=== PATIENT | female | born 1950 | race Caucasian/White ===

== ENCOUNTER → 2017-07-08 12:54 | Outpatient (CLI) | payer MEDICARE, OTHER, SELFPAY ==
[2017-07-08 13:40] LABS: Absolute Lymphocyte Count 1.15 X10^3/ul (0.83-4.51); Absolute Neutrophil Count 15.8 X10^3/uL (2.0-7.7); Basophil# 0.06 X10^3/uL; Basophil% 0.3 % (0-1); Eosinophil# 0.39 X10^3/uL; Eosinophils% 2.2 % (0-5); Hematocrit 42.8 % (37-47); Hemoglobin 12.6 g/dl (12.0-15.0); Lymphocyte # 1.15 X10^3/ul (4.0); Lymphocyte % 6.3 % (19-41); Mean Corp Hgb Conc 29.4 g/gl (32-36); Mean Corpuscular Hgb 22.5 pg (27.0-32.0); Mean Corpuscular Volume 76.6 fL (81-99); Mean Platelet Vol. 10.3 fl (6.2-12.0); Monocyte# 0.66 X10^3/uL; Monocyte% 3.6 % (0-10); Neutrophil % 87.3 % (47-70); Platelet Count 517 K/mm3 (150-450); RBC Distribution Width CV 17.2 % (11.6-14.6); RBC Distribution Width SD 46.7 fl (35.1-43.9); Red Blood Count 5.59 M/mm3 (4.2-5.4); White Blood Count 18.1 K/mm3 (4.4-11.0)
[2017-07-08 13:42] LABS: POSITIVE COUNT NO; POSITIVE DIFFERENTIAL NO; POSITIVE MORPHOLOGY NO
== END ==
PROVIDERS: Family Provider Family Medicine; PCP Family Medicine
DX: D47.1 Chronic myeloproliferative disease (principal); D75.1 Secondary polycythemia
CPT/HCPCS: 36415; 85025

== ENCOUNTER → 2017-07-22 12:51 | Outpatient (CLI) | payer MEDICARE, OTHER, SELFPAY ==
[2017-07-22 13:10] VITALS: BP 101/64; PULSE 72; RESP 16; TEMP 36.8; O2SAT 95; BMI 26.5
[2017-07-22 13:25] LABS: Absolute Lymphocyte Count 1.34 X10^3/ul (0.83-4.51); Absolute Neutrophil Count 16.4 X10^3/uL (2.0-7.7); Basophil# 0.05 X10^3/uL; Basophil% 0.3 % (0-1); Eosinophil# 0.39 X10^3/uL; Eosinophils% 2.1 % (0-5); Hematocrit 43.7 % (37-47); Hemoglobin 12.7 g/dl (12.0-15.0); Lymphocyte # 1.34 X10^3/ul (4.0); Lymphocyte % 7.1 % (19-41); Mean Corp Hgb Conc 29.1 g/gl (32-36); Mean Corpuscular Hgb 21.9 pg (27.0-32.0); Mean Corpuscular Volume 75.5 fL (81-99); Mean Platelet Vol. 10.1 fl (6.2-12.0); Monocyte% 3.2 % (0-10); Neutrophil # 16.38 X10^3/uL (2.7-7.7); Platelet Count 525 K/mm3 (150-450); RBC Distribution Width CV 16.8 % (11.6-14.6); RBC Distribution Width SD 45.7 fl (35.1-43.9); Red Blood Count 5.79 M/mm3 (4.2-5.4); White Blood Count 18.8 K/mm3 (4.4-11.0)
[2017-07-22 13:26] LABS: POSITIVE COUNT NO; POSITIVE DIFFERENTIAL NO
[2017-07-22 13:27] LABS: POSITIVE MORPHOLOGY NO
--- NOTE | 2017-07-22 13:30 | NURSING ---
DUE TO LABS PATIENT DID NOT NEED PHLEBOTOMY
[2017-07-22 13:40] LABS: ALB/GLOB Ratio 0.9 RATIO (0.9-2.4); AST(SGOT) 23 U/L (15-37); Alanine Aminotransfer ALT/SGPT 26 U/L (13-56); Albumin, Serum 3.5 g/dL (3.2-5.0); Alkaline Phosphatase 122 U/L (45-117); Anion Gap 7 (5-15); BUN 26 mg/dL (7-18); BUN/Creat Ratio 27.4 RATIO (10-20); Calcium,Total 8.5 mg/dL (8.5-10.1); Chloride 107 mmol/L (98-107); Creatinine, Serum 0.95 mg/dL (0.55-1.02); EST Glomerular Filtration Rate 63 mL/min (>60); Est Glom Filt Rate - Afr Amer 76 mL/min (>60); Estimated Creatinine Clearance 52.42 ml/min; Globulin 3.8 g/dL (2.2-4.2); Glucose 123 mg/dL (74-106); Potassium 3.8 mmol/L (3.5-5.1); Protein, Total 7.3 g/dL (6.4-8.2); Sodium Level 140 mmol/L (136-145)
== END ==
PROVIDERS: Family Provider Family Medicine; PCP Family Medicine; Visit Provider Internal Medicine Hematology & Oncology
DX: D47.1 Chronic myeloproliferative disease (principal); D75.1 Secondary polycythemia
CPT/HCPCS: 36415; 80053; 85025

== ENCOUNTER → 2017-08-21 11:37 | Outpatient (CLI) | payer MEDICARE, OTHER, SELFPAY ==
[2017-08-21 12:43] LABS: Absolute Lymphocyte Count 2.07 X10^3/ul (0.83-4.51); Absolute Neutrophil Count 13.1 X10^3/uL (2.0-7.7); Basophil# 0.07 X10^3/uL; Basophil% 0.4 % (0-1); Eosinophil# 0.45 X10^3/uL; Eosinophils% 2.7 % (0-5); Hematocrit 44.9 % (37-47); Hemoglobin 13.3 g/dl (12.0-15.0); Lymphocyte # 2.07 X10^3/ul (4.0); Lymphocyte % 12.6 % (19-41); Mean Corp Hgb Conc 29.6 g/gl (32-36); Mean Platelet Vol. 10.4 fl (6.2-12.0); Monocyte# 0.63 X10^3/uL; Monocyte% 3.8 % (0-10); Neutrophil # 13.11 X10^3/uL (2.7-7.7); Neutrophil % 80.2 % (47-70); Platelet Count 429 K/mm3 (150-450); RBC Distribution Width CV 19.6 % (11.6-14.6); RBC Distribution Width SD 48.3 fl (35.1-43.9); Red Blood Count 6.32 M/mm3 (4.2-5.4); White Blood Count 16.4 K/mm3 (4.4-11.0)
[2017-08-21 12:45] LABS: Differential Indicated SCAN CRITERIA MET; POSITIVE COUNT NO; POSITIVE DIFFERENTIAL NO; POSITIVE MORPHOLOGY YES
[2017-08-21 12:58] LABS: ALB/GLOB Ratio 0.9 RATIO (0.9-2.4); AST(SGOT) 20 U/L (15-37); Alanine Aminotransfer ALT/SGPT 19 U/L (13-56); Albumin, Serum 3.6 g/dL (3.2-5.0); Alkaline Phosphatase 113 U/L (45-117); Anion Gap 7 (5-15); BUN 20 mg/dL (7-18); BUN/Creat Ratio 23.8 RATIO (10-20); Chloride 105 mmol/L (98-107); Creatinine, Serum 0.84 mg/dL (0.55-1.02); EST Glomerular Filtration Rate 72 mL/min (>60); Est Glom Filt Rate - Afr Amer 87 mL/min (>60); Glucose 78 mg/dL (74-106); LDH 217 U/L (84-246); Potassium 4.4 mmol/L (3.5-5.1); Protein, Total 7.6 g/dL (6.4-8.2); Sodium Level 140 mmol/L (136-145)
== END ==
PROVIDERS: Family Provider Family Medicine; PCP Family Medicine; Visit Provider Internal Medicine Hematology & Oncology
DX: D47.1 Chronic myeloproliferative disease (principal)
CPT/HCPCS: 36415; 80053; 83615; 85025

== ENCOUNTER → 2017-11-28 09:43 | Outpatient (CLI) | payer MEDICARE, OTHER, SELFPAY ==
[2017-11-28 10:24] LABS: Absolute Lymphocyte Count 1.36 X10^3/ul (0.83-4.51); Basophil# 0.04 X10^3/uL; Basophil% 0.3 % (0-1); Eosinophil# 0.32 X10^3/uL; Eosinophils% 2.2 % (0-5); Hematocrit 46.4 % (37-47); Hemoglobin 13.5 g/dl (12.0-15.0); Lymphocyte # 1.36 X10^3/ul (4.0); Lymphocyte % 9.3 % (19-41); Mean Corp Hgb Conc 29.1 g/gl (32-36); Mean Corpuscular Hgb 22.4 pg (27.0-32.0); Mean Corpuscular Volume 76.8 fL (81-99); Mean Platelet Vol. 9.7 fl (6.2-12.0); Monocyte# 0.87 X10^3/uL; Monocyte% 5.9 % (0-10); Neutrophil # 12.02 X10^3/uL (2.7-7.7); Platelet Count 411 K/mm3 (150-450); RBC Distribution Width CV 20.1 % (11.6-14.6); Red Blood Count 6.04 M/mm3 (4.2-5.4); White Blood Count 14.7 K/mm3 (4.4-11.0)
[2017-11-28 10:25] LABS: Differential Indicated SCAN CRITERIA MET; POSITIVE COUNT YES; POSITIVE DIFFERENTIAL NO; POSITIVE MORPHOLOGY NO
[2017-11-28 11:00] LABS: Anisocytosis 1+; Differential Comment SCANNED
== END ==
PROVIDERS: Family Provider Family Medicine; PCP Family Medicine
DX: D45 Polycythemia vera (principal); D47.1 Chronic myeloproliferative disease
CPT/HCPCS: 36415; 85025

== ENCOUNTER 2017-12-31 14:22 | Outpatient (RCR) | payer MEDICARE, OTHER, SELFPAY ==
[2017-12-31 15:10] LABS: Absolute Lymphocyte Count 1.62 X10^3/ul (0.83-4.51); Absolute Neutrophil Count 13.2 X10^3/uL (2.0-7.7); Basophil# 0.04 X10^3/uL; Basophil% 0.3 % (0-1); Eosinophil# 0.27 X10^3/uL; Eosinophils% 1.7 % (0-5); Hematocrit 46.1 % (37-47); Hemoglobin 13.4 g/dl (12.0-15.0); Lymphocyte # 1.62 X10^3/ul (4.0); Lymphocyte % 10.3 % (19-41); Mean Corp Hgb Conc 29.1 g/gl (32-36); Mean Corpuscular Hgb 22.4 pg (27.0-32.0); Mean Corpuscular Volume 77.1 fL (81-99); Monocyte# 0.57 X10^3/uL; Monocyte% 3.6 % (0-10); Neutrophil # 13.22 X10^3/uL (2.7-7.7); Platelet Count 408 K/mm3 (150-450); RBC Distribution Width CV 18.3 % (11.6-14.6); RBC Distribution Width SD 50.8 fl (35.1-43.9); Red Blood Count 5.98 M/mm3 (4.2-5.4); White Blood Count 15.7 K/mm3 (4.4-11.0)
[2017-12-31 15:11] LABS: POSITIVE COUNT NO; POSITIVE DIFFERENTIAL NO; POSITIVE MORPHOLOGY NO
[2017-12-31 17:06] LABS: ALB/GLOB Ratio 0.9 RATIO (0.9-2.4); AST(SGOT) 24 U/L (15-37); Alanine Aminotransfer ALT/SGPT 22 U/L (13-56); Albumin, Serum 3.5 g/dL (3.2-5.0); Alkaline Phosphatase 114 U/L (45-117); Anion Gap 8 (5-15); BUN 23 mg/dL (7-18); BUN/Creat Ratio 24.8 RATIO (10-20); Calcium,Total 8.8 mg/dL (8.5-10.1); Chloride 108 mmol/L (98-107); Creatinine, Serum 0.93 mg/dL (0.55-1.02); EST Glomerular Filtration Rate 64 mL/min (>60); Est Glom Filt Rate - Afr Amer 78 mL/min (>60); Globulin 3.8 g/dL (2.2-4.2); Glucose 106 mg/dL (74-106); Potassium 3.6 mmol/L (3.5-5.1); Protein, Total 7.3 g/dL (6.4-8.2); Sodium Level 144 mmol/L (136-145)
== END 2017-12-31 15:00 | disposition home or self-care (01) ==
LOC: LAB 14:22
PROVIDERS: Family Provider Family Medicine; PCP Family Medicine; Visit Provider Internal Medicine Hematology & Oncology
DX: D47.1 Chronic myeloproliferative disease (principal); D45 Polycythemia vera
CPT/HCPCS: 36415; 80053; 85025

== ENCOUNTER 2018-01-29 14:51 | Outpatient (RCR) | payer MEDICARE, OTHER, SELFPAY ==
[2018-01-29 15:36] LABS: Absolute Lymphocyte Count 1.48 X10^3/ul (0.83-4.51); Absolute Neutrophil Count 12.4 X10^3/uL (2.0-7.7); Basophil# 0.04 X10^3/uL; Basophil% 0.3 % (0-1); Eosinophil# 0.25 X10^3/uL; Eosinophils% 1.7 % (0-5); Hematocrit 45.9 % (37-47); Hemoglobin 13.6 g/dl (12.0-15.0); Lymphocyte # 1.48 X10^3/ul (4.0); Mean Corp Hgb Conc 29.6 g/gl (32-36); Mean Corpuscular Hgb 22.5 pg (27.0-32.0); Mean Platelet Vol. 10.4 fl (6.2-12.0); Monocyte# 0.58 X10^3/uL; Monocyte% 3.9 % (0-10); Neutrophil # 12.41 X10^3/uL (2.7-7.7); Neutrophil % 83.8 % (47-70); Platelet Count 424 K/mm3 (150-450); RBC Distribution Width CV 18.9 % (11.6-14.6); RBC Distribution Width SD 50.2 fl (35.1-43.9); Red Blood Count 6.04 M/mm3 (4.2-5.4); White Blood Count 14.8 K/mm3 (4.4-11.0)
[2018-01-29 15:39] LABS: POSITIVE COUNT NO; POSITIVE DIFFERENTIAL NO; POSITIVE MORPHOLOGY NO
[2018-01-29 15:48] LABS: ALB/GLOB Ratio 0.9 RATIO (0.9-2.4); AST(SGOT) 19 U/L (15-37); Alanine Aminotransfer ALT/SGPT 20 U/L (13-56); Albumin, Serum 3.4 g/dL (3.2-5.0); Alkaline Phosphatase 109 U/L (45-117); Anion Gap 9 (5-15); BUN 22 mg/dL (7-18); BUN/Creat Ratio 16.9 RATIO (10-20); Calcium,Total 8.8 mg/dL (8.5-10.1); Chloride 106 mmol/L (98-107); EST Glomerular Filtration Rate 44 mL/min (>60); Est Glom Filt Rate - Afr Amer 53 mL/min (>60); Globulin 3.6 g/dL (2.2-4.2); Glucose 134 mg/dL (74-106); LDH 204 U/L (84-246); Potassium 3.6 mmol/L (3.5-5.1); Sodium Level 144 mmol/L (136-145)
== END 2018-01-29 16:00 | disposition home or self-care (01) ==
LOC: LAB 14:51
PROVIDERS: Family Provider Family Medicine; PCP Family Medicine; Visit Provider Internal Medicine Hematology & Oncology
DX: D47.1 Chronic myeloproliferative disease (principal); D45 Polycythemia vera
CPT/HCPCS: 36415; 80053; 83615; 85025

== ENCOUNTER 2018-02-27 14:51 | Outpatient (RCR) | payer MEDICARE, OTHER, SELFPAY ==
[2018-02-27 17:06] LABS: Absolute Lymphocyte Count 1.53 X10^3/ul (0.83-4.51); Absolute Neutrophil Count 13.3 X10^3/uL (2.0-7.7); Basophil# 0.06 X10^3/uL; Basophil% 0.4 % (0-1); Eosinophil# 0.34 X10^3/uL; Eosinophils% 2.1 % (0-5); Hematocrit 47.7 % (37-47); Hemoglobin 14.1 g/dl (12.0-15.0); Lymphocyte # 1.53 X10^3/ul (4.0); Lymphocyte % 9.6 % (19-41); Mean Corp Hgb Conc 29.6 g/gl (32-36); Mean Corpuscular Hgb 22.7 pg (27.0-32.0); Mean Corpuscular Volume 76.9 fL (81-99); Mean Platelet Vol. 10.5 fl (6.2-12.0); Monocyte# 0.74 X10^3/uL; Monocyte% 4.6 % (0-10); Neutrophil # 13.29 X10^3/uL (2.7-7.7); POSITIVE COUNT NO; POSITIVE DIFFERENTIAL NO; POSITIVE MORPHOLOGY NO; Platelet Count 442 K/mm3 (150-450); RBC Distribution Width CV 19.4 % (11.6-14.6); RBC Distribution Width SD 53.1 fl (35.1-43.9)
== END 2018-02-27 16:00 | disposition home or self-care (01) ==
LOC: LAB 14:51
PROVIDERS: Family Provider Family Medicine; PCP Family Medicine; Visit Provider Internal Medicine Hematology & Oncology
DX: D47.1 Chronic myeloproliferative disease (principal); D45 Polycythemia vera
CPT/HCPCS: 36415; 85025

== ENCOUNTER 2018-04-02 13:06 | Outpatient (RCR) | payer MEDICARE, OTHER, SELFPAY ==
[2018-04-02 13:40] LABS: Absolute Lymphocyte Count 1.78 X10^3/ul (0.83-4.51); Absolute Neutrophil Count 15.2 X10^3/uL (2.0-7.7); Basophil# 0.05 X10^3/uL; Basophil% 0.3 % (0-1); Eosinophil# 0.28 X10^3/uL; Eosinophils% 1.5 % (0-5); Hematocrit 50.4 % (37-47); Hemoglobin 14.4 g/dl (12.0-15.0); Lymphocyte # 1.78 X10^3/ul (4.0); Lymphocyte % 9.8 % (19-41); Mean Corp Hgb Conc 28.6 g/gl (32-36); Mean Corpuscular Hgb 22.5 pg (27.0-32.0); Mean Corpuscular Volume 78.6 fL (81-99); Mean Platelet Vol. 10.2 fl (6.2-12.0); Monocyte# 0.83 X10^3/uL; Monocyte% 4.6 % (0-10); Neutrophil # 15.22 X10^3/uL (2.7-7.7); Neutrophil % 83.6 % (47-70); POSITIVE COUNT NO; POSITIVE DIFFERENTIAL NO; POSITIVE MORPHOLOGY NO; Platelet Count 410 K/mm3 (150-450); RBC Distribution Width CV 19.1 % (11.6-14.6); RBC Distribution Width SD 54.3 fl (35.1-43.9); Red Blood Count 6.41 M/mm3 (4.2-5.4); White Blood Count 18.2 K/mm3 (4.4-11.0)
== END 2018-04-02 14:00 | disposition home or self-care (01) ==
LOC: LAB 13:06
PROVIDERS: Family Provider Family Medicine; PCP Family Medicine; Referring Provider Internal Medicine Hematology & Oncology; Visit Provider Internal Medicine Hematology & Oncology
DX: D47.1 Chronic myeloproliferative disease (principal); D45 Polycythemia vera
CPT/HCPCS: 36415; 85025

== ENCOUNTER 2018-05-01 13:36 | Outpatient (RCR) | payer MEDICARE, OTHER, SELFPAY ==
[2018-05-01 14:02] LABS: Absolute Lymphocyte Count 1.83 X10^3/ul (0.83-4.51); Absolute Neutrophil Count 14.4 X10^3/uL (2.0-7.7); Basophil# 0.06 X10^3/uL; Basophil% 0.3 % (0-1); Eosinophil# 0.36 X10^3/uL; Eosinophils% 2.1 % (0-5); Hematocrit 45.9 % (37-47); Hemoglobin 13.2 g/dl (12.0-15.0); Lymphocyte # 1.83 X10^3/ul (4.0); Lymphocyte % 10.4 % (19-41); Mean Corp Hgb Conc 28.8 g/gl (32-36); Mean Corpuscular Hgb 22.5 pg (27.0-32.0); Mean Corpuscular Volume 78.3 fL (81-99); Mean Platelet Vol. 10.4 fl (6.2-12.0); Monocyte# 0.83 X10^3/uL; Monocyte% 4.7 % (0-10); Neutrophil # 14.42 X10^3/uL (2.7-7.7); Neutrophil % 82.3 % (47-70); Platelet Count 449 K/mm3 (150-450); RBC Distribution Width CV 18.2 % (11.6-14.6); RBC Distribution Width SD 51.5 fl (35.1-43.9); Red Blood Count 5.86 M/mm3 (4.2-5.4); White Blood Count 17.5 K/mm3 (4.4-11.0)
[2018-05-01 14:03] LABS: Differential Indicated SCAN CRITERIA MET; POSITIVE COUNT YES; POSITIVE DIFFERENTIAL NO; POSITIVE MORPHOLOGY NO
[2018-05-01 14:19] LABS: Anisocytosis RARE; Microcytosis RARE; Platelet Estimate ADEQUATE (ADEQ); Platelet Morphology LARGE
== END 2018-05-11 10:45 | disposition home or self-care (01) ==
LOC: LAB 13:36
PROVIDERS: Family Provider Family Medicine; PCP Family Medicine; Referring Provider Internal Medicine Hematology & Oncology; Visit Provider Internal Medicine Hematology & Oncology
DX: D47.1 Chronic myeloproliferative disease (principal); D45 Polycythemia vera
CPT/HCPCS: 36415; 85025

== ENCOUNTER 2018-06-05 15:01 | Outpatient (RCR) | payer MEDICARE, OTHER, SELFPAY ==
[2018-06-05 16:49] LABS: Absolute Lymphocyte Count 1.48 X10^3/ul (0.83-4.51); Absolute Neutrophil Count 13.1 X10^3/uL (2.0-7.7); Basophil# 0.04 X10^3/uL; Basophil% 0.3 % (0-1); Eosinophil# 0.33 X10^3/uL; Eosinophils% 2.1 % (0-5); Hematocrit 47.7 % (37-47); Hemoglobin 13.9 g/dl (12.0-15.0); Lymphocyte # 1.48 X10^3/ul (4.0); Lymphocyte % 9.4 % (19-41); Mean Corp Hgb Conc 29.1 g/gl (32-36); Mean Corpuscular Hgb 22.2 pg (27.0-32.0); Mean Corpuscular Volume 76.2 fL (81-99); Mean Platelet Vol. 10.5 fl (6.2-12.0); Monocyte# 0.73 X10^3/uL; Monocyte% 4.7 % (0-10); Neutrophil # 13.06 X10^3/uL (2.7-7.7); Neutrophil % 83.2 % (47-70); Platelet Count 454 K/mm3 (150-450); RBC Distribution Width CV 18.1 % (11.6-14.6); RBC Distribution Width SD 49.7 fl (35.1-43.9); Red Blood Count 6.26 M/mm3 (4.2-5.4); White Blood Count 15.7 K/mm3 (4.4-11.0)
[2018-06-05 16:51] LABS: POSITIVE COUNT NO; POSITIVE DIFFERENTIAL NO; POSITIVE MORPHOLOGY NO
[2018-06-05 16:53] LABS: LDH 382 U/L (84-246)
== END 2018-06-05 16:00 | disposition home or self-care (01) ==
LOC: LAB 15:01
PROVIDERS: Family Provider Family Medicine; PCP Family Medicine; Referring Provider Internal Medicine Hematology & Oncology; Visit Provider Internal Medicine Hematology & Oncology
DX: D47.1 Chronic myeloproliferative disease (principal); D45 Polycythemia vera
CPT/HCPCS: 36415; 83615; 85025

== ENCOUNTER 2018-07-01 15:29 | Outpatient (RCR) | payer MEDICARE, OTHER, SELFPAY ==
[2018-07-01 16:40] LABS: Absolute Lymphocyte Count 1.49 X10^3/ul (0.83-4.51); Absolute Neutrophil Count 12.6 X10^3/uL (2.0-7.7); Basophil# 0.04 X10^3/uL; Basophil% 0.3 % (0-1); Eosinophil# 0.33 X10^3/uL; Eosinophils% 2.2 % (0-5); Hematocrit 46.8 % (37-47); Hemoglobin 13.3 g/dl (12.0-15.0); Lymphocyte # 1.49 X10^3/ul (4.0); Lymphocyte % 9.8 % (19-41); Mean Corp Hgb Conc 28.4 g/gl (32-36); Mean Corpuscular Hgb 21.9 pg (27.0-32.0); Mean Corpuscular Volume 77.1 fL (81-99); Mean Platelet Vol. 10.7 fl (6.2-12.0); Monocyte# 0.72 X10^3/uL; Monocyte% 4.7 % (0-10); Neutrophil # 12.63 X10^3/uL (2.7-7.7); Neutrophil % 82.7 % (47-70); Platelet Count 414 K/mm3 (150-450); RBC Distribution Width CV 18.8 % (11.6-14.6); RBC Distribution Width SD 52.4 fl (35.1-43.9); Red Blood Count 6.07 M/mm3 (4.2-5.4); White Blood Count 15.3 K/mm3 (4.4-11.0)
[2018-07-01 16:49] LABS: LDH 266 U/L (84-246)
[2018-07-01 16:58] LABS: POSITIVE COUNT NO; POSITIVE DIFFERENTIAL NO; POSITIVE MORPHOLOGY NO
--- OUTSIDE RECORDS SUMMARY | 2018-09-02 18:01 | XMS RPT_ITS ---
:1950 Author Organization [place] Support Name Relationship Address Phone CLOSE SANAZ INS Unavailable [address] + [place] [address] NARCISO JANG Unavailable [address] + [place] [address] CLOSE SANAZ INS Unavailable [address] + [place] [address] NARCISO JANG Unavailable [address] + [place] [address] LINWOOD JANG Unavailable [address] + [place], [place] [id number] NARCISO JANG Unavailable [address] [place] [address] NOT GIVEN Unavailable Unavailable Unavailable LINWOOD JANG Unavailable [address] + [place], [place] [id number] NARCISO JANG Unavailable [address] [place] [address] NOT GIVEN Unavailable Unavailable Unavailable CLOSE SANAZ INS Unavailable [address] + [place] [address] NARCISO JANG Unavailable [address] + [place] [address] CLOSE SANAZ INS Unavailable [address] + [place] [address] NARCISO JANG Unavailable [address] + [place] [address] CLOSE SANZA INS Unavailable [address] + [place] [address] NARCISO JANG Unavailable [address] + [place] [address] LINWOOD JANG Unavailable Unavailable + CLOSE SANAZ INS Unavailable [address] + [place] [address] NARCISO JANG Unavailable [address] + [place] [address] CLOSE SANAZ INS Unavailable [address] + [place] [address] NARCISO JANG Unavailable [address] + [place] [address] CLOSE SANAZ INS Unavailable [address] + [place] [address] NARCISO JANG Unavailable [address] + [place] [address] LAINELINWOOD Unavailable Unavailable + LINWOOD JANG Unavailable Unavailable + LINWOOD JANG Unavailable [address] + [place], [place] [id number] NARCISO JANG Unavailable [address] [place] [address] NOT GIVEN Unavailable Unavailable Unavailable LINWOOD JANG Unavailable [address] + [place], [place] [phone] NARCISO JANG Unavailable [address] [place] [address] NOT GIVEN Unavailable Unavailable Unavailable CLOSE SANAZ INS Unavailable [address] + [place] [address] NARCISO JANG Unavailable [address] + [place] [address] CLOSE SANAZ INS Unavailable [address] + [place] [address] NARCISO JANG Unavailable [address] + [place] [address] CLOSE-SANAZ INS Unavailable [address] + [place] [address] NARCISO JANG Unavailable [address] + [place] [address] Care Team Providers Name Role Phone HUNG CHRISTIANSON MD Primary Care Unavailable BHAVIN MENDIETA MD Admitting Unavailable BHAVIN MENDIETA MD Attending Unavailable BHAVIN MENDIETA MD Consulting Unavailable SANAM GROSS MD Attending Unavailable TREHAN MD, SANAM Attending Unavailable CHRISTIANSON, HUNG A Referring Unavailable JUANA, VICENTE DO Admitting Unavailable JUANA, VICENTE DO Attending Unavailable JUANA, VICENTE DO Primary Care Unavailable CHRISTIANSON, HUNG A Consulting Unavailable PROVIDER, UNKNOWN Consulting Unavailable PROVIDER, UNKNOWN Consulting Unavailable PROVIDER, UNKNOWN Consulting Unavailable TREHAN, SANAM Admitting Unavailable TREHAN, SANAM Attending Unavailable TREHAN, SANAM Primary Care Unavailable CHRISTIANSON, HUNG A Consulting Unavailable PROVIDER, UNKNOWN Consulting Unavailable PROVIDER, UNKNOWN Consulting Unavailable PROVIDER, UNKNOWN Consulting Unavailable BRAULIO, MAYO Admitting Unavailable BRAULIO, MAYO Attending Unavailable BRAULIO, MAYO Primary Care Unavailable CHRISTIANSON, HUNG A Consulting Unavailable CHRISTIANSON, HUNG A Referring Unavailable PROVIDER, UNKNOWN Consulting Unavailable PROVIDER, UNKNOWN Consulting Unavailable PROVIDER, UNKNOWN Consulting Unavailable BRAULIO, MAYO Admitting Unavailable BRAULIO, MAYO Attending Unavailable BRAULIO, MAYO Primary Care Unavailable CHRISTIANSON, HUNG A Consulting Unavailable PROVIDER, UNKNOWN Consulting Unavailable PROVIDER, UNKNOWN Consulting Unavailable PROVIDER, UNKNOWN Consulting Unavailable Trehan, Sanam Attending Unavailable Trehan, Sanam Referring Unavailable Christianson, Hung Primary Care Unavailable Christianson, Hung Primary Care Unavailable Trehan, Sanam Attending Unavailable Trehan, Sanam Referring Unavailable BRAYAN CASTELAN Attending Unavailable Christianson, Hung Primary Care Unavailable Christianson, Hung Primary Care Unavailable Trehan, Sanam Attending Unavailable Trehan, Sanam Referring Unavailable BRAYAN CASTELAN Attending Unavailable BRAYAN CASTELAN Referring Unavailable Christianson, Hung Primary Care Unavailable Trehan, Sanam Attending Unavailable Christianson, Hung Primary Care Unavailable Trehan, Sanam Attending Unavailable Christianson, Hung Primary Care Unavailable Trehan, Sanam Referring Unavailable Trehan, Sanam Attending Unavailable Trehan, Sanam Referring Unavailable Christianson, Hung Primary Care Unavailable Trehan, Sanam Attending Unavailable Trehan, Sanam Referring Unavailable Christianson, Hung Primary Care Unavailable Trehan, Sanam Attending Unavailable Trehan, Sanam Referring Unavailable Christianson, Hung Primary Care Unavailable Trehan, Sanam Attending Unavailable Trehan, Sanam Referring Unavailable Christianson, Hung Primary Care Unavailable PROBLEMS PROBLEMS DATE TYPE CONDITION / CODE ATTENDING STATUS SOURCE 06/08/2018 Unknown D47.1 - Chronic Gilberto Grossuti Active [facility] / D47.1(ICD-10) Hospital Repository 05/11/2018 Unknown D45 - Polycythemia vera Sanam Gross Active [facility] / D45(ICD-10) [facility] Repository PROCEDURES PROCEDURES No Procedure Records FoundRESULTS RESULTS LDH Collected: 07/01/2018 Status: F Source: SELLS 3:[address] [facility] REPOSITORY Order Comment: Serial Specimen #1, #2 or #3? 1 TYPE CODE TESTS RESULT OUT OF RANGE REFERENCE UNITS LAB L504.2610 84-246 U/L High LDH 266 Performed By: #### L504.2610 #### [facility] [address] [place], [address] CBC W/DIFF, AUTOMATED Collected: 07/01/2018 Status: F Source: SABINO 3:[address] [facility] REPOSITORY TYPE CODE TESTS RESULT OUT OF RANGE REFERENCE UNITS LAB L100.1000 4.4-11.0 K/mm3 High WBC 15.3 LAB L100.1200 4.2-5.4 M/mm3 High RBC 6.07 LAB L100.1300 12.0-15.0 g/dl Normal HGB 13.3 LAB L100.1400 37-47 % Normal HCT 46.8 LAB L100.1500 81-99 fL Low MCV 77.1 LAB L100.1600 27.0-32.0 pg Low MCH 21.9 LAB L100.1700 32-36 g/gl Low MCHC 28.4 LAB L100.1810 11.6-14.6 % High RDW CV 18.8 LAB L100.1820 35.1-43.9 fl High RDW SD 52.4 LAB L100.1900 150-450 K/mm3 Normal PLT 414 LAB L100.2000 6.2-12.0 fl Normal MPV 10.7 LAB L100.2100 47-70 % High NEUT% 82.7 LAB L100.2200 19-41 % Low LY% 9.8 LAB L100.2300 0-10 % Normal MONO% 4.7 LAB L100.2400 0-5 % Normal EO% 2.2 LAB L100.2500 0-1 % Normal BASO% 0.3 LAB L100.2550 0.0-0.9 % Normal IM GRAN % 0.300 Result Comment: IG% - Immature Granulocytes (promyelocytes, myelocytes and metamyelocytes) > 1% indicates that a LEFT SHIFT is Present. LAB L100.2620 2.0-7.7 X10 3/uL High Absolute Neut 12.6 LAB L100.2720 0.83-4.51 X10 3/ul Normal Absolute Lymph 1.49 Performed By: #### L100.0100 #### [facility] [address] [place], [address] CBC W/DIFF, AUTOMATED Collected: 06/05/2018 Status: F Source: SABINO 3:[address] [facility] REPOSITORY TYPE CODE TESTS RESULT OUT OF RANGE REFERENCE UNITS LAB L100.1000 4.4-11.0 K/mm3 High WBC 15.7 LAB L100.1200 4.2-5.4 M/mm3 High RBC 6.26 LAB L100.1300 12.0-15.0 g/dl Normal HGB 13.9 LAB L100.1400 37-47 % High HCT 47.7 LAB L100.1500 81-99 fL Low MCV 76.2 LAB L100.1600 27.0-32.0 pg Low MCH 22.2 LAB L100.1700 32-36 g/gl Low MCHC 29.1 LAB L100.1810 11.6-14.6 % High RDW CV 18.1 LAB L100.1820 35.1-43.9 fl High RDW SD 49.7 LAB L100.1900 150-450 K/mm3 High PLT 454 LAB L100.2000 6.2-12.0 fl Normal MPV 10.5 LAB L100.2100 47-70 % High NEUT% 83.2 LAB L100.2200 19-41 % Low LY% 9.4 LAB L100.2300 0-10 % Normal MONO% 4.7 LAB L100.2400 0-5 % Normal EO% 2.1 LAB L100.2500 0-1 % Normal BASO% 0.3 LAB L100.2550 0.0-0.9 % Normal IM GRAN % 0.300 Result Comment: IG% - Immature Granulocytes (promyelocytes, myelocytes and metamyelocytes) > 1% indicates that a LEFT SHIFT is Present. LAB L100.2620 2.0-7.7 X10 3/uL High Absolute Neut 13.1 LAB L100.2720 0.83-4.51 X10 3/ul Normal Absolute Lymph 1.48 Performed By: #### L100.0100 #### [facility] [address] [place], [address] LDH Collected: 06/05/2018 Status: F Source: SABINO 3:[address] [facility] REPOSITORY Order Comment: Serial Specimen #1, #2 or #3? 1 TYPE CODE TESTS RESULT OUT OF RANGE REFERENCE UNITS LAB L504.2610 84-246 U/L High LDH 382 Result Comment: Moderate Hemolysis, Result may be falsely increased. Performed By: #### L504.2610 #### [facility] [address] [place], [address] LIPID PROFILE Collected: 05/12/2018 Status: F Source: LAVON GRIFFIN 10:48 AM [facility] TYPE CODE TESTS RESULT OUT OF REFERENCE UNITS RANGE LAB LIPID PROFILE(LOIN C) LIPID PROFILE Result Comment: LIPID PROFILE LAB TRIGLYCERIDE(LOINC) 0 - 150 mg/dl TRIGLYCERIDE 107 LAB CHOLESTEROL(LOINC) 0 - 200 mg/dl CHOLESTEROL 133 LAB HDL(LOINC) 40 - 60 mg/dl HDL 52 LAB CHOL/HDL(LOINC) 0.0 - 5.0 CHOL/HDL 2.6 LAB LDL(LOINC) 0 - 129 mg/dl LDL 60 Performed By: #### [id number] #### [facility],[address] [place] [address] [place] CARDIAC STRESS Observed: 05/12/2018 Status: F Source: LAVON GRIFFIN (SPECT) W/TREADMILL 10:[address] [address] Patient: PHONG JANG I. Phone#: : 1950 Age: 68 Gender: F Pt. Type: Out Account: [id number] Location: [facility] Ordering: MAYO RAMSEY Exam Date: 05/12/2018/5:41 Family Phys: Charge Code: [id number] Physician: [place] Order #: [id number] DLP Dose#: PROCEDURE: CARDIAC STRESS SPECT WITH TREADMILL EXERCISE HISTORY: 68-year-old female with history of CAD S/P LAD PCI in 2017 INDICATIONS: Coronary artery disease TECHNIQUE: Resting and stress SPECT images acquired in the horizontal long, vertical long and short axis views. Protocol: Audie Duration: 10:00 minutes Peak Heart Rate: 166 bpm, which is 108% of maximum predicted heart rate. Workload: 11.70 METs REST DOSE: 10.4 mCi Sestamibi. STRESS DOSE: 34.2 mCi Sestamibi. INTERPRETATION: Resting Images: Homogenous radio tracer uptake throughout the myocardium. Stress Images: Homogenous radio tracer uptake throughout the myocardium Gated SPECT/wall motion: Normal wall motion and normal end- systolic brightening and thickening of all myocardial segments. Calculated LVEF 68% and left ventricle end diastolic volume 77 mL. TID ratio 0.92. CONCLUSION: 1. No evidence of inducible ischemia or prior myocardial infarction. 2. Normal wall motion and normal left ventricle systolic function, LVEF 68%. 3. No prior study available for comparison. Dictated by: MAYO RAMSEY on 05/12/2018 at 11:20 Approved by: MAYO RAMSEY on 05/12/2018 at 11:20 NM EXERCISE STRESS Observed: 05/12/2018 Status: F Source: [facility] (W/CARDIAC STUDY 9:31 AM [place] [address] Patient: PHONG JANG I. Phone#: : 1950 Age: 68 Gender: F Pt. Type: Out Account: [id number] Location: [facility] Ordering: MAYO RAMSEY Exam Date: 05/12/2018/6:31 Family Phys: HUNG CHRISTIANSON Charge Code: [id number] Physician: [place] Order #: [id number] DLP Dose#: PROCEDURE: ELECTROCARDIOGRAM STRESS TEST HISTORY: 68-year-old female with history of CAD S/P LAD PCI in 2017 INDICATIONS: CAD TECHNIQUE: Electrocardiogram stress test was performed using the protocol listed below. STRESS RESULTS: Protocol: Audie Duration: 10:00minutes Reason for termination: Dyspnea/Fatigue Resting Heart Rate: 59 bpm. Resting Blood Pressure: 132/81 mmHg Peak Heart Rate: 166 which is 108% of maximum predicted heart rate Peak Blood Pressure: 180/86 at 3:50 Recovery Workload: 11.7 METs. Symptoms with stress: Non-anginal chest pain at peak exercise which resolved quickly in recovery EKG Data EKG at Baseline: Normal sinus rhythm. Normal EKG. EKG with Stress: 1.[address] depression in leads II, III, V4 to V6 not meeting criteria for ischemia. Occasional PVCs including ventricular couplets were noted. CONCLUSION: 1. Negative exercise EKG stress test for ischemia he 2. Good functional capacity. 3. Nonanginal chest pain at peak exercise which resolved quickly in recovery. 4. Occasional PVCs including ventricular couplets noted. 5. Normal blood pressure and heart rate response to exercise. Continued Report - Page 2 of 2 Patient: PHONG JANG I. Phone#: : 1950 Age: 68 Gender: F Pt. Type: Out Account: [id number] Location: 2 Ordering: MAYO BRAULIO Exam Date: 05/12/2018/6:31 Family Phys: HUNG CHRISTIANSON Charge Code: [id number] Physician: [place] Order #: [id number] DLP Dose#: 6. Nuclear images will be reviewed and reported separately. Dictated by: MAYO RAMSEY on 05/12/2018 at 11:18 Approved by: MAYO RAMSEY on 05/12/2018 at 11:18 CV ECHO COMPLETE Observed: 05/12/2018 Status: F Source: LAV[place] GRIFFIN 8:44 AM [place] [address] Patient: PHONG JANG I. Phone#: : 1950 Age: 68 Gender: F Pt. Type: Out Account: [id number] Location: 052 Ordering: [id number] Exam Date: 05/12/2018/7:31 Family Phys: Charge Code: [id number] Physician: [place] Order #: [id number] DLP Dose#: PROCEDURE: ECHOCARDIOGRAM WITH DOPPLER AND COLOR FLOW HISTORY: 68-year-old female with history of CAD S/P PCI, hypertension and dyslipidemia INDICATIONS: CAD S/P PCI TECHNIQUE: A 2-D ultrasound, color spectral Doppler and M-mode evaluation of the heart and great vessels. PATIENT MEASUREMENTS: Height (in.): 65 BSA: 1.9 Weight (lbs.): 170 BP: 130/81 Crisis Counselor: DORY M MODE 2D MEASUREMENTS AND CALCULATIONS: LVIDd: 4.64 cm LVIDs: 3.21 cm IVSd: 1.29 cm LVPWd: 1.17 cm FS: 30.81 % Ao Root diam: 3.20 cm LA diam: 3.71 cm LA Volume Index: 23 ml/m2 LA A4 Area: 13.5 cm2 RA A4 Area: 12.5 cm2 RVDd: 2.15 cm TAPSE: 25 mm DOPPLER MEASUREMENTS AND CALCULATIONS MITRAL MV E MAX cornell: 101.48 cm/s MV A MAX cornell: 110.11 cm/s MV E-A ratio: 0.92 Lat Peak E' Cornell 10 cm/s Septal Peak E' CORNELL 9 cm/s Continued Report - Page 2 of 3 Patient: PHONG JANG I. Phone#: : 1950 Age: 68 Gender: F Pt. Type: Out Account: [id number] Location: [facility] Ordering: MAYO RAMSEY Exam Date: 05/12/2018/7:31 Family Phys: Charge Code: [id number] Physician: [place] Order #: [id number] DLP Dose#: Lateral E./E.' 10.6 Median E./E.' 11.4 AORTIC Ao V2 max: 151.01 cm/s Ao max P.12 mm[Hg] LV V1 Max 128.24 cm/s LV V1 Max PG 6.58 mm[Hg] PULMONIC PA V2 Max 81.68 cm/s PA Max PG 2.67 mm[Hg] TRICUSPID TR Max Cornell 253.58 cm/s TR max PG 25.82 mm[Hg] RVSP 29 mmHg 2D/M-MODE AND COLOR FLOW LEFT VENTRICLE: Normal left ventricle size. Mild concentric left ventricle hypertrophy. Normal wall motion and systolic function, ejection fraction 55-60%. Average global longitudinal strain -20.2% (normal). Normal diastolic function for age. WALL MOTION: 1 - Basal anterior: Normal. 7 - Mid anterior: Normal. 13 - Apical anterior: Normal. 2 - Basal anteroseptal: Normal. 8 - Mid anteroseptal: Normal. 14 - Apical septal: Normal. 3 - Basal inferoseptal: Normal. 9 - Mid inferoseptal: Normal. 15 - Apical inferior: Normal. 4 - Basal inferior: Normal. 10-Mid inferior: Normal. 16 - Apical lateral: Normal. 5 - Basal inferolateral: Normal. 11-Mid inferolateral: Normal. 6 - Basal anterolateral: Normal. 12-Mid anterolateral: Normal. RIGHT VENTRICLE: Normal size and systolic function. Prominent moderator band noted. LEFT ATRIUM: Normal RIGHT ATRIUM: Normal MITRAL VALVE: Mild mitral annular calcification. Normal leaflet structure and mobility. Mild mitral regurgitation. TRICUSPID VALVE: Normal leaflet structure and mobility. Mild tricuspid regurgitation. AORTIC VALVE: Trileaflet aortic valve with normal leaflet structure and mobility. No significant aortic stenosis or regurgitation. PULMONIC VALVE: Normal leaflet structure and mobility. Trace pulmonic insufficiency AORTIC ROOT: Normal size and mildly calcified IVC/SVC: Normal size and normal respirophasic response PULMONARY VEINS: Normal flow pattern PERICARDIUM: No significant pericardial effusion Continued Report - Page 3 of 3 Patient: PHONG JANG I. Phone#: : 1950 Age: 68 Gender: F Pt. Type: Out Account: [id number] Location: [facility] Ordering: MAYO RAMSEY Exam Date: 05/12/2018/7:31 Family Phys: Charge Code: [id number] Physician: [place] Order #: [id number] DLP Dose#: CONCLUSION: 1. Mild concentric left ventricle hypertrophy with normal wall motion and systolic function, ejection fraction 55- 60%. 2. Normal right ventricle size and systolic function. 3. Mild mitral annular calcification with mild mitral regurgitation. 4. Mild tricuspid regurgitation. 5. Mildly calcified aortic root. 6. Normal diastolic function for age. 7. RVSP estimated to be 29 mmHg. 8. No prior study available for comparison. Dictated by: MAYO RAMSEY on 05/12/2018 at 10:36 Approved by: MAYO RAMSEY on 05/12/2018 at 10:36 CBC W/DIFF, AUTOMATED Collected: 05/01/2018 Status: F Source: SELLS 1:[address] [facility] REPOSITORY TYPE CODE TESTS RESULT OUT OF RANGE REFERENCE UNITS LAB L100.1000 4.4-11.0 K/mm3 High WBC 17.5 LAB L100.1200 4.2-5.4 M/mm3 High RBC 5.86 LAB L100.1300 12.0-15.0 g/dl Normal HGB 13.2 LAB L100.1400 37-47 % Normal HCT 45.9 LAB L100.1500 81-99 fL Low MCV 78.3 LAB L100.1600 27.0-32.0 pg Low MCH 22.5 LAB L100.1700 32-36 g/gl Low MCHC 28.8 LAB L100.1810 11.6-14.6 % High RDW CV 18.2 LAB L100.1820 35.1-43.9 fl High RDW SD 51.5 LAB L100.1900 150-450 K/mm3 Normal PLT 449 LAB L100.2000 6.2-12.0 fl Normal MPV 10.4 LAB L100.2100 47-70 % High NEUT% 82.3 LAB L100.2200 19-41 % Low LY% 10.4 LAB L100.2300 0-10 % Normal MONO% 4.7 LAB L100.2400 0-5 % Normal EO% 2.1 LAB L100.2500 0-1 % Normal BASO% 0.3 LAB L100.2550 0.0-0.9 % Normal IM GRAN % 0.200 Result Comment: IG% - Immature Granulocytes (promyelocytes, myelocytes and metamyelocytes) > 1% indicates that a LEFT SHIFT is Present. LAB L100.2620 2.0-7.7 X10 3/uL Absolute High Neut 14.4 LAB L100.2720 0.83-4.51 X10 3/ul Absolute Normal Lymph 1.83 LAB L100.5500 ADEQ PLT EST Normal ADEQUATE LAB L100.5650 PLT Normal MORPH LARGE LAB L100.7300 ANISO Normal RARE LAB L100.7700 Normal MICROCYTES RARE Performed By: #### L100.0100 #### [facility] [address] [place], [address] CBC W/DIFF, AUTOMATED Collected: 04/02/2018 Status: F Source: SABINO 1:[address] [facility] REPOSITORY TYPE CODE TESTS RESULT OUT OF RANGE REFERENCE UNITS LAB L100.1000 4.4-11.0 K/mm3 High WBC 18.2 LAB L100.1200 4.2-5.4 M/mm3 High RBC 6.41 LAB L100.1300 12.0-15.0 g/dl Normal HGB 14.4 LAB L100.1400 37-47 % High HCT 50.4 LAB L100.1500 81-99 fL Low MCV 78.6 LAB L100.1600 27.0-32.0 pg Low MCH 22.5 LAB L100.1700 32-36 g/gl Low MCHC 28.6 LAB L100.1810 11.6-14.6 % High RDW CV 19.1 LAB L100.1820 35.1-43.9 fl High RDW SD 54.3 LAB L100.1900 150-450 K/mm3 Normal PLT 410 LAB L100.2000 6.2-12.0 fl Normal MPV 10.2 LAB L100.2100 47-70 % High NEUT% 83.6 LAB L100.2200 19-41 % Low LY% 9.8 LAB L100.2300 0-10 % Normal MONO% 4.6 LAB L100.2400 0-5 % Normal EO% 1.5 LAB L100.2500 0-1 % Normal BASO% 0.3 LAB L100.2550 0.0-0.9 % Normal IM GRAN % 0.200 Result Comment: IG% - Immature Granulocytes (promyelocytes, myelocytes and metamyelocytes) > 1% indicates that a LEFT SHIFT is Present. LAB L100.2620 2.0-7.7 X10 3/uL High Absolute Neut 15.2 LAB L100.2720 0.83-4.51 X10 3/ul Normal Absolute Lymph 1.78 Performed By: #### L100.0100 #### [facility] [place], [address] CBC W/DIFF, AUTOMATED Collected: 02/27/2018 Status: F Source: SABINO 2:[address] [facility] REPOSITORY TYPE CODE TESTS RESULT OUT OF RANGE REFERENCE UNITS LAB L100.1000 4.4-11.0 K/mm3 High WBC 16.0 LAB L100.1200 4.2-5.4 M/mm3 High RBC 6.20 LAB L100.1300 12.0-15.0 g/dl Normal HGB 14.1 LAB L100.1400 37-47 % High HCT 47.7 LAB L100.1500 81-99 fL Low MCV 76.9 LAB L100.1600 27.0-32.0 pg Low MCH 22.7 LAB L100.1700 32-36 g/gl Low MCHC 29.6 LAB L100.1810 11.6-14.6 % High RDW CV 19.4 LAB L100.1820 35.1-43.9 fl High RDW SD 53.1 LAB L100.1900 150-450 K/mm3 Normal PLT 442 LAB L100.2000 6.2-12.0 fl Normal MPV 10.5 LAB L100.2100 47-70 % High NEUT% 83.0 LAB L100.2200 19-41 % Low LY% 9.6 LAB L100.2300 0-10 % Normal MONO% 4.6 LAB L100.2400 0-5 % Normal EO% 2.1 LAB L100.2500 0-1 % Normal BASO% 0.4 LAB L100.2550 0.0-0.9 % Normal IM GRAN % 0.300 Result Comment: IG% - Immature Granulocytes (promyelocytes, myelocytes and metamyelocytes) > 1% indicates that a LEFT SHIFT is Present. LAB L100.2620 2.0-7.7 X10 3/uL High Absolute Neut 13.3 LAB L100.2720 0.83-4.51 X10 3/ul Normal Absolute Lymph 1.53 Performed By: #### L100.0100 #### [facility] [address] [place], [address] VIDH Collected: 02/23/2018 Status: F Source: [facility] 3:59 PM [facility] REPOSITORY TYPE CODE TESTS RESULT OUT OF RANGE REFERENCE UNITS LAB VIDH(LOINC) ng/mL Vit. D 30 25-Hydroxy Result Comment: Interpretive Values Based on Total 25(OH)D: Severe Deficiency <20 ng/mL Mild to Moderate Deficiency 20-30 ng/mL Optimum Levels 30-100 ng/mL Toxicity Possible >100 ng/mL Performed By: #### VIDH, TSH #### [facility] [address] [place] [address] TSH Collected: 02/23/2018 Status: F Source: [facility] 3:59 PM [facility] REPOSITORY TYPE CODE TESTS RESULT OUT OF RANGE REFERENCE UNITS LAB TSH(LOINC) 0.360-3.740 mcIU/mL TSH 1.570 Result Comment: Please note as of 12/21/16 new pediatric reference intervals were added for this test. Performed By: #### VIDH, TSH #### [facility] [address] [place] [address] CBC W/DIFF, AUTOMATED Collected: 01/29/2018 Status: F Source: SELLS 2:[address] [facility] REPOSITORY TYPE CODE TESTS RESULT OUT OF RANGE REFERENCE UNITS LAB L100.1000 4.4-11.0 K/mm3 High WBC 14.8 LAB L100.1200 4.2-5.4 M/mm3 High RBC 6.04 LAB L100.1300 12.0-15.0 g/dl Normal HGB 13.6 LAB L100.1400 37-47 % Normal HCT 45.9 LAB L100.1500 81-99 fL Low MCV 76.0 LAB L100.1600 27.0-32.0 pg Low MCH 22.5 LAB L100.1700 32-36 g/gl Low MCHC 29.6 LAB L100.1810 11.6-14.6 % High RDW CV 18.9 LAB L100.1820 35.1-43.9 fl High RDW SD 50.2 LAB L100.1900 150-450 K/mm3 Normal PLT 424 LAB L100.2000 6.2-12.0 fl Normal MPV 10.4 LAB L100.2100 47-70 % High NEUT% 83.8 LAB L100.2200 19-41 % Low LY% 10.0 LAB L100.2300 0-10 % Normal MONO% 3.9 LAB L100.2400 0-5 % Normal EO% 1.7 LAB L100.2500 0-1 % Normal BASO% 0.3 LAB L100.2550 0.0-0.9 % Normal IM GRAN % 0.300 Result Comment: IG% - Immature Granulocytes (promyelocytes, myelocytes and metamyelocytes) > 1% indicates that a LEFT SHIFT is Present. LAB L100.2620 2.0-7.7 X10 3/uL High Absolute Neut 12.4 LAB L100.2720 0.83-4.51 X10 3/ul Normal Absolute Lymph 1.48 Performed By: #### L100.0100 #### [facility] [place], [address] COMPREHENSIVE METABOLIC Collected: 01/29/2018 Status: F Source: SABINO RODRIGUEZ 2:[address] [facility] REPOSITORY Order Comment: Serial Specimen #1, #2 or #3? 1 TYPE CODE TESTS RESULT OUT OF RANGE REFERENCE UNITS LAB L501.0100 74-106 mg/dL High GLU 134 Result Comment: Fasting Glucose result greater than or equal to 126 mg/dL suggests DIABETES MELLITUS per A.D.A. criteria. Please note revised GLUCOSE reference range effective 2017. LAB L501.1000 7-18 mg/dL High BUN 22 LAB L501.1100 0.55-1.02 mg/dL High CREAT,SERUM 1.30 Result Comment: The validity of the calculated GFR AND GFRAA in patients over 70 years has not been determined. Clinical correlation is essential. LAB L501.1110 >60 mL/min Low EST GFR 44 Result Comment: Non- GFR Calc LAB L501.1115 >60 mL/min Low EST GFR - AA 53 Result Comment: GFR Calc LAB L501.1300 10-20 RATIO Normal BUN/CRE 16.9 LAB L501.1500 6.4-8.2 g/dL T Normal PROT 7.0 LAB L501.1800 3.2-5.0 g/dL Normal ALB 3.4 LAB L501.1950 2.2-4.2 g/dL Normal GLOB 3.6 LAB L501.2000 0.9-2.4 RATIO Normal A/G 0.9 LAB L501.2200 8.5-10.1 mg/dL CA Normal 8.8 LAB L501.4100 15-37 U/L Normal AST 19 LAB L501.4305 45-117 U/L Normal ALK P 109 LAB L501.4405 13-56 U/L Normal ALT 20 LAB L501.4600 0.20-1.00 mg/dL T Normal BILI 0.60 LAB L501.5300 136-145 mmol/L NA Normal 144 LAB L501.5600 3.5-5.1 mmol/L K Normal 3.6 LAB L501.5900 98-107 mmol/L CL Normal 106 LAB L501.6100 21.0-32.0 mmol/L Normal CO2 29.0 LAB L501.6200 5-15 Normal GAP 9 Performed By: #### L500.4050, L504.2610 #### [facility] [address] [place], [address] LDH Collected: 01/29/2018 Status: F Source: [place] 2:[address] [facility] REPOSITORY Order Comment: Serial Specimen #1, #2 or #3? 1 TYPE CODE TESTS RESULT OUT OF RANGE REFERENCE UNITS LAB L504.2610 84-246 U/L Normal LDH 204 Performed By: #### L500.4050, L504.2610 #### [facility] [address] [place], [address] CBC W/DIFF, AUTOMATED Collected: 12/31/2017 Status: F Source: [place] 2:[address] [facility] REPOSITORY TYPE CODE TESTS RESULT OUT OF RANGE REFERENCE UNITS LAB L100.1000 4.4-11.0 K/mm3 High WBC 15.7 LAB L100.1200 4.2-5.4 M/mm3 High RBC 5.98 LAB L100.1300 12.0-15.0 g/dl Normal HGB 13.4 LAB L100.1400 37-47 % Normal HCT 46.1 LAB L100.1500 81-99 fL Low MCV 77.1 LAB L100.1600 27.0-32.0 pg Low MCH 22.4 LAB L100.1700 32-36 g/gl Low MCHC 29.1 LAB L100.1810 11.6-14.6 % High RDW CV 18.3 LAB L100.1820 35.1-43.9 fl High RDW SD 50.8 LAB L100.1900 150-450 K/mm3 Normal PLT 408 LAB L100.2000 6.2-12.0 fl Normal MPV 10.0 LAB L100.2100 47-70 % High NEUT% 84.0 LAB L100.2200 19-41 % Low LY% 10.3 LAB L100.2300 0-10 % Normal MONO% 3.6 LAB L100.2400 0-5 % Normal EO% 1.7 LAB L100.2500 0-1 % Normal BASO% 0.3 LAB L100.2550 0.0-0.9 % Normal IM GRAN % 0.100 Result Comment: IG% - Immature Granulocytes (promyelocytes, myelocytes and metamyelocytes) > 1% indicates that a LEFT SHIFT is Present. LAB L100.2620 2.0-7.7 X10 3/uL High Absolute Neut 13.2 LAB L100.2720 0.83-4.51 X10 3/ul Normal Absolute Lymph 1.62 Performed By: #### L100.0100 #### [facility] [address] [place], [address] COMPREHENSIVE METABOLIC Collected: 12/31/2017 Status: F Source: [facility] 2:[address] [facility] REPOSITORY TYPE CODE TESTS RESULT OUT OF RANGE REFERENCE UNITS LAB L501.0100 74-106 mg/dL Normal GLU 106 Result Comment: Fasting Glucose result from 100 to 125 mg/dL suggests IMPAIRED HOMEOSTASIS per A.D.A. criteria. Please note revised GLUCOSE reference range effective 2017. LAB L501.1000 7-18 mg/dL High BUN 23 LAB L501.1100 0.55-1.02 mg/dL Normal CREAT,SERUM 0.93 Result Comment: The validity of the calculated GFR AND GFRAA in patients over 70 years has not been determined. Clinical correlation is essential. LAB L501.1110 >60 mL/min Normal EST GFR 64 Result Comment: Non- GFR Calc LAB L501.1115 >60 mL/min Normal EST GFR - AA 78 Result Comment: GFR Calc LAB L501.1300 10-20 RATIO High BUN/CRE 24.8 LAB L501.1500 6.4-8.2 g/dL T Normal PROT 7.3 LAB L501.1800 3.2-5.0 g/dL Normal ALB 3.5 LAB L501.1950 2.2-4.2 g/dL Normal GLOB 3.8 LAB L501.2000 0.9-2.4 RATIO Normal A/G 0.9 LAB L501.2200 8.5-10.1 mg/dL CA Normal 8.8 LAB L501.4100 15-37 U/L Normal AST 24 LAB L501.4305 45-117 U/L Normal ALK P 114 LAB L501.4405 13-56 U/L Normal ALT 22 LAB L501.4600 0.20-1.00 mg/dL T Normal BILI 0.60 LAB L501.5300 136-145 mmol/L NA Normal 144 LAB L501.5600 3.5-5.1 mmol/L K Normal 3.6 LAB L501.5900 98-107 mmol/L High CL 108 LAB L501.6100 21.0-32.0 mmol/L Normal CO2 28.0 LAB L501.6200 5-15 Normal GAP 8 Performed By: #### L500.4050 #### [facility] [address] [place], [address] EMERGENCY REPORT Observed: 11/29/2017 Status: F Source: [facility] 4:39 AM [facility] EMERGENCY ROOM REPORT NAME ACCOUNT SEX AGE ADMIT DISCHARGE PT MED. RECORD# NUMBER DATE DATE TYPE PHONG JANG I [id number] F 67 10/06/17 10/07/17 [id number] ROOM: ER DATE OF : 1950 DICTATING PHYSICIAN: Vicente Arias CHIEF COMPLAINT: Abdominal pain. HISTORY OF PRESENT ILLNESS: This is a 67-year-old female who presents complaining of back pain and left-sided abdominal pain after being kicked by her mule 3 days ago. Patient reports that she believes she was kicked twice. She was having the mule shoed and during the time of having the shoes placed, the mule became agitated and kicked her and she flew. Patient reports that initially her pain was bad but it did improve some. However, her pain has today, become exceedingly worse and sharp in nature and she has noticed that her bruising is definitely worse as well. She denies any associated shortness of breath, hematuria or dysuria or blood in her stool. PAST MEDICAL HISTORY: Remarkable for polycythemia vera and she has had an IL in the past. PAST SURGICAL HISTORY: Patient has a history of cardiac catheterization with stent placement. ALLERGIES: The patient has no known drug allergies. SOCIAL HISTORY: She lives at home with her family. She does not smoke, drink alcohol or use illicit drugs. She is up-to-date on immunizations. REVIEW OF SYSTEMS: A 10-point review of systems was obtained and is positive for abdominal pain, back pain, and ecchymosis. It is otherwise, negative. PHYSICAL EXAMINATION: In general the patient is alert, awake and in no acute distress although, she does appear uncomfortable. Her head is normocephalic, atraumatic. Pupils are equal, round and reactive to light and accommodation. Extraocular muscles are intact. Mucous membranes are moist. Patient's neck is supple. Trachea is midline. She has no C-spine tenderness. Her cardiac exam is regular rate and rhythm. No murmurs appreciated. Lungs are clear to auscultation bilaterally. Her abdomen is soft, but there are some areas of distention. It is very tender to palpation, particularly over the left flank. She has a very large ecchymosis over the left flank. She has involuntary guarding and some rebound, but there is no rigidity. Her extremities demonstrate no edema or gross deformity. Peripheral pulses are intact. She does have a fairly large ecchymosis on the posterior aspect of her right upper arm with no bony tenderness. She also has ecchymosis on her back. There is no palpable deformity. She Page 1 of 2 [facility] Emergency Room Report has otherwise, normal muscle strength and range of motion. Her motor and sensory are grossly intact. She has appropriate mood and behavior. DIAGNOSTIC DATA: CT of the abdomen and pelvis was obtained and lab work was ordered. The patient's lab work is unremarkable. Chest x- ray was also ordered and it shows no acute pathology. Her CT scan, however, does show large subcutaneous swelling and edema on the left flank that is associated with a retroperitoneal hematoma near the iliopsoas muscle on the left. She also has a splenic bruise or contusion. There is no other obvious intraabdominal or pelvic pathology at this time. MEDICAL DECISION MAKING/EMERGENCY DEPARTMENT COURSE AND TREATMENT: The patient is afebrile, nontoxic, and in no acute distress upon arrival to the ED. However, the patient's mechanism of injury is very concerning and I am concerned about an intraabdominal, intrathoracic injury, although I suspect that it is intraabdominal given the bruising. It is also especially concerning given the patient is on dual antiplatelet therapy, that her pain has worsened, I am concerned that there is some extravasation or bleeding today. DIAGNOSES: 1. Blunt abdominal trauma. 2. Retroperitoneal hematoma. 3. Splenic contusion. PLAN/DISPOSITION: Diagnostic results were discussed with the patient, as was the importance of getting her definitive care or evaluation by a trauma surgeon. The patient expressed understanding and is agreeable with the plan of being transferred. She was given pain medicine, which did help considerably. She was also started on IV fluids. I did speak with the accepting physician at [facility] who agreed to evaluate the patient after transport. The patient remained stable in the emergency department prior to transport via EMS to [facility]. Dictated By: Vicente Arias DO 10/07/17 12:33 JOB #: [id number] Transcribed By: jett 10/08/17 09:21 Electronically signed by: DR. VICENTE ARIAS D.O. 11/29/17 04:39 Page 2 of 2 [facility] Emergency Room Report CBC W/DIFF, AUTOMATED Collected: 11/28/2017 Status: F Source: [place] 10:[address] [facility] REPOSITORY TYPE CODE TESTS RESULT OUT OF RANGE REFERENCE UNITS LAB L100.1000 4.4-11.0 K/mm3 High WBC 14.7 LAB L100.1200 4.2-5.4 M/mm3 High RBC 6.04 LAB L100.1300 12.0-15.0 g/dl Normal HGB 13.5 LAB L100.1400 37-47 % Normal HCT 46.4 LAB L100.1500 81-99 fL Low MCV 76.8 LAB L100.1600 27.0-32.0 pg Low MCH 22.4 LAB L100.1700 32-36 g/gl Low MCHC 29.1 LAB L100.1810 11.6-14.6 % High RDW CV 20.1 LAB L100.1820 35.1-43.9 fl High RDW SD 56.0 LAB L100.1900 150-450 K/mm3 Normal PLT 411 LAB L100.2000 6.2-12.0 fl Normal MPV 9.7 LAB L100.2100 47-70 % High NEUT% 82.0 LAB L100.2200 19-41 % Low LY% 9.3 LAB L100.2300 0-10 % Normal MONO% 5.9 LAB L100.2400 0-5 % Normal EO% 2.2 LAB L100.2500 0-1 % Normal BASO% 0.3 LAB L100.2550 0.0-0.9 % Normal IM GRAN % 0.300 Result Comment: IG% - Immature Granulocytes (promyelocytes, myelocytes and metamyelocytes) > 1% indicates that a LEFT SHIFT is Present. LAB L100.2620 2.0-7.7 X10 3/uL High Absolute Neut 12.0 LAB L100.2720 0.83-4.51 X10 3/ul Normal Absolute Lymph 1.36 LAB L100.4500 Normal SMEAR COMMENT SCANNED LAB L100.7300 Normal ANISO 1+ Performed By: #### L100.0100 #### [facility] [address] [place] [address]. [place], [place], [id number] LDH Collected: 10/31/2017 Status: F Source: [facility] 1:32 PM [facility] REPOSITORY TYPE CODE TESTS RESULT OUT OF RANGE REFERENCE UNITS LAB LD(LOINC) 120-246 U/L LDH 243 Performed By: #### LD, CMP, GFR, CBC, MORPH, ADIFF, ANEU #### [address] [address] CMP Collected: 10/31/2017 Status: F Source: [facility] 1:32 PM [facility] REPOSITORY TYPE CODE TESTS RESULT OUT OF REFERENCE UNITS RANGE LAB GLU(LOINC) 82-115 mg/dL Low Glucose Level 71 LAB NA(LOINC) 136-145 mEq/L Sodium Level 145 LAB K(LOINC) 3.5-5.0 mEq/L Potassium Level 4.5 LAB CL(LOINC) 98-110 mEq/L Chloride 108 LAB CO2(LOINC) 22-32 mEq/L CO2 28 LAB EBAL(LOINC 4.0-15.0 mEq/L ) Electrolyte Balance 9.0 LAB BUN(LOINC) 8.0-22.0 mg/dL BUN 20.0 LAB CRE(LOINC) 0.50-1.20 mg/dL Creatinine Lvl (s) 0.79 LAB BC(LOINC) 10.0-22.0 ratio High BUN/Creatinine 25.3 Ratio LAB CA(LOINC) 8.4-10.1 mg/dL Calcium Lvl 8.7 LAB PROT(LOINC 6.0-8.5 G/dL ) Total Protein 6.9 LAB ALB(LOINC) 3.2-4.8 G/dL Albumin Level 3.7 LAB GLB(LOINC) 1.5-3.8 G/dL Globulin 3.2 LAB AG(LOINC) 0.9-1.6 ratio A/G Ratio 1.2 LAB BILT(LOINC 0.2-1.2 mg/dL ) Bili Total 0.7 LAB AP(LOINC) 38-126 U/L Alk Phos 118 LAB AST(LOINC) 8-34 U/L AST/SGOT 19 LAB ALT(LOINC) 10-49 U/L ALT/SGPT 17 Performed By: #### LD, CMP, GFR, CBC, MORPH, ADIFF, ANEU #### [place] [address] .GFR Collected: 10/31/2017 Status: F Source: [facility] 1:32 PM [facility] REPOSITORY TYPE CODE TESTS RESULT OUT OF REFERENCE UNITS RANGE LAB GFRAA(LOINC ml/min/1.73 ) sqm GFR >60 [place] Result Comment: GFR Population mean for , Non- Americans Ages 20-29 = 116 mL/min/1.73 sq.m. Ages 30-39 = 107 mL/min/1.73 sq.m. Ages 40-49 = 99 mL/min/1.73 sq.m. Ages 50-59 = 93 mL/min/1.73 sq.m. Ages 60-69 = 85 mL/min/1.73 sq.m. Ages 70+ = 75 mL/min/1.73 sq.m. Chronic Kidney Disease: Less than 60 mL/min/1.73 square meters End Stage Renal Disease: Less than 15 mL/min/1.73 square meters LAB GFRNO(LOINC) ml/min/1.73sqm GFR Non- >60 Result Comment: GFR Population mean for , Non- Americans Ages 20-29 = 116 mL/min/1.73 sq.m. Ages 30-39 = 107 mL/min/1.73 sq.m. Ages 40-49 = 99 mL/min/1.73 sq.m. Ages 50-59 = 93 mL/min/1.73 sq.m. Ages 60-69 = 85 mL/min/1.73 sq.m. Ages 70+ = 75 mL/min/1.73 sq.m. Chronic Kidney Disease: Less than 60 mL/min/1.73 square meters End Stage Renal Disease: Less than 15 mL/min/1.73 square meters Performed By: #### LD, CMP, GFR, CBC, MORPH, ADIFF, ANEU #### [address] [address] CBC Collected: 10/31/2017 Status: F Source: [facility] 1:32 PM [facility] REPOSITORY TYPE CODE TESTS RESULT OUT OF REFERENCE UNITS RANGE LAB WBC(LOINC) 4.50-10.80 10 3/mcL High WBC 14.90 LAB RBCCT(LOINC 4.10-5.30 10 6/mcL ) High RBC 5.82 LAB HGB(LOINC) 12.0-16.0 G/dL Hgb 13.0 LAB HCT(LOINC) 34.0-46.0 % Hct 42.1 LAB MCV(LOINC) 80.0-99.0 fL Low MCV 72.3 LAB MCH(LOINC) 27.0-33.0 pg Low MCH 22.3 LAB MCHC(LOINC) 32.0-36.0 G/dL Low MCHC 30.9 LAB RDW(LOINC) 11.5-15.5 % High RDW 24.8 LAB PLT(LOINC) 150-450 10 3/mcL High Platelet 451 LAB MPV(LOINC) 6.6-10.5 fL MPV 8.9 Performed By: #### LD, CMP, GFR, CBC, MORPH, ADIFF, ANEU #### [address] [address] .MORPH Collected: 10/31/2017 Status: F Source: [facility] 1:32 PM [facility] REPOSITORY TYPE CODE TESTS RESULT OUT OF REFERENCE UNITS RANGE LAB PLTE(LOINC ) Platelet Estimate Normal LAB ANIS(LOINC ) Anisocytosis Moderate LAB POIK(LOINC ) Poik Slight LAB HYPC(LOINC ) Hypochrom Slight LAB POLC(LOINC ) Polychrom Slight LAB MICYT(LOIN C) Microcytosis Moderate LAB OVAL(LOINC ) Ovalocytes Few LAB ACAN(LOINC ) Acanthocytes Few Performed By: #### LD, CMP, GFR, CBC, MORPH, ADIFF, ANEU #### [place] [address] .AUTO DIFF Collected: 10/31/2017 Status: F [facility] REPOSITORY TYPE CODE TESTS RESULT OUT OF REFERENCE UNITS RANGE LAB ROSALIA(LOINC) 50.0-75.0 % High Neutrophil % 82.6 LAB LYM(LOINC) 20.0-40.0 % Low Lymphocyte % 9.9 LAB MON(LOINC) 2.0-13.0 % Monocyte % 4.6 LAB EO(LOINC) 0.0-6.0 % Eosinophil % 2.2 LAB BAS(LOINC) 0.0-2.5 % Basophil % 0.7 LAB ABLYM(LOIN 0.90-4.32 10 3/mcL C) Lymphocyte, 1.50 Absolute LAB DEEP(LOINC 0.09-1.40 10 3/mcL ) Monocyte, 0.70 Absolute LAB AEOS(LOINC 0.00-0.65 10 3/mcL ) Eosinophil, 0.30 Absolute LAB ABAS(LOINC 0.00-0.27 10 3/mcL ) Basophil, 0.10 Absolute Performed By: #### LD, CMP, GFR, CBC, MORPH, ADIFF, ANEU #### [place] [address] .NEUABS Collected: 10/31/2017 Status: F Source: [place] [facility] 1:32 PM [facility] REPOSITORY TYPE CODE TESTS RESULT OUT OF REFERENCE UNITS RANGE LAB ANEU(LOINC) 2.25-8.10 10 3/mcL High Neutrophil, 12.30 Absolute Performed By: #### LD, CMP, GFR, CBC, MORPH, ADIFF, ANEU #### [place] [address] US ABDOMEN COMPLETE Observed: 10/31/2017 Status: F Source: [facility] 1:00 PM [facility] REPOSITORY ORIGINAL Complete ultrasound of the abdomen HISTORY: Myeloproliferative disorder. Retroperitoneal hematoma. COMPARISON: CT scan 10/07/2017 The abdominal aorta and the IVC are unremarkable. The aortic bifurcation is normal. Visible portions of the pancreas are normal. No focal liver lesion is evident and there is no biliary dilatation. The common duct is normal, 4 mm in diameter. The gallbladder is less than optimally distended. I suspect some sludge within the gallb ladder. No stones, wall thickening or adjacent fluid are evident. Negative sonographic Harrell's sign. Right kidney 10.3 cm length and left kidney 10.2 cm length. No stone, mass or collecting system dilatation is identified. There is no perinephric fluid present. The spleen is mildly prominent. It measures 13.4 cm in length, however not significantly different than on the previous CT scan. No focal spleen lesion is evident. There is no free fluid identified. The left-sided inferior retroperitoneal hemorrhage seen on the prior CT scan is not evident on this exam. IMPRESSION: 1. Minimal gallbladder sludge. 2. Mild splenomegaly without focal lesion, nonspecific. 3. No acute finding. Previously seen left-sided retroperitoneal hemorrhage cannot be identified on this exam probably due to overlying bowel gas. Interpreted By: Roger Bear MD Preliminary Report By: Roger Bear MD Electronically Signed By: Roger Bear MD Dictated Date: 10/31/2017 1:32:46 PM Prelim Date: 10/31/2017 1:32:46 PM Sign Date: 10/31/2017 1:36:34 PM CBC Collected: 10/08/2017 Status: F Source: [facility] 6:03 AM [facility] REPOSITORY TYPE CODE TESTS RESULT OUT OF REFERENCE UNITS RANGE LAB WBC(LOINC) 4.50-10.80 10 3/mcL High WBC 12.50 LAB RBCCT(LOINC 4.10-5.30 10 6/mcL ) RBC 5.01 LAB HGB(LOINC) 12.0-16.0 G/dL Low Hgb 10.6 LAB HCT(LOINC) 34.0-46.0 % Hct 34.8 LAB MCV(LOINC) 80.0-99.0 fL Low MCV 69.5 LAB MCH(LOINC) 27.0-33.0 pg Low MCH 21.2 LAB MCHC(LOINC) 32.0-36.0 G/dL Low MCHC 30.6 LAB RDW(LOINC) 11.5-15.5 % High RDW 22.3 LAB PLT(LOINC) 150-450 10 3/mcL Platelet 390 LAB MPV(LOINC) 6.6-10.5 fL MPV 8.8 Performed By: #### CBC, ADIFF, ANEU, BMP, GFR #### [place] [address] .AUTO DIFF Collected: 10/08/2017 Status: F Source: [facility] 6:03 AM [facility] REPOSITORY TYPE CODE TESTS RESULT OUT OF REFERENCE UNITS RANGE LAB ROSALIA(LOINC) 50.0-75.0 % Neutrophil % 74.3 LAB LYM(LOINC) 20.0-40.0 % Low Lymphocyte % 16.2 LAB MON(LOINC) 2.0-13.0 % Monocyte % 5.7 LAB EO(LOINC) 0.0-6.0 % Eosinophil % 3.1 LAB BAS(LOINC) 0.0-2.5 % Basophil % 0.7 LAB ABLYM(LOIN 0.90-4.32 10 3/mcL C) Lymphocyte, 2.00 Absolute LAB DEEP(LOINC 0.09-1.40 10 3/mcL ) Monocyte, 0.70 Absolute LAB AEOS(LOINC 0.00-0.65 10 3/mcL ) Eosinophil, 0.40 Absolute LAB ABAS(LOINC 0.00-0.27 10 3/mcL ) Basophil, 0.10 Absolute Performed By: #### CBC, ADIFF, ANEU, BMP, GFR #### [place] [address] .NEUABS Collected: 10/08/2017 Status: F Source: [facility] 6:03 AM [facility] REPOSITORY TYPE CODE TESTS RESULT OUT OF REFERENCE UNITS RANGE LAB ANEU(LOINC) 2.25-8.10 10 3/mcL High Neutrophil, 9.30 Absolute Performed By: #### CBC, ADIFF, ANEU, BMP, GFR #### [place] [address] BMP Collected: 10/08/2017 Status: F Source: [facility] 6:03 AM [facility] REPOSITORY TYPE CODE TESTS RESULT OUT OF REFERENCE UNITS RANGE LAB GLU(LOINC) 82-115 mg/dL Low Glucose Level 74 LAB NA(LOINC) 136-145 mEq/L Sodium Level 144 LAB K(LOINC) 3.5-5.0 mEq/L Potassium Level 4.6 LAB CL(LOINC) 98-110 mEq/L Chloride 108 LAB CO2(LOINC) 22-32 mEq/L CO2 28 LAB EBAL(LOINC 4.0-15.0 mEq/L ) Electrolyte Balance 8.0 LAB BUN(LOINC) 8.0-22.0 mg/dL BUN 18.0 LAB CRE(LOINC) 0.50-1.20 mg/dL Creatinine Lvl (s) 0.78 LAB BC(LOINC) 10.0-22.0 ratio High BUN/Creatinine 23.1 Ratio LAB CA(LOINC) 8.4-10.1 mg/dL Calcium Lvl 8.5 Performed By: #### CBC, ADIFF, ANEU, BMP, GFR #### [place] [address] .GFR Collected: 10/08/2017 Status: F Source: [facility] 6:03 AM [facility] REPOSITORY TYPE CODE TESTS RESULT OUT OF REFERENCE UNITS RANGE LAB GFRAA(LOINC ml/min/1.73 ) sqm GFR >60 [place] Result Comment: GFR Population mean for , Non- Americans Ages 20-29 = 116 mL/min/1.73 sq.m. Ages 30-39 = 107 mL/min/1.73 sq.m. Ages 40-49 = 99 mL/min/1.73 sq.m. Ages 50-59 = 93 mL/min/1.73 sq.m. Ages 60-69 = 85 mL/min/1.73 sq.m. Ages 70+ = 75 mL/min/1.73 sq.m. Chronic Kidney Disease: Less than 60 mL/min/1.73 square meters End Stage Renal Disease: Less than 15 mL/min/1.73 square meters LAB GFRNO(LOINC) ml/min/1.73sqm GFR Non- >60 Result Comment: GFR Population mean for , Non- Americans Ages 20-29 = 116 mL/min/1.73 sq.m. Ages 30-39 = 107 mL/min/1.73 sq.m. Ages 40-49 = 99 mL/min/1.73 sq.m. Ages 50-59 = 93 mL/min/1.73 sq.m. Ages 60-69 = 85 mL/min/1.73 sq.m. Ages 70+ = 75 mL/min/1.73 sq.m. Chronic Kidney Disease: Less than 60 mL/min/1.73 square meters End Stage Renal Disease: Less than 15 mL/min/1.73 square meters Performed By: #### CBC, ADIFF, ANEU, BMP, GFR #### [address] [address] HH Collected: 10/07/2017 Status: F Source: [facility] 12:00 PM [facility] REPOSITORY TYPE CODE TESTS RESULT OUT OF RANGE REFERENCE UNITS LAB HGB(LOINC) 12.0-16.0 G/dL Low Hgb 10.6 LAB HCT(LOINC) 34.0-46.0 % Low Hct 33.9 Performed By: #### HH #### [place] [address] CBC Collected: 10/07/2017 Status: F Source: [facility] 6:49 AM [facility] REPOSITORY TYPE CODE TESTS RESULT OUT OF REFERENCE UNITS RANGE LAB WBC(LOINC) 4.50-10.80 10 3/mcL High WBC 15.70 LAB RBCCT(LOINC 4.10-5.30 10 6/mcL ) RBC 5.04 LAB HGB(LOINC) 12.0-16.0 G/dL Low Hgb 10.8 LAB HCT(LOINC) 34.0-46.0 % Hct 35.0 LAB MCV(LOINC) 80.0-99.0 fL Low MCV 69.4 LAB MCH(LOINC) 27.0-33.0 pg Low MCH 21.5 LAB MCHC(LOINC) 32.0-36.0 G/dL Low MCHC 30.9 LAB RDW(LOINC) 11.5-15.5 % High RDW 21.5 LAB PLT(LOINC) 150-450 10 3/mcL Platelet 401 LAB MPV(LOINC) 6.6-10.5 fL MPV 9.0 Performed By: #### CBC, DIFF, MORPH #### [address] [address] .MANUAL DIFF Collected: 10/07/2017 Status: F Source: [facility] 6:49 AM [facility] REPOSITORY TYPE CODE TESTS RESULT OUT OF REFERENCE UNITS RANGE LAB LIMIT(LOIN C) Cells Counted 100 LAB NEUM(LOINC 50.0-75.0 % ) High Neutrophil %, 85.0 Manual LAB LYMM(LOINC 20.0-40.0 % ) Low Lymphocyte %, 11.0 Manual LAB EOM(LOINC) 2.0-13.0 % Monocyte %, Manual 3.0 Result Comment: 1.0 LAB BASM(LOINC) 0.0-2.5 % Basophil %, Manual 0.0 LAB ANEUM(LOINC) 2.25-8.10 10 3/mcL High Neutrophil, Abs Manual 13.35 LAB ABLYMM(LOINC) 0.90-4.32 10 3/mcL Lymphocyte, Abs Manual 1.73 LAB AMONM(LOINC) 0.09-1.40 10 3/mcL Monocyte, Abs Manual 0.47 LAB AEOSM(LOINC) 0.00-0.65 10 3/mcL Eosinophil, Abs Manual 0.16 LAB ABASM(LOINC) 0.00-0.27 10 3/mcL Basophil, Abs Manual 0.00 Performed By: #### CBC, DIFF, MORPH #### [address] [address] .MORPH Collected: 10/07/2017 Status: F Source: [facility] 6:49 AM [facility] REPOSITORY TYPE CODE TESTS RESULT OUT OF REFERENCE UNITS RANGE LAB PLTE(LOINC ) Platelet Estimate Normal LAB ANIS(LOINC ) Anisocytosis Slight LAB POIK(LOINC ) Poik Slight LAB HYPC(LOINC ) Hypochrom Slight LAB POLC(LOINC ) Polychrom Slight LAB MICYT(LOIN C) Microcytosis Moderate LAB TEAR(LOINC ) Tear Cell Rare LAB OVAL(LOINC ) Ovalocytes Few Performed By: #### CBC, DIFF, MORPH #### [address] [address] CMP Collected: 10/07/2017 Status: F Source: [facility] 6:49 AM [facility] REPOSITORY TYPE CODE TESTS RESULT OUT OF REFERENCE UNITS RANGE LAB GLU(LOINC) 82-115 mg/dL Glucose Level 86 LAB NA(LOINC) 136-145 mEq/L Sodium Level 145 LAB K(LOINC) 3.5-5.0 mEq/L Potassium Level 4.0 LAB CL(LOINC) 98-110 mEq/L Chloride 110 LAB CO2(LOINC) 22-32 mEq/L CO2 26 LAB EBAL(LOINC 4.0-15.0 mEq/L ) Electrolyte Balance 9.0 LAB BUN(LOINC) 8.0-22.0 mg/dL BUN 21.0 LAB CRE(LOINC) 0.50-1.20 mg/dL Creatinine Lvl (s) 0.72 LAB BC(LOINC) 10.0-22.0 ratio High BUN/Creatinine 29.2 Ratio LAB CA(LOINC) 8.4-10.1 mg/dL Calcium Lvl 8.6 LAB PROT(LOINC 6.0-8.5 G/dL ) Total Protein 6.2 LAB ALB(LOINC) 3.2-4.8 G/dL Low Albumin Level 3.0 LAB GLB(LOINC) 1.5-3.8 G/dL Globulin 3.2 LAB AG(LOINC) 0.9-1.6 ratio A/G Ratio 0.9 LAB BILT(LOINC 0.2-1.2 mg/dL ) Bili Total 0.9 LAB AP(LOINC) 38-126 U/L Alk Phos 96 LAB AST(LOINC) 8-34 U/L AST/SGOT 22 LAB ALT(LOINC) 10-49 U/L ALT/SGPT 20 Performed By: #### CMP, GFR #### [place] [id number] .GFR Collected: 10/07/2017 Status: F Source: [facility] 6:49 AM [facility] REPOSITORY TYPE CODE TESTS RESULT OUT OF REFERENCE UNITS RANGE LAB GFRAA(LOINC ml/min/1.73 ) sqm GFR >60 [place] Result Comment: GFR Population mean for , Non- Americans Ages 20-29 = 116 mL/min/1.73 sq.m. Ages 30-39 = 107 mL/min/1.73 sq.m. Ages 40-49 = 99 mL/min/1.73 sq.m. Ages 50-59 = 93 mL/min/1.73 sq.m. Ages 60-69 = 85 mL/min/1.73 sq.m. Ages 70+ = 75 mL/min/1.73 sq.m. Chronic Kidney Disease: Less than 60 mL/min/1.73 square meters End Stage Renal Disease: Less than 15 mL/min/1.73 square meters LAB GFRNO(LOINC) ml/min/1.73sqm GFR Non- >60 Result Comment: GFR Population mean for , Non- Americans Ages 20-29 = 116 mL/min/1.73 sq.m. Ages 30-39 = 107 mL/min/1.73 sq.m. Ages 40-49 = 99 mL/min/1.73 sq.m. Ages 50-59 = 93 mL/min/1.73 sq.m. Ages 60-69 = 85 mL/min/1.73 sq.m. Ages 70+ = 75 mL/min/1.73 sq.m. Chronic Kidney Disease: Less than 60 mL/min/1.73 square meters End Stage Renal Disease: Less than 15 mL/min/1.73 square meters Performed By: #### CMP, GFR #### [place] [id number] HH Collected: 10/07/2017 Status: F Source: [facility] 3:54 AM [facility] REPOSITORY TYPE CODE TESTS RESULT OUT OF RANGE REFERENCE UNITS LAB HGB(LOINC) 12.0-16.0 G/dL Low Hgb 11.5 LAB HCT(LOINC) 34.0-46.0 % Hct 37.1 Performed By: #### BRENTON, ABORH, ANTIS #### [place] [address] TABO Collected: 10/07/2017 Status: F Source: [facility] 3:54 AM [facility] REPOSITORY TYPE CODE TESTS RESULT OUT OF RANGE REFERENCE UNITS LAB ABORH(LOINC ) Unknown ABO/Rh A POS Interp Performed By: #### BRENTON, ABORH, ANTIS #### [place] [address] TABS Collected: 10/07/2017 Status: F Source: [facility] 3:54 AM [facility] REPOSITORY TYPE CODE TESTS RESULT OUT OF REFERENCE UNITS RANGE LAB ANST(LOINC ) Antibody Negative ABSC Screen Tango Performed By: #### BRENTON, ABORH, ANTIS #### [address] [address] CHEST 2 VIEWS Observed: 10/07/2017 Status: F Source: [facility] 1:18 AM [place] [address] Patient: PHONG JANG I. Phone#: : [phone] Age: 67 Gender: F Pt. Type: ER Account: [id number] Location: 052 Ordering: VICENTE LINJUANA Exam Date: 10/07/2017/0:53 Family Phys: HUNG CHRISTIANSON Charge Code: [id number] Physician: [place] Order #: [id number] DLP Dose#: PROCEDURE: X-RAY CHEST 2 VIEWS COMPARISON: [facility], XR, CHEST AP, 03/05/2017, 12:22. INDICATIONS: Trauma FINDINGS: LUNGS: Chronic interstitial changes. No focal pulmonary parenchymal abnormality. VASCULATURE: Normal. Unremarkable pulmonary vasculature. CARDIAC: Normal. No cardiac silhouette abnormality or cardiomegaly. MEDIASTINUM: There are aortic arch calcifications. PLEURA: Normal. No effusion or pleural thickening. BONES: There are degenerative changes of the spine. OTHER: Negative. CONCLUSION: No acute disease. Dictated by: Debora Campos MD on 10/07/2017 at 8:27 Approved by: Debora Campos MD on 10/07/2017 at 8:27 CT ABDOMEN/PELVIS W Observed: 10/07/2017 Status: F Source: [facility] 1:18 AM [place] [address] Patient: PHONG JANG I. Phone#: : [phone] Age: 67 Gender: F Pt. Type: ER Account: [id number] Location: 052 Ordering: VICENTE JUANA Exam Date: 10/07/2017/0:44 Family Phys: HUNG CHRISTIANSON Charge Code: [id number] Physician: [place] Order #: [id number] DLP Dose#: 16.00 PROCEDURE: CT ABDOMEN/PELVIS WITH CONTRAST COMPARISON: None. INDICATIONS: Trauma TECHNIQUE: After obtaining the patient's consent, CT images were created with non-ionic intravenous contrast material. All CT scans at this facility use dose modulation, iterative reconstruction, and/or weight based dosing when appropriate to reduce radiation dose to as low as reasonably achievable. IV CONTRAST: Omnipaque 350,80ml TOTAL DOSE: 16.00 CTDIvol(mGy) FINDINGS: LIVER: Normal. No enlargement, atrophy, abnormal density, or significant focal lesion. BILIARY: The gallbladder is present and decompressed. PANCREAS: Mildly atrophic. SPLEEN: Small hypoechoic lesion in the lower pole measuring 0.97 cm, may represent a splenic contusion. KIDNEYS: The kidneys enhance and excrete contrast symmetrically. No hydronephrosis. Low attenuation lesion in the left lower pole, too small to characterize. The ureters are intact. ADRENALS: Normal. No mass or enlargement. AORTA/VASCULAR: No aortic aneurysm. There are atherosclerotic calcifications of the aorta and branch vessels. RETROPERITONEUM: There is a left retroperitoneal hemorrhage layering adjacent and lateral to the left iliopsoas. The hematoma measures 9.3 x 2.7 x 5.7 cm. Continued Report - Page 2 of 2 Patient: PHONG JANG I. Phone#: : 1950 Age: 67 Gender: F Pt. Type: ER Account: [id number] Location: [facility] Ordering: VICENTE ARIAS Exam Date: 10/07/2017/0:44 Family Phys: HUNG CHRISTIANSON Charge Code: 630939 Physician: [place] Order #: [id number] DLP Dose#: 16.00 BOWEL/MESENTERY: There is a small hiatal hernia. There are fluid-filled loops of small bowel a few of which demonstrate mild dilatation measuring 3.3 cm. There is a moderate to large degree of stool in the colon, consistent with constipation. There is diverticulosis of the descending and sigmoid colon. ABDOMINAL WALL: Left flank subcutaneous stranding, consistent bruising. Small fat containing umbilical hernia. URINARY BLADDER: Urinary bladder is distended. PELVIC NODES: Normal. No adenopathy. PELVIC ORGANS: The uterus is present. No adnexal masses. BONES: There are small subchondral cysts formation in the right acetabulum. LUNG BASES: There are dependent changes. OTHER: Negative. CONCLUSION: 1. Left retroperitoneal hemorrhage along the left iliopsoas 2. Possible splenic contusion in the lower pole. 3. Fluid-filled mildly dilated loops of small bowel. This may represent ileus versus enteritis. 4. 5. Diverticulosis. Dictated by: Debora Campos MD on 10/07/2017 at 11:08 Approved by: Debora Campos MD on 10/07/2017 at 11:08 URINALYSIS Collected: 10/07/2017 Status: F [facility] REPOSITORY TYPE CODE TESTS RESULT OUT OF REFERENCE UNITS RANGE LAB URINALYSIS (LOINC) URINALYSIS Result Comment: URINALYSIS LAB Specimen Type(LOINC) Specimen Type Void LAB Color(LOINC) NORMAL: YELLOW Color YELLOW LAB Clarity(LOINC) NORMAL: CLEAR Clarity clear LAB ph(LOINC) NORMAL: 5.0-8.0 ph 8 LAB Protein(LOINC) NORMAL: NEGATIVE Protein NEG LAB Glucose(LOINC) NORMAL: NORMAL Glucose NORM LAB Ketone(LOINC) NORMAL: NEGATIVE Ketone NEG LAB Bilirubin(LOINC) NORMAL: NEGATIVE Bilirubin NEG LAB Blood(LOINC) NORMAL: NEGATIVE Blood Abnormal 25 LAB Urobilinog(LOINC) NORMAL: NORMAL Urobilinog NORM LAB Sp Riva(LOINC) NORMAL: 1.010-1.030 Sp Riva 1.010 LAB Nitrite(LOINC) NORMAL: NEGATIVE Nitrite NEG LAB Leukocytes(LOINC) NORMAL: NEGATIVE Leukocytes Abnormal 500 LAB Microscopic(LOINC ) Microscopic SEE BELOW Result Comment: MICROSCOPIC LAB Wbc(LOINC) 0-5/hpf Wbc 6-10 LAB Rbc(LOINC) 0-3/hpf Rbc 0-5 LAB Casts(LOINC) Casts NONE LAB Crystals(LOINC) Crystals NONE LAB Amorphous(LOINC) Amorphous NONE LAB Bacteria(LOINC) Bacteria TRACE LAB Epi Cells(LOINC) Epi Cells FEW LAB Mucous(LOINC) Mucous TRACE LAB Yeast(LOINC) Yeast NONE Performed By: #### [id number] #### [facility],[address] [place] [address] BB TYPE & SCREEN Collected: 10/07/2017 Status: F Source: [facility] 12:30 AM [facility] REPOSITORY TYPE CODE TESTS RESULT OUT OF REFERENCE UNITS RANGE LAB BB TYPE & SCREEN(LOIN C) BB TYPE & SCREEN Result Comment: TYPE, Rh, AND SCREEN LAB ABO(LOINC) ABO A LAB Rh(LOINC) Rh POS LAB ANTIBODY SCR(LOINC) ANTIBODY negative SCR Performed By: #### [id number] #### [facility],[address] [facility] [address] CBC Collected: 10/07/2017 Status: F Source: [facility] 12:01 AM [facility] REPOSITORY TYPE CODE TESTS RESULT OUT OF RANGE REFERENCE UNITS LAB CBC(LOINC) CBC Result Comment: CBC-COMPLETE BLOOD COUNT LAB WBC(LOINC) 4.5 - 10.8 x 10EE3/UL WBC High 18.3 LAB RBC(LOINC) 4.10 - x 10EE6/UL 5.30 RBC High 5.56 LAB HEMOGLOBIN(LOINC 12.0 - g/dl ) 16.0 Low HEMOGLOBIN 11.7 LAB HEMATOCRIT(LOINC 34.0 - % ) 46.0 HEMATOCRIT 38.0 LAB MCV(LOINC) 80 - 99 fl MCV Low 68 LAB MCH(LOINC) 27 - 33 pg MCH Low 21 LAB MCHC(LOINC) 32 - 36 X10 3 MCHC Low 31 LAB RDW/CV(LOINC) 12.0 - % 15.6 RDW/CV High 22.6 LAB PLATELET(LOINC) 150 - 450 x10EE3/UL PLATELET High 478 LAB MPV(LOINC) 6.6 - 10.5 fl MPV 8.7 Result Comment: AUTOMATED DIFFERENTIAL LAB NEUT %(LOINC) 46.0 - 76.0 % NEUT % High 83.1 LAB LYMPH %(LOINC) 20.0 - 45.0 % Low LYMPH % 9.2 LAB MONOS %(LOINC) 0.0 - 10.0 % MONOS % 5.6 LAB EO %(LOINC) 0.0 - 7.0 % EO % 1.8 LAB BASO %(LOINC) 0.0 - 2.0 % BASO % 0.3 LAB Lymph #(LOINC) 0.80 - 2.80 x10EE3/U L Lymph # 1.70 LAB Neut #(LOINC) 1.50 - 7.10 x10EE3/U L Neut # High 15.20 LAB Jasper #(LOINC) 0.20 - 1.00 x10EE3/U L Jasper # 1.00 LAB EO #(LOINC) 0.00 - 0.50 x10EE3/U L EO # 0.30 LAB Baso #(LOINC) 0.00 - 0.10 x10EE3/U L Baso # 0.10 LAB MANUAL DIFF(LOINC) MANUAL DIFF SEE BELOW LAB SEGS(LOINC) 50 - 70 % SEGS High 83 LAB LYMPH(LOINC) 20 - 40 % Low LYMPH 9 LAB MONOS(LOINC) 0 - 8 % MONOS 4 LAB EO(LOINC) 0.0 - 4.0 % EO 2.0 LAB BASO(LOINC) 0.0 - 2.0 % BASO 2.0 LAB CELL COUNT(LOINC) CELL COUNT 100 LAB MORPHOLOGY(LOIN C) MORPHOLOGY SEE BELOW LAB ANISO(LOINC) ANISO 2+ LAB MICROCYTES(ALAN NC) MICROCYTES 2+ LAB POLYCHROM(LOIN C) POLYCHROM 1+ Result Comment: {CD] Performed By: #### [id number] #### [facility],[address] [place] [address] CMP WITH EGFR Collected: 10/07/2017 Status: F Source: [facility] 12:01 AM [facility] REPOSITORY TYPE CODE TESTS RESULT OUT OF RANGE REFERENCE UNITS LAB CMP with eGFR(LOINC) CMP with eGFR Result Comment: COMPREHENSIVE METABOLIC PANEL LAB SODIUM(LOINC) 136 - 145 mmol/l SODIUM 140 LAB POTASSIUM(LOINC) 3.5 - 5.1 mmol/L POTASSIUM 3.6 LAB CHLORIDE(LOINC) 98 - 107 mmol/L CHLORIDE 104 LAB CO2(LOINC) 21.0 - mmol/L 31.0 CO2 28.8 LAB GLUCOSE(LOINC) 74 - 106 mg/dl GLUCOSE High 127 LAB BUN(LOINC) 6 - 20 mg/dl BUN High 25 LAB CREATININE(LOINC) 0.6 - 1.2 mg/dl CREATININE 0.8 LAB AST/SGOT(LOINC) 13 - 39 U/L AST/SGOT 18 LAB ALK PHOS(LOINC) 38 - 126 U/L ALK PHOS 76 LAB CALCIUM(LOINC) 8.6 - mg/dl 10.2 CALCIUM 8.9 LAB TOTAL 6.4 - 8.3 g/dl PROTEIN(LOINC) TOTAL PROTEIN 7.1 LAB ALBUMIN(LOINC) 3.4 - 4.8 g/dL ALBUMIN 4.0 LAB GLOBULIN(LOINC) 1.5 - 3.8 G/DL GLOBULIN 3.1 LAB A/G RATIO(LOINC) 0.9 - 1.6 A/G RATIO 1.3 LAB TOTAL BILI(LOINC) 0.0 - 1.5 mg/dl TOTAL BILI 1.0 LAB B/C RATIO(LOINC) 0 - 30 ratio B/C High RATIO 31 LAB ALT/SGPT(LOINC) 8 - 35 U/L ALT/SGPT 13 LAB ANION GAP(LOINC) 10 - 20 mmol/L ANION GAP 11 LAB AGE(LOINC) years AGE 67 LAB eGFR(LOINC) 60 - 999 ML/MINUTE eGFR 72 LAB eGFR(AA)(LOINC) 60 - 999 ML/MINUTE eGFR(AA) 87 Result Comment: ACCORDING TO THE NATIONAL KIDNEY DISEASE EDUCATION PROGRAM(NKDE), A NORMAL eGFR IS A VALUE GREATER THAN OR EQUAL TO 60 ML/MIN/1.73 SQ METERS. CHRONIC KIDNEY DISEASE: <60mL/MIN/1.73 SQ METERS KIDNEY FAILURE: <15mL/MIN/1.73 SQ METERS THIS TEST SHOULD ONLY BE USED FOR PATIENTS 18 YEARS OF AGE AND OLDER. Performed By: #### [id number] #### [place] [address] LDH Collected: 10/07/2017 Status: F [facility]: [facility] 12:01 AM [facility] REPOSITORY TYPE CODE TESTS RESULT OUT OF RANGE REFERENCE UNITS LAB LDH(LOINC) 100 - 190 U/L High LDH 218 Performed By: #### [id number] #### [place] [address] PROTHROMBIN TIME AND Collected: 10/06/2017 Status: F [facility] PM [facility] REPOSITORY TYPE CODE TESTS RESULT OUT OF REFERENCE UNITS RANGE LAB PROTHROMBIN TIME AND INR(LOINC) PROTHROMBIN TIME AND INR Result Comment: PROTHROMBIN TIME AND INR LAB PT-COUMADIN(LOINC) sec PT-COUMADIN 13.3 LAB INR(LOINC) 0.8 - 1.2 INR 1.2 Result Comment: THE HEMOSIL THROMBOPLASTIN REAGENT USED IN THE PROTHROMBIN TIME TEST INTERACTS WITH THE DRUG CUBICIN (DAPTOMYCIN) AND WILL RESULT IN FALSELY ELEVATED PT / INR RESULTS INR INTERPRETATION INR INDICATION PREVENTION AND TREATMENT OF THROMBOEMBOLISM ASSOCIATED WITH: 2.0 - 3.0 ATRIAL FIBRILLATION, BIOPROSTHETIC HEART VALVES, PULMONARY EMBOLISM, VENOUS THROMBOSIS, SYSTEMIC EMBOLISM POST MYOCARDIAL INFARCTION 2.5 - 3.5 MECHANICAL HEART VALVES Performed By: #### [id number] #### [facility],[address] [place], [place] [address] APTT Collected: 10/06/2017 Status: F Source: [facility] 11:29 PM [facility] REPOSITORY TYPE CODE TESTS RESULT OUT OF RANGE REFERENCE UNITS LAB PTT(INC) 21.6 - 35.4 sec PTT 26.7 Performed By: #### [id number] #### [facility],[address] [place], [place] [id number] CMP WITH EGFR Collected: 10/06/2017 Status: F Source: [facility] 11:29 PM [facility] REPOSITORY TYPE CODE TESTS RESULT OUT OF RANGE REFERENCE UNITS LAB CMP with eGFR([facility]) CMP with eGFR Result Comment: COMPREHENSIVE METABOLIC PANEL LAB SODIUM(LOINC) 136 - 145 mmol/l SODIUM 140 LAB POTASSIUM(LOINC) 3.5 - 5.1 mmol/L POTASSIUM 3.6 LAB CHLORIDE(LOINC) 98 - 107 mmol/L CHLORIDE 104 LAB CO2(LOINC) 21.0 - mmol/L 31.0 CO2 28.8 LAB GLUCOSE(LOINC) 74 - 106 mg/dl GLUCOSE High 127 LAB BUN(LOINC) 6 - 20 mg/dl BUN High 25 LAB CREATININE(LOINC) 0.6 - 1.2 mg/dl CREATININE 0.8 LAB AST/SGOT(LOINC) 13 - 39 U/L AST/SGOT 18 LAB ALK PHOS(LOINC) 38 - 126 U/L ALK PHOS 76 LAB CALCIUM(LOINC) 8.6 - mg/dl 10.2 CALCIUM 8.9 LAB TOTAL 6.4 - 8.3 g/dl PROTEIN(LOINC) TOTAL PROTEIN 7.1 LAB ALBUMIN(LOINC) 3.4 - 4.8 g/dL ALBUMIN 4.0 LAB GLOBULIN(LOINC) 1.5 - 3.8 G/DL GLOBULIN 3.1 LAB A/G RATIO(LOINC) 0.9 - 1.6 A/G RATIO 1.3 LAB TOTAL BILI(LOINC) 0.0 - 1.5 mg/dl TOTAL BILI 1.0 LAB B/C RATIO(LOINC) 0 - 30 ratio B/C High RATIO 31 LAB ALT/SGPT(LOINC) 8 - 35 U/L ALT/SGPT 13 LAB ANION GAP(LOINC) 10 - 20 mmol/L ANION GAP 11 LAB AGE(LOINC) years AGE 67 LAB eGFR(LOINC) 60 - 999 ML/MINUTE eGFR >60 LAB eGFR(AA)(LOINC) 60 - 999 ML/MINUTE eGFR(AA) >60 Result Comment: ACCORDING TO THE NATIONAL KIDNEY DISEASE EDUCATION PROGRAM(NKDE), A NORMAL eGFR IS A VALUE GREATER THAN OR EQUAL TO 60 ML/MIN/1.73 SQ METERS. CHRONIC KIDNEY DISEASE: <60mL/MIN/1.73 SQ METERS KIDNEY FAILURE: <15mL/MIN/1.73 SQ METERS THIS TEST SHOULD ONLY BE USED FOR PATIENTS 18 YEARS OF AGE AND OLDER. Performed By: #### [id number] #### [facility],[address] [place] [address] CBC Collected: 10/06/2017 Status: F Source: [facility] 11:29 PM [facility] REPOSITORY TYPE CODE TESTS RESULT OUT OF RANGE REFERENCE UNITS LAB CBC(LOINC) CBC Result Comment: CBC-COMPLETE BLOOD COUNT LAB WBC(LOINC) 4.5 - 10.8 x 10EE3/UL WBC High 18.3 LAB RBC(LOINC) 4.10 - x 10EE6/UL 5.30 RBC High 5.56 LAB HEMOGLOBIN(LOINC 12.0 - g/dl ) 16.0 Low HEMOGLOBIN 11.7 LAB HEMATOCRIT(LOINC 34.0 - % ) 46.0 HEMATOCRIT 38.0 LAB MCV(LOINC) 80 - 99 fl MCV Low 68 LAB MCH(LOINC) 27 - 33 pg MCH Low 21 LAB MCHC(LOINC) 32 - 36 X10 3 MCHC Low 31 LAB RDW/CV(LOINC) 12.0 - % 15.6 RDW/CV High 22.6 LAB PLATELET(LOINC) 150 - 450 x10EE3/UL PLATELET High 478 LAB MPV(LOINC) 6.6 - 10.5 fl MPV 8.7 Result Comment: AUTOMATED DIFFERENTIAL LAB NEUT %(LOINC) 46.0 - 76.0 % NEUT % High 83.1 LAB LYMPH %(LOINC) 20.0 - 45.0 % Low LYMPH % 9.2 LAB MONOS %(LOINC) 0.0 - 10.0 % MONOS % 5.6 LAB EO %(LOINC) 0.0 - 7.0 % EO % 1.8 LAB BASO %(LOINC) 0.0 - 2.0 % BASO % 0.3 LAB Lymph #(LOINC) 0.80 - 2.80 x10EE3/U L Lymph # 1.70 LAB Neut #(LOINC) 1.50 - 7.10 x10EE3/U L Neut # High 15.20 LAB Jasper #(LOINC) 0.20 - 1.00 x10EE3/U L Jasper # 1.00 LAB EO #(LOINC) 0.00 - 0.50 x10EE3/U L EO # 0.30 LAB Baso #(LOINC) 0.00 - 0.10 x10EE3/U L Baso # 0.10 LAB MANUAL DIFF(LOINC) MANUAL DIFF SEE BELOW LAB SEGS(LOINC) 50 - 70 % SEGS High 83 LAB LYMPH(LOINC) 20 - 40 % Low LYMPH 9 LAB MONOS(LOINC) 0 - 8 % MONOS 4 LAB EO(LOINC) 0.0 - 4.0 % EO 2.0 LAB BASO(LOINC) 0.0 - 2.0 % BASO 2.0 LAB CELL COUNT(LOINC) CELL COUNT 100 LAB MORPHOLOGY(LOIN C) MORPHOLOGY SEE BELOW LAB ANISO(LOINC) ANISO 2+ LAB MICROCYTES(ALAN NC) MICROCYTES 2+ LAB POLYCHROM(LOIN C) POLYCHROM 1+ Result Comment: {CD] Performed By: #### [id number] #### [facility],[address] [place] [address] CBC W/DIFF, AUTOMATED Collected: 08/21/2017 Status: F Source: [facility] 11:[address] [facility] REPOSITORY TYPE CODE TESTS RESULT OUT OF RANGE REFERENCE UNITS LAB L100.1000 4.4-11.0 K/mm3 High WBC 16.4 LAB L100.1200 4.2-5.4 M/mm3 High RBC 6.32 LAB L100.1300 12.0-15.0 g/dl Normal HGB 13.3 LAB L100.1400 37-47 % Normal HCT 44.9 LAB L100.1500 81-99 fL Low MCV 71.0 LAB L100.1600 27.0-32.0 pg Low MCH 21.0 LAB L100.1700 32-36 g/gl Low MCHC 29.6 LAB L100.1810 11.6-14.6 % High RDW CV 19.6 LAB L100.1820 35.1-43.9 fl High RDW SD 48.3 LAB L100.1900 150-450 K/mm3 Normal PLT 429 LAB L100.2000 6.2-12.0 fl Normal MPV 10.4 LAB L100.2100 47-70 % High NEUT% 80.2 LAB L100.2200 19-41 % Low LY% 12.6 LAB L100.2300 0-10 % Normal MONO% 3.8 LAB L100.2400 0-5 % Normal EO% 2.7 LAB L100.2500 0-1 % Normal BASO% 0.4 LAB L100.2550 0.0-0.9 % Normal IM GRAN % 0.300 Result Comment: IG% - Immature Granulocytes (promyelocytes, myelocytes and metamyelocytes) > 1% indicates that a LEFT SHIFT is Present. LAB L100.2620 2.0-7.7 X10 3/uL High Absolute Neut 13.1 LAB L100.2720 0.83-4.51 X10 3/ul Normal Absolute Lymph 2.07 LAB L100.4500 Normal SMEAR COMMENT COMMENT Result Comment: SLIDE SCANNED - LYMPHOPENIA NOTED. Performed By: #### L100.0100 #### [facility] [address] [place], [place], [address] COMPREHENSIVE METABOLIC Collected: 08/21/2017 Status: F Source: [facility] 11:[address] [facility] REPOSITORY Order Comment: Serial Specimen #1, #2 or #3? 1 TYPE CODE TESTS RESULT OUT OF RANGE REFERENCE UNITS LAB L501.0100 74-106 mg/dL Normal GLU 78 Result Comment: Please note revised GLUCOSE reference range effective 2017. LAB L501.1000 7-18 mg/dL High BUN 20 LAB L501.1100 0.55-1.02 mg/dL Normal CREAT,SERUM 0.84 Result Comment: The validity of the calculated GFR AND GFRAA in patients over 70 years has not been determined. Clinical correlation is essential. LAB L501.1110 >60 mL/min Normal EST GFR 72 Result Comment: Non- GFR Calc LAB L501.1115 >60 mL/min Normal EST GFR - AA 87 Result Comment: GFR Calc LAB L501.1300 10-20 RATIO High BUN/CRE 23.8 LAB L501.1500 6.4-8.2 g/dL T Normal PROT 7.6 LAB L501.1800 3.2-5.0 g/dL Normal ALB 3.6 LAB L501.1950 2.2-4.2 g/dL Normal GLOB 4.0 LAB L501.2000 0.9-2.4 RATIO Normal A/G 0.9 LAB L501.2200 8.5-10.1 mg/dL CA Normal 9.0 LAB L501.4100 15-37 U/L Normal AST 20 LAB L501.4305 45-117 U/L Normal ALK P 113 LAB L501.4405 13-56 U/L Normal ALT 19 Result Comment: Please note revised ALT reference range effective 2017. LAB L501.4600 0.20-1.00 mg/dL Normal T BILI 0.80 LAB L501.5300 136-145 mmol/L Normal NA 140 LAB L501.5600 3.5-5.1 mmol/L Normal K 4.4 LAB L501.5900 98-107 mmol/L Normal CL 105 LAB L501.6100 21.0-32.0 mmol/L Normal CO2 28.0 LAB L501.6200 5-15 Normal GAP 7 Performed By: #### L500.4050, L504.2610 #### [facility] [address] [facility] [place], [place], [address] LDH Collected: 08/21/2017 Status: F Source: [facility] 11:[address] [facility] REPOSITORY Order Comment: Serial Specimen #1, #2 or #3? 1 TYPE CODE TESTS RESULT OUT OF RANGE REFERENCE UNITS LAB L504.2610 84-246 U/L Normal LDH 217 Performed By: #### L500.4050, L504.2610 #### [facility] [address] [place], [address] CBC W/DIFF, AUTOMATED Collected: 07/22/2017 Status: F Source: [facility] 1:[address] [facility] REPOSITORY Order Comment: Comments: fax results to Dr. Sanam Gross [phone] TYPE CODE TESTS RESULT OUT OF RANGE REFERENCE UNITS LAB L100.1000 4.4-11.0 K/mm3 High WBC 18.8 LAB L100.1200 4.2-5.4 M/mm3 High RBC 5.79 LAB L100.1300 12.0-15.0 g/dl Normal HGB 12.7 LAB L100.1400 37-47 % Normal HCT 43.7 LAB L100.1500 81-99 fL Low MCV 75.5 LAB L100.1600 27.0-32.0 pg Low MCH 21.9 LAB L100.1700 32-36 g/gl Low MCHC 29.1 LAB L100.1810 11.6-14.6 % High RDW CV 16.8 LAB L100.1820 35.1-43.9 fl High RDW SD 45.7 LAB L100.1900 150-450 K/mm3 High PLT 525 LAB L100.2000 6.2-12.0 fl Normal MPV 10.1 LAB L100.2100 47-70 % High NEUT% 87.0 LAB L100.2200 19-41 % Low LY% 7.1 LAB L100.2300 0-10 % Normal MONO% 3.2 LAB L100.2400 0-5 % Normal EO% 2.1 LAB L100.2500 0-1 % Normal BASO% 0.3 LAB L100.2550 0.0-0.9 % Normal IM GRAN % 0.300 Result Comment: IG% - Immature Granulocytes (promyelocytes, myelocytes and metamyelocytes) > 1% indicates that a LEFT SHIFT is Present. LAB L100.2620 2.0-7.7 X10 3/uL High Absolute Neut 16.4 LAB L100.2720 0.83-4.51 X10 3/ul Normal Absolute Lymph 1.34 Performed By: #### L100.0100 #### [facility] [address] [place], [address] COMPREHENSIVE METABOLIC Collected: 07/22/2017 Status: F [facility] [facility] REPOSITORY Order Comment: Comments: fax results to Dr. Sanam Gross [phone] TYPE CODE TESTS RESULT OUT OF RANGE REFERENCE UNITS LAB L501.0100 74-106 mg/dL High GLU 123 Result Comment: Fasting Glucose result from 100 to 125 mg/dL suggests IMPAIRED HOMEOSTASIS per A.D.A. criteria. Please note revised GLUCOSE reference range effective 2017. LAB L501.1000 7-18 mg/dL High BUN 26 LAB L501.1100 0.55-1.02 mg/dL Normal CREAT,SERUM 0.95 Result Comment: The validity of the calculated GFR AND GFRAA in patients over 70 years has not been determined. Clinical correlation is essential. LAB L501.1110 >60 mL/min Normal EST GFR 63 Result Comment: Non- GFR Calc LAB L501.1115 >60 mL/min Normal EST GFR - AA 76 Result Comment: GFR Calc LAB L501.1255 ml/min Normal Estimated CRCL 52.42 LAB L501.1300 10-20 RATIO High BUN/CRE 27.4 LAB L501.1500 6.4-8. g/dL Normal 2 T PROT 7.3 LAB L501.1800 3.2-5. g/dL Normal 0 ALB 3.5 LAB L501.1950 2.2-4. g/dL Normal 2 GLOB 3.8 LAB L501.2000 0.9-2. RATIO Normal 4 A/G 0.9 LAB L501.2200 8.5-10 mg/dL Normal .1 CA 8.5 LAB L501.4100 15-37 U/L Normal AST 23 LAB L501.4305 45-117 U/L High ALK P 122 LAB L501.4405 13-56 U/L Normal ALT 26 Result Comment: Please note revised ALT reference range effective 2017. LAB L501.4600 0.20-1.00 mg/dL Normal T BILI 0.40 LAB L501.5300 136-145 mmol/L Normal NA 140 LAB L501.5600 3.5-5.1 mmol/L Normal K 3.8 LAB L501.5900 98-107 mmol/L Normal CL 107 LAB L501.6100 21.0-32.0 mmol/L Normal CO2 26.0 LAB L501.6200 5-15 Normal GAP 7 Performed By: #### L500.4050 #### [facility] [address] [place], [place], [address] CBC W/DIFF, AUTOMATED Collected: 07/08/2017 Status: F Source: [facility] 1:[address] [facility] REPOSITORY Order Comment: Has pt arrived? Y TYPE CODE TESTS RESULT OUT OF RANGE REFERENCE UNITS LAB L100.1000 4.4-11.0 K/mm3 High WBC 18.1 LAB L100.1200 4.2-5.4 M/mm3 High RBC 5.59 LAB L100.1300 12.0-15.0 g/dl Normal HGB 12.6 LAB L100.1400 37-47 % Normal HCT 42.8 LAB L100.1500 81-99 fL Low MCV 76.6 LAB L100.1600 27.0-32.0 pg Low MCH 22.5 LAB L100.1700 32-36 g/gl Low MCHC 29.4 LAB L100.1810 11.6-14.6 % High RDW CV 17.2 LAB L100.1820 35.1-43.9 fl High RDW SD 46.7 LAB L100.1900 150-450 K/mm3 High PLT 517 LAB L100.2000 6.2-12.0 fl Normal MPV 10.3 LAB L100.2100 47-70 % High NEUT% 87.3 LAB L100.2200 19-41 % Low LY% 6.3 LAB L100.2300 0-10 % Normal MONO% 3.6 LAB L100.2400 0-5 % Normal EO% 2.2 LAB L100.2500 0-1 % Normal BASO% 0.3 LAB L100.2550 0.0-0.9 % Normal IM GRAN % 0.300 Result Comment: IG% - Immature Granulocytes (promyelocytes, myelocytes and metamyelocytes) > 1% indicates that a LEFT SHIFT is Present. LAB L100.2620 2.0-7.7 X10 3/uL High Absolute Neut 15.8 LAB L100.2720 0.83-4.51 X10 3/ul Normal Absolute Lymph 1.15 Performed By: #### L100.0100 #### [facility] [address], [address] ALLERGIES ALLERGIES DATE TYPE / CODE NAME / CODE REACTION SEVERITY SOURCE 07/22/2017 Drug No Known Unknown [place] All[facility]/[id number](S Allergies/F[facility] [place]) [address](RXNORM) Hospital Repository Miscellaneous No Known Drug Moderate [facility] Allergy/817091136(S Allergies ([facility]) Modifier) Hospital (Qualifier Repository Value) ENCOUNTERS ENCOUNTERS ADMIT/DISCHARGE ACCOUNT NUMBER ADMITTING ENCOUNTER LOCATION SOURCE CLASS 07/01/2018 [id number] [facility] ding:LAB Repository 06/05/2018/06/05/20 [id number] Ambulatory [address] ding:LAB Repository 05/12/2018/05/12/20 [id number] [facility], Ambulatory [address] Repository 05/12/2018/05/12/20 [id number] [facility], [address] Repository 05/01/2018/05/11/20 [id number] Ambulatory [address] ding:LAB Repository 04/02/2018/04/02/20 [id number] Ambulatory [place] ding:LAB Repository 02/27/2018/02/28/[id number] ding:LAB Repository 02/23/2018/02/24/20 [id number] Ambulatory [facility] 18 ing:LAB [facility] Repository 01/29/2018/01/30/20 [id number] Ambulatory [place] [address] ding:LAB Repository 12/31/2017/01/01/20 [id number] Ambulatory [place] [address] ding:LAB Repository 11/28/2017 [id number] [facility] ding:LAB Repository 10/31/2017/11/01/19 [id number] Ambulatory [facility] 18 ing:[facility] Health [facility] [place] Repository 10/07/2017/10/09/19 [id number] GAYATRI KAM, Ambulatory ABuilding:ME Makayla KaminskiRoom: Health 6716Bed: [facility] Repository 10/07/2017/10/08/19 [id number] KETTY, Ambulatory [address] Repository 10/06/2017/10/08/19 [id number] JUANA, Emergency [address] [place] [address] Room: ERBed: [facility] Repository 08/21/2017 [id number] [facility]ulatory [facility] ding:LAB Repository 07/22/2017 [id number] [facility] ding:MEDOUTP Repository 07/08/2017 [id number] [facility] ding:MEDOUTP Repository PAYERS PAYERS ENCOUNTER GUARANTOR PAYER SUBSCRIBER SOURCE 07/01/2018 NARCISO King Primary PHONG I [place]ino [id number] TR Insurance:MEDICARE DURSTDOB: [address], PART A BPolicy Number: [id number] [facility] [address]Zyp: [id number] Repository Date:2017-12-31 (HP) 07/01/2018 Secondary PHONG I Sab[place] Insurance:MEDICAL DURSTDOB: [facility] [id number] [facility] Number: Repository [id number] Date:7265-64-74HC[address] [address]LD: 07/01/2018 Tertiary NOT GIVENUNK [place] Insurance:SELF PAY [facility] Number: Effective Repository Date:2018-06-08 06/05/2018 NARCISO Fernando Primary PHONG I [place] [id number] TR Insurance:MEDICARE DURSTDOB: [address], PART A BPolicy Number: [id number] Medical Center [address]Gom: [id number] Repository Date:2017-12-31 (HP) 06/05/2018 Secondary PHONG I [place] Insurance:MEDICAL DURSTDOB: [facility] [id number] Hospital Number: Repository [id number] Date:9726-54-27II [address] [place] [address]UC: 06/05/2018 Tertiary NOT GIVENUNK [place] Insurance:SELF PAY [facility] Number: Effective Repository Date:2018-05-11 05/12/2018 PHONG I Primary PHONG I Lavon Meenuerene DURSTDOB: Insurance:MEDICARE DURSTDOB: [facility] [id number] [place] [address] [id number] [address] Number: 8 [facility] Repository [address] [place] [address], [id number] [address] [place] [address] Oh Date:Plan Name: [id number]: () 05/12/2018 Secondary PHONG A Lavon Pomerene Insurance:MEDICAL DURSTDOB: [facility] [id number] [place] [address] 8 TR Repository Number: 301[facility] [id number] [place] [id number] Date:Plan Name: 05/12/2018 PHONG I Primary PHONG I Lavon Pomerene DURSTDOB: Insurance:MEDICARE DURSTDOB: [facility] [id number] [place] [address] [id number] [address] Number: 8 [facility] Repository [address] [place] [address], [id number] [address] [place] [address] Oh Date:Plan Name: [id number]: () 05/12/2018 Secondary PHNOG A Lavon Pomerene Insurance:MEDICAL DURSTDOB: [facility] [id number] Hospital OUTPATIENTPolva [facility] 8 TR [facility] Number[facility] [id number] [id number] Date:Plan Name: 05/01/2018 NARCISO King Primary PHONG Martinezoster [id number] TR Insurance:MEDICARE DURSTDOB: [address], PART A BPolicy Number: [id number] [facility] [address]Jvu: [id number] Repository Date:2017-12-31 (HP) 05/01/2018 Secondary PHONG I [place] Insurance:MEDICAL DURSTDOB: [facility] [id number] Hospital Number: Repository [id number] Date:9442-84-23MH [address] [place] [address]KO: 05/01/2018 Tertiary NOT GIVENUNK [place] Insurance:SELF PAY [facility] Number: Effective Repository Date:2018-04-09 04/02/2018 NARCISO D Primary PHONG I [place] [id number] TR Insurance:MEDICARE DURSTDOB: [address], PART A olicy Number: [id number] Medical Center [address]Rtm: [id number] Repository Date:2017-12-31 (HP) 04/02/2018 Secondary PHONG I [place] Insurance:MEDICAL DURSTDOB: [facility] [id number] Hospital Number: Repository [id number] Date:5297-70-58EI [address] [place] [address]CA: 04/02/2018 Tertiary NOT GIVENUNK [place] Insurance:SELF PAY [facility] Number: Effective Repository Date:2018-03-11 02/27/2018 Narciso King Primary PHONG I [place] [id number] TR Insurance:MEDICARE DURSTDOB: [address], PART A olicy Number: [id number] Medical Center [address]Yrl: [id number] Repository Date:2017-12-31 (HP) 02/27/2018 Secondary PHONG I [place] Insurance:MEDICAL DURSTDOB: [facility] [id number] Hospital Number: Repository [id number] Date:1589-28-78NU [address] [place] [address]XR: 02/27/2018 Tertiary NOT GIVENUNK [place] Insurance:SELF PAY [facility] Number: Effective Repository Date:2018-02-10 02/23/[address] [facility] DURSTDOB: Insurance:MEDICARE DURSTDOB: [facility] [id number] PART BPolicy Number: [id number] Repository [facility] [id number] [address], Date:2018-02-23 - [address] [place] [address] [id number] [address]Kmo: [address]~mike Name:[facility] [email or web address] LL[facility] ()Tel: (000 el: 330) [address] [address]Eekoyjrev, [place] [address] () [phone] () [id number]: 02/23/[address] [facility] Insurance:MEDICAL DURSTDOB: [address] [id number] Repository Number: [address] [place] [address] [id number] [address] [place] [address], Date:2018-02-23 - [place] [address]Neh: 9612-05-57Mwor Name:B[address] BOX ()Tel: (000) [address], [place] 000[address] () [address]JM: 01/29/2018 Narciso King Primary PHONG I [place] [id number] TR Insurance:MEDICARE DURSTDOB: [address], [facility] A BPolicy Number: [id number] [facility] [address]Gfz: [id number] Repository Date:2017-12-31 () 01/29/2018 Secondary PHONG I [place] Insurance:MEDICAL DURSTDOB: [facility] [id number] Hospital Number: Repository [id number] Date:3065-79-27VX [address] [place] [address]KD: 01/29/2018 Tertiary NOT GIVENUNK [place] Insurance:SELF PAY [facility] Number: Effective Repository Date:2018-01-08 12/31/2017 Narciso King Primary PHONG I [place] [id number] TR Insurance:MEDICARE DURSTDOB: [address], PART A BPolicy Number: [id number] Medical Center [address]Hwl: [id number] Repository Date:2017-12-31 (HP) 12/31/2017 Secondary PHONG I [place] Insurance:MEDICAL DURSTDOB: [facility] [id number] Hospital Number: Repository [id number] Date:5661-22-17TU [address] [place] [address]BM: 12/31/2017 Tertiary NOT GIVENUNK [place] Insurance:SELF PAY [facility] Number: Effective Repository Date:2017-12-31 11/28/2017 Narciso King Primary PHONG I [place] [id number] TR Insurance:MEDICARE DURSTDOB: [address], PART A BPolicy Number: [id number] Medical Center [address]Kxl: [id number] Repository Date:2017-11-28 (HP) 11/28/2017 Secondary PHONG I [place] Insurance:MEDICAL DURSTDOB: [facility] [id number] Hospital Number: Repository [id number] Date:7156-39-94VK [address] [address]HO: 11/28/2017 Tertiary NOT GIVENUNK [place] Insurance:SELF PAY [facility] Number: Effective Repository Date:2017-11-28 10/31/2017 PHONG I Primary PHONG [facility] DURSTDOB: Insurance:MEDICARE DURSTDOB: [facility] [id number] PART BPolicy Number: [id number] Repository [facility] [id number] [address], Date:2017-10-10 - [address] [place] [address] 8765-48-71[place] [address]Orv: [address]~mike Name:ARABELLA [email or web address] LLCPO (HP)Tel: (000) el: (330) [address] [address]Epudcbrph, [place] 000[address] (WP) (HP) [address]IH: 10/31/2017 [facility] Insurance:MEDICAL DURSTDOB: [facility] 6018Pol[facility] [id number] Repository Number: 8 [facility] [id number] [address], Date:2017-10-10 [place] [address]Nrf: [id number] Name:BPO BOX (HP)Tel: (000) [place], [place] 000[address] (WP) [address]MX: 10/07/2017 [facility] DURSTDOB: Insurance:MEDICARE DURSTDOB: [facility] PART BPolicy Number: [id number] Repository [facility] [address] [id number] [address], Date:2017-10-[address] [place] [address] 2074-40-95[place] [address]Hjk: [address]~mike Name:[facility] [email or web address] LLCPO (HP)Tel: (000) el: (330) [address] [address]Yhfxdhcmx, [place] 000[address] (WP) (HP) [address]ZS: 10/07/2017 [facility] Insurance:MEDICAL DURSTDOB: [facility] 6018[facility] [id number] Repository Number: 8 [facility] [id number] [place], Date:2017-10-07 [place] [address]Dts: 0089-93-45Narh Name:BPO BOX (HP)Tel: (000) [facility] [place] 000-[address] (WP) [address]FD: 10/07/2017 [facility] Lavon Griffin DURSTDOB: Insurance:MEDICARE DURSTDOB: [facility] [id number] [facility] [address] Number: [address] Repository [address] [place] [address], [id number] [address] [place] [address] Date:Plan Name:[facility] [id number]: () 10/07/2017 Secondary PHONG I Lavon Pomerene Insurance:MEDICAL DURSTDOB: [facility] [id number] [place], [place] [address] 8 TR Repository Number: [facility], [id number] [id number] Date:Plan Name: 10/06/2017 PHONG I Primary PHONG I Lavon Pomerene DURSTDOB: Insurance:MEDICARE DURSTDOB: [facility] [id number] [address] Number: [address] Repository [address] [place] [address] [id number] [place] [address] Date:Plan Name:[facility] [id number]: () 10/06/2017 Secondary PHONG I Lavon Pomerene Insurance:MEDICAL DURSTDOB: [facility] [id number] [place] [address] 8 TR Repository Number: 301[facility], [id number] [id number] Date:Plan Name: 08/21/2017 Narciso King Primary PHONG I [place] [id number] TR Insurance:MEDICARE DURSTDOB: [address], PART A BPolicy Number: [id number] [facility] [address]Tdu: [id number] Repository Date:2017-08-21 (HP) 08/21/2017 Secondary PHONG I [place] Insurance:MEDICAL DURSTDOB: [facility] [id number] [facility] Number: Repository [id number] Date:3939-92-27FN [address] [place] [address]IN: 08/21/2017 Tertiary NOT GIVENUNK [place] Insurance:SELF PAY [facility] Number: Effective Repository Date:2017-08-21 07/22/2017 Narciso King Primary PHONG I [place] [id number] TR Insurance:MEDICARE DURSTDOB: [address], PART A BPolicy Number: [id number] Medical Center [address]Bve: [id number] Repository Date:2017-06-10 () 07/22/2017 Secondary PHONG I [place] Insurance:MEDICAL DURSTDOB: [facility] [id number] Hospital Number: Repository [id number] Date:7514-52-54ZA [address] [place] [address]PA: 07/22/2017 Tertiary NOT GIVENUNK [place] Insurance:SELF PAY [facility] Number: Effective Repository Date:2017-06-10 07/08/2017 Narciso D Primary PHONG A [place] [id number] TR Insurance:MEDICARE DURSTDOB: [address], PART A BPolicy Number: [id number] Medical Center [address]Bce: [id number] Repository Date:2017-06-10 () 07/08/2017 Secondary PHONG A [place] Insurance:MEDICAL DURSTDOB: [facility] [id number] Hospital Number: Repository [id number] Date:6883-95-83DT [address] [place] [address]UE: 07/08/2017 Tertiary NOT GIVENUNK [place] Insurance:SELF PAY [facility] Number: Effective Repository Date:2017-06-10
== END 2018-07-01 16:00 | disposition home or self-care (01) ==
LOC: LAB 15:29
PROVIDERS: Family Provider Family Medicine; PCP Family Medicine; Referring Provider Internal Medicine Hematology & Oncology; Visit Provider Internal Medicine Hematology & Oncology
DX: D47.1 Chronic myeloproliferative disease (principal); D45 Polycythemia vera
CPT/HCPCS: 36415; 83615; 85025

== ENCOUNTER 2018-07-29 15:13 | Outpatient (RCR) | payer MEDICARE, OTHER, SELFPAY ==
[2018-07-29 16:14] LABS: Absolute Lymphocyte Count 1.71 X10^3/ul (0.83-4.51); Basophil# 0.04 X10^3/uL; Basophil% 0.2 % (0-1); Eosinophils% 2.3 % (0-5); Hematocrit 44.7 % (37-47); Hemoglobin 13.1 g/dl (12.0-15.0); Lymphocyte # 1.71 X10^3/ul (4.0); Mean Corp Hgb Conc 29.3 g/gl (32-36); Mean Corpuscular Hgb 22.4 pg (27.0-32.0); Mean Corpuscular Volume 76.5 fL (81-99); Mean Platelet Vol. 11.2 fl (6.2-12.0); Monocyte# 0.88 X10^3/uL; Monocyte% 5.1 % (0-10); Neutrophil # 14.02 X10^3/uL (2.7-7.7); Neutrophil % 82.2 % (47-70); Platelet Count 493 K/mm3 (150-450); RBC Distribution Width CV 19.8 % (11.6-14.6); RBC Distribution Width SD 53.5 fl (35.1-43.9); Red Blood Count 5.84 M/mm3 (4.2-5.4); White Blood Count 17.1 K/mm3 (4.4-11.0)
[2018-07-29 16:21] LABS: POSITIVE COUNT NO; POSITIVE DIFFERENTIAL NO; POSITIVE MORPHOLOGY NO
[2018-07-29 16:31] LABS: LDH 234 U/L (84-246)
== END 2018-08-06 14:27 | disposition home or self-care (01) ==
LOC: LAB 15:13
PROVIDERS: Family Provider Family Medicine; PCP Family Medicine; Referring Provider Internal Medicine Hematology & Oncology; Visit Provider Internal Medicine Hematology & Oncology
DX: D47.1 Chronic myeloproliferative disease (principal); D45 Polycythemia vera
CPT/HCPCS: 36415; 83615; 85025

== ENCOUNTER 2018-08-19 13:25 | Outpatient (RCR) | payer MEDICARE, OTHER, SELFPAY ==
[2018-08-19 14:27] LABS: Absolute Lymphocyte Count 1.05 X10^3/ul (0.83-4.51); Absolute Neutrophil Count 15.9 X10^3/uL (2.0-7.7); Basophil# 0.02 X10^3/uL; Basophil% 0.1 % (0-1); Eosinophil# 0.39 X10^3/uL; Eosinophils% 2.1 % (0-5); Hematocrit 47.4 % (37-47); Hemoglobin 13.4 g/dl (12.0-15.0); Lymphocyte # 1.05 X10^3/ul (4.0); Lymphocyte % 5.8 % (19-41); Mean Corp Hgb Conc 28.3 g/gl (32-36); Mean Corpuscular Hgb 21.6 pg (27.0-32.0); Mean Corpuscular Volume 76.5 fL (81-99); Mean Platelet Vol. 10.2 fl (6.2-12.0); Monocyte# 0.75 X10^3/uL; Monocyte% 4.1 % (0-10); Neutrophil # 15.91 X10^3/uL (2.7-7.7); Neutrophil % 87.7 % (47-70); Platelet Count 430 K/mm3 (150-450); RBC Distribution Width CV 18.8 % (11.6-14.6); RBC Distribution Width SD 51.8 fl (35.1-43.9); White Blood Count 18.2 K/mm3 (4.4-11.0)
[2018-08-19 14:36] LABS: POSITIVE COUNT NO; POSITIVE DIFFERENTIAL NO; POSITIVE MORPHOLOGY NO
[2018-08-19 14:58] LABS: ALB/GLOB Ratio 1.1 RATIO (0.9-2.4); AST(SGOT) 21 U/L (15-37); Alanine Aminotransfer ALT/SGPT 22 U/L (13-56); Albumin, Serum 3.8 g/dL (3.2-5.0); Alkaline Phosphatase 122 U/L (45-117); Anion Gap 7 (5-15); BUN 27 mg/dL (7-18); BUN/Creat Ratio 33.6 RATIO (10-20); Calcium,Total 8.1 mg/dL (8.5-10.1); Chloride 107 mmol/L (98-107); EST Glomerular Filtration Rate 76 mL/min (>60); Est Glom Filt Rate - Afr Amer 92 mL/min (>60); Globulin 3.5 g/dL (2.2-4.2); Glucose 79 mg/dL (74-106); LDH 222 U/L (84-246); Potassium 3.9 mmol/L (3.5-5.1); Protein, Total 7.3 g/dL (6.4-8.2); Sodium Level 140 mmol/L (136-145)
== END 2018-08-19 14:25 | disposition home or self-care (01) ==
LOC: LAB 13:25
PROVIDERS: Family Provider Family Medicine; PCP Family Medicine; Referring Provider Internal Medicine Hematology & Oncology; Visit Provider Internal Medicine Hematology & Oncology
DX: D47.1 Chronic myeloproliferative disease (principal); D45 Polycythemia vera
CPT/HCPCS: 36415; 80053; 83615; 85025

== ENCOUNTER 2018-09-28 14:39 | Outpatient (RCR) | payer MEDICARE, OTHER, SELFPAY ==
[2018-09-28 15:50] LABS: Absolute Lymphocyte Count 1.65 X10^3/ul (0.83-4.51); Absolute Neutrophil Count 13.6 X10^3/uL (2.0-7.7); Basophil# 0.05 X10^3/uL; Basophil% 0.3 % (0-1); Hematocrit 41.4 % (37-47); Hemoglobin 11.9 g/dl (12.0-15.0); Lymphocyte # 1.65 X10^3/ul (4.0); Mean Corp Hgb Conc 28.7 g/gl (32-36); Mean Corpuscular Hgb 21.5 pg (27.0-32.0); Mean Corpuscular Volume 74.7 fL (81-99); Mean Platelet Vol. 10.3 fl (6.2-12.0); Monocyte# 0.65 X10^3/uL; Monocyte% 3.9 % (0-10); Neutrophil # 13.63 X10^3/uL (2.7-7.7); Neutrophil % 82.5 % (47-70); Platelet Count 469 K/mm3 (150-450); RBC Distribution Width CV 18.3 % (11.6-14.6); RBC Distribution Width SD 49.4 fl (35.1-43.9); Red Blood Count 5.54 M/mm3 (4.2-5.4); White Blood Count 16.5 K/mm3 (4.4-11.0)
[2018-09-28 15:51] LABS: Differential Indicated SCAN CRITERIA MET; POSITIVE COUNT NO; POSITIVE DIFFERENTIAL NO; POSITIVE MORPHOLOGY YES
[2018-09-28 16:07] LABS: AST(SGOT) 23 U/L (15-37); Alanine Aminotransfer ALT/SGPT 21 U/L (13-56); Albumin, Serum 3.5 g/dL (3.2-5.0); Alkaline Phosphatase 121 U/L (45-117); Anion Gap 6 (5-15); BUN 23 mg/dL (7-18); BUN/Creat Ratio 29.2 RATIO (10-20); Calcium,Total 8.4 mg/dL (8.5-10.1); Chloride 108 mmol/L (98-107); Creatinine, Serum 0.79 mg/dL (0.55-1.02); EST Glomerular Filtration Rate 77 mL/min (>60); Est Glom Filt Rate - Afr Amer 94 mL/min (>60); Globulin 3.6 g/dL (2.2-4.2); Glucose 103 mg/dL (74-106); LDH 209 U/L (84-246); Potassium 3.7 mmol/L (3.5-5.1); Protein, Total 7.1 g/dL (6.4-8.2); Sodium Level 142 mmol/L (136-145)
[2018-09-28 16:12] LABS: Differential Comment SCANNED
== END 2018-10-06 16:00 | disposition home or self-care (01) ==
LOC: LAB 14:39
PROVIDERS: Family Provider Family Medicine; PCP Family Medicine; Referring Provider Internal Medicine Hematology & Oncology; Visit Provider Internal Medicine Hematology & Oncology
DX: D47.1 Chronic myeloproliferative disease (principal); D45 Polycythemia vera
CPT/HCPCS: 36415; 80053; 83615; 85025

== ENCOUNTER 2018-10-23 15:06 | Outpatient (RCR) | payer MEDICARE, OTHER, SELFPAY ==
[2018-10-23 15:32] LABS: Absolute Lymphocyte Count 1.41 X10^3/ul (0.83-4.51); Absolute Neutrophil Count 14.8 X10^3/uL (2.0-7.7); Basophil# 0.04 X10^3/uL; Basophil% 0.2 % (0-1); Eosinophil# 0.36 X10^3/uL; Hematocrit 41.2 % (37-47); Lymphocyte # 1.41 X10^3/ul (4.0); Mean Corp Hgb Conc 29.1 g/gl (32-36); Mean Corpuscular Hgb 21.2 pg (27.0-32.0); Mean Corpuscular Volume 72.8 fL (81-99); Mean Platelet Vol. 10.3 fl (6.2-12.0); Monocyte# 0.91 X10^3/uL; Monocyte% 5.2 % (0-10); Neutrophil # 14.83 X10^3/uL (2.7-7.7); Neutrophil % 84.3 % (47-70); Platelet Count 463 K/mm3 (150-450); RBC Distribution Width CV 18.4 % (11.6-14.6); RBC Distribution Width SD 48.1 fl (35.1-43.9); Red Blood Count 5.66 M/mm3 (4.2-5.4); White Blood Count 17.6 K/mm3 (4.4-11.0)
[2018-10-23 16:17] LABS: ALB/GLOB Ratio 0.9 RATIO (0.9-2.4); AST(SGOT) 21 U/L (15-37); Alanine Aminotransfer ALT/SGPT 21 U/L (13-56); Albumin, Serum 3.3 g/dL (3.2-5.0); Alkaline Phosphatase 114 U/L (45-117); Anion Gap 4 (5-15); BUN 29 mg/dL (7-18); BUN/Creat Ratio 30.9 RATIO (10-20); Calcium,Total 8.3 mg/dL (8.5-10.1); Chloride 109 mmol/L (98-107); Creatinine, Serum 0.94 mg/dL (0.55-1.02); EST Glomerular Filtration Rate 63 mL/min (>60); Est Glom Filt Rate - Afr Amer 76 mL/min (>60); Globulin 3.6 g/dL (2.2-4.2); Glucose 113 mg/dL (74-106); LDH 256 U/L (84-246); Potassium 3.9 mmol/L (3.5-5.1); Protein, Total 6.9 g/dL (6.4-8.2); Sodium Level 141 mmol/L (136-145)
[2018-10-23 16:59] LABS: Differential Indicated SCAN CRITERIA MET; POSITIVE COUNT NO; POSITIVE DIFFERENTIAL NO; POSITIVE MORPHOLOGY YES
[2018-10-23 17:00] LABS: Anisocytosis 2+; Ovalocyte 1+; Platelet Estimate ADEQUATE (ADEQ); Red Cell Morphology N CHROM NORMAL (NORM C&C); Schistocytes RARE
== END 2018-10-23 16:06 | disposition home or self-care (01) ==
LOC: LAB 15:06
PROVIDERS: Family Provider Family Medicine; PCP Family Medicine; Referring Provider Internal Medicine Hematology & Oncology; Visit Provider Internal Medicine Hematology & Oncology
DX: D47.1 Chronic myeloproliferative disease (principal); D45 Polycythemia vera
CPT/HCPCS: 36415; 80053; 83615; 85025

== ENCOUNTER 2018-11-17 14:52 | Outpatient (RCR) | payer MEDICARE, OTHER, SELFPAY ==
[2018-11-17 16:05] LABS: Absolute Lymphocyte Count 1.72 X10^3/ul (0.83-4.51); Absolute Neutrophil Count 14.5 X10^3/uL (2.0-7.7); Basophil# 0.04 X10^3/uL; Basophil% 0.2 % (0-1); Eosinophil# 0.29 X10^3/uL; Eosinophils% 1.7 % (0-5); Hematocrit 43.3 % (37-47); Hemoglobin 12.6 g/dl (12.0-15.0); Lymphocyte # 1.72 X10^3/ul (4.0); Lymphocyte % 9.9 % (19-41); Mean Corp Hgb Conc 29.1 g/gl (32-36); Mean Corpuscular Hgb 20.9 pg (27.0-32.0); Mean Corpuscular Volume 71.8 fL (81-99); Mean Platelet Vol. 10.8 fl (6.2-12.0); Monocyte# 0.76 X10^3/uL; Monocyte% 4.4 % (0-10); Neutrophil # 14.47 X10^3/uL (2.7-7.7); Neutrophil % 83.5 % (47-70); Platelet Count 518 K/mm3 (150-450); RBC Distribution Width CV 20.9 % (11.6-14.6); Red Blood Count 6.03 M/mm3 (4.2-5.4); White Blood Count 17.3 K/mm3 (4.4-11.0)
[2018-11-17 16:06] LABS: Differential Indicated SCAN CRITERIA MET; POSITIVE COUNT NO; POSITIVE DIFFERENTIAL NO; POSITIVE MORPHOLOGY YES
[2018-11-17 16:13] LABS: ALB/GLOB Ratio 0.8 RATIO (0.9-2.4); AST(SGOT) 22 U/L (15-37); Alanine Aminotransfer ALT/SGPT 24 U/L (13-56); Albumin, Serum 3.3 g/dL (3.2-5.0); Alkaline Phosphatase 119 U/L (45-117); Anion Gap 7 (5-15); BUN 25 mg/dL (7-18); BUN/Creat Ratio 30.4 RATIO (10-20); Calcium,Total 8.5 mg/dL (8.5-10.1); Chloride 108 mmol/L (98-107); Creatinine, Serum 0.82 mg/dL (0.55-1.02); EST Glomerular Filtration Rate 74 mL/min (>60); Est Glom Filt Rate - Afr Amer 89 mL/min (>60); Glucose 90 mg/dL (74-106); LDH 208 U/L (84-246); Potassium 3.9 mmol/L (3.5-5.1); Protein, Total 7.3 g/dL (6.4-8.2); Sodium Level 144 mmol/L (136-145)
[2018-11-17 16:29] LABS: Platelet Estimate MOD INC (ADEQ)
[2018-11-17 16:30] LABS: Anisocytosis 1+; Microcytosis 1+
== END 2018-11-17 15:00 | disposition home or self-care (01) ==
LOC: LAB 14:52
PROVIDERS: Family Provider Family Medicine; PCP Family Medicine; Referring Provider Internal Medicine Hematology & Oncology; Visit Provider Internal Medicine Hematology & Oncology
DX: D47.1 Chronic myeloproliferative disease (principal); D45 Polycythemia vera
CPT/HCPCS: 36415; 80053; 83615; 85025

== ENCOUNTER 2018-12-17 15:23 | Outpatient (RCR) | payer MEDICARE, OTHER, SELFPAY ==
[2018-12-17 16:41] LABS: Absolute Lymphocyte Count 1.69 X10^3/ul (0.83-4.51); Absolute Neutrophil Count 16.4 X10^3/uL (2.0-7.7); Basophil# 0.04 X10^3/uL; Basophil% 0.2 % (0-1); Eosinophil# 0.34 X10^3/uL; Eosinophils% 1.8 % (0-5); Hemoglobin 12.8 g/dl (12.0-15.0); Lymphocyte # 1.69 X10^3/ul (4.0); Lymphocyte % 8.8 % (19-41); Mean Corp Hgb Conc 29.1 g/gl (32-36); Mean Corpuscular Hgb 21.5 pg (27.0-32.0); Mean Corpuscular Volume 73.8 fL (81-99); Mean Platelet Vol. 10.3 fl (6.2-12.0); Monocyte% 3.6 % (0-10); Neutrophil # 16.36 X10^3/uL (2.7-7.7); Neutrophil % 85.2 % (47-70); Platelet Count 516 K/mm3 (150-450); RBC Distribution Width CV 19.6 % (11.6-14.6); RBC Distribution Width SD 52.5 fl (35.1-43.9); Red Blood Count 5.96 M/mm3 (4.2-5.4); White Blood Count 19.2 K/mm3 (4.4-11.0)
[2018-12-17 16:47] LABS: Differential Indicated SCAN CRITERIA MET; POSITIVE COUNT NO; POSITIVE DIFFERENTIAL NO; POSITIVE MORPHOLOGY YES
[2018-12-17 17:00] LABS: ALB/GLOB Ratio 0.9 RATIO (0.9-2.4); AST(SGOT) 19 U/L (15-37); Alanine Aminotransfer ALT/SGPT 20 U/L (13-56); Albumin, Serum 3.4 g/dL (3.2-5.0); Alkaline Phosphatase 116 U/L (45-117); Anion Gap 7 (5-15); BUN 27 mg/dL (7-18); BUN/Creat Ratio 31.1 RATIO (10-20); Calcium,Total 8.7 mg/dL (8.5-10.1); Chloride 109 mmol/L (98-107); Creatinine, Serum 0.87 mg/dL (0.55-1.02); EST Glomerular Filtration Rate 69 mL/min (>60); Est Glom Filt Rate - Afr Amer 84 mL/min (>60); Globulin 3.8 g/dL (2.2-4.2); Glucose 85 mg/dL (74-106); LDH 242 U/L (84-246); Potassium 3.8 mmol/L (3.5-5.1); Protein, Total 7.2 g/dL (6.4-8.2); Sodium Level 142 mmol/L (136-145)
[2018-12-17 19:11] LABS: Anisocytosis 2+; Differential Comment SCANNED; Microcytosis 1+; Ovalocyte RARE; Platelet Estimate SLT INC (ADEQ); Poikilocytosis RARE
== END 2019-01-06 06:26 | disposition home or self-care (01) ==
LOC: LAB 15:23
PROVIDERS: Family Provider Family Medicine; PCP Family Medicine; Referring Provider Internal Medicine Hematology & Oncology; Visit Provider Internal Medicine Hematology & Oncology
DX: D47.1 Chronic myeloproliferative disease (principal); D45 Polycythemia vera
CPT/HCPCS: 36415; 80053; 83615; 85025

== ENCOUNTER 2019-01-19 15:20 | Outpatient (RCR) | payer MEDICARE, OTHER, SELFPAY ==
[2019-01-19 17:19] LABS: Absolute Lymphocyte Count 1.68 X10^3/uL (0.83-4.51); Absolute Neutrophil Count 14.9 X10^3/uL (2.0-7.7); Basophil# 0.09 X10^3/uL; Basophil% 0.5 % (0-1); Eosinophil# 0.36 X10^3/uL; Hematocrit 47.8 % (37-47); Hemoglobin 13.5 g/dL (12.0-15.0); Lymphocyte # 1.68 X10^3/ul (4.0); Lymphocyte % 9.5 % (19-41); Mean Corp Hgb Conc 28.2 g/dL (32-36); Mean Corpuscular Hgb 21.4 pg (27.0-32.0); Mean Corpuscular Volume 75.9 fL (81-99); Mean Platelet Vol. 10.5 fl (6.2-12.0); Monocyte# 0.67 X10^3/uL; Monocyte% 3.8 % (0-10); NRBC Flagged by Analyzer 0 % (0-5); Neutrophil # 14.85 X10^3/uL (2.7-7.7); Neutrophil % 83.5 % (47-70); Platelet Count 522 K/mm3 (150-450); RBC Distribution Width SD 51.4 fl (35.1-43.9); White Blood Count 17.8 K/mm3 (4.4-11.0)
[2019-01-19 18:06] LABS: ALB/GLOB Ratio 0.9 RATIO (0.9-2.4); AST(SGOT) 22 U/L (15-37); Alanine Aminotransfer ALT/SGPT 21 U/L (13-56); Albumin, Serum 3.4 g/dL (3.2-5.0); Alkaline Phosphatase 124 U/L (45-117); Anion Gap 9 (5-15); BUN 19 mg/dL (7-18); BUN/Creat Ratio 20.3 RATIO (10-20); Calcium,Total 8.8 mg/dL (8.5-10.1); Chloride 106 mmol/L (98-107); Creatinine, Serum 0.94 mg/dL (0.55-1.02); EST Glomerular Filtration Rate 63 mL/min (>60); Est Glom Filt Rate - Afr Amer 77 mL/min (>60); Globulin 3.8 g/dL (2.2-4.2); Glucose 71 mg/dL (74-106); LDH 282 U/L (84-246); Potassium 3.6 mmol/L (3.5-5.1); Protein, Total 7.2 g/dL (6.4-8.2); Sodium Level 142 mmol/L (136-145)
== END 2019-01-19 16:00 | disposition home or self-care (01) ==
LOC: LAB 15:20
PROVIDERS: Family Provider Family Medicine; PCP Family Medicine; Referring Provider Internal Medicine Hematology & Oncology; Visit Provider Internal Medicine Hematology & Oncology
DX: D47.1 Chronic myeloproliferative disease (principal); D45 Polycythemia vera
CPT/HCPCS: 36415; 80053; 83615; 85025

== ENCOUNTER 2019-02-15 15:20 | Outpatient (RCR) | payer MEDICARE, OTHER, SELFPAY ==
[2019-02-15 16:38] LABS: Absolute Lymphocyte Count 1.54 X10^3/uL (0.83-4.51); Absolute Neutrophil Count 16.1 X10^3/uL (2.0-7.7); Basophil# 0.11 X10^3/uL; Basophil% 0.6 % (0-1); Eosinophil# 0.44 X10^3/uL; Eosinophils% 2.3 % (0-5); Hematocrit 42.2 % (37-47); Hemoglobin 11.8 g/dL (12.0-15.0); Lymphocyte # 1.54 X10^3/ul (4.0); Lymphocyte % 8.1 % (19-41); Mean Corpuscular Hgb 20.8 pg (27.0-32.0); Mean Corpuscular Volume 74.6 fL (81-99); Mean Platelet Vol. 10.5 fl (6.2-12.0); Monocyte# 0.79 X10^3/uL; Monocyte% 4.1 % (0-10); NRBC Flagged by Analyzer 0 % (0-5); Neutrophil # 16.07 X10^3/uL (2.7-7.7); Neutrophil % 84.3 % (47-70); Platelet Count 499 K/mm3 (150-450); RBC Distribution Width CV 19.4 % (11.6-14.6); Red Blood Count 5.66 M/mm3 (4.2-5.4); White Blood Count 19.1 K/mm3 (4.4-11.0)
[2019-02-15 17:12] LABS: ALB/GLOB Ratio 0.9 RATIO (0.9-2.4); AST(SGOT) 27 U/L (15-37); Alanine Aminotransfer ALT/SGPT 24 U/L (13-56); Albumin, Serum 3.4 g/dL (3.2-5.0); Alkaline Phosphatase 113 U/L (45-117); Anion Gap 7 (5-15); BUN 30 mg/dL (7-18); BUN/Creat Ratio 31.1 RATIO (10-20); Calcium,Total 8.4 mg/dL (8.5-10.1); Chloride 109 mmol/L (98-107); Creatinine, Serum 0.96 mg/dL (0.55-1.02); EST Glomerular Filtration Rate 61 mL/min (>60); Est Glom Filt Rate - Afr Amer 74 mL/min (>60); Globulin 3.6 g/dL (2.2-4.2); Glucose 81 mg/dL (74-106); LDH 238 U/L (84-246); Potassium 3.8 mmol/L (3.5-5.1); Sodium Level 144 mmol/L (136-145)
== END 2019-02-15 17:00 | disposition home or self-care (01) ==
LOC: LAB 15:20
PROVIDERS: Family Provider Family Medicine; PCP Family Medicine; Referring Provider Internal Medicine Hematology & Oncology; Visit Provider Internal Medicine Hematology & Oncology
DX: D47.1 Chronic myeloproliferative disease (principal); D45 Polycythemia vera
CPT/HCPCS: 36415; 80053; 83615; 85025

== ENCOUNTER 2019-03-15 13:45 | Outpatient (RCR) | payer MEDICARE, OTHER, SELFPAY ==
[2019-03-15 14:07] LABS: Absolute Lymphocyte Count 1.63 X10^3/uL (0.83-4.51); Absolute Neutrophil Count 17.9 X10^3/uL (2.0-7.7); Basophil# 0.12 X10^3/uL; Basophil% 0.6 % (0-1); Eosinophil# 0.39 X10^3/uL; Eosinophils% 1.9 % (0-5); Hematocrit 44.3 % (37-47); Hemoglobin 12.6 g/dL (12.0-15.0); Lymphocyte # 1.63 X10^3/ul (4.0); Lymphocyte % 7.7 % (19-41); Mean Corp Hgb Conc 28.4 g/dL (32-36); Mean Corpuscular Volume 73.8 fL (81-99); Mean Platelet Vol. 10.2 fl (6.2-12.0); Monocyte# 0.82 X10^3/uL; Monocyte% 3.9 % (0-10); NRBC Flagged by Analyzer 0 % (0-5); Neutrophil # 17.94 X10^3/uL (2.7-7.7); Neutrophil % 85.1 % (47-70); Platelet Count 499 K/mm3 (150-450); RBC Distribution Width CV 19.2 % (11.6-14.6); RBC Distribution Width SD 47.8 fl (35.1-43.9); White Blood Count 21.1 K/mm3 (4.4-11.0)
== END 2019-03-15 18:00 | disposition home or self-care (01) ==
LOC: LAB 13:45
PROVIDERS: Family Provider Family Medicine; PCP Family Medicine; Referring Provider Internal Medicine Hematology & Oncology; Visit Provider Internal Medicine Hematology & Oncology
DX: D47.1 Chronic myeloproliferative disease (principal); D45 Polycythemia vera
CPT/HCPCS: 36415; 85025

== ENCOUNTER 2019-04-19 09:56 | Outpatient (RCR) | payer MEDICARE, OTHER, SELFPAY ==
[2019-04-19 11:41] LABS: Absolute Lymphocyte Count 1.27 X10^3/uL (0.83-4.51); Absolute Neutrophil Count 20.6 X10^3/uL (2.0-7.7); Basophil% 0.4 % (0-1); Eosinophil# 0.38 X10^3/uL; Eosinophils% 1.6 % (0-5); Hematocrit 44.3 % (37-47); Hemoglobin 12.4 g/dL (12.0-15.0); Lymphocyte # 1.27 X10^3/ul (4.0); Lymphocyte % 5.4 % (19-41); Mean Corpuscular Hgb 20.5 pg (27.0-32.0); Mean Corpuscular Volume 73.2 fL (81-99); Mean Platelet Vol. 10.7 fl (6.2-12.0); Monocyte# 0.94 X10^3/uL; NRBC Flagged by Analyzer 0 % (0-5); Neutrophil % 87.7 % (47-70); POSITIVE DIFFERENTIAL YES; POSITIVE MORPHOLOGY YES; Platelet Count 536 K/mm3 (150-450); RBC Distribution Width CV 20.1 % (11.6-14.6); RBC Distribution Width SD 49.1 fl (35.1-43.9); Red Blood Count 6.05 M/mm3 (4.2-5.4); White Blood Count 23.5 K/mm3 (4.4-11.0)
[2019-04-19 11:49] LABS: Differential Indicated SCAN CRITERIA MET
[2019-04-19 12:26] LABS: Crenated RBC 1+; Ovalocyte 1+; Platelet Estimate ADEQUATE (ADEQ); Polychromasia RARE
[2019-04-19 12:27] LABS: Platelet Morphology LARGE
[2019-04-19 12:28] LABS: Red Cell Morphology N CHROM NORMAL (NORM C&C)
== END 2019-04-19 18:00 | disposition home or self-care (01) ==
LOC: LAB 09:56
PROVIDERS: Family Provider Family Medicine; PCP Family Medicine; Referring Provider Internal Medicine Hematology & Oncology; Visit Provider Internal Medicine Hematology & Oncology
DX: D47.1 Chronic myeloproliferative disease (principal)
CPT/HCPCS: 36415; 85025

== ENCOUNTER 2019-05-17 13:48 | Outpatient (RCR) | payer MEDICARE, OTHER, SELFPAY ==
[2019-05-17 15:45] LABS: Absolute Lymphocyte Count 1.38 X10^3/uL (0.83-4.51); Absolute Neutrophil Count 16.3 X10^3/uL (2.0-7.7); Basophil# 0.09 X10^3/uL; Basophil% 0.5 % (0-1); Eosinophil# 0.37 X10^3/uL; Eosinophils% 1.9 % (0-5); Hematocrit 46.1 % (37-47); Hemoglobin 12.6 g/dL (12.0-15.0); Lymphocyte # 1.38 X10^3/ul (4.0); Lymphocyte % 7.3 % (19-41); Mean Corp Hgb Conc 27.3 g/dL (32-36); Mean Corpuscular Hgb 20.4 pg (27.0-32.0); Mean Corpuscular Volume 74.7 fL (81-99); Mean Platelet Vol. 10.5 fl (6.2-12.0); Monocyte# 0.74 X10^3/uL; Monocyte% 3.9 % (0-10); NRBC Flagged by Analyzer 0 % (0-5); Neutrophil # 16.28 X10^3/uL (2.7-7.7); Neutrophil % 85.7 % (47-70); POSITIVE MORPHOLOGY YES; Platelet Count 469 K/mm3 (150-450); RBC Distribution Width SD 52.5 fl (35.1-43.9); Red Blood Count 6.17 M/mm3 (4.2-5.4)
[2019-05-17 16:05] LABS: Differential Indicated SCAN CRITERIA MET
[2019-05-17 16:34] LABS: Anisocytosis 1+; Hypochromasia RARE; Microcytosis 1+; Ovalocyte 1+; Platelet Estimate SLT INC (ADEQ); Polychromasia RARE; Red Cell Morphology N CHROM NORMAL (NORM C&C)
== END 2019-05-17 18:00 | disposition home or self-care (01) ==
LOC: LAB 13:48
PROVIDERS: Family Provider Family Medicine; PCP Family Medicine; Referring Provider Internal Medicine Hematology & Oncology; Visit Provider Internal Medicine Hematology & Oncology
DX: D47.1 Chronic myeloproliferative disease (principal)
CPT/HCPCS: 36415; 85025

== ENCOUNTER 2019-06-14 12:31 | Outpatient (RCR) | payer MEDICARE, OTHER, SELFPAY ==
[2019-06-14 13:38] LABS: Absolute Lymphocyte Count 1.39 X10^3/uL (0.83-4.51); Absolute Neutrophil Count 17.4 X10^3/uL (2.0-7.7); Basophil# 0.12 X10^3/uL; Basophil% 0.6 % (0-1); Eosinophils% 1.5 % (0-5); Hematocrit 48.5 % (37-47); Hemoglobin 13.5 g/dL (12.0-15.0); Lymphocyte # 1.39 X10^3/ul (4.0); Lymphocyte % 6.9 % (19-41); Mean Corp Hgb Conc 27.8 g/dL (32-36); Mean Corpuscular Hgb 20.7 pg (27.0-32.0); Mean Corpuscular Volume 74.3 fL (81-99); Mean Platelet Vol. 10.4 fl (6.2-12.0); Monocyte# 0.72 X10^3/uL; Monocyte% 3.6 % (0-10); NRBC Flagged by Analyzer 0 % (0-5); Neutrophil # 17.43 X10^3/uL (2.7-7.7); Neutrophil % 86.6 % (47-70); POSITIVE MORPHOLOGY YES; Platelet Count 500 K/mm3 (150-450); RBC Distribution Width CV 21.5 % (11.6-14.6); RBC Distribution Width SD 53.1 fl (35.1-43.9); Red Blood Count 6.53 M/mm3 (4.2-5.4); White Blood Count 20.1 K/mm3 (4.4-11.0)
[2019-06-14 13:42] LABS: Differential Indicated SCAN CRITERIA MET
[2019-06-14 13:59] LABS: Anisocytosis 1+
[2019-06-14 14:28] LABS: ALB/GLOB Ratio 0.9 RATIO (0.9-2.4); AST(SGOT) 21 U/L (15-37); Alanine Aminotransfer ALT/SGPT 24 U/L (13-56); Albumin, Serum 3.5 g/dL (3.2-5.0); Alkaline Phosphatase 127 U/L (45-117); Anion Gap 4 (5-15); BUN 21 mg/dL (7-18); BUN/Creat Ratio 22.2 RATIO (10-20); Calcium,Total 8.6 mg/dL (8.5-10.1); Chloride 105 mmol/L (98-107); Creatinine, Serum 0.95 mg/dL (0.55-1.02); EST Glomerular Filtration Rate 63 mL/min (>60); Est Glom Filt Rate - Afr Amer 76 mL/min (>60); Globulin 3.8 g/dL (2.2-4.2); Glucose 104 mg/dL (74-106); LDH 225 U/L (84-246); Protein, Total 7.3 g/dL (6.4-8.2); Sodium Level 139 mmol/L (136-145)
== END 2019-06-14 18:00 | disposition home or self-care (01) ==
LOC: LAB 12:31
PROVIDERS: Family Provider Family Medicine; PCP Family Medicine; Referring Provider Internal Medicine Hematology & Oncology; Visit Provider Internal Medicine Hematology & Oncology
DX: D47.1 Chronic myeloproliferative disease (principal)
CPT/HCPCS: 36415; 80053; 83615; 85025

== ENCOUNTER 2019-07-21 16:29 | Outpatient (RCR) | payer MEDICARE, OTHER, SELFPAY ==
[2019-07-21 17:10] LABS: Absolute Lymphocyte Count 1.31 X10^3/uL (0.83-4.51); Basophil# 0.09 X10^3/uL; Basophil% 0.5 % (0-1); Eosinophil# 0.36 X10^3/uL; Lymphocyte # 1.31 X10^3/ul (4.0); Lymphocyte % 7.4 % (19-41); Mean Corp Hgb Conc 27.9 g/dL (32-36); Mean Corpuscular Hgb 21.1 pg (27.0-32.0); Mean Corpuscular Volume 75.6 fL (81-99); Monocyte# 0.84 X10^3/uL; Monocyte% 4.7 % (0-10); NRBC Flagged by Analyzer 0 % (0-5); Neutrophil # 15.01 X10^3/uL (2.7-7.7); Neutrophil % 84.5 % (47-70); POSITIVE MORPHOLOGY YES; Platelet Count 474 K/mm3 (150-450); RBC Distribution Width CV 20.8 % (11.6-14.6); RBC Distribution Width SD 54.4 fl (35.1-43.9); Red Blood Count 5.69 M/mm3 (4.2-5.4); White Blood Count 17.8 K/mm3 (4.4-11.0)
[2019-07-21 17:16] LABS: Differential Indicated SCAN CRITERIA MET
[2019-07-21 17:40] LABS: Anisocytosis 1+; Differential Comment SCANNED; Hypochromasia 1+; Ovalocyte RARE
[2019-07-21 17:41] LABS: Crenated RBC RARE
== END 2019-07-21 18:00 | disposition home or self-care (01) ==
LOC: LAB 16:29
PROVIDERS: Family Provider Family Medicine; PCP Family Medicine; Referring Provider Internal Medicine Hematology & Oncology; Visit Provider Internal Medicine Hematology & Oncology
DX: D47.1 Chronic myeloproliferative disease (principal)
CPT/HCPCS: 36415; 85025

== ENCOUNTER 2019-09-02 15:00 | Outpatient (RCR) | payer MEDICARE, OTHER, SELFPAY ==
[2019-09-02 15:39] LABS: Absolute Lymphocyte Count 1.55 X10^3/uL (0.83-4.51); Absolute Neutrophil Count 16.8 X10^3/uL (2.0-7.7); Basophil# 0.09 X10^3/uL; Basophil% 0.5 % (0-1); Hematocrit 43.6 % (37-47); Hemoglobin 12.1 g/dL (12.0-15.0); Lymphocyte # 1.55 X10^3/ul (4.0); Lymphocyte % 7.8 % (19-41); Mean Corp Hgb Conc 27.8 g/dL (32-36); Mean Corpuscular Hgb 20.8 pg (27.0-32.0); Mean Corpuscular Volume 74.8 fL (81-99); Monocyte# 0.77 X10^3/uL; Monocyte% 3.9 % (0-10); NRBC Flagged by Analyzer 0 % (0-5); Neutrophil # 16.83 X10^3/uL (2.7-7.7); Neutrophil % 85.1 % (47-70); Platelet Count 527 K/mm3 (150-450); RBC Distribution Width CV 19.6 % (11.6-14.6); RBC Distribution Width SD 50.4 fl (35.1-43.9); Red Blood Count 5.83 M/mm3 (4.2-5.4); White Blood Count 19.8 K/mm3 (4.4-11.0)
== END 2019-09-02 18:00 | disposition home or self-care (01) ==
LOC: LAB 15:00
PROVIDERS: Family Provider Family Medicine; PCP Family Medicine; Referring Provider Internal Medicine Hematology & Oncology; Visit Provider Internal Medicine Hematology & Oncology
DX: D47.1 Chronic myeloproliferative disease (principal)
CPT/HCPCS: 36415; 85025

== ENCOUNTER → 2019-09-15 | Outpatient (CLI) | payer OTHER, MEDICARE, SELFPAY ==
[2019-09-15 13:59] LABS: Absolute Lymphocyte Count 1.66 X10^3/uL (0.83-4.51); Absolute Neutrophil Count 14.1 X10^3/uL (2.0-7.7); Basophil# 0.09 X10^3/uL; Basophil% 0.5 % (0-1); Eosinophil# 0.44 X10^3/uL; Eosinophils% 2.6 % (0-5); Hematocrit 44.8 % (37-47); Hemoglobin 12.7 g/dL (12.0-15.0); Lymphocyte # 1.66 X10^3/ul (4.0); Lymphocyte % 9.8 % (19-41); Mean Corp Hgb Conc 28.3 g/dL (32-36); Mean Corpuscular Hgb 21.1 pg (27.0-32.0); Mean Corpuscular Volume 74.4 fL (81-99); Mean Platelet Vol. 10.1 fl (6.2-12.0); Monocyte# 0.65 X10^3/uL; Monocyte% 3.8 % (0-10); NRBC Flagged by Analyzer 0 % (0-5); Neutrophil # 14.06 X10^3/uL (2.7-7.7); Neutrophil % 82.6 % (47-70); Platelet Count 404 K/mm3 (150-450); RBC Distribution Width CV 19.8 % (11.6-14.6); RBC Distribution Width SD 50.1 fl (35.1-43.9); Red Blood Count 6.02 M/mm3 (4.2-5.4)
[2019-09-15 15:05] LABS: ALB/GLOB Ratio 1.1 RATIO (0.9-2.4); AST(SGOT) 26 U/L (15-37); Alanine Aminotransfer ALT/SGPT 22 U/L (13-56); Albumin, Serum 3.7 g/dL (3.2-5.0); Alkaline Phosphatase 110 U/L (45-117); Anion Gap 5 (5-15); BUN 20 mg/dL (7-18); Calcium,Total 9.2 mg/dL (8.5-10.1); Chloride 107 mmol/L (98-107); Creatinine, Serum 0.83 mg/dL (0.55-1.02); EST Glomerular Filtration Rate 72 mL/min (>60); Est Glom Filt Rate - Afr Amer 87 mL/min (>60); Globulin 3.5 g/dL (2.2-4.2); Glucose 78 mg/dL (74-106); Potassium 3.8 mmol/L (3.5-5.1); Protein, Total 7.2 g/dL (6.4-8.2); Sodium Level 139 mmol/L (136-145)
== END | disposition home or self-care (01) ==
LOC: LAB 13:22
PROVIDERS: PCP Family Medicine; Referring Provider Internal Medicine Hematology & Oncology; Visit Provider Internal Medicine Hematology & Oncology
DX: D47.1 Chronic myeloproliferative disease (principal)
CPT/HCPCS: 36415; 80053; 85025

== ENCOUNTER → 2019-10-21 | Outpatient (CLI) | payer MEDICARE, OTHER, SELFPAY ==
[2019-10-21 17:41] LABS: Absolute Lymphocyte Count 1.48 X10^3/uL (0.83-4.51); Absolute Neutrophil Count 14.3 X10^3/uL (2.0-7.7); Basophil# 0.08 X10^3/uL; Basophil% 0.5 % (0-1); Eosinophils% 1.8 % (0-5); Hemoglobin 11.9 g/dL (12.0-15.0); Lymphocyte # 1.48 X10^3/ul (4.0); Lymphocyte % 8.7 % (19-41); Mean Corp Hgb Conc 27.7 g/dL (32-36); Mean Corpuscular Hgb 21.5 pg (27.0-32.0); Mean Corpuscular Volume 77.8 fL (81-99); Mean Platelet Vol. 10.4 fl (6.2-12.0); Monocyte# 0.65 X10^3/uL; Monocyte% 3.8 % (0-10); NRBC Flagged by Analyzer 0 % (0-5); Neutrophil # 14.33 X10^3/uL (2.7-7.7); Neutrophil % 84.6 % (47-70); POSITIVE MORPHOLOGY YES; Platelet Count 455 K/mm3 (150-450); RBC Distribution Width CV 20.2 % (11.6-14.6); RBC Distribution Width SD 54.8 fl (35.1-43.9); Red Blood Count 5.53 M/mm3 (4.2-5.4); White Blood Count 16.9 K/mm3 (4.4-11.0)
[2019-10-21 18:01] LABS: AST(SGOT) 24 U/L (15-37); Alanine Aminotransfer ALT/SGPT 24 U/L (13-56); Albumin, Serum 3.5 g/dL (3.2-5.0); Alkaline Phosphatase 103 U/L (45-117); Anion Gap 7 (5-15); BUN 22 mg/dL (7-18); BUN/Creat Ratio 24.7 RATIO (10-20); Calcium,Total 8.7 mg/dL (8.5-10.1); Chloride 104 mmol/L (98-107); Creatinine, Serum 0.89 mg/dL (0.55-1.02); EST Glomerular Filtration Rate 67 mL/min (>60); Est Glom Filt Rate - Afr Amer 81 mL/min (>60); Globulin 3.6 g/dL (2.2-4.2); Glucose 177 mg/dL (74-106); Potassium 3.8 mmol/L (3.5-5.1); Protein, Total 7.1 g/dL (6.4-8.2); Sodium Level 141 mmol/L (136-145)
[2019-10-21 18:28] LABS: Differential Indicated SCAN CRITERIA MET
[2019-10-21 18:37] LABS: Differential Comment SCANNED
[2019-10-21 18:38] LABS: Anisocytosis 1+
== END | disposition home or self-care (01) ==
LOC: LAB 16:21
PROVIDERS: PCP Family Medicine; Visit Provider Internal Medicine Hematology & Oncology
DX: D47.1 Chronic myeloproliferative disease (principal)
CPT/HCPCS: 36415; 80053; 85025

== ENCOUNTER 2019-11-22 15:20 | Outpatient (RCR) | payer MEDICARE, OTHER, SELFPAY ==
[2019-11-22 15:49] LABS: Absolute Lymphocyte Count 1.54 X10^3/uL (0.83-4.51); Absolute Neutrophil Count 12.9 X10^3/uL (2.0-7.7); Basophil# 0.08 X10^3/uL; Basophil% 0.5 % (0-1); Eosinophil# 0.31 X10^3/uL; Hematocrit 43.7 % (37-47); Hemoglobin 12.1 g/dL (12.0-15.0); Lymphocyte # 1.54 X10^3/ul (4.0); Lymphocyte % 9.9 % (19-41); Mean Corp Hgb Conc 27.7 g/dL (32-36); Mean Corpuscular Hgb 22.5 pg (27.0-32.0); Mean Corpuscular Volume 81.2 fL (81-99); Mean Platelet Vol. 10.2 fl (6.2-12.0); Monocyte# 0.69 X10^3/uL; Monocyte% 4.4 % (0-10); NRBC Flagged by Analyzer 0 % (0-5); Neutrophil # 12.86 X10^3/uL (2.7-7.7); Neutrophil % 82.6 % (47-70); POSITIVE MORPHOLOGY YES; Platelet Count 526 K/mm3 (150-450); RBC Distribution Width CV 20.8 % (11.6-14.6); RBC Distribution Width SD 58.5 fl (35.1-43.9); Red Blood Count 5.38 M/mm3 (4.2-5.4); White Blood Count 15.6 K/mm3 (4.4-11.0)
[2019-11-22 16:07] LABS: Differential Indicated SCAN CRITERIA MET
[2019-11-22 16:28] LABS: ALB/GLOB Ratio 0.9 RATIO (0.9-2.4); AST(SGOT) 16 U/L (15-37); Alanine Aminotransfer ALT/SGPT 17 U/L (13-56); Albumin, Serum 3.5 g/dL (3.2-5.0); Alkaline Phosphatase 113 U/L (45-117); Anion Gap 5 (5-15); BUN 27 mg/dL (7-18); BUN/Creat Ratio 31.3 RATIO (10-20); Calcium,Total 8.7 mg/dL (8.5-10.1); Chloride 107 mmol/L (98-107); Creatinine, Serum 0.86 mg/dL (0.55-1.02); EST Glomerular Filtration Rate 69 mL/min (>60); Est Glom Filt Rate - Afr Amer 84 mL/min (>60); Globulin 3.8 g/dL (2.2-4.2); Glucose 94 mg/dL (74-106); Potassium 4.1 mmol/L (3.5-5.1); Protein, Total 7.3 g/dL (6.4-8.2); Sodium Level 141 mmol/L (136-145)
[2019-11-22 19:41] LABS: Anisocytosis RARE; Platelet Estimate SLT INC (ADEQ); Red Cell Morphology N CHROM NORMAL (NORM C&C)
== END 2019-11-22 18:00 | disposition home or self-care (01) ==
LOC: LAB 15:20
PROVIDERS: Family Provider Family Medicine; PCP Family Medicine; Referring Provider Internal Medicine Hematology & Oncology; Visit Provider Internal Medicine Hematology & Oncology
DX: D47.1 Chronic myeloproliferative disease (principal)
CPT/HCPCS: 36415; 80053; 85025

== ENCOUNTER → 2019-12-09 | Outpatient (CLI) | payer MEDICARE, OTHER, SELFPAY ==
[2019-12-09 16:05] LABS: Absolute Neutrophil Count 12.9 X10^3/uL (2.0-7.7); Basophil# 0.08 X10^3/uL; Basophil% 0.5 % (0-1); Eosinophils% 1.9 % (0-5); Hematocrit 42.7 % (37-47); Hemoglobin 11.8 g/dL (12.0-15.0); Lymphocyte % 8.4 % (19-41); Mean Corp Hgb Conc 27.6 g/dL (32-36); Mean Corpuscular Hgb 22.7 pg (27.0-32.0); Mean Corpuscular Volume 82.1 fL (81-99); Mean Platelet Vol. 10.6 fl (6.2-12.0); Monocyte# 0.73 X10^3/uL; Monocyte% 4.7 % (0-10); NRBC Flagged by Analyzer 0 % (0-5); Neutrophil # 12.92 X10^3/uL (2.7-7.7); Neutrophil % 83.9 % (47-70); Platelet Count 416 K/mm3 (150-450); RBC Distribution Width CV 19.9 % (11.6-14.6); White Blood Count 15.4 K/mm3 (4.4-11.0)
[2019-12-09 16:54] LABS: ALB/GLOB Ratio 0.9 RATIO (0.9-2.4); AST(SGOT) 29 U/L (15-37); Alanine Aminotransfer ALT/SGPT 21 U/L (13-56); Albumin, Serum 3.4 g/dL (3.2-5.0); Alkaline Phosphatase 107 U/L (45-117); Anion Gap 7 (5-15); BUN 30 mg/dL (7-18); Calcium,Total 8.3 mg/dL (8.5-10.1); Chloride 106 mmol/L (98-107); Creatinine, Serum 0.97 mg/dL (0.55-1.02); EST Glomerular Filtration Rate 61 mL/min (>60); Est Glom Filt Rate - Afr Amer 74 mL/min (>60); Globulin 3.7 g/dL (2.2-4.2); Glucose 73 mg/dL (74-106); Potassium 4.2 mmol/L (3.5-5.1); Protein, Total 7.1 g/dL (6.4-8.2); Sodium Level 139 mmol/L (136-145)
== END | disposition home or self-care (01) ==
LOC: LAB 14:52
PROVIDERS: PCP Family Medicine; Visit Provider Internal Medicine Hematology & Oncology
DX: D47.1 Chronic myeloproliferative disease (principal)
CPT/HCPCS: 36415; 80053; 85025

== ENCOUNTER 2020-01-13 14:57 | Outpatient (RCR) | payer MEDICARE, OTHER, SELFPAY ==
[2020-01-13 15:34] LABS: Absolute Lymphocyte Count 1.37 X10^3/uL (0.83-4.51); Absolute Neutrophil Count 13.1 X10^3/uL (2.0-7.7); Basophil# 0.08 X10^3/uL; Basophil% 0.5 % (0-1); Eosinophil# 0.29 X10^3/uL; Eosinophils% 1.9 % (0-5); Hematocrit 42.8 % (37-47); Hemoglobin 11.8 g/dL (12.0-15.0); Lymphocyte # 1.37 X10^3/ul (4.0); Lymphocyte % 8.9 % (19-41); Mean Corp Hgb Conc 27.6 g/dL (32-36); Mean Corpuscular Hgb 22.3 pg (27.0-32.0); Mean Corpuscular Volume 80.9 fL (81-99); Mean Platelet Vol. 10.5 fl (6.2-12.0); Monocyte# 0.53 X10^3/uL; Monocyte% 3.4 % (0-10); NRBC Flagged by Analyzer 0 % (0-5); Neutrophil # 13.12 X10^3/uL (2.7-7.7); Neutrophil % 84.8 % (47-70); Platelet Count 425 K/mm3 (150-450); RBC Distribution Width CV 18.2 % (11.6-14.6); RBC Distribution Width SD 51.4 fl (35.1-43.9); Red Blood Count 5.29 M/mm3 (4.2-5.4); White Blood Count 15.5 K/mm3 (4.4-11.0)
== END 2020-02-07 18:00 | disposition home or self-care (01) ==
LOC: LAB 14:57
PROVIDERS: Family Provider Family Medicine; PCP Family Medicine; Referring Provider Internal Medicine Hematology & Oncology; Visit Provider Internal Medicine Hematology & Oncology
DX: D47.1 Chronic myeloproliferative disease (principal)
CPT/HCPCS: 36415; 85025

== ENCOUNTER 2020-02-11 15:44 | Outpatient (RCR) | payer MEDICARE, OTHER, SELFPAY ==
[2020-02-11 17:02] LABS: Absolute Lymphocyte Count 1.53 X10^3/uL (0.83-4.51); Absolute Neutrophil Count 13.1 X10^3/uL (2.0-7.7); Basophil# 0.08 X10^3/uL; Basophil% 0.5 % (0-1); Eosinophils% 1.9 % (0-5); Hematocrit 43.5 % (37-47); Hemoglobin 12.2 g/dL (12.0-15.0); Lymphocyte # 1.53 X10^3/ul (4.0); Lymphocyte % 9.7 % (19-41); Mean Corpuscular Hgb 22.8 pg (27.0-32.0); Mean Corpuscular Volume 81.2 fL (81-99); Mean Platelet Vol. 10.8 fl (6.2-12.0); Monocyte# 0.61 X10^3/uL; Monocyte% 3.9 % (0-10); NRBC Flagged by Analyzer 0 % (0-5); Neutrophil # 13.12 X10^3/uL (2.7-7.7); Neutrophil % 83.6 % (47-70); Platelet Count 471 K/mm3 (150-450); RBC Distribution Width CV 18.1 % (11.6-14.6); RBC Distribution Width SD 51.9 fl (35.1-43.9); Red Blood Count 5.36 M/mm3 (4.2-5.4); White Blood Count 15.7 K/mm3 (4.4-11.0)
== END 2020-02-11 18:00 | disposition home or self-care (01) ==
LOC: LAB 15:44
PROVIDERS: Family Provider Family Medicine; PCP Family Medicine; Referring Provider Internal Medicine Hematology & Oncology; Visit Provider Internal Medicine Hematology & Oncology
DX: D47.1 Chronic myeloproliferative disease (principal)
CPT/HCPCS: 36415; 85025

== ENCOUNTER 2020-03-13 15:15 | Outpatient (RCR) | payer MEDICARE, OTHER, SELFPAY ==
[2020-03-13 16:14] LABS: Absolute Lymphocyte Count 1.48 X10^3/uL (0.83-4.51); Absolute Neutrophil Count 13.4 X10^3/uL (2.0-7.7); Basophil# 0.08 X10^3/uL; Basophil% 0.5 % (0-1); Eosinophil# 0.25 X10^3/uL; Eosinophils% 1.6 % (0-5); Hematocrit 45.2 % (37-47); Hemoglobin 12.9 g/dL (12.0-15.0); Lymphocyte # 1.48 X10^3/ul (4.0); Lymphocyte % 9.3 % (19-41); Mean Corp Hgb Conc 28.5 g/dL (32-36); Mean Corpuscular Volume 80.4 fL (81-99); Mean Platelet Vol. 10.4 fl (6.2-12.0); Monocyte# 0.68 X10^3/uL; Monocyte% 4.3 % (0-10); NRBC Flagged by Analyzer 0 % (0-5); Neutrophil # 13.36 X10^3/uL (2.7-7.7); Neutrophil % 83.6 % (47-70); Platelet Count 500 K/mm3 (150-450); RBC Distribution Width SD 53.9 fl (35.1-43.9); Red Blood Count 5.62 M/mm3 (4.2-5.4)
[2020-03-13 16:32] LABS: ALB/GLOB Ratio 0.9 RATIO (0.9-2.4); AST(SGOT) 25 U/L (15-37); Alanine Aminotransfer ALT/SGPT 22 U/L (13-56); Albumin, Serum 3.4 g/dL (3.2-5.0); Alkaline Phosphatase 113 U/L (45-117); Anion Gap 6 (5-15); BUN 31 mg/dL (7-18); BUN/Creat Ratio 28.7 RATIO (10-20); Calcium,Total 8.8 mg/dL (8.5-10.1); Chloride 108 mmol/L (98-107); Creatinine, Serum 1.08 mg/dL (0.55-1.02); EST Glomerular Filtration Rate 54 mL/min (>60); Est Glom Filt Rate - Afr Amer 65 mL/min (>60); Globulin 3.8 g/dL (2.2-4.2); Glucose 123 mg/dL (74-106); Potassium 3.8 mmol/L (3.5-5.1); Protein, Total 7.2 g/dL (6.4-8.2); Sodium Level 142 mmol/L (136-145)
== END 2020-03-13 18:00 | disposition home or self-care (01) ==
LOC: LAB 15:15
PROVIDERS: Family Provider Family Medicine; PCP Family Medicine; Referring Provider Internal Medicine Hematology & Oncology; Visit Provider Internal Medicine Hematology & Oncology
DX: D47.1 Chronic myeloproliferative disease (principal)
CPT/HCPCS: 36415; 80053; 85025

== ENCOUNTER → 2020-05-16 15:05 | Outpatient (CLI) | payer MEDICARE, OTHER, SELFPAY ==
[2020-05-16 16:29] LABS: Absolute Lymphocyte Count 1.51 X10^3/uL (0.83-4.51); Absolute Neutrophil Count 18.2 X10^3/uL (2.0-7.7); Basophil# 0.07 X10^3/uL; Basophil% 0.3 % (0-1); Eosinophil# 0.13 X10^3/uL; Eosinophils% 0.6 % (0-5); Hematocrit 45.6 % (37-47); Hemoglobin 12.6 g/dL (12.0-15.0); Lymphocyte # 1.51 X10^3/ul (4.0); Lymphocyte % 7.2 % (19-41); Mean Corp Hgb Conc 27.6 g/dL (32-36); Mean Corpuscular Hgb 22.5 pg (27.0-32.0); Mean Corpuscular Volume 81.3 fL (81-99); Mean Platelet Vol. 10.5 fl (6.2-12.0); Monocyte# 0.96 X10^3/uL; Monocyte% 4.6 % (0-10); NRBC Flagged by Analyzer 0 % (0-5); Neutrophil # 18.23 X10^3/uL (2.7-7.7); Neutrophil % 86.7 % (47-70); Platelet Count 445 K/mm3 (150-450); RBC Distribution Width CV 17.7 % (11.6-14.6); RBC Distribution Width SD 50.8 fl (35.1-43.9); Red Blood Count 5.61 M/mm3 (4.2-5.4)
== END ==
PROVIDERS: PCP Family Medicine; Referring Provider Internal Medicine Hematology & Oncology; Visit Provider Internal Medicine Hematology & Oncology
DX: D47.1 Chronic myeloproliferative disease (principal)
CPT/HCPCS: 36415; 85025

== ENCOUNTER → 2020-06-12 13:57 | Outpatient (CLI) | payer MEDICARE, OTHER, SELFPAY ==
[2020-06-12 15:04] LABS: Absolute Lymphocyte Count 1.53 X10^3/uL (0.83-4.51); Absolute Neutrophil Count 14.2 X10^3/uL (2.0-7.7); Basophil# 0.07 X10^3/uL; Basophil% 0.4 % (0-1); Eosinophil# 0.25 X10^3/uL; Eosinophils% 1.5 % (0-5); Hematocrit 45.2 % (37-47); Hemoglobin 12.8 g/dL (12.0-15.0); Lymphocyte # 1.53 X10^3/ul (4.0); Lymphocyte % 9.1 % (19-41); Mean Corp Hgb Conc 28.3 g/dL (32-36); Mean Corpuscular Hgb 23.2 pg (27.0-32.0); Mean Platelet Vol. 10.1 fl (6.2-12.0); Monocyte# 0.64 X10^3/uL; Monocyte% 3.8 % (0-10); NRBC Flagged by Analyzer 0 % (0-5); Neutrophil # 14.15 X10^3/uL (2.7-7.7); Neutrophil % 84.4 % (47-70); Platelet Count 385 K/mm3 (150-450); RBC Distribution Width CV 18.8 % (11.6-14.6); RBC Distribution Width SD 51.4 fl (35.1-43.9); Red Blood Count 5.51 M/mm3 (4.2-5.4); White Blood Count 16.8 K/mm3 (4.4-11.0)
[2020-06-12 15:27] LABS: ALB/GLOB Ratio 0.9 RATIO (0.9-2.4); AST(SGOT) 17 U/L (15-37); Alanine Aminotransfer ALT/SGPT 20 U/L (13-56); Albumin, Serum 3.6 g/dL (3.2-5.0); Alkaline Phosphatase 127 U/L (45-117); Anion Gap 5 (5-15); BUN 21 mg/dL (7-18); BUN/Creat Ratio 26.4 RATIO (10-20); Calcium,Total 9.2 mg/dL (8.5-10.1); Chloride 105 mmol/L (98-107); Creatinine, Serum 0.79 mg/dL (0.55-1.02); EST Glomerular Filtration Rate 76 mL/min (>60); Est Glom Filt Rate - Afr Amer 92 mL/min (>60); Globulin 3.9 g/dL (2.2-4.2); Glucose 90 mg/dL (74-106); Potassium 3.8 mmol/L (3.5-5.1); Protein, Total 7.5 g/dL (6.4-8.2); Sodium Level 139 mmol/L (136-145)
== END ==
PROVIDERS: Visit Provider Internal Medicine Hematology & Oncology
DX: D47.1 Chronic myeloproliferative disease (principal)
CPT/HCPCS: 36415; 80053; 85025

== ENCOUNTER → 2020-07-17 14:08 | Outpatient (CLI) | payer MEDICARE, OTHER, SELFPAY ==
[2020-07-17 15:39] LABS: Absolute Lymphocyte Count 1.35 X10^3/uL (0.83-4.51); Absolute Neutrophil Count 14.3 X10^3/uL (2.0-7.7); Basophil# 0.08 X10^3/uL; Basophil% 0.5 % (0-1); Eosinophil# 0.28 X10^3/uL; Eosinophils% 1.7 % (0-5); Hematocrit 43.9 % (37-47); Hemoglobin 12.3 g/dL (12.0-15.0); Lymphocyte # 1.35 X10^3/ul (4.0); Lymphocyte % 8.1 % (19-41); Mean Corpuscular Volume 82.1 fL (81-99); Mean Platelet Vol. 10.6 fl (6.2-12.0); Monocyte# 0.65 X10^3/uL; Monocyte% 3.9 % (0-10); NRBC Flagged by Analyzer 0 % (0-5); Neutrophil # 14.31 X10^3/uL (2.7-7.7); Neutrophil % 85.2 % (47-70); Platelet Count 386 K/mm3 (150-450); RBC Distribution Width CV 18.3 % (11.6-14.6); RBC Distribution Width SD 51.9 fl (35.1-43.9); Red Blood Count 5.35 M/mm3 (4.2-5.4); White Blood Count 16.8 K/mm3 (4.4-11.0)
[2020-07-17 16:13] LABS: AST(SGOT) 26 U/L (15-37); Alanine Aminotransfer ALT/SGPT 20 U/L (13-56); Albumin, Serum 3.7 g/dL (3.2-5.0); Alkaline Phosphatase 133 U/L (45-117); Anion Gap 6 (5-15); BUN 25 mg/dL (7-18); BUN/Creat Ratio 31.2 RATIO (10-20); Calcium,Total 9.1 mg/dL (8.5-10.1); Chloride 105 mmol/L (98-107); EST Glomerular Filtration Rate 75 mL/min (>60); Est Glom Filt Rate - Afr Amer 91 mL/min (>60); Globulin 3.8 g/dL (2.2-4.2); Glucose 77 mg/dL (74-106); Potassium 3.9 mmol/L (3.5-5.1); Protein, Total 7.5 g/dL (6.4-8.2); Sodium Level 140 mmol/L (136-145)
== END ==
PROVIDERS: Referring Provider Internal Medicine Hematology & Oncology; Visit Provider Internal Medicine Hematology & Oncology
DX: D47.1 Chronic myeloproliferative disease (principal)
CPT/HCPCS: 36415; 80053; 85025

== ENCOUNTER 2020-08-24 11:12 | Outpatient (RCR) | payer MEDICARE, OTHER, SELFPAY ==
[2020-08-24 11:40] LABS: Absolute Lymphocyte Count 1.01 X10^3/uL (0.83-4.51); Absolute Neutrophil Count 16.3 X10^3/uL (2.0-7.7); Basophil# 0.07 X10^3/uL; Basophil% 0.4 % (0-1); Eosinophil# 0.27 X10^3/uL; Eosinophils% 1.5 % (0-5); Hematocrit 45.9 % (37-47); Hemoglobin 12.9 g/dL (12.0-15.0); Lymphocyte # 1.01 X10^3/ul (4.0); Lymphocyte % 5.5 % (19-41); Mean Corp Hgb Conc 28.1 g/dL (32-36); Mean Corpuscular Volume 81.8 fL (81-99); Mean Platelet Vol. 10.3 fl (6.2-12.0); Monocyte% 3.3 % (0-10); NRBC Flagged by Analyzer 0 % (0-5); Neutrophil # 16.29 X10^3/uL (2.7-7.7); Neutrophil % 88.4 % (47-70); Platelet Count 397 K/mm3 (150-450); RBC Distribution Width CV 17.1 % (11.6-14.6); RBC Distribution Width SD 49.7 fl (35.1-43.9); Red Blood Count 5.61 M/mm3 (4.2-5.4); White Blood Count 18.4 K/mm3 (4.4-11.0)
[2020-08-24 12:05] LABS: ALB/GLOB Ratio 0.9 RATIO (0.9-2.4); AST(SGOT) 21 U/L (15-37); Alanine Aminotransfer ALT/SGPT 25 U/L (13-56); Albumin, Serum 3.6 g/dL (3.2-5.0); Alkaline Phosphatase 141 U/L (45-117); Anion Gap 5 (5-15); BUN 25 mg/dL (7-18); BUN/Creat Ratio 32.3 RATIO (10-20); Calcium,Total 8.7 mg/dL (8.5-10.1); Chloride 105 mmol/L (98-107); Creatinine, Serum 0.77 mg/dL (0.55-1.02); EST Glomerular Filtration Rate 79 mL/min (>60); Est Glom Filt Rate - Afr Amer 95 mL/min (>60); Globulin 3.9 g/dL (2.2-4.2); Glucose 133 mg/dL (74-106); Potassium 3.5 mmol/L (3.5-5.1); Protein, Total 7.5 g/dL (6.4-8.2); Sodium Level 141 mmol/L (136-145)
== END 2020-08-24 18:00 | disposition home or self-care (01) ==
LOC: LAB 11:12
PROVIDERS: Family Provider Family Medicine; Referring Provider Internal Medicine Hematology & Oncology; Visit Provider Internal Medicine Hematology & Oncology
DX: D47.1 Chronic myeloproliferative disease (principal)
CPT/HCPCS: 36415; 80053; 85025

== ENCOUNTER 2020-09-13 15:55 | Outpatient (RCR) | payer MEDICARE, OTHER, SELFPAY ==
[2020-09-13 16:21] LABS: Absolute Lymphocyte Count 1.31 X10^3/uL (0.83-4.51); Absolute Neutrophil Count 15.7 X10^3/uL (2.0-7.7); Basophil# 0.07 X10^3/uL; Basophil% 0.4 % (0-1); Eosinophils% 1.7 % (0-5); Hematocrit 45.7 % (37-47); Hemoglobin 13.3 g/dL (12.0-15.0); Lymphocyte # 1.31 X10^3/ul (4.0); Lymphocyte % 7.3 % (19-41); Mean Corp Hgb Conc 29.1 g/dL (32-36); Mean Corpuscular Hgb 23.8 pg (27.0-32.0); Mean Corpuscular Volume 81.8 fL (81-99); Mean Platelet Vol. 10.5 fl (6.2-12.0); Monocyte# 0.61 X10^3/uL; Monocyte% 3.4 % (0-10); NRBC Flagged by Analyzer 0 % (0-5); Neutrophil # 15.65 X10^3/uL (2.7-7.7); Neutrophil % 86.5 % (47-70); Platelet Count 381 K/mm3 (150-450); RBC Distribution Width CV 18.6 % (11.6-14.6); RBC Distribution Width SD 50.6 fl (35.1-43.9); Red Blood Count 5.59 M/mm3 (4.2-5.4); White Blood Count 18.1 K/mm3 (4.4-11.0)
[2020-09-13 16:56] LABS: ALB/GLOB Ratio 0.9 RATIO (0.9-2.4); AST(SGOT) 25 U/L (15-37); Alanine Aminotransfer ALT/SGPT 23 U/L (13-56); Albumin, Serum 3.5 g/dL (3.2-5.0); Alkaline Phosphatase 128 U/L (45-117); Anion Gap 6 (5-15); BUN 27 mg/dL (7-18); BUN/Creat Ratio 26.2 RATIO (10-20); Calcium,Total 8.9 mg/dL (8.5-10.1); Chloride 107 mmol/L (98-107); Creatinine, Serum 1.03 mg/dL (0.55-1.02); EST Glomerular Filtration Rate 56 mL/min (>60); Est Glom Filt Rate - Afr Amer 68 mL/min (>60); Globulin 3.9 g/dL (2.2-4.2); Glucose 113 mg/dL (74-106); Potassium 3.8 mmol/L (3.5-5.1); Protein, Total 7.4 g/dL (6.4-8.2); Sodium Level 139 mmol/L (136-145)
== END 2020-09-13 18:00 | disposition home or self-care (01) ==
LOC: LAB 15:55
PROVIDERS: Family Provider Family Medicine; Referring Provider Internal Medicine Hematology & Oncology; Visit Provider Internal Medicine Hematology & Oncology
DX: D47.1 Chronic myeloproliferative disease (principal)
CPT/HCPCS: 36415; 80053; 85025

== ENCOUNTER 2020-10-19 13:31 | Outpatient (RCR) | payer MEDICARE, OTHER, SELFPAY ==
[2020-10-19 15:05] LABS: Absolute Lymphocyte Count 2.06 X10^3/uL (0.83-4.51); Absolute Neutrophil Count 16.1 X10^3/uL (2.0-7.7); Basophil# 0.08 X10^3/uL; Basophil% 0.4 % (0-1); Eosinophil# 0.31 X10^3/uL; Eosinophils% 1.6 % (0-5); Hematocrit 43.4 % (37-47); Hemoglobin 11.9 g/dL (12.0-15.0); Lymphocyte # 2.06 X10^3/ul (0.83-4.51); Lymphocyte % 10.6 % (19-41); Mean Corp Hgb Conc 27.4 g/dL (32-36); Mean Corpuscular Hgb 21.9 pg (27.0-32.0); Mean Corpuscular Volume 79.8 fL (81-99); Mean Platelet Vol. 10.4 fl (6.2-12.0); Monocyte# 0.83 X10^3/uL; Monocyte% 4.3 % (0-10); NRBC Flagged by Analyzer 0 % (0-5); Neutrophil # 16.06 X10^3/uL (2.7-7.7); Neutrophil % 82.5 % (47-70); Platelet Count 393 K/mm3 (150-450); RBC Distribution Width SD 48.5 fl (35.1-43.9); Red Blood Count 5.44 M/mm3 (4.2-5.4); White Blood Count 19.5 K/mm3 (4.4-11.0)
== END 2020-10-19 18:00 | disposition home or self-care (01) ==
LOC: LAB 13:31
PROVIDERS: Family Provider Family Medicine; Referring Provider Internal Medicine Hematology & Oncology; Visit Provider Internal Medicine Hematology & Oncology
DX: D47.1 Chronic myeloproliferative disease (principal)
CPT/HCPCS: 36415; 85025

== ENCOUNTER 2020-12-05 15:05 | Outpatient (RCR) | payer MEDICARE, OTHER, SELFPAY ==
[2020-12-05 16:26] LABS: Absolute Lymphocyte Count 1.46 X10^3/uL (0.83-4.51); Absolute Neutrophil Count 13.9 X10^3/uL (2.0-7.7); Basophil# 0.09 X10^3/uL; Basophil% 0.5 % (0-1); Eosinophil# 0.33 X10^3/uL; Hemoglobin 12.2 g/dL (12.0-15.0); Lymphocyte # 1.46 X10^3/ul (0.83-4.51); Lymphocyte % 8.9 % (19-41); Mean Corp Hgb Conc 28.4 g/dL (32-36); Mean Corpuscular Hgb 22.4 pg (27.0-32.0); Mean Platelet Vol. 10.9 fl (6.2-12.0); Monocyte# 0.59 X10^3/uL; Monocyte% 3.6 % (0-10); NRBC Flagged by Analyzer 0 % (0-5); Neutrophil % 84.5 % (47-70); Platelet Count 410 K/mm3 (150-450); RBC Distribution Width CV 18.1 % (11.6-14.6); RBC Distribution Width SD 49.7 fl (35.1-43.9); Red Blood Count 5.44 M/mm3 (4.2-5.4); White Blood Count 16.5 K/mm3 (4.4-11.0)
[2020-12-05 17:25] LABS: ALB/GLOB Ratio 1.1 RATIO (0.9-2.4); AST(SGOT) 25 U/L (15-37); Alanine Aminotransfer ALT/SGPT 22 U/L (13-56); Albumin, Serum 3.6 g/dL (3.2-5.0); Alkaline Phosphatase 117 U/L (45-117); Anion Gap 8 (5-15); BUN 28 mg/dL (7-18); BUN/Creat Ratio 24.6 RATIO (10-20); Calcium,Total 8.4 mg/dL (8.5-10.1); Chloride 108 mmol/L (98-107); Creatinine, Serum 1.14 mg/dL (0.55-1.02); EST Glomerular Filtration Rate 50 mL/min (>60); Est Glom Filt Rate - Afr Amer 61 mL/min (>60); Globulin 3.4 g/dL (2.2-4.2); Glucose 112 mg/dL (74-106); LDH 225 U/L (84-246); Sodium Level 141 mmol/L (136-145); Uric Acid 5.4 mg/dL (2.6-6.0)
== END 2020-12-05 18:00 | disposition home or self-care (01) ==
LOC: LAB 15:05
PROVIDERS: Family Provider Family Medicine; Referring Provider Internal Medicine Hematology & Oncology; Visit Provider Internal Medicine Hematology & Oncology
DX: D47.1 Chronic myeloproliferative disease (principal)
CPT/HCPCS: 36415; 80053; 83615; 84550; 85025

== ENCOUNTER 2021-01-01 14:32 | Outpatient (RCR) | payer MEDICARE, OTHER, SELFPAY ==
[2021-01-01 15:08] LABS: Absolute Lymphocyte Count 1.46 X10^3/uL (0.83-4.51); Absolute Neutrophil Count 16.6 X10^3/uL (2.0-7.7); Basophil# 0.09 X10^3/uL; Basophil% 0.5 % (0-1); Eosinophil# 0.38 X10^3/uL; Hemoglobin 12.2 g/dL (12.0-15.0); Lymphocyte # 1.46 X10^3/ul (0.83-4.51); Lymphocyte % 7.5 % (19-41); Mean Corp Hgb Conc 28.4 g/dL (32-36); Mean Corpuscular Hgb 22.2 pg (27.0-32.0); Mean Corpuscular Volume 78.3 fL (81-99); Mean Platelet Vol. 10.3 fl (6.2-12.0); Monocyte# 0.77 X10^3/uL; NRBC Flagged by Analyzer 0 % (0-5); Neutrophil # 16.57 X10^3/uL (2.7-7.7); Neutrophil % 85.3 % (47-70); Platelet Count 399 K/mm3 (150-450); RBC Distribution Width CV 18.6 % (11.6-14.6); Red Blood Count 5.49 M/mm3 (4.2-5.4); White Blood Count 19.4 K/mm3 (4.4-11.0)
[2021-01-01 15:43] LABS: AST(SGOT) 22 U/L (15-37); Alanine Aminotransfer ALT/SGPT 21 U/L (13-56); Albumin, Serum 3.4 g/dL (3.2-5.0); Alkaline Phosphatase 116 U/L (45-117); Anion Gap 4 (5-15); BUN 25 mg/dL (7-18); BUN/Creat Ratio 32.4 RATIO (10-20); Calcium,Total 8.6 mg/dL (8.5-10.1); Chloride 107 mmol/L (98-107); Creatinine, Serum 0.77 mg/dL (0.55-1.02); EST Glomerular Filtration Rate 79 mL/min (>60); Est Glom Filt Rate - Afr Amer 95 mL/min (>60); Globulin 3.4 g/dL (2.2-4.2); Glucose 113 mg/dL (74-106); LDH 225 U/L (84-246); Potassium 3.8 mmol/L (3.5-5.1); Protein, Total 6.8 g/dL (6.4-8.2); Sodium Level 139 mmol/L (136-145)
== END 2021-01-01 18:00 | disposition home or self-care (01) ==
LOC: LAB 14:32
PROVIDERS: Family Provider Family Medicine; Referring Provider Internal Medicine Hematology & Oncology; Visit Provider Internal Medicine Hematology & Oncology
DX: D47.1 Chronic myeloproliferative disease (principal)
CPT/HCPCS: 36415; 80053; 83615; 85025

== ENCOUNTER 2021-01-23 16:29 | Outpatient (RCR) | payer MEDICARE, OTHER, SELFPAY ==
[2021-01-23 17:23] LABS: Absolute Lymphocyte Count 1.18 X10^3/uL (0.83-4.51); Absolute Neutrophil Count 15.1 X10^3/uL (2.0-7.7); Basophil# 0.08 X10^3/uL; Basophil% 0.5 % (0-1); Eosinophil# 0.33 X10^3/uL; Eosinophils% 1.9 % (0-5); Hematocrit 44.7 % (37-47); Hemoglobin 13.3 g/dL (12.0-15.0); Lymphocyte # 1.18 X10^3/ul (0.83-4.51); Lymphocyte % 6.8 % (19-41); Mean Corp Hgb Conc 29.8 g/dL (32-36); Mean Corpuscular Hgb 23.5 pg (27.0-32.0); Mean Corpuscular Volume 78.8 fL (81-99); Mean Platelet Vol. 10.5 fl (6.2-12.0); Monocyte# 0.67 X10^3/uL; Monocyte% 3.8 % (0-10); NRBC Flagged by Analyzer 0 % (0-5); Neutrophil # 15.05 X10^3/uL (2.7-7.7); Neutrophil % 86.1 % (47-70); Platelet Count 556 K/mm3 (150-450); RBC Distribution Width CV 18.6 % (11.6-14.6); RBC Distribution Width SD 51.1 fl (35.1-43.9); Red Blood Count 5.67 M/mm3 (4.2-5.4); White Blood Count 17.5 K/mm3 (4.4-11.0)
[2021-01-23 18:00] LABS: ALB/GLOB Ratio 0.9 RATIO (0.9-2.4); AST(SGOT) 20 U/L (15-37); Alanine Aminotransfer ALT/SGPT 20 U/L (13-56); Albumin, Serum 3.4 g/dL (3.2-5.0); Alkaline Phosphatase 132 U/L (45-117); Anion Gap 4 (5-15); BUN 20 mg/dL (7-18); BUN/Creat Ratio 27.7 RATIO (10-20); Calcium,Total 8.6 mg/dL (8.5-10.1); Chloride 109 mmol/L (98-107); Creatinine, Serum 0.72 mg/dL (0.55-1.02); EST Glomerular Filtration Rate 85 mL/min (>60); Est Glom Filt Rate - Afr Amer 103 mL/min (>60); Globulin 3.8 g/dL (2.2-4.2); Glucose 85 mg/dL (74-106); LDH 233 U/L (84-246); Potassium 3.7 mmol/L (3.5-5.1); Protein, Total 7.2 g/dL (6.4-8.2); Sodium Level 141 mmol/L (136-145)
== END 2021-01-23 18:00 | disposition home or self-care (01) ==
LOC: LAB 16:29
PROVIDERS: Family Provider Family Medicine; Referring Provider Internal Medicine Hematology & Oncology; Visit Provider Internal Medicine Hematology & Oncology
DX: D47.1 Chronic myeloproliferative disease (principal)
CPT/HCPCS: 36415; 80053; 83615; 85025

== ENCOUNTER 2021-02-13 15:47 | Outpatient (RCR) | payer MEDICARE, OTHER, SELFPAY ==
[2021-02-13 17:47] LABS: Absolute Neutrophil Count 16.4 X10^3/uL (2.0-7.7); Basophil# 0.08 X10^3/uL; Basophil% 0.4 % (0-1); Eosinophil# 0.37 X10^3/uL; Eosinophils% 1.9 % (0-5); Hematocrit 45.7 % (37-47); Hemoglobin 12.8 g/dL (12.0-15.0); Lymphocyte % 7.3 % (19-41); Mean Corpuscular Hgb 22.1 pg (27.0-32.0); Mean Corpuscular Volume 78.8 fL (81-99); Mean Platelet Vol. 10.9 fl (6.2-12.0); Monocyte# 0.78 X10^3/uL; Monocyte% 4.1 % (0-10); NRBC Flagged by Analyzer 0 % (0-5); Neutrophil # 16.39 X10^3/uL (2.7-7.7); Neutrophil % 85.4 % (47-70); Platelet Count 499 K/mm3 (150-450); RBC Distribution Width CV 18.9 % (11.6-14.6); RBC Distribution Width SD 51.4 fl (35.1-43.9); White Blood Count 19.2 K/mm3 (4.4-11.0)
[2021-02-13 18:11] LABS: ALB/GLOB Ratio 0.8 RATIO (0.9-2.4); AST(SGOT) 23 U/L (15-37); Alanine Aminotransfer ALT/SGPT 23 U/L (13-56); Albumin, Serum 3.4 g/dL (3.2-5.0); Alkaline Phosphatase 125 U/L (45-117); Anion Gap 4 (5-15); BUN 25 mg/dL (7-18); BUN/Creat Ratio 26.2 RATIO (10-20); Calcium,Total 8.7 mg/dL (8.5-10.1); Chloride 108 mmol/L (98-107); Creatinine, Serum 0.96 mg/dL (0.55-1.02); EST Glomerular Filtration Rate 61 mL/min (>60); Est Glom Filt Rate - Afr Amer 74 mL/min (>60); Glucose 112 mg/dL (74-106); LDH 250 U/L (84-246); Potassium 3.9 mmol/L (3.5-5.1); Protein, Total 7.4 g/dL (6.4-8.2); Sodium Level 140 mmol/L (136-145); Thyroid Stim Hormone (TSH) 1.93 uIU/mL (0.358-3.74)
== END 2021-02-13 18:00 | disposition home or self-care (01) ==
LOC: LAB 15:47
PROVIDERS: Family Provider Family Medicine; Referring Provider Internal Medicine Hematology & Oncology; Visit Provider Internal Medicine Hematology & Oncology
DX: D47.1 Chronic myeloproliferative disease (principal)
CPT/HCPCS: 36415; 80053; 83615; 84443; 85025

== ENCOUNTER 2021-03-19 13:45 | Outpatient (RCR) | payer MEDICARE, OTHER, SELFPAY ==
[2021-03-19 14:46] LABS: Absolute Lymphocyte Count 1.57 X10^3/uL (0.83-4.51); Absolute Neutrophil Count 17.3 X10^3/uL (2.0-7.7); Basophil# 0.09 X10^3/uL; Basophil% 0.4 % (0-1); Eosinophil# 0.38 X10^3/uL; Eosinophils% 1.9 % (0-5); Hemoglobin 11.8 g/dL (12.0-15.0); Lymphocyte # 1.57 X10^3/ul (0.83-4.51); Lymphocyte % 7.8 % (19-41); Mean Corp Hgb Conc 28.8 g/dL (32-36); Mean Corpuscular Hgb 21.8 pg (27.0-32.0); Mean Corpuscular Volume 75.6 fL (81-99); Mean Platelet Vol. 10.6 fl (6.2-12.0); Monocyte# 0.62 X10^3/uL; Monocyte% 3.1 % (0-10); NRBC Flagged by Analyzer 0 % (0-5); Neutrophil # 17.32 X10^3/uL (2.7-7.7); Neutrophil % 86.2 % (47-70); Platelet Count 472 K/mm3 (150-450); RBC Distribution Width CV 18.1 % (11.6-14.6); Red Blood Count 5.42 M/mm3 (4.2-5.4); White Blood Count 20.1 K/mm3 (4.4-11.0)
[2021-03-19 15:12] LABS: ALB/GLOB Ratio 0.9 RATIO (0.9-2.4); AST(SGOT) 19 U/L (15-37); Alanine Aminotransfer ALT/SGPT 20 U/L (13-56); Albumin, Serum 3.2 g/dL (3.2-5.0); Alkaline Phosphatase 125 U/L (45-117); Anion Gap 6 (5-15); BUN 21 mg/dL (7-18); BUN/Creat Ratio 24.7 RATIO (10-20); Calcium,Total 8.6 mg/dL (8.5-10.1); Chloride 106 mmol/L (98-107); Creatinine, Serum 0.85 mg/dL (0.55-1.02); EST Glomerular Filtration Rate 70 mL/min (>60); Est Glom Filt Rate - Afr Amer 85 mL/min (>60); Globulin 3.7 g/dL (2.2-4.2); Glucose 131 mg/dL (74-106); LDH 233 U/L (84-246); Potassium 3.7 mmol/L (3.5-5.1); Protein, Total 6.9 g/dL (6.4-8.2); Sodium Level 141 mmol/L (136-145)
== END 2021-04-08 03:27 | disposition home or self-care (01) ==
LOC: LAB 13:45
PROVIDERS: Family Provider Family Medicine; Referring Provider Internal Medicine Hematology & Oncology; Visit Provider Internal Medicine Hematology & Oncology
DX: D47.1 Chronic myeloproliferative disease (principal)
CPT/HCPCS: 36415; 80053; 83615; 85025

== ENCOUNTER 2021-04-17 13:42 | Outpatient (RCR) | payer MEDICARE, OTHER, SELFPAY ==
[2021-04-17 16:43] LABS: Absolute Lymphocyte Count 1.53 X10^3/uL (0.83-4.51); Absolute Neutrophil Count 17.5 X10^3/uL (2.0-7.7); Basophil% 0.5 % (0-1); Eosinophil# 0.34 X10^3/uL; Eosinophils% 1.7 % (0-5); Hematocrit 44.2 % (37-47); Hemoglobin 12.2 g/dL (12.0-15.0); Lymphocyte # 1.53 X10^3/ul (0.83-4.51); Lymphocyte % 7.5 % (19-41); Mean Corp Hgb Conc 27.6 g/dL (32-36); Mean Corpuscular Hgb 20.8 pg (27.0-32.0); Mean Corpuscular Volume 75.4 fL (81-99); Mean Platelet Vol. 10.8 fl (6.2-12.0); Monocyte# 0.77 X10^3/uL; Monocyte% 3.8 % (0-10); NRBC Flagged by Analyzer 0 % (0-5); Neutrophil # 17.53 X10^3/uL (2.7-7.7); Neutrophil % 85.8 % (47-70); Platelet Count 518 K/mm3 (150-450); RBC Distribution Width CV 19.2 % (11.6-14.6); RBC Distribution Width SD 49.3 fl (35.1-43.9); Red Blood Count 5.86 M/mm3 (4.2-5.4); White Blood Count 20.4 K/mm3 (4.4-11.0)
[2021-04-17 17:45] LABS: ALB/GLOB Ratio 0.8 RATIO (0.9-2.4); AST(SGOT) 22 U/L (15-37); Alanine Aminotransfer ALT/SGPT 21 U/L (13-56); Albumin, Serum 3.4 g/dL (3.2-5.0); Alkaline Phosphatase 138 U/L (45-117); Anion Gap 6 (5-15); BUN 22 mg/dL (7-18); BUN/Creat Ratio 26.3 RATIO (10-20); Calcium,Total 8.8 mg/dL (8.5-10.1); Chloride 105 mmol/L (98-107); Creatinine, Serum 0.84 mg/dL (0.55-1.02); EST Glomerular Filtration Rate 72 mL/min (>60); Est Glom Filt Rate - Afr Amer 87 mL/min (>60); Glucose 67 mg/dL (74-106); LDH 329 U/L (84-246); Potassium 4.1 mmol/L (3.5-5.1); Protein, Total 7.4 g/dL (6.4-8.2); Sodium Level 139 mmol/L (136-145)
== END 2021-05-08 18:00 | disposition home or self-care (01) ==
LOC: LAB 13:42
PROVIDERS: Family Provider Family Medicine; PCP Student in an Organized Health Care Education/Training Program; Referring Provider Internal Medicine Hematology & Oncology; Visit Provider Internal Medicine Hematology & Oncology
DX: D47.1 Chronic myeloproliferative disease (principal)
CPT/HCPCS: 36415; 80053; 83615; 85025

== ENCOUNTER 2021-05-14 14:04 | Outpatient (RCR) | payer MEDICARE, OTHER, SELFPAY ==
[2021-05-14 15:09] LABS: Absolute Lymphocyte Count 1.95 X10^3/uL (0.83-4.51); Absolute Neutrophil Count 19.3 X10^3/uL (2.0-7.7); Basophil# 0.12 X10^3/uL; Basophil% 0.5 % (0-1); Eosinophil# 0.41 X10^3/uL; Eosinophils% 1.8 % (0-5); Hematocrit 43.8 % (37-47); Hemoglobin 12.4 g/dL (12.0-15.0); Lymphocyte # 1.95 X10^3/ul (0.83-4.51); Lymphocyte % 8.5 % (19-41); Mean Corp Hgb Conc 28.3 g/dL (32-36); Mean Corpuscular Hgb 21.2 pg (27.0-32.0); Mean Corpuscular Volume 74.9 fL (81-99); Mean Platelet Vol. 10.5 fl (6.2-12.0); Monocyte# 0.87 X10^3/uL; Monocyte% 3.8 % (0-10); NRBC Flagged by Analyzer 0 % (0-5); Neutrophil # 19.27 X10^3/uL (2.7-7.7); Neutrophil % 84.4 % (47-70); Platelet Count 526 K/mm3 (150-450); RBC Distribution Width CV 19.6 % (11.6-14.6); RBC Distribution Width SD 50.1 fl (35.1-43.9); Red Blood Count 5.85 M/mm3 (4.2-5.4); White Blood Count 22.8 K/mm3 (4.4-11.0)
[2021-05-14 15:41] LABS: ALB/GLOB Ratio 0.9 RATIO (0.9-2.4); AST(SGOT) 20 U/L (15-37); Alanine Aminotransfer ALT/SGPT 20 U/L (13-56); Albumin, Serum 3.6 g/dL (3.2-5.0); Alkaline Phosphatase 131 U/L (45-117); Anion Gap 7 (5-15); BUN 23 mg/dL (7-18); Calcium,Total 8.8 mg/dL (8.5-10.1); Chloride 105 mmol/L (98-107); Creatinine, Serum 0.82 mg/dL (0.55-1.02); EST Glomerular Filtration Rate 73 mL/min (>60); Est Glom Filt Rate - Afr Amer 89 mL/min (>60); Globulin 3.8 g/dL (2.2-4.2); Glucose 118 mg/dL (74-106); LDH 247 U/L (84-246); Potassium 3.7 mmol/L (3.5-5.1); Protein, Total 7.4 g/dL (6.4-8.2); Sodium Level 140 mmol/L (136-145)
== END 2021-06-09 18:00 | disposition home or self-care (01) ==
LOC: LAB 14:04
PROVIDERS: Family Provider Family Medicine; PCP Student in an Organized Health Care Education/Training Program; Referring Provider Internal Medicine Hematology & Oncology; Visit Provider Internal Medicine Hematology & Oncology
DX: D47.1 Chronic myeloproliferative disease (principal)
CPT/HCPCS: 36415; 80053; 83615; 85025

== ENCOUNTER 2021-06-11 11:25 | Outpatient (RCR) | payer MEDICARE, OTHER, SELFPAY ==
[2021-06-11 12:37] LABS: Absolute Lymphocyte Count 1.14 X10^3/uL (0.83-4.51); Absolute Neutrophil Count 18.3 X10^3/uL (2.0-7.7); Basophil# 0.12 X10^3/uL; Basophil% 0.6 % (0-1); Eosinophils% 1.4 % (0-5); Hematocrit 46.2 % (37-47); Hemoglobin 12.8 g/dL (12.0-15.0); Lymphocyte # 1.14 X10^3/ul (0.83-4.51); Lymphocyte % 5.5 % (19-41); Mean Corp Hgb Conc 27.7 g/dL (32-36); Mean Corpuscular Hgb 20.6 pg (27.0-32.0); Mean Corpuscular Volume 74.4 fL (81-99); Mean Platelet Vol. 10.1 fl (6.2-12.0); Monocyte% 3.9 % (0-10); NRBC Flagged by Analyzer 0 % (0-5); Neutrophil # 18.25 X10^3/uL (2.7-7.7); Neutrophil % 87.9 % (47-70); POSITIVE MORPHOLOGY YES; Platelet Count 413 K/mm3 (150-450); RBC Distribution Width CV 20.7 % (11.6-14.6); RBC Distribution Width SD 51.4 fl (35.1-43.9); Red Blood Count 6.21 M/mm3 (4.2-5.4); White Blood Count 20.8 K/mm3 (4.4-11.0)
[2021-06-11 12:40] LABS: Differential Indicated SCAN CRITERIA MET
[2021-06-11 13:09] LABS: Anisocytosis 1+
[2021-06-11 13:28] LABS: ALB/GLOB Ratio 0.9 RATIO (0.9-2.4); AST(SGOT) 24 U/L (15-37); Alanine Aminotransfer ALT/SGPT 25 U/L (13-56); Albumin, Serum 3.6 g/dL (3.2-5.0); Alkaline Phosphatase 140 U/L (45-117); Anion Gap 9 (5-15); BUN 22 mg/dL (7-18); BUN/Creat Ratio 28.8 RATIO (10-20); Calcium,Total 9.3 mg/dL (8.5-10.1); Chloride 103 mmol/L (98-107); Creatinine, Serum 0.76 mg/dL (0.55-1.02); EST Glomerular Filtration Rate 80 mL/min (>60); Est Glom Filt Rate - Afr Amer 96 mL/min (>60); Glucose 89 mg/dL (74-106); LDH 265 U/L (84-246); Potassium 3.7 mmol/L (3.5-5.1); Protein, Total 7.6 g/dL (6.4-8.2); Sodium Level 138 mmol/L (136-145)
== END 2021-07-09 18:00 | disposition home or self-care (01) ==
LOC: LAB 11:25
PROVIDERS: Family Provider Family Medicine; PCP Student in an Organized Health Care Education/Training Program; Referring Provider Internal Medicine Hematology & Oncology; Visit Provider Internal Medicine Hematology & Oncology
DX: D47.1 Chronic myeloproliferative disease (principal)
CPT/HCPCS: 36415; 80053; 83615; 85025

== ENCOUNTER 2021-07-16 13:53 | Outpatient (RCR) | payer MEDICARE, OTHER, SELFPAY ==
[2021-07-16 14:42] LABS: Absolute Lymphocyte Count 1.38 X10^3/uL (0.83-4.51); Basophil# 0.09 X10^3/uL; Basophil% 0.5 % (0-1); Eosinophil# 0.27 X10^3/uL; Eosinophils% 1.6 % (0-5); Hematocrit 44.9 % (37-47); Hemoglobin 12.5 g/dL (12.0-15.0); Lymphocyte # 1.38 X10^3/ul (0.83-4.51); Lymphocyte % 8.4 % (19-41); Mean Corp Hgb Conc 27.8 g/dL (32-36); Mean Corpuscular Hgb 21.3 pg (27.0-32.0); Mean Corpuscular Volume 76.4 fL (81-99); Mean Platelet Vol. 10.1 fl (6.2-12.0); Monocyte# 0.69 X10^3/uL; Monocyte% 4.2 % (0-10); NRBC Flagged by Analyzer 0 % (0-5); Neutrophil # 13.96 X10^3/uL (2.7-7.7); Neutrophil % 84.7 % (47-70); POSITIVE MORPHOLOGY YES; Platelet Count 451 K/mm3 (150-450); RBC Distribution Width SD 55.6 fl (35.1-43.9); Red Blood Count 5.88 M/mm3 (4.2-5.4); White Blood Count 16.5 K/mm3 (4.4-11.0)
[2021-07-16 14:44] LABS: Differential Indicated SCAN CRITERIA MET
[2021-07-16 15:12] LABS: Anisocytosis 1+; Microcytosis 2+; Platelet Estimate SLT INC (ADEQ)
[2021-07-16 15:13] LABS: Polychromasia RARE
[2021-07-16 15:17] LABS: AST(SGOT) 21 U/L (15-37); Alanine Aminotransfer ALT/SGPT 21 U/L (13-56); Albumin, Serum 3.4 g/dL (3.2-5.0); Alkaline Phosphatase 109 U/L (45-117); Anion Gap 4 (5-15); BUN 21 mg/dL (7-18); BUN/Creat Ratio 24.6 RATIO (10-20); Calcium,Total 8.6 mg/dL (8.5-10.1); Chloride 107 mmol/L (98-107); Creatinine, Serum 0.86 mg/dL (0.55-1.02); EST Glomerular Filtration Rate 70 mL/min (>60); Est Glom Filt Rate - Afr Amer 84 mL/min (>60); Globulin 3.5 g/dL (2.2-4.2); Glucose 105 mg/dL (74-106); LDH 242 U/L (84-246); Protein, Total 6.9 g/dL (6.4-8.2); Sodium Level 140 mmol/L (136-145)
== END 2021-07-16 18:00 | disposition home or self-care (01) ==
LOC: LAB 13:53
PROVIDERS: Family Provider Family Medicine; PCP Student in an Organized Health Care Education/Training Program; Referring Provider Internal Medicine Hematology & Oncology; Visit Provider Internal Medicine Hematology & Oncology
DX: D47.1 Chronic myeloproliferative disease (principal)
CPT/HCPCS: 36415; 80053; 83615; 85025

== ENCOUNTER 2021-09-12 13:39 | Outpatient (CLI) | payer MEDICARE, OTHER, SELFPAY ==
--- NOTE | 2021-09-12 13:42 | BI_ITS ---
MAMMOGRAPHY - BILATERAL SCREENING REASON FOR EXAM: Female, 71 years old. Routine annual screening examination. PERTINENT HISTORY: Sister with breast cancer. Mother with breast cancer. History of prior right ultrasound breast biopsy. TECHNIQUE: Digital bilateral breast alan (3D mammographic acquisition) in the CC and MLO projections. 2-D mediolateral oblique (MLO) and craniocaudad (CC) views of both breasts were obtained. CAD: Full Field Digital Mammography with Computer Added Detection was performed. COMPARISON: None. FINDINGS: Breast Composition: The breasts are extremely dense, which lowers the sensitivity of mammography. There are no dominant masses or suspicious calcifications. A tissue clip marker is seen in the deep upper lateral aspect of the right breast. Bilateral axillary lymph nodes. No other significant abnormalities are identified. BI/SCRN MAMM (CAD)W/ALAN BILAT IMPRESSION: Negative screening mammogram. Yearly followup mammogram recommended. (A) ASSESSMENT CATEGORY: BIRADS Category 2: Benign. A letter regarding these results will be sent to the patient by the facility within 30 days. Approximately 10% of breast cancers are not detected by mammography. A normal mammogram should not delay biopsy of a clinically suspicious abnormality. [id number] Electronically Signed: Efra Blas MD at 14:48 EDT ,
== END 2021-09-12 23:59 | disposition home or self-care (01) ==
LOC: OPBI 13:42
PROVIDERS: PCP Student in an Organized Health Care Education/Training Program; Visit Provider Internal Medicine Hematology & Oncology
DX: Z12.31 Encounter for screening mammogram for malignant neoplasm of breast (principal); Z80.3 Family history of malignant neoplasm of breast
CPT/HCPCS: 77063; 77067

== ENCOUNTER → 2022-11-13 | Outpatient (CLI) | payer MEDICARE, OTHER, SELFPAY ==
--- NOTE | 2022-11-13 14:16 | BI_ITS ---
MAMMOGRAPHY - BILATERAL SCREENING REASON FOR EXAM: Female, 72 years old. Routine annual screening examination. PERTINENT HISTORY: Sister with breast cancer. Mother with breast cancer. TECHNIQUE: Digital bilateral breast alan (3D mammographic acquisition) in the CC and MLO projections. 2-D mediolateral oblique (MLO) and craniocaudad (CC) views of both breasts were obtained. CAD: Full Field Digital Mammography with Computer Added Detection was performed. COMPARISON: Comparison is made with prior study September 12, 2021 and October 09, 2010. FINDINGS: Breast Composition: The breasts are extremely dense, which lowers the sensitivity of mammography. There are no dominant masses or suspicious calcifications. A tissue clip marker is seen in the deep upper lateral aspect of the right breast. No other significant abnormalities are identified. There has been no significant change since the prior study. BI/SCRN MAMM (CAD)W/ALAN BILAT IMPRESSION: Stable bilateral screening mammogram. Yearly follow-up mammogram recommended. (A) ASSESSMENT CATEGORY: BIRADS Category 2: Benign. A letter regarding these results will be sent to the patient by the facility within 30 days. Approximately 10% of breast cancers are not detected by mammography. A normal mammogram should not delay biopsy of a clinically suspicious abnormality. [id number] Electronically Signed: Efra Blas MD at 14:57 EDT ,
== END | disposition home or self-care (01) ==
LOC: OPBI 14:15
PROVIDERS: PCP Student in an Organized Health Care Education/Training Program; Referring Provider Internal Medicine Hematology & Oncology; Visit Provider Internal Medicine Hematology & Oncology
DX: Z12.31 Encounter for screening mammogram for malignant neoplasm of breast (principal); Z80.3 Family history of malignant neoplasm of breast
CPT/HCPCS: 77063; 77067

== ENCOUNTER → 2024-01-30 | Outpatient (CLI) | payer MEDICARE, OTHER, SELFPAY ==
--- NOTE | 2024-01-30 13:36 | BI_ITS ---
MAMMOGRAPHY - BILATERAL SCREENING REASON FOR EXAM: Female, 73 years old. Routine annual screening examination. PERTINENT HISTORY: Sister with breast cancer. Mother with breast cancer. TECHNIQUE: Digital bilateral breast alan (3D mammographic acquisition) in the CC and MLO projections. 2-D mediolateral oblique (MLO) and craniocaudad (CC) views of both breasts were obtained. CAD: Full Field Digital Mammography with Computer Added Detection was performed. COMPARISON: Comparison is made with prior study dated November 13, 2022 and September 12, 2021. FINDINGS: Breast Composition: The breasts are extremely dense, which lowers the sensitivity of mammography. There are no dominant masses or suspicious calcifications. A tissue clip marker is seen in the deep upper lateral aspect of the right breast. No other significant abnormalities are identified. There has been no significant change since the prior study. BI/SCRN MAMM (CAD)W/ALAN BILAT IMPRESSION: Stable bilateral screening mammogram. Yearly follow-up mammogram recommended. (A) ASSESSMENT CATEGORY: BIRADS Category 2: Benign. A letter regarding these results will be sent to the patient by the facility within 30 days. Approximately 10% of breast cancers are not detected by mammography. A normal mammogram should not delay biopsy of a clinically suspicious abnormality. [id number] Electronically Signed: Efra Blas MD at 14:08 EDT ,
== END | disposition home or self-care (01) ==
PROVIDERS: PCP Student in an Organized Health Care Education/Training Program; Referring Provider Student in an Organized Health Care Education/Training Program; Visit Provider Student in an Organized Health Care Education/Training Program
DX: Z12.31 Encounter for screening mammogram for malignant neoplasm of breast (principal); Z80.3 Family history of malignant neoplasm of breast
CPT/HCPCS: 77063; 77067

== ENCOUNTER → 2024-08-11 | Outpatient (CLI) | payer MEDICARE, OTHER, SELFPAY ==
--- NOTE | 2024-08-11 14:29 | US_ITS ---
PROCEDURE: Transvaginal pelvic ultrasound REASON FOR EXAM: PMB TECHNIQUE: Grayscale and color Doppler pelvic ultrasound. COMPARISON: None. FINDINGS: Uterus: 4.7 x 3.5 x 2.3 cm, anteverted. Heterogeneous myometrium. Hypoechoic fibroids measure 4 x 4 x 2 mm and 3 x 4 x 3 mm and appear intramural. Endometrium: 1 mm in thickness, exclusive of trace endocavitary fluid. Nonspecific echogenic shadowing central endometrial calcification measures 2 x 3 x 1 mm. Cervix: Grossly unremarkable. Right ovary: Not visualized. Left ovary: Nonvisualized. Free fluid: None visualized. US/Transvaginal Non- IMPRESSION: 1. Very thin endometrium ~1 mm is within normal limits for a postmenopausal fem sarita; note however that endometrial atrophy can be a source of abnormal bleeding. Trace nonspecific endometrial fluid, compati ble with provided history. 2. Heterogeneous myometrium may be related to previous adenomyosis. Tiny presu med fibroids up to 4 mm. 3. Nonspecific endometrial calcification. Correlate for possible history of pr evious instrumentation. 4. Nonvisualized bilateral ovaries. 5. Additional description as above. Reading Location: [facility]
== END | disposition home or self-care (01) ==
LOC: US 14:25
PROVIDERS: PCP Student in an Organized Health Care Education/Training Program; Referring Provider Nurse Practitioner Women's Health; Visit Provider Nurse Practitioner Women's Health
DX: N95.0 Postmenopausal bleeding (principal)
CPT/HCPCS: 76830

== ENCOUNTER → 2024-09-13 | Outpatient (CLI) | payer MEDICARE, OTHER, SELFPAY ==
--- NOTE | 2024-09-13 11:25 | EMB_PTH ---
PATIENT: PHONG JANG LOC: [facility] U#:[id number] AGE/SX: 74/F ROOM: RE09/13/[address]: JAIME Schmitt : 1950 BED: DIS: 09/13/2024 SPEC #: [id number] RECD: 09/14/24 10:31 STATUS: DOROTHEA CHLOÉ #: [id number] ALVAREZ: 09/13/24 11:[address]: Francheska Powell NP DEPT: SURGICAL PATHOLOGY RECD BY: Bhanu Valiente ENTERED: 09/14/24 10:31 SP TYPE: ENDOM BX/C OMA DR: Dr. Dennise Sahni MD Tissues: A - Endometrium, NOS Procedures: Surgery Specimen Level IV HEADER OPERATION: Endoemtrial biopsy PRE-OP DIAGNOSIS: Post menopausal bleeding TISSUE SUBMITTED: A- Endometrial lining MICROSCOPIC DIAGNOSIS A. Uterus, endometrial lining, biopsy: * Inactive endometrium/lower uterine segment and endocervical mucosa, with active chronic inflammation. MICROSCOPIC DESCRIPTION Slides are reviewed. GROSS DESCRIPTION A. Received in formalin in a container labeled with the patient's name, date of , and with the accompanying paperwork indicating, endometrial lining are multiple wispy red-hinds fragments of soft tissue admixed with blood and mucus measuring 1.3 x 1.3 x 0.2 cm in aggregate. Submitted in toto in A1. [facility] 09-14-2024 CPT:[id number]
== END | disposition home or self-care (01) ==
PROVIDERS: PCP Student in an Organized Health Care Education/Training Program; Visit Provider Nurse Practitioner Women's Health
DX: N71.1 Chronic inflammatory disease of uterus (principal); N95.0 Postmenopausal bleeding
CPT/HCPCS: 88305

== ENCOUNTER → 2025-02-01 | Outpatient (CLI) | payer MEDICARE, OTHER, SELFPAY ==
--- NOTE | 2025-02-01 13:30 | BI_ITS ---
EXAM: SCRN MAMM (CAD)W/ALAN BILAT DATE: 02/01/2025 CLINICAL HISTORY: F, Age 74 y/o , SCREENING Sister with breast cancer. Mother with breast cancer. Remote right stereotactic breast biopsy. TECHNIQUE: SCRN MAMM (CAD)W/ALAN BILAT COMPARISON: Prior exam(s) dated January 30, 2024.. FINDINGS: TISSUE DENSITY: The breasts are extremely dense, which lowers the sensitivity of mammography. Bilateral Breast Mammographic Findings: No significant masses, calcifications or other abnormalities are identified. A tissue clip marker is once again seen in the deep upper lateral aspect of the right breast. Stable small bilateral fat containing axillary lymph nodes. No suspicious masses, areas of developing architectural distortion, or suspicious calcifications. There has been no significant interval change. BI/SCRN MAMM (CAD)W/ALAN BILAT IMPRESSION: Stable examination. OVERALL FINAL ASSESSMENT BI-RADS 2: BENIGN RECOMMENDATION: Routine annual follow-up in 1 Year A letter with findings and recommendations will be mailed to the patient. Reading Location: [facility]
--- OUTSIDE RECORDS SUMMARY | 2025-02-01 21:17 | XMS RPT_ITS | CCD ---
Author Organization [facility] Care Team Providers Care Blast Furnace Helper Name Role Phone DENNISE SAHNI MD Primary Care Physician [facility] Turnstile Collector, Augustin Unavailable Unavailable Dr. Dennise Sahni Primary Care Provider Dr. Dennise Sahni Referring Provider Taisha ANGULAR DEVELOPER, ANGULAR DEVELOPER-C Wiht Attending Provider Dr. Tristen Guevara Attending Provider Dr. Dennise Sahni MD Primary Care Provider Dr. Dennise Sahni MD Referring Provider Dr. Tristen Guevara MD Attending Provider Damián ANGULAR DEVELOPER-C, Krystina Attending Provider Dr. Dennise Sahni MD Other Provider Dr. Tristen Guevara MD Referring Provider MICHELLE MAYA Other Provider Unavailable [place] ANGULAR DEVELOPER-C, Francheska Attending Provider Andre ANGULAR DEVELOPER-C, Francheska Referring Provider Danyelle Rivera Attending Provider Desire KAM, Dr. Springer Attending Provider Dr. Dennise Sahni MD Primary Care Provider Dr. Dennise Sahni MD Referring Provider Dr. Tristen Guevara MD Attending Provider Dr. Dennise Sahni MD Primary Care Provider Kaitlyn KAM, Dr. Bowden Referring Provider Andre ANGULAR DEVELOPER-C, Francheska Attending Provider Damián ANGULAR DEVELOPER-C, Krystina Attending Provider Kaitlyn KAM, Dr. Bowden Other Provider Dr. Tristen Guevara MD Attending Provider Dr. Tristen Guevara MD Referring Provider MICHELLE MAYA Other Provider Unavailable ANJELICA ANTON Rory Primary Care Unavailable ANTON DEJESUS Attending Unavailable ANTON DEJESUS Admitting Unavailable DENNISE SAHNI MD Consulting Unavailable PROVIDER, UNKNOWN Consulting Unavailable PROVIDER, UNKNOWN Consulting Unavailable DENNISE SAHNI MD Primary Care Unavailable DENNISE SAHNI MD Consulting Unavailable DENNISE SAHNI MD Attending Unavailable DENNISE SAHNI MD Admitting Unavailable PROVIDER, UNKNOWN Consulting Unavailable PROVIDER, UNKNOWN Consulting Unavailable DENNISE SAHNI MD Admitting Unavailable DENNISE SAHNI MD Consulting Unavailable DENNISE SAHNI MD Primary Care Unavailable DENNISE SAHNI MD Attending Unavailable PROVIDER, UNKNOWN Consulting Unavailable PROVIDER, UNKNOWN Consulting Unavailable ANTON DEJESUS Primary Care Unavailable ANTON DEJESUS Attending Unavailable DENNISE SAHNI MD Consulting Unavailable ANTON DEJESUS Admitting Unavailable PROVIDER, UNKNOWN Consulting Unavailable PROVIDER, UNKNOWN Consulting Unavailable DENNISE SAHNI MD Admitting Unavailable DENNISE SAHNI MD Primary Care Unavailable DENNISE SAHNI MD Consulting Unavailable DENNISE SAHNI MD Attending Unavailable PROVIDER, UNKNOWN Consulting Unavailable PROVIDER, UNKNOWN Consulting Unavailable DENNISE SAHNI MD Admitting Unavailable DENNISE SAHNI MD Primary Care Unavailable DENNISE SAHNI MD Consulting Unavailable DENNISE SAHNI MD Attending Unavailable PROVIDER, UNKNOWN Consulting Unavailable PROVIDER, UNKNOWN Consulting Unavailable MICHELLE MAYA MD Primary Care Unavailjanay e MICHELLE MAYA MD Attending Unavailabl e DENNISE SAHNI MD Consulting Unavailable DUMANDAN, MICHELLE MD Admitting Unavailabl e PROVIDER, UNKNOWN Consulting Unavailable PROVIDER, UNKNOWN Consulting Unavailable Kalisetti, Dennise Referring Unavailable Kalisetti, Dennise Primary Care Unavailable Damián ANGULAR DEVELOPER, Krystina Attending Unavailable Kalisetti, Dennise Primary Care Unavailable Damián ANGULAR DEVELOPER, Krystina Attending Unavailable Damián ANGULAR DEVELOPER, Krystina Referring Unavailable Kalisetti, Dennise Referring Unavailable Isckarus, Mansour Attending Unavailable Kalisetti, Dennise Primary Care Unavailable Kalisetti, Dennise Referring Unavailable Isckarus, Mansour Attending Unavailable Kalisetti, Dennise Primary Care Unavailable Kalisetti, Dennise Primary Care Unavailable Damián ANGULAR DEVELOPER, Krystina Attending Unavailable Kalisetti, Dennise Referring Unavailable Isckarus, Mansour Attending Unavailable Isckarus, Mansour Referring Unavailable Kalisetti, Dennise Primary Care Unavailable Kalisetti, Dennise Consulting Unavailable XOCHILT LAY Consulting Unavailable Kalisetti, Dennise Primary Care Unavailable Andre ANGULAR DEVELOPER, Francheska Attending Unavailable Andre ANGULAR DEVELOPER, Francheska Referring Unavailable Kalisetti, Dennise Primary Care Unavailable [place]in[place] ANGULAR DEVELOPER, Francheska Attending Unavailable Kalisetti, Dennise Primary Care Unavailable Danyelle Manzano Attending Unavailable Kalisetti, Dennise Referring Unavailable Kalisetti, Dennise Primary Care Unavailable Gian Phipps Attending Unavailable Kalisetti, Dennise Primary Care Unavailable [place] ANGULAR DEVELOPER, Francehska Attending Unavailable Kalisetti, Dennise Referring Unavailable Kalisetti, Dennise Primary Care Unavailable Andre ANGULAR DEVELOPER, Francheska Attending Unavailable Kalisetti, Dennise Referring Unavailable Kalisetti, Dennise Primary Care Unavailable Damián ANGULAR DEVELOPER, Krystina Attending Unavailable Kalisetti, Dennise Referring Unavailable Medications Current Medications Medication Drug Class(es) Dates Sig (Normalized) Sig (Original) Aspirin (5 sources) Platelet Aggregation Inhibitor, Nonsteroidal Anti-inflammatory Drug Start: 10-07-2017 aspirin 81 mg oral delayed release tablet Dose : 81 mg = 1 tab(s), Oral, qAM Start Date: 10/07/17 Status: Ordered Start: 07-22-2017 take 1 tablet by gunjan th once daily Aspirin 81 MG tablet,chewable Active 81 mg PO DAILY@0800 July 22, 2017 1:00am atorvastatin 40 mg oral tablet (5 sources) HMG-CoA Reductase Inhibitor Start: 07-22-2017 take 1 tablet by mouth at bedtime Atorvastatin 40 MG tablet Active 40 mg PO AT BEDTIME July 22, 2017 1:00am cyclobenzaprine hydrochloride 5 mg oral tablet (3 sources) Muscle Relaxant Start: 08-23-2024 take 1 tablet by mouth three times daily as needed for muscle spasms Cyclobenzaprine 5 mg tablet Active 5 mg PO THREE TIMES A DAY as needed for muscle spasm 60 0 August 23, 2024 12:00am estradiol 0.1 mg/ml vaginal cream (2 sources) Estrogen Start: 09-13-2024 Estradiol 0.01 % (0.1 mg/gram) cream Active 0 VAGINAL .COMPLEX 42.5 2 September 13, 2024 12:00am small amount(.25mg) as directed vaginal every other day X 4 weeks then twice a week; famotidine 20 mg oral tablet (3 sources) Histamine-2 Receptor Antagonist Start: 12-11-2022 take 1 tablet by mouth at bedtime Famotidine 20 mg tablet Active 20 mg PO AT BEDTIME December 11, 2022 12:00am hydroxyurea 500 mg oral capsule (20 sources) Antimetabolite Start: 05-05-2024 End: 05-05-2024 take 1 capsule by mouth once daily Hydroxyurea 500 mg capsule Active 2500 mg PO daily 450 90 4 May 05, 2024 4:14pm Polycythemia vera Polycythemia vera Start: 08-01-2022 End: 05-05-2024 Hydroxyurea 500 mg capsule Discontinued 1500 mg PO .COMPLEX 216 1 March 23, 2024 5:47pm May 05, 2024 3:31pm Polycythemia vera Polycythemia vera 1,500 mg orally Friday through Friday; Start: 02-06-2022 End: 08-01-2022 take 2 capsules by mouth once daily Hydroxyurea 500 mg capsule Discontinued 0 .ROUTE .COMPLEX 180 0 April 22, 2022 10:17am August 01, 2022 9:26am Polycythemia vera Polycythemia vera TAKE 2 CAPSULES BY MOUTH (1,000MG) DAILY ON MONDAYS-SATURDAYS ONLY Start: 06-11-2021 End: 02-06-2022 take 1 capsule by mouth once daily Hydroxyurea 500 mg capsule Discontinued 500 mg PO DAILY June 11, 2021 1:00am February 06, 2022 2:12pm metoprolol tartrate 25 mg oral tablet (8 sources) beta-Adrenergic Ludy Start: 09-18-2022 take 1 tablet by mouth once daily Metoprolol Tartrate 25 mg tablet Active 25 mg PO DAILY September 18, 2022 2:04pm Start: 07-22-2017 End: 09-18-2022 take 1 tablet by mouth twice daily Metoprolol Tartrate 25 MG tablet Discontinued 25 mg PO TWICE A DAY July 22, 2017 1:00am September 18, 2022 2:04pm Completed/Discontinued Medications Medication Drug Class(es) Dates Sig (Normalized) Sig (Original) acetaminophen 325 mg oral tablet (3 sources) Start: 08-04-2024 End: 09-21-2024 take 1 tablet by mouth once as needed Acetaminophen (Tylenol) 325 mg tablet Discontinued 325 mg PO ONCE as needed August 04, 2024 1:00am September 21, 2024 2:26pm ibuprofen 200 mg oral tablet (3 sources) Nonsteroidal Anti-inflammatory Drug Start: 08-04-2024 End: 09-21-2024 take 1 tablet by mouth every six hours as needed Ibuprofen (Advil) 200 mg tablet Discontinued 200 mg PO EVERY 6 HOURS as needed August 04, 2024 1:00am September 21, 2024 2:26pm omeprazole 20 mg delayed release oral capsule (5 sources) Proton Pump Inhibitor Start: 09-27-2020 End: 03-17-2023 take 1 capsule by mouth once daily Omeprazole 20 mg capsule,delayed release(DR/EC) Discontinued 20 mg PO DAILY June 11, 2021 1:00am March 17, 2023 2:03pm ticagrelor 90 mg oral tablet (4 sources) Start: 07-22-2017 End: 06-11-2021 take 1 tablet by mouth twice daily Ticagrelor (Brilinta) 90 MG tablet Discontinued 90 mg PO TWICE A DAY July 22, 2017 1:00am June 11, 2021 11:34am Problems Active Problems Problem Classification Problem Date Documented Date Episodic/Chronic Acute myocardial infarction (5 sources) Acute non-ST segment elevation myocardial infarction; Translations: [Myocardial infarction] Onset: 7 03-06-2017 Chronic Coronary atherosclerosis and other heart disease (7 sources) Coronary arteriosclerosis in lime artery; Translations: [Coronary atherosclerosis] Onset: 7 07-19-2019 Chronic Comment on above: NSTEMI s/p prox LAD Reolute integrity SUNITHA (RS) 05/12/2018: SPECT MPI negative for inducible ischemia. Gated SPECT LVEF 68% Disorders of lipid metabolism (5 sources) Dyslipidemia; Translations: [Hyperlipidemia, unspecified] 07-19-2019 Chronic Comment on above: 05/12/2018: Total cho lesterol 133, triglycerides 107, HDL 52 and LDL 60 03/06/2017: Total cholesterol 184, triglycerides 130, HDL 51 and LDL 107 E Codes: Natural/environment (1 source) Bitten or stung by nonvenomous insect and other nonvenomous arthropods, initial encounter; Translations: [Bitten or stung by nonvenomous insect and other nonvenomous arthropods, initial encounter] Onset: 5 Episodic Esophageal disorders (8 sources) Gastro-esophageal reflux disease with esophagitis; Translations: [Gastroesophageal reflux disease with esophagitis] 10-07-2017 Chronic Essential hypertension (6 sources) Benign hypertension; Translations: [Hypertensive disorder] 07-19-2019 Chronic Genitourinary symptoms and ill-defined conditions (5 sources) Genuine stress incontinence; Translations: [Stress incontinence (female) (male)] 11-13-2022 Chronic Comment on above: #5 ring pessary with support. #3 ring pessary with support. Immunizations and screening for infectious disease (2 sources) Has influenza vaccination at hospital; Translations: [Pneumococcal vaccination given] 07-19-2019 Episodic Comment on above: 2019 Leukemias (1 source) Chronic lymphocytic leukemia of B-cell type in relapse; Translations: [Chronic lymphocytic leukemia of B-cell type in relapse] Onset: 5 Chronic Menopausal disorders (8 sources) Postmenopausal bleeding; Translations: [Postmenopausal bleeding] Onset: 5 08-11-2024 Chronic Comment on above: TVUS TVUS:uterus ,5cm and lining 1mm TVUS:uterus ,5cm and lining 1mm. Normal EMB Neoplasms of unspecified nature or uncertain behavior (14 sources) Polycythemia vera (clinical); Translations: [Polycythemia vera] Onset: 5 Chronic Neoplasms of unspecified nature or uncertain behavior (1 source) Myeloproliferative disorder 07-19-2019 Episodic Comment on above: being followed by Dr Luh Gross in [place]. Nonspecific chest pain (1 source) Acute chest pain 03-05-2017 Episodic Other fractures (3 sources) Fracture of sacrum; Translations: [Unspecified fracture of sacrum, initial encounter for closed fracture] 08-23-2024 Episodic Other hematologic conditions (1 source) Erythrocytosis 07-19-2019 Episodic Other injuries and conditions due to external causes (2 sources) H/O: fracture; Translations: [Personal history of (healed) traumatic fracture] 09-13-2024 Episodic Comment on above: 06/2024 Other lower respiratory disease (5 sources) Dyspnea; Translations: [Shortness of breath] 07-19-2019 Episodic Comment on above: 05/12/2018: Mild LVH, EF 55 to 60%. Mild MR, TR. RVSP 29 mmHg. Other nutritional; endocrine; and metabolic disorders (4 sources) Body mass index 30+ - obesity; Translations: [Body mass index (BMI) 31.0-31.9, adult] 06-11-2021 Chronic Other nutritional; endocrine; and metabolic disorders (1 source) Body mass index (BMI) 31.0-31.9, adult; Translations: [Body Mass Index 31.0-31.9, adult] Chronic Other screening for suspected conditions (not mental disorders or infectious disease) (4 sources) Patient encounter status; Translations: [Encounter for other screening for malignant neoplasm of breast] Onset: 5 01-10-2025 Episodic Prolapse of female genital organs (5 sources) Cystocele co-occurrent with incomplete uterovaginal prolapse; Translations: [Incomplete uterovaginal prolapse] 09-13-2024 Chronic Residual codes; unclassified (4 sources) Sleep apnea; Translations: [Sleep apnea, unspecified] 06-11-2021 Chronic Residual codes; unclassified (1 source) Sleep apnea, unspecified; Translations: [Unspecified sleep apnea] Chronic Residual codes; unclassified (3 sources) Obstructive sleep apnea (adult) (pediatric); Translations: [Obstructive sleep apnea (adult) (pediatric)] Onset: 4 Chronic Superficial injury; contusion (5 sources) Abrasion of vagina; Translations: [Abrasion of vagina and vulva, initial encounter] 09-13-2024 Episodic Comment on above: posteriorly from pes dorothea; friable. estradiol cream started posteriorly from pes dorothea; friable. estradiol cream started/resolved Syncope (1 source) Vasovagal symptom 07-19-2019 Episodic Past or Other Problems Problem Classification Problem Date Documented Da te Episodic/Chronic Fluid and electrolyte disorders (1 source) Hypokalemia; Translations: [Hypokalemia] Onset: 07-21-2024 Episodic Other fractures (1 source) Unspecified fracture of sacrum, initial encounter for closed fracture; Translations: [Unspecified fracture of sacrum, initial encounter for closed fracture] Onset: 08-23-2024 Episodic Results Test Name Value Interpretation Reference Range Facility Absolute lymphocyte countOrd ered By: Tristen Guevara on 01-10-2025 Lymphocytes Auto (Unsp spec) [#/Vol] 0.88 10*3/uL 0.83-4.51 [facility] Absolute neutrophil countOrd ered By: [facility] on 01-10-2025 Neutrophils (Bld) [#/Vol] 7.0 10*3/uL 2.0-7.7 [facility] Anion gap in Serum or Plasma Ordered By: Tristen Guevara on 01-10-2025 Anion gap [Moles/Vol] 12 mmol/L 5-15 [facility] Automated lymphocyte count a s percentage of total leukocytesOrdered By: Tristen Guevara on 01-10-2025 Lymphocytes/100 WBC Auto (Unsp spec) 10.4 % Low 19-41 [facility] BUN/creatinine ratioOrdered By: [facility] on 01-10-2025 Urea nitrogen/Creatinine [Mass ratio] 27.8 mg/mg High 10-20 [facility] Basophil percentageOrdered B y: Tristen Guevara on 01-10-2025 Basophils/100 WBC (Bld) 0.7 % 0-1 [facility] Bilirubin, totalOrdered By: Tristen Guevara on 01-10-2025 Bilirubin [Mass/Vol] 0.91 mg/dL 0.00-1.30 [facility] CBC W/Diff, Automatedon 08-0 Absolute Neut Normal 2.0-7.7 [facility] Comment on above: Result Comment: DUPL ICATE ORDER Performed By: #### L 100.0100, L500.4050 #### [facility] [address] [place], [address] HCT Normal 37-47 [facility] Comment on above: Result Comment: DUPL ICATE ORDER Performed By: #### L 100.0100, [id number] #### [facility] [address] [place], [address] HGB Normal 12.0-15.0 [facility] Comment on above: Result Comment: DUPL ICATE ORDER Performed By: #### L 100.0100, [id number] #### [facility] [address] [place], [address] MCH Normal 27.0-32.0 [facility] Comment on above: Result Comment: DUPL ICATE ORDER Performed By: #### L 100.0100, [id number] #### [facility] [address] [place], [address] MCHC Normal 32-36 [facility] Comment on above: Result Comment: DUPL ICATE ORDER Performed By: #### L 100.0100, [id number] #### [facility] [address] [place], [address] MCV Normal 81-99 [facility] Comment on above: Result Comment: DUPL ICATE ORDER Performed By: #### L 100.0100, [id number] #### [facility] [address] [place], [address] NEUT% Normal 47-70 [facility] Comment on above: Result Comment: DUPL ICATE ORDER Performed By: #### L 100.0100, [id number] #### [facility] [address] [place], [address] PLT Normal 150-450 [facility] Comment on above: Result Comment: DUPL ICATE ORDER Performed By: #### L 100.0100, [id number] #### [facility] [address] [place], [address] RBC Normal 4.2-5.4 [facility] Comment on above: Result Comment: DUPL ICATE ORDER Performed By: #### L 100.0100, [id number] #### [facility] [address] [place], [address] RDW CV Normal 11.6-14.6 [facility] Comment on above: Result Comment: DUPL ICATE ORDER Performed By: #### L 100.0100, [id number] #### [facility] [address] [place], [address] RDW SD Normal 35.1-43.9 [facility] Comment on above: Result Comment: DUPL ICATE ORDER Performed By: #### L 100.0100, [id number] #### [facility] [address] [place], [address] WBC Normal 4.4-11.0 [facility] Comment on above: Result Comment: DUPL ICATE ORDER Performed By: #### L 100.0100, [id number] #### [facility] [address] [place], [address] Absolute Lymph 0.88 X10 3/uL Normal 0.83-4.51 [facility] Comment on above: Performed By: #### L 503.6550, L100.0100 #### [facility] [address] [place], [address] Absolute Neut 7.0 X10 3/uL Normal 2.0-7.7 [facility] Comment on above: Performed By: #### L 503.6550, L100.0100 #### [facility] [address] [place], [address] Basophils/100 WBC (Bld) 0.7 % Normal 0-1 [facility] Comment on above: Performed By: #### L 503.6550, L100.0100 #### [facility] [address] [place], [address] Eosinophils/100 WBC (Bld) 1.4 % Normal 0-5 [facility] Comment on above: Performed By: #### L 503.6550, L100.0100 #### [facility] [address] [place], [address] Erythrocyte distribution width (RBC) [Ratio] 16.1 % High 11.6-14.6 [facility] Comment on above: Performed By: #### L 503.6550, L100.0100 #### [facility] [address] [place], [address] Hematocrit (Bld) [Volume fraction] 46.9 % Normal 37-47 [facility] Comment on above: Performed By: #### L 503.6550, L100.0100 #### [facility] [address] [place], [address] Hemoglobin (Bld) [Mass/Vol] 14.3 g/dL Normal 12.0-15.0 [facility] Comment on above: Performed By: #### L 503.6550, L100.0100 #### [facility] [address] [place], [address] IG% 1.300 High 0.0-0.9 [facility] Comment on above: Result Comment: IG% - Immature Granulocytes (promyelocytes, myelocytes and metamyelocytes) > 1% indicates that a LEFT SHIFT is Present. Performed By: #### L 503.6550, L100.0100 #### [facility] [address] [place], [address] Lymphocytes/100 WBC (Bld) 10.4 % Low 19-41 [facility] Comment on above: Performed By: #### L 503.6550, L100.0100 #### [facility] [address] [place], [address] MCH (RBC) [Entitic mass] 28.7 pg Normal 27.0-32.0 [facility] Comment on above: Performed By: #### L 503.6550, L100.0100 #### [facility] [address] [place], [address] MCHC (RBC) [Mass/Vol] 30.5 g/dL Low 32-36 [facility] Comment on above: Performed By: #### L 503.6550, L100.0100 #### [facility] [address] [place], [address] MCV (RBC) [Entitic vol] 94.0 fL Normal 81-99 [facility] Comment on above: Performed By: #### L 503.6550, L100.0100 #### [facility] [address] [place], [address] Monocytes/100 WBC (Bld) 3.7 % Normal 0-10 [facility] Comment on above: Performed By: #### L 503.6550, L100.0100 #### [facility] [address] [place], [address] Neutrophils/100 WBC (Bld) 82.5 % High 47-70 [facility] Comment on above: Performed By: #### L 503.6550, L100.0100 #### [facility] [address] [place], [address] Nucleated RBC (Bld) [#/Vol] 0 10*3/uL Normal 0-5 [facility] Comment on above: Performed By: #### L 503.6550, L100.0100 #### [facility] [address] [place], [address] Platelet mean volume (Bld) [Entitic vol] 10.2 fL Normal 6.2-12.0 [facility] Comment on above: Performed By: #### L 503.6550, L100.0100 #### [facility] [address] [place], [address] Platelets (Bld) [#/Vol] 336 10*3/uL Normal 150-450 [facility] Comment on above: Performed By: #### L 503.6550, L100.0100 #### [facility] [address] [place], [address] RBC (Bld) [#/Vol] 4.99 10*6/uL Normal 4.2-5.4 [facility] Comment on above: Performed By: #### L 503.6550, L100.0100 #### [facility] [address] [place], [address] RDW SD 54.4 fl High 35.1-43.9 [facility] Comment on above: Performed By: #### L 503.6550, L100.0100 #### [facility] [address] [place], [address] WBC (Bld) [#/Vol] 8.5 10*3/uL Normal 4.4-11.0 [facility] Comment on above: Performed By: #### L 503.6550, L100.0100 #### [facility] [address] [place], [address] Carbon dioxide, total [Moles /volume] in Central venous bloodOrdered By: Tristen Guevara on 01-10-2025 CO2 [Moles/Vol] 23.5 mmol/L 21.0-32.0 [facility] Chloride assayOrdered By: Amara Guevara on 01-10-2025 Chloride [Moles/Vol] 105 mmol/L 98-108 [facility] Comprehensive Metabolic Prof ilon 01-10-2025 ALB Normal 3.4-4.8 [facility] Comment on above: Result Comment: DUPL ICATE ORDER Performed By: #### L 100.0100, [id number] #### [facility] [address] [place], [address] ALK PHOS Normal 35-104 [facility] Comment on above: Result Comment: DUPL ICATE ORDER Performed By: #### L 100.0100, [id number] #### [facility] [address] [place], [address] ALT Normal <=34 [facility] Comment on above: Result Comment: DUPL ICATE ORDER Performed By: #### L 100.0100, [id number] #### [facility] [address] [place], [address] AST Normal <=31 [facility] Comment on above: Result Comment: DUPL ICATE ORDER Performed By: #### L 100.0100, [id number] #### [facility] [address] [place], [address] BUN Normal 4-19 [facility] Comment on above: Result Comment: DUPL ICATE ORDER Performed By: #### L 100.0100, [id number] #### [facility] [address] [place], [address] BUN/CRE Normal 10-20 [facility] Comment on above: Result Comment: DUPL ICATE ORDER Performed By: #### L 100.0100, L500.4050 #### [facility] [address] [place], [address] Calcium Normal 7.6-11.0 [facility] Comment on above: Result Comment: DUPL ICATE ORDER Performed By: #### L 100.0100, L500.4050 #### [facility] [address] [place], [address] CL Normal 98-108 [facility] Comment on above: Result Comment: DUPL ICATE ORDER Performed By: #### L 100.0100, L500.4050 #### [facility] [address] [place], [address] CO2 Normal 21.0-32.0 [facility] Comment on above: Result Comment: DUPL ICATE ORDER Performed By: #### L 100.0100, L500.4050 #### [facility] [address] [place], [address] CREAT,SERUM Normal 0.70-1.20 [facility] Comment on above: Result Comment: DUPL ICATE ORDER Performed By: #### L 100.0100, L500.4050 #### [facility] [address] [place], [address] eGFR Normal >60 [facility] Comment on above: Result Comment: DUPL ICATE ORDER Performed By: #### L 100.0100, L500.4050 #### [facility] [address] [place], [address] GAP Normal 5-15 [facility] Comment on above: Result Comment: DUPL ICATE ORDER Performed By: #### L 100.0100, L500.4050 #### [facility] [address] [place], [address] GLU Normal 70-99 [facility] Comment on above: Result Comment: DUPL ICATE ORDER Performed By: #### L 100.0100, L500.4050 #### [facility] [address] [place], [address] Potassium Normal 3.3-5.1 [facility] Comment on above: Result Comment: DUPL ICATE ORDER Performed By: #### L 100.0100, L500.4050 #### [facility] [address] [place], [address] T BILI Normal 0.00-1.30 [facility] Comment on above: Result Comment: DUPL ICATE ORDER Performed By: #### L 100.0100, L500.4050 #### [facility] [address] [place], [address] T PROT Normal 5.9-8.4 [facility] Comment on above: Result Comment: DUPL ICATE ORDER Performed By: #### L 100.0100, L500.4050 #### [facility] [address] [place], [address] Comprehensive Metabolic Profil Normal 133-145 [facility] Comment on above: Result Comment: DUPL ICATE ORDER Performed By: #### L 100.0100, L500.4050 #### [facility] [address] [place], [address] Albumin [Mass/Vol] 4.0 g/dL Normal 3.4-4.8 [facility] Comment on above: Performed By: #### L 503.6550, L100.0100 #### [facility] [address] [place], [address] Albumin/Globulin [Mass ratio] 1.4 {ratio} Normal 0.9-2.4 [facility] Comment on above: Performed By: #### L 503.6550, L100.0100 #### [facility] [address] [place], [address] ALK PHOS 94 U/L Normal 35-104 [facility] Comment on above: Performed By: #### L 503.6550, L100.0100 #### [facility] [address] [place], [address] ALT [Catalytic activity/Vol] 11 U/L Normal <=34 [facility] Comment on above: Performed By: #### L 503.6550, L100.0100 #### [facility] [address] [place], [address] AST [Catalytic activity/Vol] 26 U/L Normal <=31 [facility] Comment on above: Performed By: #### L 503.6550, L100.0100 #### [facility] [address] [place], [address] Bilirubin [Mass/Vol] 0.91 mg/dL Normal 0.00-1.30 [facility] Comment on above: Performed By: #### L 503.6550, L100.0100 #### [facility] [address] [place], [address] BUN/CRE 27.8 RATIO High 10-20 [facility] Comment on above: Performed By: #### L 503.6550, L100.0100 #### [facility] [address] [place], [address] Calcium [Mass/Vol] 9.3 mg/dL Normal 7.6-11.0 [facility] Comment on above: Performed By: #### L 503.6550, L100.0100 #### [facility] [address] [place], [address] Chloride [Moles/Vol] 105 mmol/L Normal 98-108 [facility] Comment on above: Performed By: #### L 503.6550, L100.0100 #### [facility] [address] [place], [address] CO2 [Moles/Vol] 23.5 mmol/L Normal 21.0-32.0 [facility] Comment on above: Performed By: #### L 503.6550, L100.0100 #### [facility] [address] [place], [address] Creatinine [Mass/Vol] 0.76 mg/dL Normal 0.70-1.20 [facility] Comment on above: Performed By: #### L 503.6550, L100.0100 #### [facility] [address] [place], [address] ECRCL 64.23 ml/min Normal 50-250 [facility] Comment on above: Performed By: #### L 503.6550, L100.0100 #### [facility] [address] [place], [address] GAP 12 Normal 5-15 [facility] Comment on above: Performed By: #### L 503.6550, L100.0100 #### [facility] [address] [place], [address] GFR/1.73 sq M.predicted among non-blacks MDRD (S/P/Bld) [Vol rate/Area] 82 mL/min/{1.73_m2} Normal >60 [facility] Comment on above: Result Comment: mL/m in/1.73m2 CKD-EPI Creatinine Equation (2020) Performed By: #### L 503.6550, L100.0100 #### [facility] [address] [place], [address] Globulin (S) [Mass/Vol] 3.0 g/dL Normal 2.2-4.2 [facility] Comment on above: Performed By: #### L 503.6550, L100.0100 #### [facility] [address] [place], [address] Glucose [Mass/Vol] 87 mg/dL Normal 70-99 [facility] Comment on above: Performed By: #### L 503.6550, L100.0100 #### [facility] [address] [place], [address] Potassium [Moles/Vol] 4.0 mmol/L Normal 3.3-5.1 [facility] Comment on above: Performed By: #### L 503.6550, L100.0100 #### [facility] [address] [place], [address] Sodium [Moles/Vol] 140 mmol/L Normal 133-145 [facility] Comment on above: Performed By: #### L 503.6550, L100.0100 #### [facility] [address] [place], [address] T PROT 7.0 g/dL Normal 5.9-8.4 [facility] Comment on above: Performed By: #### L 503.6550, L100.0100 #### [facility] [address] [place], [address] Urea nitrogen [Mass/Vol] 21 mg/dL High 4-19 [facility] Comment on above: Performed By: #### L 503.6550, L100.0100 #### [facility] [address] [place], [address] Eosinophil percentageOrdered By: Tristen Guevara on 01-10-2025 Eosinophils/100 WBC (Bld) 1.4 % 0-5 [facility] Erythrocyte distribution wid th ratioOrdered By: Tristen Guevara on 01-10-2025 Erythrocyte distribution width (RBC) [Ratio] 16.1 % High 11.6-14.6 [facility] Erythrocyte distribution wid th standard deviationOrdered By: Tristen Guevara on 01-10-2025 Erythrocyte distribution width (RBC) [Ratio] 54.4 fl High 35.1-43.9 [facility] Glomerular filtration rate ( GFR) estimation/1.73 sq m using serum, plasma, or whole bOrdered By: Tristen Guevara on 01-10-2025 GFR/1.73 sq M.predicted among non-blacks MDRD (S/P/Bld) [Vol rate/Area] 82 mL/min/{1.73_m2} >60 [facility] Comment on above: mL/min/1.73m2 CKD-EP I Creatinine Equation (2020) Hematocrit Auto (Bld) [Volum e fraction]Ordered By: Tristen Guevara on 01-10-2025 Hematocrit (Bld) [Volume fraction] 46.9 % 37-47 [facility] Hemoglobin measurementOrdere d By: Tristen Guevara on 01-10-2025 Hemoglobin (Bld) [Mass/Vol] 14.3 g/dL 12.0-15.0 [facility] Immature granulocytes/100 WB C Auto (Bld)Ordered By: Tristen Guevara on 01-10-2025 Immature granulocytes/100 WBC (Bld) 1.300 % High 0.0-0.9 [facility] Comment on above: IG% - Immature Granu locytes (promyelocytes, myelocytes and metamyelocytes) > 1% indicates that a LEFT SHIFT is Present. Laboratory - Chemistry and C hemistry - challengeOrdered By: Tristen Guevara on 01-10-2025 AST [Catalytic activity/Vol] 26 U/L <32 [facility] MCV (mean corpuscular volume ) determinationOrdered By: Tristen Guevara on 01-10-2025 MCV (RBC) [Entitic vol] 94.0 fL 81-99 [facility] Mean corpuscular hemoglobin (MCH) determinationOrdered By: [facility] G[facility] on 01-10-2025 MCH (RBC) [Entitic mass] 28.7 pg 27.0-32.0 [facility] Mean corpuscular hemoglobin concentration (MCHC) determinationOrdered By: Tristen Guevara on 01-10-2025 MCHC (RBC) [Mass/Vol] 30.5 g/dL Low 32-36 [facility] Mean platelet volume determi nationOrdered By: Tristen Guevara on 01-10-2025 Platelet mean volume (Bld) [Entitic vol] 10.2 fL 6.2-12.0 [facility] Monocyte percentageOrdered B y: Tristen Guevara on 01-10-2025 Monocytes/100 WBC (Bld) 3.7 % 0-10 [facility] Neutrophil percentageOrdered By: Tristen Guevara on 01-10-2025 Neutrophils/100 WBC (Bld) 82.5 % High 47-70 [facility] Nucleated red blood cell per centageOrdered By: Tristen Guevara on 01-10-2025 Nucleated RBC/100 WBC (Bld) [Ratio] 0 % 0-5 [facility] Oncology Visit Reporton 08 Oncology Visit Report [facility] [place] [facility] [address] [place] [address] OFFICE VISIT Date of Service: 01/10/25 1318 MR#: [id number] Acct: [id number] Name: PHONG JANG Rep #: [id number] : 1950 From: Krystina Steel NP ANGULAR DEVELOPER -C Age/Sex: 74/F [place] [facility] [place]: Signed HPI Subjective Date of Service 01/10/25 Chief Complaint Polycythemia vera on treatment History of Present Illness 74-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 She presented in 2016 with vague nonspecific symptoms including fatigue, unexplained fevers, tinnitus, visual symptoms and had a heart attack in late 2016 when her hematocrit was noted to be elevated to 69%. She underwent hematology evaluation by Dr. Gross, and peripheral blood flow cytometry showed positive JAK2 V617F mutation. An ultrasound at that time apparently showed splenomegaly (this record is not available, however an ultrasound of March 2022 at [facility] shows stable mild splenomegaly of 13.7 cm. She was treated with phlebotomies and hydroxyurea since 2016. Initially the phlebotomies were done on a weekly basis, less often thereafter and by 2021 she is on phlebotomy every 2 months or so. Most of her symptoms improved although she continues to report some fatigue yet not as bad as when she was first diagnosed. She has not developed any infectious or bleeding complications during the course of her illness. Treatment summary : Phlebotomies 2017-ongoing Hydroxyurea 2017-ongoing Interval History Patient is presenting to clinic today for routine 3-month follow-up. Confirms adherence and tolerance to hydroxyurea 2500 mg daily omitting Sundays. Also confirms good adherence to ASA 81 mg daily. Concerns today include post prandial vomiting, describes as chronic, intermittent. Historically was exacerbated by greasy foods, etc. Now occurring in the absence of what she would consider offensive foods. Has appt with her pcp later this week to discuss. [facility] Medical History GERD (gastroesophageal reflux disease) Cellulitis of left lower leg Polycythemia vera Animal-rider injured by fall from or being thrown from horse in noncollision accident, initial encounter History of fractured kneecap Thyroid disorder Heart attack Sleep apnea Pneumonia Acquired polycythemia vera Bronchitis Surgical History History of repair of ACL H/O heart artery stent History of knee replacement Family History Father Myocardial infarction CVA (cerebral vascular accident) Mother Cancer Sister Breast cancer Social History Smoking Status: Never smoker alcohol intake: never ROS ROS Narrative Negative except as documented in the interval HPI Intake Vital Signs 10/13/24 14:53 01/10/25 13:18 Height 5 ft 5 in 5 ft 5 in Weight: 169 lb 9 oz BMI 28.2 BP 154/87 H Blood Pressure Location Lt brachial Position Sitting Respiration 18 Pulse 74 Pulse Source Monitor Temp 98.2 F Temperature Source Temporal Artery Pulse Oximetry (%) 94 Oxygen Delivery Method room air Intake Accompanied by: Self Is patient in pain?: No Allergies No Known Allergies Allergy (Verified 01/10/25 13:23) Medications ???Medication ???Instructions ???Recorded ???Confirmed ???Type aspirin 81 mg chewable tablet 81 mg PO DAILY@0800 07/22/1701/10 History atorvastatin 40 mg tablet 40 mg PO QHS 07/22/17 01/10/25 His tory metoprolol tartrate 25 mg tablet 25 mg PO DAILY 09/18/22 01/10/25 H istory famotidine 20 mg tablet 20 mg PO QHS 12/11/22 01/10/25 His tory hydroxyurea 500 mg capsule 2,500 mg (5 x 500 mg) PO QDAY 90 1 07/05/23 01/10/25 Rx days #450 caps cyclobenzaprine 5 mg tablet 5 mg PO TID PRN muscle spasm #60 0 08/23/24 01/10/25 Rx tabs estradiol 0.01% (0.1 mg/gram) See Rx Instructions vaginal 01/10/25 Rx vaginal cream .COMPLEX #42.5 grams Have you fallen in the past year?: Yes (fell in june and slipped on ice) Central Venous Access Central Venous Access: No Laboratory Tests 01/10/25 12:56 WBC 8.5 Hgb 14.3 Hct 46.9 MCV 94.0 Plt Count 336 Exam Physical Exam Narrative ECOG 0-1 Const alert, oriented x3 and no apparent distress HEENT normocephalic Mouth: oral and palatal mucosa normal Eyes General Eye: normal appearance of both eyes Neck no lymphadenopathy Resp clear to auscultation bilaterally Cardio regular rate and regular rhy (more content not included)... Normal [facility] Platelet countOrdered By: Amara Guevara on 01-10-2025 Platelets (Bld) [#/Vol] 336 10*3/uL 150-450 [facility] Potassium measurement (mass/ volume)Ordered By: Tristen Guevara on 01-10-2025 Potassium (Unsp spec) [Mass/Vol] 4.0 mmol/L 3.3-5.1 [facility] RBC Auto (Bld) [#/Vol]Ordere d By: Tristen Guevara on 01-10-2025 RBC (Bld) [#/Vol] 4.99 10*6/uL 4.2-5.4 [facility] Serum creatinine measurement (mass/volume)Ordered By: Tristen Guevara on 01-10-2025 Creatinine [Mass/Vol] 0.76 mg/dL 0.70-1.20 [facility] Serum globulin measurementOr dered By: Tristen Guevara on 01-10-2025 Globulin (S) [Mass/Vol] 3.0 g/dL 2.2-4.2 [facility] Serum glucose measurement (m ass/volume)Ordered By: Tristen Guevara on 01-10-2025 Glucose [Mass/Vol] 87 mg/dL 70-99 [facility] Serum or plasma alanine rivera otransferase (ALT) measurementOrdered By: Tristen Guevara on 01-10-2025 ALT [Catalytic activity/Vol] 11 U/L <35 [facility] Serum or plasma albumin bry urement (mass/volume)Ordered By: Emilyclive Guevara on 01-10-2025 Albumin [Mass/Vol] 4.0 g/dL 3.4-4.8 [facility] Serum or plasma albumin/glob ulin mass ratioOrdered By: Emilyclive Guevara on 01-10-2025 Albumin/Globulin [Mass ratio] 1.4 {ratio} 0.9-2.4 [facility] Serum or plasma alkaline tre sphatase measurementOrdered By: Emilyclive Guevara on 01-10-2025 ALP [Catalytic activity/Vol] 94 U/L 35-104 [facility] Serum or plasma calcium bry urement (mass/volume)Ordered By: Tristen Guevara on 01-10-2025 Calcium [Mass/Vol] 9.3 mg/dL 7.6-11.0 [facility] Serum or plasma urea nitroge n measurement (mass/volume)Ordered By: Tristen Guevara on 01-10-2025 Urea nitrogen [Mass/Vol] 21 mg/dL High 4-19 [facility] Sodium levelOrdered By: Emily clive Paola on 01-10-2025 Sodium [Moles/Vol] 140 mmol/L 133-145 [facility] Total proteinOrdered By: Alin Guevara on 01-10-2025 Protein [Mass/Vol] 7.0 g/dL 5.9-8.4 [facility] White blood cell (WBC) count Ordered By: Tristen Guevara on 01-10-2025 WBC (Bld) [#/Vol] 8.5 10*3/uL 4.4-11.0 [facility] CBC W/Diff, Automatedon 05-0 Absolute Lymph 0.89 X10 3/uL Normal 0.83-4.51 [facility] Comment on above: Performed By: #### L 503.7875, L503.6027, L100.0100, L500.4050 #### [facility] [address] [place], [place], [id number] Absolute Neut 9.1 X10 3/uL High 2.0-7.7 [facility] Comment on above: Performed By: #### L 503.6550, L503.6030, L100.0100, L500.4050 #### [facility] [address] [place], [address] Basophils/100 WBC (Bld) 0.5 % Normal 0-1 [facility] Comment on above: Performed By: #### L 503.6550, L503.6030, L100.0100, L500.4050 #### [facility] [address] [place], [address] Eosinophils/100 WBC (Bld) 1.2 % Normal 0-5 [facility] Comment on above: Performed By: #### L 503.6550, L503.6030, L100.0100, L500.4050 #### [facility] [address] [place], [address] Erythrocyte distribution width (RBC) [Ratio] 16.0 % High 11.6-14.6 [facility] Comment on above: Performed By: #### L 503.6550, L503.6030, L100.0100, L500.4050 #### [facility] [address] [place], [address] Hematocrit (Bld) [Volume fraction] 45.2 % Normal 37-47 [facility] Comment on above: Performed By: #### L 503.6550, L503.6030, L100.0100, L500.4050 #### [facility] [address] [place], [address] Hemoglobin (Bld) [Mass/Vol] 14.2 g/dL Normal 12.0-15.0 [facility] Comment on above: Performed By: #### L 503.6550, L503.6030, L100.0100, L500.4050 #### [facility] [address] [place], [address] IG% 0.600 Normal 0.0-0.9 [facility] Comment on above: Result Comment: IG% - Immature Granulocytes (promyelocytes, myelocytes and metamyelocytes) > 1% indicates that a LEFT SHIFT is Present. Performed By: #### L 503.6550, L503.6030, L100.0100, L500.4050 #### [facility] [address] [place], [address] Lymphocytes/100 WBC (Bld) 8.4 % Low 19-41 [facility] Comment on above: Performed By: #### L 503.6550, L503.6030, L100.0100, L500.4050 #### [facility] [address], [address] MCH (RBC) [Entitic mass] 30.2 pg Normal 27.0-32.0 [facility] Comment on above: Performed By: #### L 503.6550, L503.6030, L100.0100, L500.4050 #### [facility] [address] [place], [address] MCHC (RBC) [Mass/Vol] 31.4 g/dL Low 32-36 [facility] Comment on above: Performed By: #### L 503.6550, L503.6030, L100.0100, L500.4050 #### [facility] [address] [place], [address] MCV (RBC) [Entitic vol] 96.2 fL Normal 81-99 [facility] Comment on above: Performed By: #### L 503.6550, L503.6030, L100.0100, L500.4050 #### [facility] [address] [place], [address] Monocytes/100 WBC (Bld) 3.6 % Normal 0-10 [facility] Comment on above: Performed By: #### L 503.6550, L503.6030, L100.0100, L500.4050 #### [facility] [address] [place], [address] Neutrophils/100 WBC (Bld) 85.7 % High 47-70 [facility] Comment on above: Performed By: #### L 503.6550, L503.6030, L100.0100, L500.4050 #### [facility] [address] [place], [address] Nucleated RBC (Bld) [#/Vol] 0 10*3/uL Normal 0-5 [facility] Comment on above: Performed By: #### L 503.6550, L503.6030, L100.0100, L500.4050 #### [facility] [address] [place], [address] Platelet mean volume (Bld) [Entitic vol] 10.2 fL Normal 6.2-12.0 [facility] Comment on above: Performed By: #### L 503.6550, L503.6030, L100.0100, L500.4050 #### [facility] [address] [place], [address] Platelets (Bld) [#/Vol] 395 10*3/uL Normal 150-450 [facility] Comment on above: Performed By: #### L 503.6550, L503.6030, L100.0100, L500.4050 #### [facility] [address] [place], [address] RBC (Bld) [#/Vol] 4.70 10*6/uL Normal 4.2-5.4 [facility] Comment on above: Performed By: #### L 503.6550, L503.6030, L100.0100, L500.4050 #### [facility] [address] [place], [address] RDW SD 55.6 fl High 35.1-43.9 [facility] Comment on above: Performed By: #### L 503.6550, L503.6030, L100.0100, L500.4050 #### [facility] [address] [place], [address] WBC (Bld) [#/Vol] 10.6 10*3/uL Normal 4.4-11.0 [facility] Comment on above: Performed By: #### L 503.6550, L503.6030, L100.0100, L500.4050 #### [facility] [address] [place], [address] [facility] 10-13-2024 Albumin [Mass/Vol] 4.0 g/dL Normal 3.4-4.8 [facility] Comment on above: Performed By: #### L 503.6550, L503.6030, L100.0100, L500.4050 #### [facility] [address] [place], [address] Albumin/Globulin [Mass ratio] 1.4 {ratio} Normal 0.9-2.4 [facility] Comment on above: Performed By: #### L 503.6550, L503.6030, L100.0100, L500.4050 #### [facility] [address] [place], [address] ALK PHOS 109 U/L High 35-104 [facility] Comment on above: Performed By: #### L 503.6550, L503.6030, L100.0100, L500.4050 #### [facility] [address] [place], [address] ALT [Catalytic activity/Vol] 12 U/L Normal <=34 [facility] Comment on above: Performed By: #### L 503.6550, L503.6030, L100.0100, L500.4050 #### [facility] [address] [place], [address] AST [Catalytic activity/Vol] 23 U/L Normal <=31 [facility] Comment on above: Performed By: #### L 503.6550, L503.6030, L100.0100, L500.4050 #### [facility] [address] [place], [address] Bilirubin [Mass/Vol] 0.68 mg/dL Normal 0.00-1.30 [facility] Comment on above: Performed By: #### L 503.6550, L503.6030, L100.0100, L500.4050 #### [facility] [address] [place], [address] BUN/CRE 25.5 RATIO High 10-20 [facility] Comment on above: Performed By: #### L 503.6550, L503.6030, L100.0100, L500.4050 #### [facility] [address] [place], [address] Calcium [Mass/Vol] 9.2 mg/dL Normal 7.6-11.0 [facility] Comment on above: Performed By: #### L 503.6550, L503.6030, L100.0100, L500.4050 #### [facility] [address] [place], [address] Chloride [Moles/Vol] 104 mmol/L Normal 98-108 [facility] Comment on above: Performed By: #### L 503.6550, L503.6030, L100.0100, L500.4050 #### [facility] [address] [place], [address] CO2 [Moles/Vol] 25.9 mmol/L Normal 21.0-32.0 [facility] Comment on above: Performed By: #### L 503.6550, L503.6030, L100.0100, L500.4050 #### [facility] [address] [place], [address] Creatinine [Mass/Vol] 0.96 mg/dL Normal 0.70-1.20 [facility] Comment on above: Performed By: #### L 503.6550, L503.6030, L100.0100, L500.4050 #### [facility] [address] [place], [address] ECRCL 54.79 ml/min Normal 50-250 [facility] Comment on above: Performed By: #### L 503.6550, L503.6030, L100.0100, L500.4050 #### [facility] [address] [place], [address] GAP 10 Normal 5-15 [facility] Comment on above: Performed By: #### L 503.6550, L503.6030, L100.0100, L500.4050 #### [facility] [address] [place], [address] GFR/1.73 sq M.predicted among non-blacks MDRD (S/P/Bld) [Vol rate/Area] 62 mL/min/{1.73_m2} Normal >60 [facility] Comment on above: Result Comment: mL/m in/1.73m2 CKD-EPI Creatinine Equation (2020) Performed By: #### L 503.6550, L503.6030, L100.0100, L500.4050 #### [facility] [address] [place], [address] Globulin (S) [Mass/Vol] 2.9 g/dL Normal 2.2-4.2 [facility] Comment on above: Performed By: #### L 503.6550, L503.6030, L100.0100, L500.4050 #### [facility] [address] [place], [address] Glucose [Mass/Vol] 112 mg/dL High 70-99 [facility] Comment on above: Performed By: #### L 503.6550, L503.6030, L100.0100, L500.4050 #### [facility] [address] [place], [address] Potassium [Moles/Vol] 4.3 mmol/L Normal 3.3-5.1 [facility] Comment on above: Performed By: #### L 503.6550, L503.6030, L100.0100, L500.4050 #### [facility] [address] [place], [address] Sodium [Moles/Vol] 140 mmol/L Normal 133-145 [facility] Comment on above: Performed By: #### L 503.6550, L503.6030, L100.0100, L500.4050 #### [facility] [address] [place], [address] T PROT 6.9 g/dL Normal 5.9-8.4 [facility] Comment on above: Performed By: #### L 503.6550, L503.6030, L100.0100, L500.4050 #### [facility] [address] [place], [address] Urea nitrogen [Mass/Vol] 25 mg/dL High 4-19 [facility] Comment on above: Performed By: #### L 503.6550, L503.6030, L100.0100, L500.4050 #### [facility] [address] [place], [address] Ferritinon 10-13-2024 Ferritin [Mass/Vol] 23 ng/mL Normal 22-378 [facility] Comment on above: Performed By: #### L 503.6550, L503.6030, L100.0100, L500.4050 #### [facility] [address] [place], [address] Iron measurement (mass/mass) Ordered By: Krystina Steel on 10-13-2024 Iron (Unsp spec) [Mass/Mass] 29 ug/dL Low 50-170 [facility] Iron+Iron Binding Capacityon 10-13-2024 Iron [Mass/Vol] 29 ug/dL Low 50-170 [facility] Comment on above: Performed By: #### L 503.6550, L503.6030, L100.0100, L500.4050 #### [facility] [address] [place], [address] IRON SATURATION 9.0 Low 13-59 [facility] Comment on above: Performed By: #### L 503.6550, L503.6030, L100.0100, L500.4050 #### [facility] [address] [place], [address] TIBC 311 ug/dL Normal 250-450 [facility] Comment on above: Performed By: #### L 503.6550, L503.6030, L100.0100, L500.4050 #### [facility] [address] [place], [address] UIBC 282 ug/dL Normal 228-428 [facility] Comment on above: Performed By: #### L 503.6550, L503.6030, L100.0100, L500.4050 #### [facility] [address] [place], [address] No Panel InformationOrdered By: Krystina Steel on 10-13-2024 Unsaturated Iron Binding Capacity 282 ug/dL 228-428 [facility] Oncology Visit Reporton 050 Oncology Visit Report [facility] [address] [place] [address] OFFICE VISIT Date of Service: 10/13/24 1451 MR#: [id number] Acct: [id number] Name: PHONG JANG Rep #: [id number] : 1950 From: Krystina Steel NP ANGULAR DEVELOPER -C Age/Sex: 74/F Location: [facility] [place] Status: Signed HPI Subjective Date of Service 10/13/24 Chief Complaint Polycythemia vera on treatment History of Present Illness 74-year-old female with polycythemia vera transferring her care from [facility] to [place] [facility] in July 2021 closer to home and 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 She presented in 2016 with vague nonspecific symptoms including fatigue, unexplained fevers, tinnitus, visual symptoms and had a heart attack in late 2016 when her hematocrit was noted to be elevated to 69%. She underwent hematology evaluation by Dr. Gross, and peripheral blood flow cytometry showed positive JAK2 V617F mutation. An ultrasound at that time apparently showed splenomegaly (this record is not available, however an ultrasound of March 2022 at [facility] shows stable mild splenomegaly of 13.7 cm. She was treated with phlebotomies and hydroxyurea since 2016. Initially the phlebotomies were done on a weekly basis, less often thereafter and by 2021 she is on phlebotomy every 2 months or so. Most of her symptoms improved although she continues to report some fatigue yet not as bad as when she was first diagnosed. She has not developed any infectious or bleeding complications during the course of her illness. Treatment summary : Phlebotomies 2017-ongoing Hydroxyurea 2017-ongoing Interval History Patient is presenting to clinic today for routine 3-month follow-up. Confirms adherence and tolerance to hydroxyurea 2500 mg daily omitting Sundays. Also confirms good adherence to ASA 81 mg daily. [facility] Medical History GERD (gastroesophageal reflux disease) Cellulitis of left lower leg Polycythemia vera Animal-rider injured by fall from or being thrown from horse in noncollision accident, initial encounter History of fractured kneecap Thyroid disorder Heart attack Sleep apnea Pneumonia Acquired polycythemia vera Bronchitis Surgical History History of repair of ACL H/O heart artery stent History of knee replacement Family History Father Myocardial infarction CVA (cerebral vascular accident) Mother Cancer Sister Breast cancer Social History Smoking Status: Never smoker alcohol intake: never ROS ROS Narrative Negative except as documented in the interval HPI Intake Vital Signs 08/04/24 14:54 10/13/24 14:53 10/13/24 15:00 Height 5 ft 5 in 5 ft 5 in BP 124/77 H Blood Pressure Location Lt brachial Position Sitting Respiration 16 Pulse 70 Pulse Oximetry (%) 97 Intake Allergies No Known Allergies Allergy (Verified 10/13/24 15:00) Medications ???Medication ???Instructions ???Recorded ???Confirmed ???Type aspirin 81 mg chewable tablet 81 mg PO DAILY@0800 07/22/1710/13 History atorvastatin 40 mg tablet 40 mg PO QHS 07/22/17 10/13/24 His tory metoprolol tartrate 25 mg tablet 25 mg PO DAILY 09/18/22 10/13/24 H istory famotidine 20 mg tablet 20 mg PO QHS 12/11/22 10/13/24 His tory hydroxyurea 500 mg capsule 2,500 mg (5 x 500 mg) PO QDAY 90 1 07/05/23 10/13/24 Rx days #450 caps cyclobenzaprine 5 mg tablet 5 mg PO TID PRN muscle spasm #60 0 08/23/24 10/13/24 Rx tabs estradiol 0.01% (0.1 mg/gram) See Rx Instructions vaginal 10/13/24 Rx vaginal cream .COMPLEX #42.5 grams Have you fallen in the past year?: Yes Central Venous Access Central Venous Access: No Laboratory Tests 10/13/24 13:46 WBC 10.6 Hgb 14.2 Hct 45.2 Plt Count 395 Absolute Neuts (auto) 9.1 H Sodium 140 Potassium 4.3 Chloride 104 BUN 25 H Creatinine 0.96 Glucose 112 H Calcium 9.2 Exam Physical Exam Narrative ECOG 0-1 Const alert, oriented x3 and no apparent distress HEENT normocephalic Mouth: oral and palatal mucosa normal Eyes General Eye: normal appearance of both eyes Neck no lymphadenopathy Resp clear to auscultation bilaterally Cardio regular rate and regular rhythm Jugular Venous Distention: Negative for JVD GI soft to palpation, non-tender and non-distended; Negative for hepatosplenomegaly Extremity General Extremity: edema bilateral lower extremity Details: trace Psych mental status grossly normal Coding Level of Care Code Off vis,est,level 4 Exam Problem Focuse (more content not included)... Normal [facility] Serum or plasma ferritin sharon surement (mass/volume)Ordered By: Krystina Steel on 10-13-2024 Ferritin [Mass/Vol] 23 ng/mL 22-378 [facility] Serum or plasma iron saturat ion measurement (mass fraction)Ordered By: Krystina Steel on 10-13-2024 Iron saturation [Mass fraction] 9.0 % Low 13-59 [facility] Office Visit Reporton 09-21-2024 [facility] Office Visit Report [facility] [address], [address] [place] [address] OFFICE VISIT Date of Service: 09/21/24 MR#: [id number] Acct: [id number] Name: PHONG JANG Rep #: [id number] : 1950 Provider: JAIME ladd Age/Sex: 74/F [place] [facility] [place]: Signed Intake Vital Signs 09/13/24 11:16 09/21/24 14:21 09/21/24 14:26 Height 5 ft 5 in 5 ft 5 in 5 ft 5 in Weight: 173 lb 6 oz BMI 28.8 BP 126/68 H Intake Visit Reasons: Pessary Check Chief Complaint: Pessary check Law Professor Required: No Is patient in pain?: No Allergies No Known Allergies Allergy (Verified 09/21/24 14:21) Medications ???Medication ???Instructions ???Recorded ???Confirmed ???Type aspirin 81 mg chewable tablet 81 mg PO DAILY@0800 07/22/1709/21 History atorvastatin 40 mg tablet 40 mg PO QHS 07/22/17 09/21/24 His tory metoprolol tartrate 25 mg tablet 25 mg PO DAILY 09/18/22 09/21/24 H istory famotidine 20 mg tablet 20 mg PO QHS 12/11/22 09/21/24 His tory hydroxyurea 500 mg capsule 2,500 mg (5 x 500 mg) PO QDAY 90 1 07/05/23 09/21/24 Rx days #450 caps cyclobenzaprine 5 mg tablet 5 mg PO TID PRN muscle spasm #60 0 08/23/24 09/21/24 Rx tabs estradiol 0.01% (0.1 mg/gram) See Rx Instructions vaginal 09/21/24 Rx vaginal cream .COMPLEX #42.5 grams Is last menstrual period known: No Post menopausal: Yes Patient : No : No [facility] Medical History GERD (gastroesophageal reflux disease) Cellulitis of left lower leg Polycythemia vera Animal-rider injured by fall from or being thrown from horse in noncollision accident, initial encounter History of fractured kneecap Thyroid disorder Heart attack Sleep apnea Pneumonia Acquired polycythemia vera Bronchitis Surgical History History of repair of ACL H/O heart artery stent History of knee replacement Family History Father Myocardial infarction CVA (cerebral vascular accident) Mother Cancer Sister Breast cancer Social History Smoking Status: Never smoker alcohol intake: never HPI Pessary Check Details: PHONG JANG is a 74 year old who presents for pessary replacement. See last week and had excoriation. EMB done/negative. Feel bleeding was due to excoriation. She did start estradiol cream ROS Const Constitutional: Reports system reviewed and no additional complaints, except as documented Eyes Eyes: Reports system reviewed and no additional complaints, except as documented GI GI: Denies abdominal pain or change in bowel habits : Reports as per HPI Exam Const General: cooperative and no acute distress Nutritional Appearance: well nourished Orientation: oriented x3 External Female Exam: normal external appearance Speculum Exam - Vagina: vagina atrophic (excoriation now healed) Speculum Exam - Cervix: normal appearance of the cervix Bimanual Exam- Vagina Uterus: uterine size normal and non-tender Bimanual Exam- Adnexa, other: normal adnexae, no masses, non-tender, rectocele and cystocele Pelvic Support: cystocele and rectocele Other: Stable prolapse. #3 ring with support pessary placed without difficulty. Patient tolerated well Coding Level of Care Code Off vis,est,level 3 Diagnoses Atrophic vaginitis N95.2 Cystocele with incomplete uterovaginal prolapse N81.2 Abrasion of vagina, initial encounter S30.814A Encounter type: initial encounter Assessment and Plan Assessment and Plan (1) Atrophic vaginitis: Status: Acute (2) Cystocele with incomplete uterovaginal prolapse: Status: Acute (3) Vaginal abrasion: Status: Acute Qualifiers: Encounter type: initial encounter Qualified Code(s): S30.814A - Abrasion of vagina and vulva, initial encounter Comment: posteriorly from pessary; friable. estradiol cream started/resolved Plan continue vaginal estrogen cream Does self care of pessary. RTO annual exam, prn 09/21/24 1553 Date Francheska Guerrero Signature: Date (if applicable) CC: Normal [facility] Surgical pathology reportOrd ered By: Hailey Padilla on 09-21-2024 Surgical pathology study [facility] Office Visit Reporton 09-13-2024 [facility] Office Visit Report [facility] [address], [address] [place] [address] OFFICE VISIT Date of Service: 09/13/24 MR#: [id number] Acct: [id number] Name: PHONG JANG Jaspal Rep #: [id number] : 1950 Provider: JAIME ladd Age/Sex: 74/F [place] [facility] [place]: Signed Intake Vital Signs 08/04/24 14:54 08/23/24 14:34 09/13/24 11:10 09/13/24 11:16 Height 5 ft 5 in 5 ft 5 in 5 ft 5 in 5 ft 5 in Weight: 174 lb 6 oz BMI 29.0 BP 136/80 H Intake Visit Reasons: EMB/PMB Chief Complaint: EMB Law Professor Required: No Is patient in pain?: No Allergies No Known Allergies Allergy (Verified 09/13/24 11:24) Medications ???Medication ???Instructions ???Recorded ???Confirmed ???Type aspirin 81 mg chewable tablet 81 mg PO DAILY@0800 07/22/1709/13 History atorvastatin 40 mg tablet 40 mg PO QHS 07/22/17 09/13/24 His tory metoprolol tartrate 25 mg tablet 25 mg PO DAILY 09/18/22 09/13/24 H istory famotidine 20 mg tablet 20 mg PO QHS 12/11/22 09/13/24 His tory hydroxyurea 500 mg capsule 2,500 mg (5 x 500 mg) PO QDAY 90 1 07/05/23 09/13/24 Rx days #450 caps acetaminophen 325 mg tablet 325 mg PO ONCE PRN 08/04/24 History (Tylenol) ibuprofen 200 mg tablet (Advil) 200 mg PO Q6H PRN 08/04/24 5 History cyclobenzaprine 5 mg tablet 5 mg PO TID PRN muscle spasm #60 0 08/23/24 09/13/24 Rx tabs estradiol 0.01% (0.1 mg/gram) See Rx Instructions vaginal 09/13/24 Rx vaginal cream .COMPLEX #42.5 grams Is last menstrual period known: No Post menopausal: Yes Patient : No : No PFSH PFSH Medical History GERD (gastroesophageal reflux disease) Cellulitis of left lower leg Polycythemia vera Animal-rider injured by fall from or being thrown from horse in noncollision accident, initial encounter History of fractured kneecap Thyroid disorder Heart attack Sleep apnea Pneumonia Acquired polycythemia vera Bronchitis Surgical History History of repair of ACL H/O heart artery stent History of knee replacement Family History Father Myocardial infarction CVA (cerebral vascular accident) Mother Cancer Sister Breast cancer Social History Smoking Status: Never smoker alcohol intake: never HPI EMB/PMB Details: PHONG JANG is a 74 year old who presents for postmenopausal bleeding. had a fall in June and had pelvic fracture. Since then has had episodes of vaginal bleeding. Light amount but bright red in color. She has a pessary in place that she cares for herself. [facility] life for her has been very difficult as her passed suddenly in May. 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 Her son has been helping her but feeling overwhelmed and missing her . Pelvic US was recent with <5cm uterus and lining 1mm. ROS Const Constitutional: Reports system reviewed and no additional complaints, except as documented Eyes Eyes: Reports system reviewed and no additional complaints, except as documented GI GI: Denies abdominal pain or change in bowel habits : Reports as per HPI Exam Const General: cooperative and no acute distress Nutritional Appearance: well nourished Orientation: oriented x3 External Female Exam: normal external appearance and normal appearance of the urethra Urethra: normal appearance of the urethra Speculum Exam - Vagina: vagina atrophic (excoriation, friable posterior wall about 3 cm up) Speculum Exam - Cervix: closed (pale) Bimanual Exam- Vagina Uterus: normal bimanual exam, uterine size normal and uterine mobility normal Bimanual Exam- Adnexa, other: normal adnexae, no masses and non-tender Office Procedures Endometrial Biopsy Endometrial Biopsy Test: Yes Not Applicable Consent Signed: Yes Time out checklist: patient, procedure, site marked/identified, positioning of patient, supplies available, allergies confirmed and team agrees on procedure Time out time: 11:25 tenaculum used: Yes dilator used: No Details: Cervix prepped with betadine and pipelle inserted into uterus without complication. Minimal specimen obtained and sent to lab for analysis. All instruments removed from vagina without complications. Excellent hemostasis noted. Coding Level of Care Code Attention Carburetor Specialist Diagnoses PMB (postmenopausal bleeding) N95.0 Stress incontinence N39.3 Abrasion of vagina, initial encounter S30.814A Encounter type: initial encounter Cystocele with incomplete uterovaginal prolapse N81.2 CPT Codes Endometrial Biopsy (90388) Assessment and Plan (more content not included)... Normal [facility] Surgery Specimen Level Gilles 09-13-2024 Surgery Specimen Level IV -------- Patient Age/Sex Location Account Attending Physician -------- PHOGN JANG 74/F LABSPEC [id number] JAIME Schmitt -------- Specimen: [id number] Received: 09/14/24 Status: DOROTHEA Natarajan Num: [id number] Spec Type: ENDOM BX/C Subm Dr: JAIME Schmitt HEADER OPERATION: Endoemtrial biopsy PRE-OP DIAGNOSIS: Post menopausal bleeding TISSUE SUBMITTED: A- Endometrial lining -------- MICROSCOPIC DIAGNOSIS A. Uterus, endometrial lining, biopsy: * Inactive endometrium/lower uterine segment and endocervical mucosa, with active chronic inflammation. MICROSCOPIC DESCRIPTION Slides are reviewed. GROSS DESCRIPTION A. Received in formalin in a container labeled with the patient's name, date of , and with the accompanying paperwork indicating, endometrial lining are multiple wispy red-hinds fragments of soft tissue admixed with blood and mucus measuring 1.3 x 1.3 x 0.2 cm in aggregate. Submitted in toto in A1. [facility] 09-14-2024 CPT:40090 -------- Patient Age/Sex Location Account Attending Physician -------- [facility] 74[id number] JAIME Schmitt -------- Signed (signature on file) Dr. Hailey Padilla MD 09/21/24 0843 -------- Normal [facility] Comment on above: Performed By: #### L 503.6550, L100.0100 #### [facility] [place], [address] Orthopedic Visit Reporton Orthopedic Visit Report [facility] [address] [place] [address] [address] [place] [address] OFFICE VISIT Date of Service: 08/23/24 MR#: [id number] Acct: [id number] Name: PHONG JANG Rep #: [id number] : 1950 Provider: BRANDON Peres Age/Sex: 74/F Location[place] [facility] [place] Status: Signed Intake Vital Signs 08/04/24 14:54 08/20/24 15:26 08/23/24 14:34 Height 5 ft 5 in 5 ft 5 in 5 ft 5 in Weight: 176 lb 8 oz BMI 29.3 Intake Visit Reasons: LUMBAR SPINE Chief Complaint: Lumbar spine pain Accompanied by: Self Is patient in pain?: Yes Pain scale (1-10): 7 Allergies No Known Allergies Allergy (Verified 08/23/24 14:35) Medications ???Medication ???Instructions ???Recorded ???Confirmed ???Type aspirin 81 mg chewable tablet 81 mg PO DAILY@0800 07/22/1708/23 History atorvastatin 40 mg tablet 40 mg PO QHS 07/22/17 08/23/24 His tory metoprolol tartrate 25 mg tablet 25 mg PO DAILY 09/18/22 08/23/24 H istory famotidine 20 mg tablet 20 mg PO QHS 12/11/22 08/23/24 His tory hydroxyurea 500 mg capsule 2,500 mg (5 x 500 mg) PO QDAY 90 1 07/05/23 08/23/24 Rx days #450 caps acetaminophen 325 mg tablet 325 mg PO ONCE PRN 08/04/24 History (Tylenol) ibuprofen 200 mg tablet (Advil) 200 mg PO Q6H PRN 08/04/24 5 History cyclobenzaprine 5 mg tablet 5 mg PO TID PRN muscle spasm #60 0 08/23/24 08/23/24 Rx tabs Have you fallen in the past year?: Yes PFSH Medical History GERD (gastroesophageal reflux disease) Cellulitis of left lower leg Polycythemia vera Animal-rider injured by fall from or being thrown from horse in noncollision accident, initial encounter History of fractured kneecap Thyroid disorder Heart attack Sleep apnea Pneumonia Acquired polycythemia vera Bronchitis Surgical History History of repair of ACL H/O heart artery stent History of knee replacement Family History Father Myocardial infarction CVA (cerebral vascular accident) Mother Cancer Sister Breast cancer Social History Smoking Status: Never smoker alcohol intake: never HPI LUMBAR SPINE Details: This documentation accurately reflects the service provided and the decisions made by , BRANDON Peres 08/23/24 7277. Part of today???s visit was documented by Agatha Bowman MA, acting as scribe. PHONG JANG is a 74 year old F here today for lumbar spine pain. Patient is here for pain right under neath the lower back. This has been going on since 07/09/2024. She fell on the ice and landed right on her lower back. Patient was sore after. The pain was gradually getting worse. The pain is a sharp burning pain. Denies any physical therapy. Patient got an xray at [place] 07/2024. She got an MRI 08/16/2024. The MRI showed 3 fractures. Patient has been having trouble with balancing, she has been walking with a cane due to the pain. Says that her pain worsens when walking, sitting, or standing still for a prolonged period. Denies pain that extends down her legs. Patient has been putting a hot rice bag on her back, and it has helped a lot. Standing and walking makes the pain worse. Says that she did take a Flexeril tablet from a friend which gave her a lot of relief. Says that her pain peaked 2 weeks ago but over the last 2 weeks has gotten more bearable. Denies a history of osteoporosis or osteopenia. She has not done physical therapy due to her pain. Denies pain down the legs. She is going on cruise and is leaving Friday. Ortho Exam General General: Yes no acute distress Neurologic: Yes alert and Yes oriented x3 Spine SPINE TESTING CERVICAL THORACIC LUMBAR Musculoskeletal Strength 0=absent - 5=normal Details: Neurological exam of the lower extremities shows 5x5 power. Normal sensations across all dermatomes. No hyperreflexia. Mild midline tenderness, no paraspinal tenderness. Coding Level of Care Code Off vis,new,level 4 Diagnoses Closed fracture of sacrum, unspecified portion of sacrum, initial encounter S32.10XA Encounter type: initial encounter Zone of sacrum fracture: unspecified portion of sacrum Fracture type: closed Assessment and Plan Assessment and Plan (1) Fracture of sacrum: Status: Acute Qualifiers: Encounter type: initial encounter Zone of sacrum fracture: unspecified portion of sacrum Fracture type: closed Qualified Code(s): S32.10XA - Unspecified fracture of sacrum, initial encounter for closed fracture Orders: Orders Sacrum-Coccyx min 2 Views Today S32.10XA - Unspecified fracture of sacrum, initial encounter fo (more content not included)... Normal [facility] Sacrum-Coccyx min 2 Viewson 08-23-2024 Sacrum-Coccyx min 2 Views [facility] Imaging Services [address] [place] [address] Sacrum-Coccyx min 2 Views MR#: [id number] Acct: [id number] Name: PHONG JANG Rep #: [id number] : 1950 F 74 From: Chas Jackson i DO PCP: Dr. Dennise Sahni MD Status: DEP AMB Study: Sacrum-Coccyx min 2 Views Date of Exam: Exam# [id number] Ordering Dr: Danyelle Manzano PROCEDURE: Sacrum/coccyx radiographs, three views 08/23/2024 REASON FOR EXAM: PAIN TECHNIQUE: Three views of the sacrum/coccyx were obtained. COMPARISON: None. FINDINGS: Three views of the sacrum/coccyx were obtained. The bones are osteopenic. Mild degenerative changes lower lumbar spine. SI joints are intact. The included portions of the pelvis and proximal femurs are intact. No displaced fracture of the sacrum/coccyx is demonstrated. RAD/Sacrum-Coccyx min 2 Views IMPRESSION: Osteopenia. No acute bony abnormality of the sacrum/coccyx. If there is persistent pain or clinical concern, short-term follow-up MRI evaluation may be considered. Reading Location: [facility] CC: BRANDON Peres; Dr. Dennise Sahni MD Forging Press Setter Up: Signed Normal [facility] MR PELVIS W/O CONTRASTon MR PELVIS W/O CONTRAST [place] [address] Patient: PHONG JANG Phone#: : 1950 Age: 74 Gender: F Pt. Type: Out Account: [id number] Location: [facility] Ordering: DENNISE SAHNI Exam Date: 08/16/2024/14:03 Family Phys: Charge Code: 365160 Physician: [place] Order #: [id number] Dose#: PROCEDURE: MRI PELVIS WITHOUT CONTRAST COMPARISON: None. INDICATIONS: Jarad pelvic pain TECHNIQUE: A comprehensive examination was performed utilizing a variety of imaging planes and imaging parameters to optimize visualization of suspected pathology. Images were obtained without contrast. FINDINGS: UTERUS: The uterus is present. Uterus measures 4.0 x 2.2 x 4.6 cm. Evaluation is otherwise limited. OVARIES: No adnexal mass CUL-DE-SAC: Normal. No fluid or mass. LYMPH NODES: Normal. No adenopathy. BLADDER: Partially filled BONES: There is diffuse loss of normal marrow signal on T1. There is corresponding T2 signal hyperintensity throughout the superior and mid sacrum. On axial and coronal images there are mildly serpiginous vertically oriented bilateral hypointense lines series 4, image 12 and 14 and series 6, image 13 and 16. These are consistent with insufficiency sacral fractures. There is edema in the adjacent soft tissues. At the level of S2 there is edema in the posterior elements, series 8 image 19. OTHER: There is heavy diverticulosis of the sigmoid colon. CONCLUSION: 1. Bilateral sacral insufficiency fractures 2. Fracture involving the posterior element of S2 Dictated by: Debora Ku MD on 08/18/2024 at 19:46 Approved by: Debora Ku MD on 08/18/2024 at 20:26 Normal [facility] Transvaginal Non-on 08-11-2024 Transvaginal Non- [facility] Imaging Services [address] [place] [id number] Transvaginal Non- MR#: [id number] Acct: [id number] Name: PHONG JANG Rep #: [id number] : 1950 F 74 From: Keaton Mathias MD PCP: Dr. Dennise Sahni MD Status: REG CLI Study: Transvaginal Non- Date of Exam: Exam# [id number] Ordering Dr: Francheska Powell ANGULAR DEVELOPER ANGULAR DEVELOPER -C PROCEDURE: Transvaginal pelvic ultrasound REASON FOR EXAM: PMB TECHNIQUE: Grayscale and color Doppler pelvic ultrasound. COMPARISON: None. FINDINGS: Uterus: 4.7 x 3.5 x 2.3 cm, anteverted. Heterogeneous myometrium. Hypoechoic fibroids measure 4 x 4 x 2 mm and 3 x 4 x 3 mm and appear intramural. Endometrium: 1 mm in thickness, exclusive of trace endocavitary fluid. Nonspecific echogenic shadowing central endometrial calcification measures 2 x 3 x 1 mm. Cervix: Grossly unremarkable. Right ovary: Not visualized. Left ovary: Nonvisualized. Free fluid: None visualized. US/Transvaginal Non- IMPRESSION: 1. Very thin endometrium 1 mm is within normal limits for a postmenopausal female; note however that endometrial atrophy can be a source of abnormal bleeding. Trace nonspecific endometrial fluid, compatible with provided history. 2. Heterogeneous myometrium may be related to previous adenomyosis. Tiny presumed fibroids up to 4 mm. 3. Nonspecific endometrial calcification. Correlate for possible history of previous instrumentation. 4. Nonvisualized bilateral ovaries. 5. Additional description as above. Reading Location: [id number] CC: JAIME Powell; Dr. Dennise Sahni MD Forging Press Setter Up: Signed Normal [facility] Absolute neutrophil countOrd ered By: [facility] on 08-04-2024 Neutrophils (Bld) [#/Vol] 7.2 10*3/uL 2.0-7.7 [facility] BUN/creatinine ratioOrdered By: [facility] on 08-04-2024 Urea nitrogen/Creatinine [Mass ratio] 35.9 mg/mg High 10-20 [facility] Basophil percentageOrdered B y: Tristen Guevara on 08-04-2024 Basophils/100 WBC (Bld) 0.6 % 0-1 [facility] Bilirubin, totalOrdered By: [facility] on 08-04-2024 Bilirubin [Mass/Vol] 0.55 mg/dL 0.00-1.30 [facility] CBC W/Diff, Automatedon 07-11 Absolute Lymph 0.87 X10 3/uL Normal 0.83-4.51 [facility] Comment on above: Performed By: #### L 100.0100, L500.4050 #### [facility] [address] [place], [address] Absolute Neut 7.2 X10 3/uL Normal 2.0-7.7 [facility] Comment on above: Performed By: #### L 100.0100, L500.4050 #### [facility] [address] [place], [address] Basophils/100 WBC (Bld) 0.6 % Normal 0-1 [facility] Comment on above: Performed By: #### L 100.0100, L500.4050 #### [facility] [address] [place], [address] Eosinophils/100 WBC (Bld) 4.3 % Normal 0-5 [facility] Comment on above: Performed By: #### L 100.0100, L500.4050 #### [facility] [address] [place], [address] Erythrocyte distribution width (RBC) [Ratio] 17.9 % High 11.6-14.6 [facility] Comment on above: Performed By: #### L 100.0100, L500.4050 #### [facility] [address] [place], [address] Hematocrit (Bld) [Volume fraction] 44.0 % Normal 37-47 [facility] Comment on above: Performed By: #### L 100.0100, L500.4050 #### [facility] [address] [place], [address] Hemoglobin (Bld) [Mass/Vol] 13.7 g/dL Normal 12.0-15.0 [facility] Comment on above: Performed By: #### L 100.0100, L500.4050 #### [facility] [address] [place], [address] IG% 0.400 Normal 0.0-0.9 [facility] Comment on above: Result Comment: IG% - Immature Granulocytes (promyelocytes, myelocytes and metamyelocytes) > 1% indicates that a LEFT SHIFT is Present. Performed By: #### L 100.0100, L500.4050 #### [facility] [address] [place], [address] Lymphocytes/100 WBC (Bld) 9.8 % Low 19-41 [facility] Comment on above: Performed By: #### L 100.0100, L500.4050 #### [facility] [address] [place], [address] MCH (RBC) [Entitic mass] 30.8 pg Normal 27.0-32.0 [facility] Comment on above: Performed By: #### L 100.0100, L500.4050 #### [facility] [address] [place], [address] MCHC (RBC) [Mass/Vol] 31.1 g/dL Low 32-36 [facility] Comment on above: Performed By: #### L 100.0100, L500.4050 #### [facility] [address] [place], [address] MCV (RBC) [Entitic vol] 98.9 fL Normal 81-99 [facility] Comment on above: Performed By: #### L 100.0100, L500.4050 #### [facility] [address] [place], [address] Monocytes/100 WBC (Bld) 4.4 % Normal 0-10 [facility] Comment on above: Performed By: #### L 100.0100, L500.4050 #### [facility] [address] [place], [address] Neutrophils/100 WBC (Bld) 80.5 % High 47-70 [facility] Comment on above: Performed By: #### L 100.0100, L500.4050 #### [facility] [address] [place], [address] Nucleated RBC (Bld) [#/Vol] 0 10*3/uL Normal 0-5 [facility] Comment on above: Performed By: #### L 100.0100, L500.4050 #### [facility] [address] [place], [address] Platelet mean volume (Bld) [Entitic vol] 10.0 fL Normal 6.2-12.0 [facility] Comment on above: Performed By: #### L 100.0100, L500.4050 #### [facility] [address] [place], [address] Platelets (Bld) [#/Vol] 310 10*3/uL Normal 150-450 [facility] Comment on above: Performed By: #### L 100.0100, L500.4050 #### [facility] [address] [place], [address] RBC (Bld) [#/Vol] 4.45 10*6/uL Normal 4.2-5.4 [facility] Comment on above: Performed By: #### L 100.0100, L500.4050 #### [facility] [address] [place], [address] RDW SD 63.6 fl High 35.1-43.9 [facility] Comment on above: Performed By: #### L 100.0100, L500.4050 #### [facility] [address] [place], [address] WBC (Bld) [#/Vol] 8.9 10*3/uL Normal 4.4-11.0 [facility] Comment on above: Performed By: #### L 100.0100, L500.4050 #### [facility] [address] [place], [address] Carbon dioxide measurementOr dered By: Tristen Guevara on 08-04-2024 CO2 [Moles/Vol] 22.4 mmol/L 22.0-29.0 [facility] Chloride measurementOrdered By: Tristen Guevara on 08-04-2024 Chloride [Moles/Vol] 105 mmol/L 96-108 [facility] Comprehensive Metabolic Prof ilon 08-04-2024 Albumin [Mass/Vol] 3.9 g/dL Normal 3.4-4.8 [facility] Comment on above: Performed By: #### L 100.0100, L500.4050 #### [facility] [address] [place], [address] Albumin/Globulin [Mass ratio] 1.3 {ratio} Normal 0.9-2.4 [facility] Comment on above: Performed By: #### L 100.0100, L500.4050 #### [facility] [address] [place], [address] ALK PHOS 156 U/L High 35-104 [facility] Comment on above: Performed By: #### L 100.0100, L500.4050 #### [facility] [address] [place], [address] ALT [Catalytic activity/Vol] 11 U/L Normal <=34 [facility] Comment on above: Performed By: #### L 100.0100, L500.4050 #### [facility] [address] [place], [address] Anion gap [Moles/Vol] 11 mmol/L Normal 5-15 [facility] Comment on above: Performed By: #### L 100.0100, L500.4050 #### [facility] [address] [place], [address] AST [Catalytic activity/Vol] 31 U/L Normal <=31 [facility] Comment on above: Result Comment: Hemo lysis present, Results??could be affected. ?? Performed By: #### L 100.0100, L500.4050 #### [facility] [address] [place], [address] Bilirubin [Mass/Vol] 0.55 mg/dL Normal 0.00-1.30 [facility] Comment on above: Performed By: #### L 100.0100, L500.4050 #### [facility] [address] [place], [address] BUN/CRE 35.9 RATIO High 10-20 [facility] Comment on above: Performed By: #### L 100.0100, L500.4050 #### [facility] [address] [place], [address] Calcium [Mass/Vol] 8.8 mg/dL Normal 7.6-11.0 [facility] Comment on above: Performed By: #### L 100.0100, L500.4050 #### [facility] [address] [place], [address] Chloride [Moles/Vol] 105 mmol/L Normal 96-108 [facility] Comment on above: Performed By: #### L 100.0100, L500.4050 #### [facility] [address] [place], [address] CO2 [Moles/Vol] 22.4 mmol/L Normal 22.0-29.0 [facility] Comment on above: Performed By: #### L 100.0100, L500.4050 #### [facility] [address] [place], [address] Creatinine [Mass/Vol] 0.8 mg/dL Normal 0.6-1.0 [facility] Comment on above: Performed By: #### L 100.0100, L500.4050 #### [facility] [address] [place], [address] ECRCL 65.75 ml/min Normal [facility] Comment on above: Performed By: #### L 100.0100, L500.4050 #### [facility] [address] [place], [address] GFR/1.73 sq M.predicted among non-blacks MDRD (S/P/Bld) [Vol rate/Area] 83 mL/min/{1.73_m2} Normal >60 [facility] Comment on above: Result Comment: mL/m in/1.73m2 CKD-EPI Creatinine Equation (2020) Performed By: #### L 100.0100, L500.4050 #### [facility] [address] [place], [address] Globulin (S) [Mass/Vol] 3.0 g/dL Normal 2.2-4.2 [facility] Comment on above: Performed By: #### L 100.0100, L500.4050 #### [facility] [address] [place], [address] Glucose [Mass/Vol] 109 mg/dL High 70-99 [facility] Comment on above: Performed By: #### L 100.0100, L500.4050 #### [facility] [address] [place], [address] Potassium [Moles/Vol] 4.3 mmol/L Normal 3.3-5.1 [facility] Comment on above: Result Comment: Hemo lysis present, Results??could be affected. ?? Performed By: #### L 100.0100, L500.4050 #### [facility] [address] [place], [address] Sodium [Moles/Vol] 139 mmol/L Normal 133-145 [facility] Comment on above: Performed By: #### L 100.0100, L500.4050 #### [facility] [address] [place], [address] T PROT 6.9 g/dL Normal 5.9-8.4 [facility] Comment on above: Performed By: #### L 100.0100, L500.4050 #### [facility] [address] [place], [address] Urea nitrogen [Mass/Vol] 27 mg/dL High 4-19 [facility] Comment on above: Performed By: #### L 100.0100, L500.4050 #### [facility] [place], [address] Creatinine [Moles/Vol]Ordere d By: Tristen Guevara on 08-04-2024 Creatinine [Mass/Vol] 0.8 mg/dL 0.6-1.0 [facility] Eosinophil percentageOrdered By: Tristen Guevara on 08-04-2024 Eosinophils/100 WBC (Bld) 4.3 % 0-5 [facility] Erythrocyte distribution wid th ratioOrdered By: [facility] on 08-04-2024 Erythrocyte distribution width (RBC) [Ratio] 17.9 % High 11.6-14.6 [facility] Erythrocyte distribution wid th standard deviationOrdered By: [facility] on 08-04-2024 Erythrocyte distribution width (RBC) [Entitic vol] 63.6 fL High 35.1-43.9 [facility] Estimation of creatinine tian aranceOrdered By: Tristen Guevara on 08-04-2024 Estimated Creatinine Clearance Calc 65.75 ml/min [facility] GFR/1.73 sq M.predicted inna g non-blacks MDRD (S/P/Bld) [Vol rate/Area]Ordered By: Tristen Guevara on 08-04-2024 Estimated GFR (MDRD) Non-Af Amer 83 >60 [facility] Comment on above: mL/min/1.73m2 CKD-EP I Creatinine Equation (2020) Hematocrit Auto (Bld) [Volum e fraction]Ordered By: Tristen Guevara on 08-04-2024 Hematocrit (Bld) [Volume fraction] 44.0 % 37-47 [facility] Hemoglobin measurementOrdere d By: Tristen Guevara on 08-04-2024 Hemoglobin (Bld) [Mass/Vol] 13.7 g/dL 12.0-15.0 [facility] Immature granulocytes/100 WB C Auto (Bld)Ordered By: Tristen Guevara on 08-04-2024 Immature granulocytes/100 WBC (Bld) 0.400 % 0.0-0.9 [facility] Comment on above: IG% - Immature Granu locytes (promyelocytes, myelocytes and metamyelocytes) > 1% indicates that a LEFT SHIFT is Present. Laboratory - Chemistry and C hemistry - challengeOrdered By: Tristen Guevara on 08-04-2024 AST [Catalytic activity/Vol] 31 U/L <32 [facility] Comment on above: Hemolysis present, R esults could be affected. Lymphocytes Auto (Unsp spec) [#/Vol]Ordered By: Tristen Guevara on 08-04-2024 Lymphocytes (Bld) [#/Vol] 0.87 10*3/uL 0.83-4.51 [facility] Lymphocytes/100 WBC Auto (Un sp spec)Ordered By: Tristen Guevara on 08-04-2024 Lymphocytes/100 WBC (Bld) 9.8 % Low 19-41 [facility] MCV (mean corpuscular volume ) determinationOrdered By: Tristen Guevara on 08-04-2024 MCV (RBC) [Entitic vol] 98.9 fL 81-99 [facility] Mean corpuscular hemoglobin (MCH) determinationOrdered By: [facility] on 08-04-2024 MCH (RBC) [Entitic mass] 30.8 pg 27.0-32.0 [facility] Mean corpuscular hemoglobin concentration (MCHC) determinationOrdered By: Tristen Guevara on 08-04-2024 MCHC (RBC) [Mass/Vol] 31.1 g/dL Low 32-36 [facility] Mean platelet volume determi nationOrdered By: Tristen Guevara on 08-04-2024 Platelet mean volume (Bld) [Entitic vol] 10.0 fL 6.2-12.0 [facility] Monocyte percentageOrdered B y: Tristen Guevara on 08-04-2024 Monocytes/100 WBC (Bld) 4.4 % 0-10 [facility] Neutrophil percentageOrdered By: [facility] on 08-04-2024 Neutrophils/100 WBC (Bld) 80.5 % High 47-70 [facility] Nucleated red blood cell per centageOrdered By: [facility] on 08-04-2024 Nucleated RBC/100 WBC (Bld) [Ratio] 0 % 0-5 [facility] Oncology Visit Reporton 07-11 Oncology Visit Report [facility] [place] [facility] [address] [place] [address] OFFICE VISIT Date of Service: 08/04/24 1439 MR#: [id number] Acct: [id number] Name: PHONG JANG Rep #: [id number] : 1950 From: Krystina Steel NP ANGULAR DEVELOPER -C Age/Sex: 74/F [place] [facility] [place] Status: Signed HPI Subjective Date of Service 08/04/24 Chief Complaint Polycythemia vera on treatment History of Present Illness 74-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 She presented in 2016 with vague nonspecific symptoms including fatigue, unexplained fevers, tinnitus, visual symptoms and had a heart attack in late 2016 when her hematocrit was noted to be elevated to 69%. She underwent hematology evaluation by Dr. Gross, and peripheral blood flow cytometry showed positive JAK2 V617F mutation. An ultrasound at that time apparently showed splenomegaly (this record is not available, however an ultrasound of March 2022 at [facility] shows stable mild splenomegaly of 13.7 cm. She was treated with phlebotomies and hydroxyurea since 2016. Initially the phlebotomies were done on a weekly basis, less often thereafter and by 2021 she is on phlebotomy every 2 months or so. Most of her symptoms improved although she continues to report some fatigue yet not as bad as when she was first diagnosed. She has not developed any infectious or bleeding complications during the course of her illness. Treatment summary : Phlebotomies 2017-ongoing Hydroxyurea 2017-ongoing Interval History Patient is presenting to clinic today for routine 3-month follow-up. She voices concern today about low back pain after a mechanical fall last month. Reports plain films were obtained by her PCP and she was told there is no fracture. Confirms adherence and tolerance to hydroxyurea 2500 mg daily omitting Sundays. Also confirms good adherence to ASA 81 mg daily. She denies any episodes of overt bleeding or abnormal bruising with the exception of vaginal bleeding last week that lasted 2 days. She describes as just like a period. [facility] Medical History GERD (gastroesophageal reflux disease) Cellulitis of left lower leg Polycythemia vera Animal-rider injured by fall from or being thrown from horse in noncollision accident, initial encounter History of fractured kneecap Thyroid disorder Heart attack Sleep apnea Pneumonia Acquired polycythemia vera Bronchitis Surgical History History of repair of ACL H/O heart artery stent History of knee replacement Family History Father Myocardial infarction CVA (cerebral vascular accident) Mother Cancer Sister Breast cancer Social History Smoking Status: Never smoker alcohol intake: never ROS ROS Narrative Negative except as documented in the interval HPI Intake Vital Signs 05/05/24 14:32 08/04/24 14:40 08/04/24 14:54 Height 5 ft 5 in 5 ft 5 in 5 ft 5 in Weight: 178 lb BMI 29.6 BP 125/81 H Blood Pressure Location Lt brachial Position Sitting Respiration 18 Pulse 65 Pulse Source Monitor Temp 97.3 F L Temperature Source Temporal Artery Pulse Oximetry (%) 96 Oxygen Delivery Method room air Intake Is patient in pain?: Yes (buttock from falling ) Pain scale (1-10): 8 Allergies No Known Allergies Allergy (Verified 08/04/24 14:52) Medications ???Medication ???Instructions ???Recorded ???Confirmed ???Type aspirin 81 mg chewable tablet 81 mg PO DAILY@0800 07/22/1708/04 History atorvastatin 40 mg tablet 40 mg PO QHS 07/22/17 08/04/24 His tory metoprolol tartrate 25 mg tablet 25 mg PO DAILY 09/18/22 08/04/24 H istory famotidine 20 mg tablet 20 mg PO QHS 12/11/22 08/04/24 His tory hydroxyurea 500 mg capsule 2,500 mg (5 x 500 mg) PO QDAY 90 1 07/05/23 08/04/24 Rx days #450 caps acetaminophen 325 mg tablet 325 mg PO ONCE PRN 08/04/24 History (Tylenol) ibuprofen 200 mg tablet (Advil) 200 mg PO Q6H PRN 08/04/24 5 History Have you fallen in the past year?: Yes Central Venous Access Central Venous Access: No Laboratory Tests 03/17/23 08/04/24 13:24 14:15 WBC 14.6 H 8.9 Hgb 14.0 13.7 Hct 48.6 H 44.0 MCV 98.9 Plt Count 403 310 Absolute Neuts (auto) 12.7 H 7.2 Sodium 139 Potassium 4.3 Chloride Direct 105 BUN 27 H Creatinine 0.8 Glucose 109 H Calcium 8.8 Ferritin 5 L Total Bilirubin 0.55 AST 31 ALT 11 Alkaline Phosphatase 156 H Albumin 3.9 (more content not included)... Normal [facility] Platelet countOrdered By: Amara Guevara on 08-04-2024 Platelets (Bld) [#/Vol] 310 10*3/uL 150-450 [facility] RBC Auto (Bld) [#/Vol]Ordere d By: Tristen Guevara on 08-04-2024 RBC (Bld) [#/Vol] 4.45 10*6/uL 4.2-5.4 [facility] Serum globulin measurementOr dered By: Tristen Guevara on 08-04-2024 Globulin (S) [Mass/Vol] 3.0 g/dL 2.2-4.2 [facility] Serum glucose measurement (m ass/volume)Ordered By: Tristen Guevara on 08-04-2024 Glucose [Mass/Vol] 109 mg/dL High 70-99 [facility] Serum or plasma alanine rivera otransferase (ALT) measurementOrdered By: Tristen Guevara on 08-04-2024 ALT [Catalytic activity/Vol] 11 U/L <35 [facility] Serum or plasma albumin bry urement (mass/volume)Ordered By: Tristen Guevara on 08-04-2024 Albumin [Mass/Vol] 3.9 g/dL 3.4-4.8 [facility] Serum or plasma albumin/glob ulin mass ratioOrdered By: Tristen Guevara on 08-04-2024 Albumin/Globulin [Mass ratio] 1.3 {ratio} 0.9-2.4 [facility] Serum or plasma alkaline tre sphatase measurementOrdered By: Tristen Guevara on 08-04-2024 ALP [Catalytic activity/Vol] 156 U/L High 35-104 [facility] Serum or plasma anion gap de termination (moles/volume)Ordered By: Tristen Guevara on 08-04-2024 Anion gap [Moles/Vol] 11 mmol/L 5-15 [facility] Serum or plasma calcium bry urement (mass/volume)Ordered By: Tristen Guevara on 08-04-2024 Calcium [Mass/Vol] 8.8 mg/dL 7.6-11.0 [facility] Serum or plasma potassium me asurementOrdered By: Tristen Guevara on 08-04-2024 Potassium [Moles/Vol] 4.3 mmol/L 3.3-5.1 [facility] Comment on above: Hemolysis present, R esults could be affected. Serum or plasma sodium measu rement (moles/volume)Ordered By: Tristen Guevara on 08-04-2024 Sodium [Moles/Vol] 139 mmol/L 133-145 [facility] Serum or plasma urea nitroge n measurement (mass/volume)Ordered By: Tristen Guevara on 08-04-2024 Urea nitrogen [Mass/Vol] 27 mg/dL High 4-19 [facility] Total proteinOrdered By: Alin Guevara on 08-04-2024 Protein [Mass/Vol] 6.9 g/dL 5.9-8.4 [facility] White blood cell (WBC) count Ordered By: Tristen Guevara on 08-04-2024 WBC (Bld) [#/Vol] 8.9 10*3/uL 4.4-11.0 [facility] BMP with eGFRon 07-21-2024 AGE 74 years Normal [facility] Comment on above: Performed By: #### 2 91406 #### [facility],[address] [place] [address] 57684 Anion gap [Moles/Vol] 14 mmol/L Normal 10 - 20 [facility] Comment on above: Performed By: #### 2 34345 #### [facility],[address] [place] [address] 93289 BMP with eGFR Normal [facility] Comment on above: Result Comment: BASI C METABOLIC PANEL Performed By: #### 2 78437 #### [facility],[address] [place] [address] 76833 Calcium [Mass/Vol] 8.5 mg/dL Normal 8.5 - 10.1 [facility] Comment on above: Performed By: #### 2 67706 #### [facility],[address] [place] [address] 72527 Chloride [Moles/Vol] 104 mmol/L Normal 98 - 107 [facility] Comment on above: Performed By: #### 2 70076 #### [facility],[address] [place] [address] 14959 CO2 [Moles/Vol] 26.9 mmol/L Normal 21.0 - 32.0 [facility] Comment on above: Performed By: #### 2 32989 #### [facility],[address] [place], [place] [id number] Creatinine [Mass/Vol] 0.74 mg/dL Normal 0.55 - 1.02 [facility] Comment on above: Performed By: #### 2 35352 #### [facility],[address] [place] [address] 17393 GFR/1.73 sq M.predicted among non-blacks MDRD (S/P/Bld) [Vol rate/Area] mL/min/{1.73_m2} Normal 60 - 999 [facility] Comment on above: Performed By: #### 2 58717 #### [facility],[address] [place] [address] Result Comment: ACCO RDING TO THE NATIONAL KIDNEY DISEASE EDUCATION PROGRAM(NKDE), A NORMAL eGFR IS A VALUE GREATER THAN OR EQUAL TO 60 ML/MIN/1.73 SQ METERS. CHRONIC KIDNEY DISEASE: <60mL/MIN/1.73 SQ METERS KIDNEY FAILURE: <15mL/MIN/1.73 SQ METERS THIS TEST SHOULD ONLY BE USED FOR PATIENTS 18 YEARS OF AGE AND OLDER. Glucose [Mass/Vol] 77 mg/dL Normal 74 - 106 [facility] Comment on above: Performed By: #### 2 21531 #### [facility],[address] [place] [address] 28564 Potassium [Moles/Vol] 4.0 mmol/L Normal 3.5 - 5.1 [facility] Comment on above: Performed By: #### 2 72139 #### [facility],[address] [place] [address] 88902 Sodium [Moles/Vol] 141 mmol/L Normal 136 - 145 [facility] Comment on above: Performed By: #### 2 48192 #### [facility],[address] [place], [place] [id number] Urea nitrogen [Mass/Vol] 22 mg/dL High 7 - 18 [facility] Comment on above: Performed By: #### 2 90343 #### [facility],[address] [place], [place] [id number] HIP COMPLETE RT MIN 2 VIEWS W/PELVISon 07-21-2024 HIP COMPLETE RT MIN 2 VIEWS W/PELVIS [place] [address] Patient: PHONG JANG Phone#: : 1950 Age: 74 Gender: F Pt. Type: Out Account: [id number] Location: [facility] Ordering: DENNISE SAHNI Exam Date: 07/21/2024/14:58 Family Phys: Charge Code: 765006 Physician: [place] Order #: [id number] Dose#: PROCEDURE: X-RAY HIP RT COMPLETE MIN 2 VIEWS W/PELVIS COMPARISON: None. INDICATIONS: Pelvic pain. FINDINGS: BONES: Mild degenerative changes are present at the hips bilaterally. There is no evidence of acute bone abnormality. SOFT TISSUES: Negative. No visible soft tissue swelling. EFFUSION: None visible. OTHER: Rounded artifact is present overlying the symphysis pubis, possible pessary. CONCLUSION: 1. Mild degenerative changes of the hips are present. Dictated by: Viktoria Mendez MD on 07/21/2024 at 15:49 Approved by: Viktoria Mendez MD on 07/21/2024 at 15:50 Normal [facility] MAGNESIUMon 07-21-2024 Magnesium [Mass/Vol] 2.2 mg/dL Normal 1.8 - 2.4 [facility] Comment on above: Performed By: #### 2 76073 #### [facility],[address] [facility] [address] CBC W/Diff, Automatedon 04-10 Absolute Lymph 1.25 X10 3/uL Normal 0.83-4.51 [facility] Comment on above: Performed By: #### L 503.6550, L100.0100 #### [facility] [address] [place], [address] Absolute Neut 10.2 X10 3/uL High 2.0-7.7 [facility] Comment on above: Performed By: #### L 503.6550, L100.0100 #### [facility] [address] [place], [address] Basophils/100 WBC (Bld) 0.6 % Normal 0-1 [facility] Comment on above: Performed By: #### L 503.6550, L100.0100 #### [facility] [address] [place], [address] Eosinophils/100 WBC (Bld) 1.6 % Normal 0-5 [facility] Comment on above: Performed By: #### L 503.6550, L100.0100 #### [facility] [address] [place], [address] Erythrocyte distribution width (RBC) [Ratio] 17.2 % High 11.6-14.6 [facility] Comment on above: Performed By: #### L 503.6550, L100.0100 #### [facility] [address] [place], [address] Hematocrit (Bld) [Volume fraction] 50.5 % High 37-47 [facility] Comment on above: Performed By: #### L 503.6550, L100.0100 #### [facility] [address] [place], [address] Hemoglobin (Bld) [Mass/Vol] 15.4 g/dL High 12.0-15.0 [facility] Comment on above: Performed By: #### L 503.6550, L100.0100 #### [facility] [address] [place], [address] IG% 0.800 Normal 0.0-0.9 [facility] Comment on above: Result Comment: IG% - Immature Granulocytes (promyelocytes, myelocytes and metamyelocytes) > 1% indicates that a LEFT SHIFT is Present. Performed By: #### L 503.6550, L100.0100 #### [facility] [address] [place], [address] Lymphocytes/100 WBC (Bld) 10.1 % Low 19-41 [facility] Comment on above: Performed By: #### L 503.6550, L100.0100 #### [facility] [address] [place], [address] MCH (RBC) [Entitic mass] 28.8 pg Normal 27.0-32.0 [facility] Comment on above: Performed By: #### L 503.6550, L100.0100 #### [facility] [address] [place], [address] MCHC (RBC) [Mass/Vol] 30.5 g/dL Low 32-36 [facility] Comment on above: Performed By: #### L 503.6550, L100.0100 #### [facility] [address] [place], [address] MCV (RBC) [Entitic vol] 94.6 fL Normal 81-99 [facility] Comment on above: Performed By: #### L 503.6550, L100.0100 #### [facility] [address] [place], [address] Monocytes/100 WBC (Bld) 4.4 % Normal 0-10 [facility] Comment on above: Performed By: #### L 503.6550, L100.0100 #### [facility] [address] [place], [address] Neutrophils/100 WBC (Bld) 82.5 % High 47-70 [facility] Comment on above: Performed By: #### L 503.6550, L100.0100 #### [facility] [address] [place], [address] Nucleated RBC (Bld) [#/Vol] 0 10*3/uL Normal 0-5 [facility] Comment on above: Performed By: #### L 503.6550, L100.0100 #### [facility] [address] [place], [address] Platelet mean volume (Bld) [Entitic vol] 10.1 fL Normal 6.2-12.0 [facility] Comment on above: Performed By: #### L 503.6550, L100.0100 #### [facility] [address] [place], [address] Platelets (Bld) [#/Vol] 351 10*3/uL Normal 150-450 [facility] Comment on above: Performed By: #### L 503.6550, L100.0100 #### [facility] [address] [place], [address] RBC (Bld) [#/Vol] 5.34 10*6/uL Normal 4.2-5.4 [facility] Comment on above: Performed By: #### L 503.6550, L100.0100 #### [facility] [address] [place], [address] RDW SD 56.9 fl High 35.1-43.9 [facility] Comment on above: Performed By: #### L 503.6550, L100.0100 #### [facility] [address] [place], [address] WBC (Bld) [#/Vol] 12.4 10*3/uL High 4.4-11.0 [facility] Comment on above: Performed By: #### L 503.6550, L100.0100 #### [facility] [address] [place], [address] Ferritinon 05-05-2024 Ferritin [Mass/Vol] 8 ng/mL Normal 8-252 [facility] Comment on above: Performed By: #### L 503.6550, L100.0100 #### [facility] [address] [place], [address] Ferritin measurementOrdered By: Tristen Guevara on 05-05-2024 Ferritin [Mass/Vol] 8 ng/mL 8-252 [facility] Oncology Visit Reporton 04-10 Oncology Visit Report [facility] [address] 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 She presented in 2017 with vague nonspecific symptoms including fatigue, unexplained fevers, tinnitus, visual symptoms and had a heart attack in late 2016 when her hematocrit was noted to be elevated to 69%. She underwent hematology evaluation by Dr. Gross, and peripheral blood flow cytometry showed positive JAK2 V617F mutation. An ultrasound at that time apparently showed splenomegaly (this record is not available, however an ultrasound of March 2022 at [facility] shows stable mild splenomegaly of 13.7 cm. She was treated with phlebotomies and hydroxyurea since 2016. Initially the phlebotomies were done on a weekly basis, less often thereafter and by 2021 she is on phlebotomy every 2 months or so. Most of her symptoms improved although she continues to report some fatigue yet not as bad as when she was first diagnosed. She has not developed any infectious or bleeding complications during the course of her illness. Treatment summary : Phlebotomies 2017-ongoing Hydroxyurea 2017-ongoing [facility] Medical History GERD (gastroesophageal reflux disease) Cellulitis of left lower leg Polycythemia vera Animal-rider injured by fall from or being thrown from horse in noncollision accident, initial encounter History of fractured kneecap Thyroid disorder Heart attack Sleep apnea Pneumonia Acquired polycythemia vera Bronchitis Surgical History History of repair of ACL H/O heart artery stent History of knee replacement Family History Father Myocardial infarction CVA (cerebral vascular accident) Mother Cancer Sister Breast cancer Social History Smoking Status: Never smoker alcohol intake: never ROS Constitutional Constitutional: Denies anorexia, fever(s), night sweats or weight loss Eyes Eyes: Reports systems reviewed and no addt'l complaints, except as documented; Denies change in vision ENT HEENT: Reports systems reviewed and no addt'l complaints, except as documented; Denies bleeding gums, epistaxis, headache(s) or mouth lesions Cardiovascular Cardiovascular: Reports systems reviewed and no addt'l complaints, except as documented and edema; Denies chest pain with activity Respiratory/Chest Respiratory/Chest: Reports systems reviewed and no addt'l complaints, except as documented; Denies cough, dyspnea on exertion or hemoptysis Gastrointestinal Gastrointestinal: Reports systems reviewed and no addt'l complaints, except as documented and heartburn; Denies abdominal pain, change in bowel habits, hematochezia, melena or nausea Genitourinary Genitourinary: Reports systems reviewed and no addt'l complaints, except as documented; Denies dysuria or hematuria Musculoskeletal Musculoskeletal: Reports systems reviewed and no addt'l complaints, except as documented, extremity pain and other Details: Occasional extremities bone aches and pains ; Denies back pain Integumentary Integumentary: Reports systems reviewed and no addt'l complaints, except as documented and other Details: On topical 5-FU for fascial precancerous lesions ; Denies rash Neurologic Neurologic: Reports systems reviewed and no addt'l complaints, except as documented, paresthesias RLE and LLE and other Details: Paresthesias feet, chronic ; Denies focal weakness Psychiatric Psychiatric: Reports systems reviewed and no addt'l complaints, except as documented Endocrine Endocrinology: Reports systems reviewed and no addt'l complaints, except as documented Hematologic/Lymphatic Hematologic/Lymphatic : Reports systems reviewed and no addt'l complaints, except as documented; Denies easy bleeding, easy bruising or lymphadenopathy Allergic/Immunologic Allergic/Immunologic: Reports systems reviewed and no addt'l complaints, except as documented Intake Vital Signs 02/04/24 14:21 02/04/24 15:05 05/05/24 14:27 05/05/24 14:32 Height 5 ft 5 in 5 ft 5 in 5 ft 5 in 5 ft 5 in Weight: 80.853 kg BMI 29.6 BP 115/73 Blood Pressure Location Rt brachial Position Sitting Respiration 16 Pulse 63 P (more content not included)... Normal [facility] CBC + DIFFon 03-23-2024 ATY LYMP 0 % Normal [facility] Comment on above: Performed By: #### 2 15384 #### [facility],[address] [place] [address] 10411 BANDS 0 % Normal 0 - 5 [facility] Comment on above: Performed By: #### 2 21019 #### [facility],[address] [place] [address] 47042 Baso # 0.13 x10EE3/UL High 0.00 - 0.10 [facility] Comment on above: Performed By: #### 2 31208 #### [facility],[address] [place] [address]644 Basophils/100 WBC (Bld) 1.2 % Normal 0.0 - 2.0 [facility] Comment on above: Performed By: #### 2 18574 #### [facility],[address] [place] [address] 77727 Basophils/100 WBC (Bld) 0.0 % Normal 0.0 - 2.0 [facility] Comment on above: Performed By: #### 2 44349 #### [facility],[address] [place] [address] 22561 CBC + DIFF Normal [facility] Comment on above: Result Comment: CBC- COMPLETE BLOOD COUNT Performed By: #### 2 54594 #### [facility],[address] [place] [address] 61224 CELL COUNT 100 Normal [facility] Comment on above: Performed By: #### 2 94511 #### [facility],[address] [place] [address] 31926 EO 0.0 % Normal 0.0 - 7.0 [facility] Comment on above: Performed By: #### 2 93181 #### [facility],[address] [place] [address] 36598 EO # 0.23 x10EE3/UL Normal 0.00 - 0.50 [facility] Comment on above: Performed By: #### 2 53396 #### [facility],[address] [place] [address] 17596 Eosinophils/100 WBC (Bld) 2.1 % Normal 0.0 - 7.0 [facility] Comment on above: Performed By: #### 2 86818 #### [facility],[address] [place], [place] [phone] Erythrocyte distribution width (RBC) [Ratio] 15.8 % High 12.0 - 15.6 [facility] Comment on above: Performed By: #### 2 11878 #### [facility],[address] [place], [place] [phone] Hematocrit (Bld) [Volume fraction] 48.7 % High 34.0 - 46.0 [facility] Comment on above: Performed By: #### 2 36329 #### [facility],[address] [place] [address] Hemoglobin (Bld) [Mass/Vol] 15.2 g/dL Normal 12.0 - 16.0 [facility] Comment on above: Performed By: #### 2 58523 #### [facility],[address] [place] [address] Lymph # 1.24 x10EE3/UL Normal 0.80 - 2.80 [facility] Comment on above: Performed By: #### 2 00725 #### [facility],[address] [place] [address] 14110 Lymphocytes/100 WBC (Bld) 11.0 % Low 20.0 - 45.0 [facility] Comment on above: Performed By: #### 2 46538 #### [facility],[address] [place] [address] 39121 Lymphocytes/100 WBC (Bld) 13 % Low 20 - 45 [facility] Comment on above: Performed By: #### 2 87913 #### [facility],[address] [place] [address] 30277 MANUAL DIFF SEE BELOW Normal [facility] Comment on above: Performed By: #### 2 60414 #### [facility],[address] [place] [address] 71633 MCH (RBC) [Entitic mass] 29 pg Normal 27 - 33 [facility] Comment on above: Performed By: #### 2 83423 #### [facility],[address] [place] [address] MCHC 31 X10 3 Low 32 - 36 [facility] Comment on above: Performed By: #### 2 69543 #### [facility],[address] [place] [address] MCV (RBC) [Entitic vol] 93 fL Normal 80 - 99 [facility] Comment on above: Performed By: #### 2 46308 #### [facility],[address] [place] [address] META 0 % Normal 0 - 1 [facility] Comment on above: Performed By: #### 2 98784 #### [facility],[address] [place] [address] Metamyelocytes/100 WBC (Bld) 0 % Normal [facility] Comment on above: Performed By: #### 2 17608 #### [facility],[address] [place] [address] [place] # 0.43 x10EE3/UL Normal 0.20 - 1.00 [facility] Comment on above: Performed By: #### 2 39533 #### [facility],[address] [place] [address] MONOS 2 % Normal 0 - 10 [facility] Comment on above: Performed By: #### 2 77383 #### [facility],[address] [place] [address] MONOS % 3.8 % Normal 0.0 - 10.0 [facility] Comment on above: Performed By: #### 2 18957 #### [facility],[address] [place] [address] Morphology Jonathon (Bld) [Interp] N/A Normal [facility] Comment on above: Performed By: #### 2 33638 #### [facility],[address] [place] [address] Neut # 9.29 x10EE3/UL High 1.50 - 7.10 [facility] Comment on above: Performed By: #### 2 57529 #### [facility],[address] [place] [address] 71181 Neutrophils/100 WBC (Bld) 82.0 % High 46.0 - 76.0 [facility] Comment on above: Performed By: #### 2 46459 #### [facility],[address] [place] [address] 85437 NRBC 0 /100 Normal [facility] Comment on above: Performed By: #### 2 72499 #### [facility],[address] [place] [address] 53857 PLATELET 341 x10EE3/UL Normal 150 - 450 [facility] Comment on above: Performed By: #### 2 86031 #### [facility],[address] [place] [address] 67651 Platelet mean volume (Bld) [Entitic vol] 8.1 fL Normal 6.6 - 10.5 [facility] Comment on above: Result Comment: AUTO MATED DIFFERENTIAL Performed By: #### 2 55065 #### [facility],[address] [place] [address] 07950 RBC 5.22 x 10EE6/UL Normal 4.10 - 5.30 [facility] Comment on above: Performed By: #### 2 97965 #### [facility],[address] [place] [address] 11911 SEGS 85 % High 46 - 76 [facility] Comment on above: Performed By: #### 2 66144 #### [facility],[address] [place] [address] 59730 WBC 11.3 x 10EE3/UL High 4.5 - 10.8 [facility] Comment on above: Performed By: #### 2 38696 #### [facility],[address] [place], [place] [address] OTHER 0 Normal [facility] Comment on above: Performed By: #### 2 13560 #### [facility],[address] [place] [address] 02190 CHEST 2 VIEWSon 03-23-2024 CHEST [address] [address] Patient: PHONG JANG Phone#: : 1950 Age: 73 Gender: F Pt. Type: Out Account: [id number] Location: [facility] Ordering: ANTON DEJESUS Exam Date: 03/23/2024/11:42 Family Phys: DENNISE MEJIADAVID Charge Code: [id number] Physician: [place] Order #: [id number] Dose#: PROCEDURE: X-RAY CHEST 2 VIEWS COMPARISON: [facility], XR, CHEST 2 VIEWS, 09/25/2022, 15:27. INDICATIONS: Pre-op. FINDINGS: LUNGS: Opacification is present in the right cardiophrenic angle similar to previous exam. Areas of atelectasis versus prominent pericardial fat pad in the left lung base are present. There has been no significant change since previous exam. VASCULATURE: Normal. Unremarkable pulmonary vasculature. CARDIAC: Normal. No cardiac silhouette abnormality or cardiomegaly. MEDIASTINUM: Calcification of the aortic arch is present. PLEURA: Normal. No effusion or pleural thickening. BONES: Normal. No fracture or visible bony lesion. OTHER: Negative. CONCLUSION: 1. Stable opacification in the right cardiophrenic angle and left lower thorax consistent with prominent pericardial fat pad. There is no evidence of acute abnormality. Dictated by: Viktoria Mendez MD on 03/23/2024 at 12:55 Approved by: Viktoria Mendez MD on 03/23/2024 at 12:57 Normal [facility] CMP with eGFRon 03-23-2024 AGE 73 years Normal [facility] Comment on above: Performed By: #### 2 68237 #### [facility],[address] [place] [address] 62969 Albumin [Mass/Vol] 3.5 g/dL Normal 3.4 - 5.0 [facility] Comment on above: Performed By: #### 2 77086 #### [facility],[address] [place] [address] 69551 Albumin/Globulin [Mass ratio] 0.9 {ratio} Normal 0.9 - 1.6 [facility] Comment on above: Performed By: #### 2 87105 #### [facility],[address] [place] [address] 48261 ALK PHOS 101 U/L Normal 46 - 116 [facility] Comment on above: Performed By: #### 2 32205 #### [facility],[address] [place] [id number] ALT [Catalytic activity/Vol] 22 U/L Normal 16 - 63 [facility] Comment on above: Performed By: #### 2 31250 #### [facility],[address] [place], [place] [id number] Anion gap [Moles/Vol] 9 mmol/L Low 10 - 20 [facility] Comment on above: Performed By: #### 2 15691 #### [facility],[address] [place] [address] 59018 AST [Catalytic activity/Vol] 22 U/L Normal 13 - 39 [facility] Comment on above: Performed By: #### 2 18344 #### [facility],[address] [place] [address] 24318 B/C RATIO 28 ratio Normal 0 - 30 [facility] Comment on above: Performed By: #### 2 84436 #### [facility],[address] [place] [address] 81241 Bilirubin [Mass/Vol] 0.7 mg/dL Normal 0.2 - 1.0 [facility] Comment on above: Performed By: #### 2 91570 #### [facility],[address] [place] [address] 41497 Calcium [Mass/Vol] 8.8 mg/dL Normal 8.5 - 10.1 [facility] Comment on above: Performed By: #### 2 08408 #### [facility],[address] [place], [place] [phone] Chloride [Moles/Vol] 102 mmol/L Normal 98 - 107 [facility] Comment on above: Performed By: #### 2 07417 #### [facility],[address] [place], [place] [phone] CMP with eGFR Normal [facility] Comment on above: Result Comment: COMP REHENSIVE METABOLIC PANEL Performed By: #### 2 51887 #### [place] [address] CO2 [Moles/Vol] 30.5 mmol/L Normal 21.0 - 32.0 [facility] Comment on above: Performed By: #### 2 60822 #### [facility],[address] [place] [address] Creatinine [Mass/Vol] 0.88 mg/dL Normal 0.55 - 1.02 [facility] Comment on above: Performed By: #### 2 91722 #### [facility],[address] [place] [address] GFR/1.73 sq M.predicted among non-blacks MDRD (S/P/Bld) [Vol rate/Area] mL/min/{1.73_m2} Normal 60 - 999 [facility] Comment on above: Performed By: #### 2 76956 #### [facility],[address] [place] [address] Result Comment: ACCO RDING TO THE NATIONAL KIDNEY DISEASE EDUCATION PROGRAM(NKDE), A NORMAL eGFR IS A VALUE GREATER THAN OR EQUAL TO 60 ML/MIN/1.73 SQ METERS. CHRONIC KIDNEY DISEASE: <60mL/MIN/1.73 SQ METERS KIDNEY FAILURE: <15mL/MIN/1.73 SQ METERS THIS TEST SHOULD ONLY BE USED FOR PATIENTS 18 YEARS OF AGE AND OLDER. Globulin (S) [Mass/Vol] 4.1 g/dL High 1.5 - 3.8 J l [facility] Comment on above: Performed By: #### 2 01483 #### [facility],[address] [place] [address]28 Glucose [Mass/Vol] 129 mg/dL High 74 - 106 [facility] Comment on above: Performed By: #### 2 72099 #### [facility],[address] [place] [address]87 Potassium [Moles/Vol] 3.4 mmol/L Low 3.5 - 5.1 [facility] Comment on above: Performed By: #### 2 78199 #### [facility],[address] [place] [address] 19016 Protein [Mass/Vol] 7.6 g/dL Normal 6.4 - 8.2 [facility] Comment on above: Performed By: #### 2 57858 #### [facility],[address] [place] [address] 15544 Sodium [Moles/Vol] 138 mmol/L Normal 136 - 145 [facility] Comment on above: Performed By: #### 2 88054 #### [facility],[address] [place] [address] 10181 Urea nitrogen [Mass/Vol] 25 mg/dL High 7 - 18 [facility] Comment on above: Performed By: #### 2 11759 #### [facility],[address] [place] [address]40 CV ECHO COMPLETE 4 CV ECHO COMPLETE [place] [address] Patient: PHONG JANG Phone#: : 1950 Age: 73 Gender: F Pt. Type: Out Account: [id number]. Location: [facility] Ordering: MICHELLE MAYA Exam Date: 02/25/2024/14:08 Family Phys: Charge Code: [id number] Physician: [place] Order #: [id number] Dose#: PROCEDURE: ECHOCARDIOGRAM WITH DOPPLER AND COLOR FLOW HISTORY: Patient is a 73-year-old female with history of CAD INDICATIONS: VALERA COMPARISON: None. TECHNIQUE: A 2-D ultrasound, color spectral Doppler and M-mode evaluation of the heart and great vessels. PATIENT MEASUREMENTS: Height (in.): 65 BSA: 1.86 Weight (lbs.): 173 BP: 132/67 Show Dog Trainer: BEOT M MODE 2D MEASUREMENTS AND CALCULATIONS: LVIDd: 4.28 cm LVIDs: 3.00 cm IVSd: 1.07 cm LVPWd: 0.96 cm FS: 29.85 % Ao Root diam: 3.09 cm LA A4 Area: 17.55 cm2 RA A4 Area: RVDd: 3.21 cm TAPSE: 24 mm DOPPLER MEASUREMENTS AND CALCULATIONS MITRAL MV E MAX makenzie: 0.87 m/s MV A MAX makenzie: 1.01 m/s MV E-A ratio: 0.86 Lat Peak E' Makenzie 8 cm/sec Septal Peak E' MAKENZIE 8 cm/sec E/E' lateral 10.39 E/E' medial 11.29 AORTIC Ao V2 max: 1.29 m/s Continued Report - Page 2 of 3 Patient: PHONG JANG Phone#: : 1950 Age: 73 Gender: F Pt. Type: Out Account: [id number]. Location: [facility] Ordering: MICHELLE MAYA Exam Date: 02/25/2024/14:08 Family Phys: Charge Code: [id number] Physician: [place] Order #: [id number] Dose#: Ao max P.65 mm[Hg] LV V1 Max 0.97 m/s LV V1 Max PG 3.76 mm[Hg] PULMONIC PA V2 Max 0.80 m/s PA Max PG 2.55 mm[Hg] TRICUSPID TR Max Makenzie 2.48 m/s TR max PG 25 mm[Hg] RVSP 28 mm Hg 2D/M-MODE AND COLOR FLOW LEFT VENTRICLE: Left ventricle is normal in size and thickness. Systolic ejection fraction is 55-60%. There are no regional wall motion abnormality seen. Diastolic function is normal WALL MOTION: 1 - Basal anterior: Normal. [...] anterolateral: Normal. 12-Mid anterolateral: Normal. RIGHT VENTRICLE: Right ventricle is normal in size and systolic function LEFT ATRIUM: Left atrium is normal in size. RIGHT ATRIUM: Right atrium is normal in size. ATRIAL SEPTUM: There is no large interatrial shunt seen. PFO was not assessed. MITRAL VALVE: Mitral valve appears normal in structure. There is trivial regurgitation and no stenosis seen TRICUSPID VALVE: Tricuspid valve is normal structure. There is mild regurgitation and no stenosis seen. AORTIC VALVE: Aortic valve is trileaflet. There is no regurgitation or stenosis seen. PULMONIC VALVE: Pulmonic valve is inadequately visualized. Doppler shows no significant regurgitation or stenosis AORTIC ROOT: Aortic root is normal in size. AORTIC ARCH: Inadequately visualized DESC THORACIC AORTA: Inadequately visualized. Doppler shows normal systolic diastolic flow. IVC/SVC: IVC is normal size with more than 50% collapse of inspiration. Estimated atrial pressure is 3 mm Hg. PULMONARY VEINS: Normal pulmonic vein flow. PERICARDIUM: There is no pericardial effusion seen. CONCLUSION: 1. Left ventricle is normal in size and thickness. Systolic ejection fraction 55-60% with normal wall motion. 2. There are no significant valvular dysfunction seen. Continued Report - Page 3 of 3 Patient: PHONG JANG Phone#: : 1950 Age: 73 Gender: F Pt. Type: Out Account: [id number]. Location: [facility] Ordering: MICHELLE MAYA Exam Date: 02/25/2024/14:08 Family Phys: Charge Code: [id number] Physician: [place] Order #: [id number] Dose#: 3. Right ventricle is normal in size and systolic function. 4. Estimated right ventricular systolic pressure is 28 mm Hg. Dictated by: MICHELLE MAYA MD on 02/26/2024 at 10:12 Approved by: MICHELLE MAYA MD on 02/26/2024 at 10:26 Normal [facility] CBC W/Diff, Automatedon 08-2 Absolute Lymph 0.96 X10 3/uL Normal 0.83-4.51 [facility] Comment on above: Performed By: #### L 503.6550, L503.6030, L100.0100, L500.4050 #### [facility] [address] [place], [address] Absolute Neut 9.8 X10 3/uL High 2.0-7.7 [facility] Comment on above: Performed By: #### L 503.6550, L503.6030, L100.0100, L500.4050 #### [facility] [address] [place], [address] Basophils/100 WBC (Bld) 0.7 % Normal 0-1 [facility] Comment on above: Performed By: #### L 503.6550, L503.6030, L100.0100, L500.4050 #### [facility] [address] [place], [address] Eosinophils/100 WBC (Bld) 1.8 % Normal 0-5 [facility] Comment on above: Performed By: #### L 503.6550, L503.6030, L100.0100, L500.4050 #### [facility] [address] [place], [address] Erythrocyte distribution width (RBC) [Ratio] 17.4 % High 11.6-14.6 [facility] Comment on above: Performed By: #### L 503.6550, L503.6030, L100.0100, L500.4050 #### [facility] [address] [place], [address] Hematocrit (Bld) [Volume fraction] 49.8 % High 37-47 [facility] Comment on above: Performed By: #### L 503.6550, L503.6030, L100.0100, L500.4050 #### [facility] [address] [place], [address] Hemoglobin (Bld) [Mass/Vol] 15.3 g/dL High 12.0-15.0 [facility] Comment on above: Performed By: #### L 503.6550, L503.6030, L100.0100, L500.4050 #### [facility] [address] [place], [address] IG% 0.500 Normal 0.0-0.9 [facility] Comment on above: Result Comment: IG% - Immature Granulocytes (promyelocytes, myelocytes and metamyelocytes) > 1% indicates that a LEFT SHIFT is Present. Performed By: #### L 503.6550, L503.6030, L100.0100, L500.4050 #### [facility] [address] [place], [address] Lymphocytes/100 WBC (Bld) 8.3 % Low 19-41 [facility] Comment on above: Performed By: #### L 503.6550, L503.6030, L100.0100, L500.4050 #### [facility] [address] [place], [address] MCH (RBC) [Entitic mass] 29.0 pg Normal 27.0-32.0 [facility] Comment on above: Performed By: #### L 503.6550, L503.6030, L100.0100, L500.4050 #### [facility] [address] [place], [address] MCHC (RBC) [Mass/Vol] 30.7 g/dL Low 32-36 [facility] Comment on above: Performed By: #### L 503.6550, L503.6030, L100.0100, L500.4050 #### [facility] [address] [place], [address] MCV (RBC) [Entitic vol] 94.5 fL Normal 81-99 [facility] Comment on above: Performed By: #### L 503.6550, L503.6030, L100.0100, L500.4050 #### [facility] [address] [place], [address] Monocytes/100 WBC (Bld) 3.7 % Normal 0-10 [facility] Comment on above: Performed By: #### L 503.6550, L503.6030, L100.0100, L500.4050 #### [facility] [address] [place], [address] Neutrophils/100 WBC (Bld) 85.0 % High 47-70 [facility] Comment on above: Performed By: #### L 503.6550, L503.6030, L100.0100, L500.4050 #### [facility] [address] [place], [address] Nucleated RBC (Bld) [#/Vol] 0 10*3/uL Normal 0-5 [facility] Comment on above: Performed By: #### L 503.6550, L503.6030, L100.0100, L500.4050 #### [facility] [address] [place], [address] Platelet mean volume (Bld) [Entitic vol] 10.5 fL Normal 6.2-12.0 [facility] Comment on above: Performed By: #### L 503.6550, L503.6030, L100.0100, L500.4050 #### [facility] [address] [place], [address] Platelets (Bld) [#/Vol] 290 10*3/uL Normal 150-450 [facility] Comment on above: Performed By: #### L 503.6550, L503.6030, L100.0100, L500.4050 #### [facility] [address] [place], [address] RBC (Bld) [#/Vol] 5.27 10*6/uL Normal 4.2-5.4 [facility] Comment on above: Performed By: #### L 503.6550, L503.6030, L100.0100, L500.4050 #### [facility] [address] [place], [address] RDW SD 57.6 fl High 35.1-43.9 [facility] Comment on above: Performed By: #### L 503.6550, L503.6030, L100.0100, L500.4050 #### [facility] [address] [place], [address] WBC (Bld) [#/Vol] 11.6 10*3/uL High 4.4-11.0 [facility] Comment on above: Performed By: #### L 503.6550, L503.6030, L100.0100, L500.4050 #### [facility] [address] [place], [address] Ferritinon 02-04-2024 Ferritin [Mass/Vol] 8 ng/mL Normal 8-252 [facility] Comment on above: Performed By: #### L 503.6550, L503.6030, L100.0100, L500.4050 #### [facility] [address] [place], [address] Hemoglobin (Reticulocytes) [ Entitic mass]Ordered By: Tristen Guevara on 02-04-2024 Reticulocyte Hemoglobin Equivalent 30.3 pg 30-35 [facility] Immature reticulocyte fracti onOrdered By: Tristen Guevara on 02-04-2024 Immature Reticulocyte Fraction 24.50 % High 3.00-15.90 [facility] Oncology Visit Reporton 01-08 Oncology Visit Report [facility] [place] [facility] [address] [place] [address] OFFICE VISIT Date of Service: 02/04/24 1418 MR#: [id number] Acct: [id number] Name: PHONG JANG Rep #: [id number] : 1950 From: Tristen Guevara MD Age/Sex: 73/F [place] [facility] [place] Status: Signed HPI Subjective Date of Service 02/04/24 Chief Complaint Polycythemia vera on treatment History of Present Illness 73-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 She presented in 2017 with vague nonspecific symptoms including fatigue, unexplained fevers, tinnitus, visual symptoms and had a heart attack in late 2016 when her hematocrit was noted to be elevated to 69%. She underwent hematology evaluation by Dr. Gross, and peripheral blood flow cytometry showed positive JAK2 V617F mutation. An ultrasound at that time apparently showed splenomegaly (this record is not available, however an ultrasound of March 2022 at [facility] shows stable mild splenomegaly of 13.7 cm. She was treated with phlebotomies and hydroxyurea since 2016. Initially the phlebotomies were done on a weekly basis, less often thereafter and by 2021 she is on phlebotomy every 2 months or so. Most of her symptoms improved although she continues to report some fatigue yet not as bad as when she was first diagnosed. She has not developed any infectious or bleeding complications during the course of her illness. Treatment summary : Phlebotomies 2017-ongoing Hydroxyurea 2017-ongoing [facility] Medical History GERD (gastroesophageal reflux disease) Cellulitis of left lower leg Polycythemia vera Animal-rider injured by fall from or being thrown from horse in noncollision accident, initial encounter History of fractured kneecap Thyroid disorder Heart attack Sleep apnea Pneumonia Acquired polycythemia vera Bronchitis Surgical History History of repair of ACL H/O heart artery stent History of knee replacement Family History Father Myocardial infarction CVA (cerebral vascular accident) Mother Cancer Sister Breast cancer Social History Smoking Status: Never smoker alcohol intake: never ROS Constitutional Constitutional: Reports fatigue; Denies anorexia, fever(s), night sweats or weight loss Eyes Eyes: Reports systems reviewed and no addt'l complaints, except as documented; Denies change in vision ENT HEENT: Reports systems reviewed and no addt'l complaints, except as documented; Denies bleeding gums, epistaxis, headache(s) or mouth lesions Cardiovascular Cardiovascular: Reports systems reviewed and no addt'l complaints, except as documented and edema; Denies chest pain with activity Respiratory/Chest Respiratory/Chest: Reports systems reviewed and no addt'l complaints, except as documented; Denies cough, dyspnea on exertion or hemoptysis Gastrointestinal Gastrointestinal: Reports systems reviewed and no addt'l complaints, except as documented and heartburn; Denies abdominal pain, change in bowel habits, hematochezia, melena or nausea Genitourinary Genitourinary: Reports systems reviewed and no addt'l complaints, except as documented; Denies dysuria or hematuria Musculoskeletal Musculoskeletal: Reports systems reviewed and no addt'l complaints, except as documented, extremity pain and other Details: Occasional extremities bone aches and pains ; Denies back pain Integumentary Integumentary: Reports systems reviewed and no addt'l complaints, except as documented and other Details: On topical 5-FU for fascial precancerous lesions ; Denies rash Neurologic Neurologic: Reports systems reviewed and no addt'l complaints, except as documented, paresthesias RLE and LLE and other Details: Paresthesias feet, chronic ; Denies focal weakness Psychiatric Psychiatric: Reports systems reviewed and no addt'l complaints, except as documented Endocrine Endocrinology: Reports systems reviewed and no addt'l complaints, except as documented Hematologic/Lymphatic Hematologic/Lymphatic : Reports systems reviewed and no addt'l complaints, except as documented; Denies easy bleeding, easy bruising or lymphadenopathy Allergic/Immunologic Allergic/Immunologic: Reports systems reviewed and no addt'l complaints, except as documented Intake Vital Signs 10/14/23 14:20 02/04/24 14:19 02/04/24 14:21 Height 5 ft 5 in 5 ft 5 in 5 ft 5 in Weight: 83.007 kg 80.796 kg BMI 30.4 29.6 BP 145/77 H 126/82 H Blood Pressure Location Rt brachial Lt brachial Position Sitting Sitting (more content not included)... Normal [facility] Retic Panelon 02-04-2024 IM RET FRACTION 24.50 High 3.00-15.90 [facility] Comment on above: Performed By: #### L 503.6550, L503.6030, L100.0100, L500.4050 #### [facility] [address] [place], [address] RET-HE 30.3 pg Normal - [facility] Comment on above: Performed By: #### L 503.6550, L503.6030, L100.0100, L500.4050 #### [facility] [address] [place], [address] Retic Count 1.66 High 0.5-1.5 [facility] Comment on above: Performed By: #### L 503.6550, L503.6030, L100.0100, L500.4050 #### [facility] [address] [place], [address] Reticulocyte hemoglobin equi valent (RET-He) measurementOrdered By: Tristen Guevara on 02-04-2024 Hemoglobin (Reticulocytes) [Entitic mass] 30.3 pg -35 [facility] Reticulocytes Auto (Bld) [#/ Vol]Ordered By: Tristen Guevara on 02-04-2024 Reticulocyte Count 1.66 % High 0.5-1.5 [facility] Reticulocytes/100 RBC (Bld) 1.66 % High 0.5-1.5 [facility] Iron (Unsp spec) [Mass/Mass] Ordered By: Tristen Guevara on 09-04-2023 Iron [Mass/Vol] 53 ug/dL 50-170 [facility] Iron saturation [Mass fracti on]Ordered By: Tristen Guevara on 09-04-2023 Iron Saturation 15.0 % 15.0-55.0 [facility] TIBCOrdered By: Tristen vergara on 09-04-2023 Total Iron Binding Capacity 353 ug/dL 250-450 [facility] Cholesterol in HDL (Body fld ) [Mass/Vol]Ordered By: Krystina Steel on 06-25-2023 Cholesterol in HDL [Mass/Vol] 58 mg/dL >40 [facility] Comment on above: The drugs N-Acetylcy steine and Metamizole may falsely depress this assay. Reference Range HDL <40 mg/dL Low HDL Cholesterol HDL >or= 60 mg/dL High HDL Cholesterol Cholesterol in LDL (Body fld ) [Moles/Vol]Ordered By: Krystina Steel on 06-25-2023 Cholesterol in LDL [Mass/Vol] 54 mg/dL 0-130 [facility] Cholesterol in VLDL Calc [Mo les/Vol]Ordered By: Krystina Steel on 06-25-2023 VLDL Cholesterol 27 mg/dL 5-40 [facility] - Chemistry and C hemistry - challengeOrdered By: Krystina Steel on 06-25-2023 Cholesterol in HDL (Body fld) [Mass/Vol] 58 mg/dL >40 [facility] Comment on above: The drugs N-Acetylcy steine and Metamizole may falsely depress this assay. Reference Range HDL <40 mg/dL Low HDL Cholesterol HDL >or= 60 mg/dL High HDL Cholesterol Cholesterol in LDL (Body fld) [Moles/Vol] 54 mg/dL 0-130 [facility] Cholesterol in VLDL Calc [Moles/Vol] 27 mg/dL 5-40 [facility] No Panel InformationOrdered By: Krystina Steel on 06-25-2023 Estimated GFR (MDRD) Amer 85 mL/min >60 [facility] Comment on above: GFR Calc Trichomonas screening testOr dered By: Krystina Steel on 06-25-2023 Chloride [Moles/Vol] 109 mmol/L High 98-[address] [facility] Cholesterol [Mass/Vol] 139 mg/dL <200 [facility] Comment on above: <200 mg/dL Desirable 200-240 mg/dL Borderline >240 mg/dL High Risk Triglyceride [Mass/Vol] 135 mg/dL <199 [facility] Comment on above: The drugs N-Acetylcy steine and Metamizole may falsely depress this assay.Serum Triglycerides Reference Interval Normal <150 mg/dL Borderline high 150 - 199 mg/dL High 200 - 499 mg/dL Very High > or = 500 mg/dL B. burgdorferi IgG+IgM IB Ql (S)on 05-10-2022 B. burgdorferi Ab band pattern IB (S) [Interp] No evidence of antibodies to Borrelia burgdorferi. Normal [facility] Comment on above: Order Comment: Dax collins Type: BLOOD SPECIMEN Ordering Facility: [facility] Address: [address] [place] [address] Performed By: #### 1 8203-0 #### [facility] CLIA [id number] [address] [place] [address] [place] B. burgdorferi IgG IB Ql (S) Negative Normal Negative [facility] Comment on above: Order Comment: Dax collins Type: BLOOD SPECIMEN Ordering Facility: [facility] Address: [address] [place] [address] Result Comment: CDC criteria for a positive Western blot are the presence of >=5 bands for IgG. Performed By: #### 1 8203-0 #### [facility] CLIA [id number] [address] [place] [address] [place] B. burgdorferi IgM band pattern IB (S) [Interp] No Bands Seen Normal [facility] Comment on above: Order Comment: Dax collins Type: BLOOD SPECIMEN Ordering Facility: [facility] Address: [address] [place] [address] Result Comment: p-30 Performed By: #### 1 8203-0 #### [facility] CLIA [id number] [address] [place] [address] [place] B. burgdorferi IgM IB Ql (S) Negative Normal Negative [facility] Comment on above: Order Comment: Speci men Type: BLOOD SPECIMEN Ordering Facility: [facility] Address: [address] [place] [address] Result Comment: CDC criteria for a positive Western Blot are the presence of >=2 bands for IgM. Performed By: #### 1 8203-0 #### [facility] CLIA [id number] [address] [place] [address] [place] Comprehensive metabolic 2000 panelon 11-09-2021 Albumin [Mass/Vol] 4.3 g/dL Normal 3.9-4.9 [facility] Comment on above: Order Comment: Speci men Type: BLOOD SPECIMEN Ordering Facility: [facility] Address: [address] [place] [address] Performed By: #### 2 4323-8 #### [facility] CLIA [id number] [address] [place] [address] [place] ALP [Catalytic activity/Vol] 113 U/L Normal 34-123 [facility] Comment on above: Order Comment: Speci men Type: BLOOD SPECIMEN Ordering Facility: [facility] Address: [address] [place] [address] Performed By: #### 2 4323-8 #### [facility] CLIA [id number] [facility] [place] [address] [place] ALT [Catalytic activity/Vol] 13 U/L Normal 7-38 [facility] Comment on above: Order Comment: Speci men Type: BLOOD SPECIMEN Ordering Facility: [facility] Address: [address] [place] [address] Performed By: #### 2 4323-8 #### [facility] CLIA [id number] [address] [place] [address] [place] Anion gap [Moles/Vol] 15 mmol/L Normal 9-18 [place] Comment on above: Order Comment: Speci men Type: BLOOD SPECIMEN Ordering Facility: [facility] Address: [address] [place] [address] Performed By: #### 2 4323-8 #### [facility] CLIA [id number] [address] [place] [address] [place] AST [Catalytic activity/Vol] 27 U/L Normal 13-35 [facility] Comment on above: Order Comment: Speci men Type: BLOOD SPECIMEN Ordering Facility: [facility] Address: [address] [place] [address] Performed By: #### 2 4323-8 #### [facility] CLIA [id number] [address] [place] [address] [place] Bilirubin [Mass/Vol] 0.8 mg/dL Normal 0.2-1.3 [facility] Comment on above: Order Comment: Speci men Type: BLOOD SPECIMEN Ordering Facility: [facility] Address: [address] [place] [address] Performed By: #### 2 4323-8 #### [facility] CLIA [id number] [address] [place] [address] [place] Calcium [Mass/Vol] 9.7 mg/dL Normal 8.5-10.2 [facility] Comment on above: Order Comment: Speci men Type: BLOOD SPECIMEN Ordering Facility: [facility] Address: [address] [place] [address] Performed By: #### 2 4323-8 #### [facility] CLIA [id number] [address] [place] [address] [place] Chloride [Moles/Vol] 102 mmol/L Normal 97-105 [facility] Comment on above: Order Comment: Speci men Type: BLOOD SPECIMEN Ordering Facility: [facility] Address: [address] [place] [address] Performed By: #### 2 4323-8 #### [facility] CLIA [id number] [address] [place] [address] [place] CO2 [Moles/Vol] 22 mmol/L Normal 22-30 [facility] Comment on above: Order Comment: Speci men Type: BLOOD SPECIMEN Ordering Facility: [facility] Address: [address] [place] [address] Performed By: #### 2 4323-8 #### [facility] CLIA [id number] [facility] [place] [address] [place] Creatinine [Mass/Vol] 0.77 mg/dL Normal 0.58-0.96 [place] Comment on above: Order Comment: Speci men Type: BLOOD SPECIMEN Ordering Facility: [facility] Address: [address] [place] [address] Performed By: #### 2 4323-8 #### [facility] CLIA [id number] [address] [place] [address] [place] ESTIMATED GLOMERULAR FILTRATION RATE 83 mL/min/1.73m??? Normal >=60 [facility] Comment on above: Order Comment: Speci men Type: BLOOD SPECIMEN Ordering Facility: [facility] Address: [address] [place] [address] Result Comment: Bea mated Glomerular Filtration Rate (eGFR) is calculated using the 2020 CKD-EPI creatinine equation. This equation utilizes serum creatinine, sex, and age as parameters. The creatinine assay has traceable calibration to isotope dilution-mass spectrometry. Refer to KDIGO guidelines for clinical interpretation. In patients with unstable renal function, e.g. those with acute kidney injury, the eGFR may not accurately reflect actual GFR. Performed By: #### 2 4323-8 #### [facility] CLIA [id number] [address] [place] [address] [place] Glucose [Mass/Vol] 74 mg/dL Normal 74-99 [facility] Comment on above: Order Comment: Speci men Type: BLOOD SPECIMEN Ordering Facility: [facility] Address: [address] [place] [address] Result Comment: The [place] [employer] (ADA) provides guidance for cutoff values for fasting glucose and random glucose. The ADA defines fasting as no caloric intake for at least 8 hours. Fasting plasma glucose results between 100 to 125 mg/dL indicate increased risk for diabetes (prediabetes). Fasting plasma glucose results greater than or equal to 126 mg/dL meet the criteria for diagnosis of diabetes. In the absence of unequivocal hyperglycemia, results should be confirmed by repeat testing. In a patient with classic symptoms of hyperglycemia or hyperglycemic crisis, random plasma glucose results greater than or equal to 200 mg/dL meet the criteria for diagnosis of diabetes. Reference: Standards of Medical Care in Diabetes 2016, [place] [employer]. Diabetes Care. 2016.39(Suppl 1). Performed By: #### 2 4323-8 #### [facility] CLIA [id number] [address] [place] [address] [place] Potassium [Moles/Vol] 4.7 mmol/L Normal 3.7-5.1 [place] Comment on above: Order Comment: Speci men Type: BLOOD SPECIMEN Ordering Facility: [facility] Address: [address] [place] [address] Performed By: #### 2 4323-8 #### [facility] CLIA [id number] [address] [place] [address] [place] Protein [Mass/Vol] 7.5 g/dL Normal 6.3-8.0 [facility] Comment on above: Order Comment: Speci men Type: BLOOD SPECIMEN Ordering Facility: [facility] Address: [address] [place] [address] Performed By: #### 2 4323-8 #### [facility] CLIA [id number] [address] [place] [address] [place] Sodium [Moles/Vol] 139 mmol/L Normal 136-144 [facility] Comment on above: Order Comment: Speci men Type: BLOOD SPECIMEN Ordering Facility: [facility] Address: [address] [place] [address] Performed By: #### 2 4323-8 #### [facility] CLIA [id number] [address] [place] [address] [place] Urea nitrogen [Mass/Vol] 21 mg/dL Normal 7-21 [facility] Comment on above: Order Comment: Speci men Type: BLOOD SPECIMEN Ordering Facility: [facility] Address: [address] [place] [address] Performed By: #### 2 4323-8 #### [facility] CLIA [id number] [facility] [place] [address] [place] Absolute lymphocyte counton 09-11-2021 Lymphocytes Auto (Unsp spec) [#/Vol] 1.65 10*3/uL 0.83-4.51 [facility] Work Phone: [phone] Basophil percentageon 2021 Basophils/100 WBC (Bld) 0.6 % 0-1 [facility] Work Phone: [phone] Eosinophils/100 WBC (Bld) 2.5 % 0-5 [facility] Work Phone: Neutrophils (Bld) [#/Vol] 12.3 10*3/uL 2.0-7.7 [facility] Work Phone: [phone] Neutrophils/100 WBC (Bld) 81.3 % 47-70 [facility] Work Phone: WBC (Bld) [#/Vol] 15.2 10*3/uL 4.4-11.0 [facility] Work Phone: [phone] Blood erythrocytes count (nu mber/volume)on 09-11-2021 RBC (Bld) [#/Vol] 5.68 10*6/uL 4.2-5.4 [facility] Work Phone: [phone] Blood hemoglobin measurement (mass/volume)on 09-11-2021 Hemoglobin (Bld) [Mass/Vol] 12.8 g/dL 12.0-15.0 [facility] Work Phone: [phone] Blood lymphocytes/100 leukoc yteson 09-11-2021 Lymphocytes/100 WBC (Bld) 10.9 % 19-41 [facility] Work Phone: Blood monocytes/100 leukocyt eson 09-11-2021 Monocytes/100 WBC (Bld) 4.0 % 0-10 [facility] Work Phone: Blood platelet mean volumeon 09-11-2021 Platelet mean volume (Bld) [Entitic vol] 9.8 fL 6.2-12.0 [facility] Work Phone: Determination of erythrocyte mean corpuscular volume (MCV)on 09-11-2021 MCV (RBC) [Entitic vol] 79.0 fL 81-99 [facility] Work Phone: Hematocrit Auto (Bld) [Volum e fraction]on 09-11-2021 Hematocrit (Bld) [Volume fraction] 44.9 % 37-47 [facility] Work Phone: Laboratory - Hematology and Cell countson 09-11-2021 Anisocytosis Ql (Bld) 1+ [facility] Erythrocyte distribution width (RBC) [Entitic vol] 58.7 fL 35.1-43.9 [facility] Work Phone: Erythrocyte distribution width (RBC) [Ratio] 21.3 % 11.6-14.6 [facility] Work Phone: Immature granulocytes/100 WBC (Bld) 0.700 % 0.0-0.9 [facility] Work Phone: Comment on above: IG% - Immature Granu locytes (promyelocytes, myelocytes and metamyelocytes) > 1% indicates that a LEFT SHIFT is Present. MCH (RBC) [Entitic mass] 22.5 pg 27.0-32.0 [facility] Work Phone: Nucleated RBC/100 WBC (Bld) [Ratio] 0 % 0-5 [facility] Work Phone: MCHC Auto (RBC) [Mass/Vol]on 09-11-2021 MCHC (RBC) [Mass/Vol] 28.5 g/dL 32-36 [facility] Work Phone: Platelets bldon 09-11-2021 Platelets (Bld) [#/Vol] 429 10*3/uL 150-450 [facility] Work Phone: Basophil percentageon 2021 Bilirubin [Mass/Vol] 0.40 mg/dL 0.20-1.00 [facility] Work Phone: Comment on above: For patients on eltr ombopag therapy, use of Dim[place] TBIL is not recommended. Chloride [Moles/Vol] 107 mmol/L 98-107 [facility] Work Phone: Glucose [Mass/Vol] 113 mg/dL 74-106 [facility] Work Phone: Comment on above: Fasting Glucose resu lt from 100 to 125 mg/dL suggests IMPAIRED HOMEOSTASIS per A.D.A. criteria. Potassium [Moles/Vol] 3.8 mmol/L 3.5-5.1 [facility] Work Phone: Protein [Mass/Vol] 7.2 g/dL 6.4-8.2 [facility] Work Phone: Sodium [Moles/Vol] 141 mmol/L 136-145 [facility] Work Phone: Folate [Mass/Vol]on 08-06-19 22 Folate 19.70 ng/mL 3.1-55.4 [facility] [employer] mix RAST testo n 08-06-2021 LDH [Catalytic activity/Vol] 223 U/L 84-246 [facility] Iron measurement (mass/mass) on 08-06-2021 Iron (Unsp spec) [Mass/Mass] 19 ug/dL 50-170 [facility] Work Phone: Laboratory - Chemistry and C hemistry - challengeon 08-06-2021 ALP [Catalytic activity/Vol] 112 U/L 45-117 [facility] Work Phone: ALT [Catalytic activity/Vol] 27 U/L 13-56 [facility] Work Phone: CO2 [Moles/Vol] 28.0 mmol/L 21.0-32.0 [facility] Work Phone: Cobalamin (Vitamin B12) [Mass/Vol] 625 pg/mL 211-911 [facility] Globulin (S) [Mass/Vol] 3.8 g/dL 2.2-4.2 [facility] Work Phone: Urea nitrogen/Creatinine [Mass ratio] 30.3 mg/mg 10-20 [facility] Work Phone: No Panel Informationon 08-06 Estimated GFR (MDRD) Amer 84 mL/min >60 [facility] Work Phone: Comment on above: GFR Calc Estimated GFR (MDRD) Non-Af Amer 70 mL/min >60 [facility] Work Phone: Comment on above: Non- GFR Calc Thyroid Stimulating Hormone (TSH) 3.27 uIU/mL 0.358-3.74 [facility] Total Iron Binding Capacity 351 ug/dL 250-450 [facility] Work Phone: Serum or plasma albumin bry urement (mass/volume)on 08-06-2021 Albumin [Mass/Vol] 3.4 g/dL 3.2-5.0 [facility] Work Phone: Serum or plasma albumin/glob ulin mass ratioon 08-06-2021 Albumin/Globulin [Mass ratio] 0.9 {ratio} 0.9-2.4 [facility] Work Phone: Serum or plasma calcium bry urement (mass/volume)on 08-06-2021 Calcium [Mass/Vol] 8.8 mg/dL 8.5-10.1 [facility] Work Phone: Serum or plasma creatinine m easurement (mass/volume)on 08-06-2021 Creatinine [Mass/Vol] 0.86 mg/dL 0.55-1.02 [facility] Work Phone: Comment on above: The validity of the calculated GFR & GFRAA in patients over 70 years has not been determined. Clinical correlation is essential. Serum or plasma ferritin sharon surement (mass/volume)on 08-06-2021 Ferritin [Mass/Vol] 5 ng/mL 8-252 [facility] Work Phone: Serum or plasma folate measu rement (mass/volume)on 08-06-2021 Folate [Mass/Vol] 19.70 ng/mL 3.1-55.4 [facility] Serum or plasma iron saturat ion measurement (mass fraction)on 08-06-2021 Iron saturation [Mass fraction] 5.4 % 15.0-55.0 [facility] Work Phone: Serum or plasma urea nitroge n measurement (mass/volume)on 08-06-2021 Urea nitrogen [Mass/Vol] 26 mg/dL 7-18 [facility] Work Phone: Serum or plasma uric acid me asurement (mass/volume)on 08-06-2021 Urate [Mass/Vol] 4.7 mg/dL 2.6-6.0 [facility] Comment on above: The drugs N-Acetylcy steine and Metamizole may falsely depress this assay. Thin prep Papanicolaou smear with manual screeningon 08-06-2021 Thin prep Papanicolaou smear with manual screening 20 U/L 15-37 [facility] Work Phone: Thin prep Papanicolaou smear with manual screening 6 5-15 [facility] Work Phone: Thin prep Papanicolaou smear with manual screening 223 U/L 84-246 [facility] Work Phone: Absolute lymphocyte counton 07-16-2021 Lymphocytes Auto (Unsp spec) [#/Vol] 1.38 10*3/uL 0.83-4.51 [facility] Work Phone: Basophil percentageon 2021 Basophils/100 WBC (Bld) 0.5 % 0-1 [facility] Work Phone: Bilirubin [Mass/Vol] 0.50 mg/dL 0.20-1.00 [facility] Work Phone: Comment on above: For patients on eltr ombopag therapy, use of [place] TBIL is not recommended. Chloride [Moles/Vol] 107 mmol/L 98-107 [facility] Work Phone: Eosinophils/100 WBC (Bld) 1.6 % 0-5 [facility] Work Phone: Glucose [Mass/Vol] 105 mg/dL 74-106 [facility] Work Phone: Comment on above: Fasting Glucose resu lt from 100 to 125 mg/dL suggests IMPAIRED HOMEOSTASIS per A.D.A. criteria. Neutrophils (Bld) [#/Vol] 14.0 10*3/uL 2.0-7.7 [facility] Work Phone: Neutrophils/100 WBC (Bld) 84.7 % 47-70 [facility] Work Phone: Potassium [Moles/Vol] 4.0 mmol/L 3.5-5.1 [facility] Work Phone: Protein [Mass/Vol] 6.9 g/dL 6.4-8.2 [facility] Work Phone: Sodium [Moles/Vol] 140 mmol/L 136-145 [facility] Work Phone: WBC (Bld) [#/Vol] 16.5 10*3/uL 4.4-11.0 [facility] Work Phone: Blood erythrocytes count (nu mber/volume)on 07-16-2021 RBC (Bld) [#/Vol] 5.88 10*6/uL 4.2-5.4 [facility] Work Phone: Blood hemoglobin measurement (mass/volume)on 07-16-2021 Hemoglobin (Bld) [Mass/Vol] 12.5 g/dL 12.0-15.0 [facility] Work Phone: Blood lymphocytes/100 leukoc yteson 07-16-2021 Lymphocytes/100 WBC (Bld) 8.4 % 19-41 [facility] Work Phone: Blood monocytes/100 leukocyt eson 07-16-2021 Monocytes/100 WBC (Bld) 4.2 % 0-10 [facility] Work Phone: Blood platelet adequacy dete ction by light microscopyon 07-16-2021 Platelets LM Ql (Bld) SLT INC ADEQ [facility] Work Phone: Blood platelet mean volumeon 07-16-2021 Platelet mean volume (Bld) [Entitic vol] 10.1 fL 6.2-12.0 [facility] Work Phone: Blood polychromasia detectio n by light microscopyon 07-16-2021 Polychromasia LM Ql (Bld) RARE [facility] Work Phone: Determination of erythrocyte mean corpuscular volume (MCV)on 07-16-2021 MCV (RBC) [Entitic vol] 76.4 fL 81-99 [facility] Work Phone: Hematocrit Auto (Bld) [Volum e fraction]on 07-16-2021 Hematocrit (Bld) [Volume fraction] 44.9 % 37-47 [facility] Work Phone: Laboratory - Chemistry and C hemistry - challengeon 07-16-2021 ALP [Catalytic activity/Vol] 109 U/L 45-117 [facility] Work Phone: ALT [Catalytic activity/Vol] 21 U/L 13-56 [facility] Work Phone: CO2 [Moles/Vol] 29.0 mmol/L 21.0-32.0 [facility] Work Phone: Globulin (S) [Mass/Vol] 3.5 g/dL 2.2-4.2 [facility] Work Phone: Urea nitrogen/Creatinine [Mass ratio] 24.6 mg/mg 10-20 [facility] Work Phone: Laboratory - Hematology and Cell countson 07-16-2021 Anisocytosis Ql (Bld) 1+ [facility] Work Phone: Erythrocyte distribution width (RBC) [Entitic vol] 55.6 fL 35.1-43.9 [facility] Work Phone: Erythrocyte distribution width (RBC) [Ratio] 21.0 % 11.6-14.6 [facility] Work Phone: Immature granulocytes/100 WBC (Bld) 0.600 % 0.0-0.9 [facility] Work Phone: Comment on above: IG% - Immature Granu locytes (promyelocytes, myelocytes and metamyelocytes) > 1% indicates that a LEFT SHIFT is Present. MCH (RBC) [Entitic mass] 21.3 pg 27.0-32.0 [facility] Work Phone: Nucleated RBC/100 WBC (Bld) [Ratio] 0 % 0-5 [facility] Work Phone: MCHC Auto (RBC) [Mass/Vol]on 07-16-2021 MCHC (RBC) [Mass/Vol] 27.8 g/dL 32-36 [facility] Work Phone: No Panel Informationon 07-16 Estimated GFR (MDRD) Amer 84 mL/min >60 [facility] Work Phone: Comment on above: GFR Calc Estimated GFR (MDRD) Non-Af Amer 70 mL/min >60 [facility] Work Phone: Comment on above: Non- GFR Calc Platelets bldon 07-16-2021 Platelets (Bld) [#/Vol] 451 10*3/uL 150-450 [facility] Work Phone: Serum or plasma albumin bry urement (mass/volume)on 07-16-2021 Albumin [Mass/Vol] 3.4 g/dL 3.2-5.0 [facility] Work Phone: Serum or plasma albumin/glob ulin mass ratioon 07-16-2021 Albumin/Globulin [Mass ratio] 1.0 {ratio} 0.9-2.4 [facility] Work Phone: Serum or plasma calcium bry urement (mass/volume)on 07-16-2021 Calcium [Mass/Vol] 8.6 mg/dL 8.5-10.1 [facility] Work Phone: Serum or plasma creatinine m easurement (mass/volume)on 07-16-2021 Creatinine [Mass/Vol] 0.86 mg/dL 0.55-1.02 [facility] Work Phone: Comment on above: The validity of the calculated GFR & GFRAA in patients over 70 years has not been determined. Clinical correlation is essential. Serum or plasma urea nitroge n measurement (mass/volume)on 07-16-2021 Urea nitrogen [Mass/Vol] 21 mg/dL 7-18 [facility] Work Phone: Thin prep Papanicolaou smear with manual screeningon 07-16-2021 Thin prep Papanicolaou smear with manual screening 2+ [facility] Work Phone: Thin prep Papanicolaou smear with manual screening 21 U/L 15-37 [facility] Work Phone: Thin prep Papanicolaou smear with manual screening 4 5-15 [facility] Work Phone: Thin prep Papanicolaou smear with manual screening 242 U/L 84-246 [facility] Work Phone: Absolute lymphocyte counton 06-11-2021 Lymphocytes Auto (Unsp spec) [#/Vol] 1.14 10*3/uL 0.83-4.51 [facility] Work Phone: Basophil percentageon 2021 Basophils/100 WBC (Bld) 0.6 % 0-1 [facility] Work Phone: Bilirubin [Mass/Vol] 0.70 mg/dL 0.20-1.00 [facility] Work Phone: Comment on above: For patients on eltr ombopag therapy, use of [place] TBIL is not recommended. Chloride [Moles/Vol] 103 mmol/L 98-107 [facility] Work Phone: Eosinophils/100 WBC (Bld) 1.4 % 0-5 [facility] Work Phone: Glucose [Mass/Vol] 89 mg/dL 74-106 [facility] Work Phone: Comment on above: Please note revised GLUCOSE reference range effective 2017. Neutrophils (Bld) [#/Vol] 18.3 10*3/uL 2.0-7.7 [facility] Work Phone: Neutrophils/100 WBC (Bld) 87.9 % 47-70 [facility] Work Phone: Potassium [Moles/Vol] 3.7 mmol/L 3.5-5.1 [facility] Work Phone: Protein [Mass/Vol] 7.6 g/dL 6.4-8.2 [facility] Work Phone: Sodium [Moles/Vol] 138 mmol/L 136-145 [facility] Work Phone: WBC (Bld) [#/Vol] 20.8 10*3/uL 4.4-11.0 [facility] Work Phone: Blood erythrocytes count (nu mber/volume)on 06-11-2021 RBC (Bld) [#/Vol] 6.21 10*6/uL 4.2-5.4 [facility] Work Phone: Blood hemoglobin measurement (mass/volume)on 06-11-2021 Hemoglobin (Bld) [Mass/Vol] 12.8 g/dL 12.0-15.0 [facility] Work Phone: Blood lymphocytes/100 leukoc yteson 06-11-2021 Lymphocytes/100 WBC (Bld) 5.5 % 19-41 [facility] Work Phone: Blood monocytes/100 leukocyt eson 06-11-2021 Monocytes/100 WBC (Bld) 3.9 % 0-10 [facility] Work Phone: Blood platelet mean volumeon 06-11-2021 Platelet mean volume (Bld) [Entitic vol] 10.1 fL 6.2-12.0 [facility] Work Phone: Determination of erythrocyte mean corpuscular volume (MCV)on 06-11-2021 MCV (RBC) [Entitic vol] 74.4 fL 81-99 [facility] Work Phone: Hematocrit Auto (Bld) [Volum e fraction]on 06-11-2021 Hematocrit (Bld) [Volume fraction] 46.2 % 37-47 [facility] Work Phone: Laboratory - Chemistry and C hemistry - challengeon 06-11-2021 ALP [Catalytic activity/Vol] 140 U/L 45-117 [facility] Work Phone: ALT [Catalytic activity/Vol] 25 U/L 13-56 [facility] Work Phone: CO2 [Moles/Vol] 26.0 mmol/L 21.0-32.0 [facility] Work Phone: Globulin (S) [Mass/Vol] 4.0 g/dL 2.2-4.2 [facility] Work Phone: Urea nitrogen/Creatinine [Mass ratio] 28.8 mg/mg 10-20 [facility] Work Phone: Laboratory - Hematology and Cell countson 06-11-2021 Anisocytosis Ql (Bld) 1+ [facility] Work Phone: Erythrocyte distribution width (RBC) [Entitic vol] 51.4 fL 35.1-43.9 [facility] Work Phone: Erythrocyte distribution width (RBC) [Ratio] 20.7 % 11.6-14.6 [facility] Work Phone: Immature granulocytes/100 WBC (Bld) 0.700 % 0.0-0.9 [facility] Work Phone: Comment on above: IG% - Immature Granu locytes (promyelocytes, myelocytes and metamyelocytes) > 1% indicates that a LEFT SHIFT is Present. MCH (RBC) [Entitic mass] 20.6 pg 27.0-32.0 [facility] Work Phone: Nucleated RBC/100 WBC (Bld) [Ratio] 0 % 0-5 [facility] Work Phone: MCHC Auto (RBC) [Mass/Vol]on 06-11-2021 MCHC (RBC) [Mass/Vol] 27.7 g/dL 32-36 [facility] Work Phone: No Panel Informationon 06-11 Estimated GFR (MDRD) Amer 96 mL/min >60 [facility] Work Phone: Comment on above: GFR Calc Estimated GFR (MDRD) Non-Af Amer 80 mL/min >60 [facility] Work Phone: Comment on above: Non- GFR Calc Platelets bldon 06-11-2021 Platelets (Bld) [#/Vol] 413 10*3/uL 150-450 [facility] Work Phone: Serum or plasma albumin bry urement (mass/volume)on 06-11-2021 Albumin [Mass/Vol] 3.6 g/dL 3.2-5.0 [facility] Work Phone: Serum or plasma albumin/glob ulin mass ratioon 06-11-2021 Albumin/Globulin [Mass ratio] 0.9 {ratio} 0.9-2.4 [facility] Work Phone: Serum or plasma calcium bry urement (mass/volume)on 06-11-2021 Calcium [Mass/Vol] 9.3 mg/dL 8.5-10.1 [facility] Work Phone: Serum or plasma creatinine m easurement (mass/volume)on 06-11-2021 Creatinine [Mass/Vol] 0.76 mg/dL 0.55-1.02 [facility] Work Phone: Comment on above: The validity of the calculated GFR & GFRAA in patients over 70 years has not been determined. Clinical correlation is essential. Serum or plasma urea nitroge n measurement (mass/volume)on 06-11-2021 Urea nitrogen [Mass/Vol] 22 mg/dL 7-18 [facility] Work Phone: Thin prep Papanicolaou smear with manual screeningon 06-11-2021 Thin prep Papanicolaou smear with manual screening 24 U/L 15-37 [facility] Work Phone: Thin prep Papanicolaou smear with manual screening 9 5-15 [facility] Work Phone: Thin prep Papanicolaou smear with manual screening 265 U/L 84-246 [facility] Work Phone: Non-Credit Card Control Clerk Cytology Reporton Non-Credit Card Control Clerk Cytology Report . Pathology Reports Accession: Collected Date/Time: Received Date/Time: Pathologist: [id number] 04/19/2020 08:12 EST 04/20/2020 08:15 EST MD BARRY ANDERSEN Non-Credit Card Control Clerk Cytology Report CLINICAL INFORMATION: RIGHT THYROID NODULE [id number] DIAGNOSIS: BENIGN. Most consistent with colloid nodule. SPECIMEN: FNA OF RIGHT THYROID GROSS DESCRIPTION: # of Smears: 8 Electronically Signed by Pathology report verified by [facility] Screened by: MATT MGS Electronically signed by BARRY ANDERSEN MD Sign-Out Date: 04/21/2020 10:03 Performing Lab: [facility], [address] [place] [address] ([place]) Comment on above: Performed By: #### N GCR ###[place] [id number] Vital Signs Date Time Vital Sign Value Performing Clinician Ann ortiz 01-10-2025 13:18-0400 Body height 165.[address] Dennise Sahni MD Work Phone: [facility] 01-10-2025 13:18-0400 Body mass index (BMI) [Ratio] 28.2 kg/m2 Dr. Dennise Sahni MD Work Phone: 7(285)179-906279 [place] [address] 01-10-2025 13:18-0400 Body temperature 98.2 [degF] Dr. Dennise Sahni MD Work Phone: 2(975)651-944279 [place] [address] 01-10-2025 13:18-0400 Body weight 76.[address] Dennise Sahni MD Work Phone: 9(067)951-617779 [place] [address] 01-10-2025 13:18-0400 Diastolic blood pressure 87 mm[Hg] Dr. Dennise Sahni MD Work Phone: [facility] 01-10-2025 13:18-0400 Heart rate 74 /min Dr. Dennise Sahni MD Work Phone: [facility] 01-10-2025 13:18-0400 Respiratory rate 18 /min Dr. Dennise Sahni MD Work Phone: [facility] 01-10-2025 13:18-0400 SaO2% (BldA) [Mass fraction] 94 % Dr. Dennise Sahni MD Work Phone: [facility] 01-10-2025 13:18-0400 Systolic blood pressure 154 mm[Hg] Dr. Dennise Sahni MD Work Phone: [facility] 10-13-2024 15:00-0400 Diastolic blood pressure 77 mm[Hg] Dr. Dennise Sahni MD Work Phone: [facility] 10-13-2024 15:00-0400 Heart rate 70 /min Dr. Dennise Sahni MD Work Phone: [facility] 10-13-2024 15:00-0400 Respiratory rate 16 /min Dr. Dennise Sahni MD Work Phone: [facility] 10-13-2024 15:00-0400 SaO2% (BldA) [Mass fraction] 97 % Dr. Dennise Sahni MD Work Phone: [facility] 10-13-2024 15:00-0400 Systolic blood pressure 124 mm[Hg] Dr. Dennise Sahni MD Work Phone: [facility] 09-21-2024 14:21-0400 Body mass index (BMI) [Ratio] 28.8 kg/m2 Dr. Dennise Sahni MD Work Phone: [facility] 09-21-2024 14:21-0400 Body weight 78.[address] Dennise Sahni MD Work Phone: [facility] 09-21-2024 14:21-0400 Diastolic blood pressure 68 mm[Hg] Dr. Dennise Sahni MD Work Phone: [facility] 09-21-2024 14:21-0400 Systolic blood pressure 126 mm[Hg] Dr. Dennise Sahni MD Work Phone: [facility] 09-13-2024 11:16-0400 Body height 165.[address] Dennise Sahni MD Work Phone: [facility] 09-13-2024 11:10-0400 Body mass index (BMI) [Ratio] 29 kg/m2 Dr. Dennise Sahni MD Work Phone: [facility] 09-13-2024 11:10-0400 Body weight 79.[address] Dennise Sahni MD Work Phone: [facility] 09-13-2024 11:10-0400 Diastolic blood pressure 80 mm[Hg] Dr. Dennise Sahni MD Work Phone: [facility] 09-13-2024 11:10-0400 Systolic blood pressure 136 mm[Hg] Dr. Dennise Sahni MD Work Phone: [facility] 08-23-2024 14:34-0400 Body height 165.[address] Dennise Sahni MD Work Phone: [facility] 08-23-2024 14:34-0400 Body mass index (BMI) [Ratio] 29.3 kg/m2 Dr. Dennise Sahni MD Work Phone: 7(829)872-876979 [place] [address] 08-23-2024 14:34-0400 Body weight 80.[address] Dennise Sahni MD Work Phone: 1(729)626-803179 [place] [address] 08-04-2024 14:54-0500 Body mass index (BMI) [Ratio] 29.6 kg/m2 Dr. Dennise Sahni MD Work Phone: 0(591)945-008879 [place] [address] 08-04-2024 14:54-0500 Body temperature 97.3 [degF] Dr. Dennise Sahni MD Work Phone: 9(999)721-604879 [place] [address] 08-04-2024 14:54-0500 Body weight 80.[address] Dennise Sahni MD Work Phone: [facility] 08-04-2024 14:54-0500 Diastolic blood pressure 81 mm[Hg] Dr. Dennise Sahni MD Work Phone: [facility] 08-04-2024 14:54-0500 Heart rate 65 /min Dr. Dennise Sahni MD Work Phone: [facility] 08-04-2024 14:54-0500 Respiratory rate 18 /min Dr. Dennise Sahni MD Work Phone: [facility] 08-04-2024 14:54-0500 SaO2% (BldA) [Mass fraction] 96 % Dr. Dennise Sahni MD Work Phone: [facility] 08-04-2024 14:54-0500 Systolic blood pressure 125 mm[Hg] Dr. Dennise Sahni MD Work Phone: 6(527)516-313079 [place] [address] 05-05-2024 15:51-0500 Body mass index (BMI) [Ratio] 29.6 kg/m2 Dr. Dennise Sahni MD Work Phone: 2(561)176-093879 [place] [address] 05-05-2024 15:51-0500 Body temperature 97.1 [degF] Dr. Dennise Sahni MD Work Phone: 0(846)979-513179 [place] [address] 05-05-2024 15:51-0500 Diastolic blood pressure 80 mm[Hg] Dr. Dennise Sahni MD Work Phone: 8(677)880-460893 [place] [address] 05-05-2024 15:51-0500 Heart rate 58 /min Dr. Dennise Sahni MD Work Phone: 1(984)543-894479 [place] [address] 05-05-2024 15:51-0500 Respiratory rate 16 /min Dr. Dennise Sahni MD Work Phone: 7(684)624-827579 [place] [address] 05-05-2024 15:51-0500 SaO2% (BldA) [Mass fraction] 98 % Dr. Dennise Sahni MD Work Phone: 7(244)728-595779 [place] [address] 05-05-2024 15:51-0500 Systolic blood pressure 138 mm[Hg] Dr. Dennise Sahni MD Work Phone: 8(886)886-824379 [place] [address] 05-05-2024 14:32-0500 Body mass index (BMI) [Ratio] 29.6 kg/m2 Dr. Dennise Sahni MD Work Phone: 5(535)193-989079 [place] [address] 05-05-2024 14:32-0500 Body temperature 98.4 [degF] Dr. Dennise Sahni MD Work Phone: 9(817)786-948279 [place] [address] 05-05-2024 14:32-0500 Body weight 80.[address] Dennise Sahni MD Work Phone: [facility] 05-05-2024 14:32-0500 Diastolic blood pressure 73 mm[Hg] Dr. Dennise Sahni MD Work Phone: [facility] 05-05-2024 14:32-0500 Heart rate 63 /min Dr. Dennise Sahni MD Work Phone: [facility] 05-05-2024 14:32-0500 Respiratory rate 16 /min Dr. Dennise Sahni MD Work Phone: [facility] 05-05-2024 14:32-0500 SaO2% (BldA) [Mass fraction] 97 % Dr. Dennise Sahni MD Work Phone: [facility] 05-05-2024 14:32-0500 Systolic blood pressure 115 mm[Hg] Dr. Dennise Sahni MD Work Phone: [facility] 09-11-2021 15:09-0400 Body temperature 98 [degF] Dr. Dennise Sahni Work Phone: [facility] Work Phone: 09-11-2021 15:09-0400 Body weight 82.[address] Dennise Sahni Work Phone: [facility] Work Phone: 09-11-2021 15:09-0400 Diastolic blood pressure 76 mm[Hg] Dr. Dennise Sahni Work Phone: [facility] Work Phone: 09-11-2021 15:09-0400 Heart rate 54 /min Dr. Dennise Sahni Work Phone: [facility] Work Phone: 09-11-2021 15:09-0400 Respiratory rate 14 /min Dr. Dennise Sahni Work Phone: [facility] Work Phone: 09-11-2021 15:09-0400 SaO2% (BldA) [Mass fraction] 96 % Dr. Dennise Sahni Work Phone: [facility] Work Phone: 09-11-2021 15:09-0400 Systolic blood pressure 137 mm[Hg] Dr. Dennise Sahni Work Phone: [facility] Work Phone: 08-15-2021 13:25-0500 Body height 165.1 cm АНДРЕЙ BLUMER DO [facility] 08-15-2021 13:25-0500 Body weight 81.8 kg АНДРЕЙ BLUMER DO [facility] 08-15-2021 13:25-0500 Body weight 30.01 kg/m2 АНДРЕЙ BLUMER DO [facility] 08-15-2021 13:25-0500 diastolic 84 mm[Hg] АНДРЕЙ BLUMER DO [facility] 08-15-2021 13:25-0500 Heart rate 61 /min АНДРЕЙ BLUMER DO [facility] 08-15-2021 13:25-0500 systolic 150 mm[Hg] АНДРЕЙ BLUMER DO [facility] 08-13-2021 09:12-0500 Body height 165.[address] Dennise Sahni Work Phone: [facility] Work Phone: 08-13-2021 09:12-0500 Body mass index (BMI) [Ratio] 30.4 kg/m2 Dr. Dennise Sahni Work Phone: [facility] Work Phone: 08-13-2021 09:12-0500 Body temperature 97.3 [degF] Dr. Dennise Sahni Work Phone: [facility] Work Phone: 08-13-2021 09:12-0500 Body weight 83.[address] Dennise Sahni Work Phone: [facility] Work Phone: 08-13-2021 09:12-0500 Diastolic blood pressure 77 mm[Hg] Dr. Dennise Sahni Work Phone: [facility] Work Phone: 08-13-2021 09:12-0500 Heart rate 63 /min Dr. Dennise Sahni Work Phone: [facility] Work Phone: 08-13-2021 09:12-0500 Respiratory rate 16 /min Dr. Dennise Sahni Work Phone: [facility] Work Phone: 08-13-2021 09:12-0500 SaO2% (BldA) [Mass fraction] 96 % Dr. Dennise Sahni Work Phone: [facility] Work Phone: 08-13-2021 09:12-0500 Systolic blood pressure 122 mm[Hg] Dr. Dennise Sahni Work Phone: [facility] Work Phone: 08-06-2021 10:16-0500 Body mass index (BMI) [Ratio] 30.8 kg/m2 Dr. Dennise Sahni Work Phone: [facility] Work Phone: 08-06-2021 10:16-0500 Body temperature 98.5 [degF] Dr. Dennise Sahni Work Phone: [facility] Work Phone: 08-06-2021 10:16-0500 Body weight 84.[address] Dennise Sahni Work Phone: [facility] Work Phone: 08-06-2021 10:16-0500 Diastolic blood pressure 86 mm[Hg] Dr. Dennise Sahni Work Phone: [facility] Work Phone: 08-06-2021 10:16-0500 Heart rate 60 /min Dr. Dennise Sahni Work Phone: [facility] Work Phone: 08-06-2021 10:16-0500 Respiratory rate 16 /min Dr. Dennise Sahni Work Phone: [facility] Work Phone: 08-06-2021 10:16-0500 SaO2% (BldA) [Mass fraction] 97 % Dr. Dennise Sahni Work Phone: [facility] Work Phone: 08-06-2021 10:16-0500 Systolic blood pressure 128 mm[Hg] Dr. Dennise Sahni Work Phone: [facility] Work Phone: 06-11-2021 09:24-0500 Body mass index (BMI) [Ratio] 31.1 kg/m2 Dr. Dennise Sahni Work Phone: [facility] Work Phone: 06-11-2021 09:24-0500 Body temperature 98.6 [degF] Dr. Dennise Sahni Work Phone: [facility] Work Phone: 06-11-2021 09:24-0500 Body weight 85.[address] Dennise Sahni Work Phone: [facility] Work Phone: 06-11-2021 09:24-0500 Diastolic blood pressure 79 mm[Hg] Dr. Dennise Sahni Work Phone: [facility] Work Phone: 06-11-2021 09:24-0500 Heart rate 61 /min Dr. Dennise Sahni Work Phone: [facility] Work Phone: 06-11-2021 09:24-0500 Respiratory rate 16 /min Dr. Dennise Sahni Work Phone: [facility] Work Phone: 06-11-2021 09:24-0500 SaO2% (BldA) [Mass fraction] 96 % Dr. Dennise Sahni Work Phone: [facility] Work Phone: 06-11-2021 09:24-0500 Systolic blood pressure 149 mm[Hg] Dr. Dennise Sahni Work Phone: [facility] Work Phone: Encounters Encounter Date Encounter Type Care Provider Facility Start: 02-01-2025 ambulatory Dennise Kaplan ty:[facility] Start: 01-20-2025 ambulatory DENNISE SAHNI [facility] Start: 01-10-2025 End: 01-10-2025 Patient encounter procedure Krystina SANDOVAL -[facility] Work Phone: Start: 01-10-2025 End: 01-10-[address] Dennise Sahni MD Work Phone: -[facility] Start: 01-10-[address] Virgil Guevara MD -[facility] Start: 10-13-2024 End: 10-13-2024 Patient encounter procedure Krystina Damián ANGULAR DEVELOPER-C -[facility] Work Phone: Start: 10-13-2024 End: 10-13-2024 ambulatory Dennise Sahni Facility:[facility] Start: 09-21-2024 End: 09-21-2024 Patient encounter procedure Francheska [facility]OVAL [facility] Work Phone: Start: 09-21-2024 End: 09-21-2024 ambulatory Dennise Sahni Facility:[facility] Start: 09-13-2024 End: 09-13-[address] Dennise Sahni MD Work Phone: [facility] Work Phone: Start: 09-13-2024 End: 09-13-2024 Patient encounter procedure Francheska SANDOVAL -Laboratory, Spec[facility] Work Phone: Start: 09-13-2024 End: 09-13-2024 Patient encounter procedure Francheksa Powell NP-C -[facility] Work Phone: Start: 09-13-2024 End: 09-13-2024 ambulatory Dennise Sahni Facility:[facility] Start: 09-13-2024 End: 09-13-2024 ambulatory Dennise Sahni Facility:[facility] Start: 08-23-2024 End: 08-23-2024 Patient encounter procedure Danyelle TAYLOR -[facility] Work Phone: Start: 08-23-2024 End: 08-23-2024 ambulatory Dennise Sahni Facility:[facility] Start: 08-16-2024 End: 08-16-2024 ambulatory DENNISE SAHNI [facility] Start: 08-11-2024 End: 08-11-[address] Dennise Sahni MD Work Phone: [facility] Work Phone: Start: 08-11-2024 End: 08-11-2024 Patient encounter procedure Francheska Callawaymackenzie SANDOVAL -[facility] Work Phone: Start: 08-11-2024 End: 08-11-2024 ambulatory Dennise Sahni Facility:[facility] Start: 08-04-[address] Virgil Guevara MD -[facility] Start: 08-04-2024 End: 08-04-2024 Patient encounter procedure Krystina Damián SANDOVAL -[facility] Work Phone: Start: 08-04-2024 End: 08-04-2024 ambulatory Dennise Sahni Facility:[facility] Start: 07-21-2024 End: 07-21-2024 [facility] Start: 07-21-2024 End: 07-21-2024 ambulatory [facility] Start: 05-05-2024 End: 05-05-[address] Tristen Guevara MD -[facility] Work Phone: Start: 05-05-2024 End: 05-05-2024 [facility] Start: 03-30-2024 End: 03-30-2024 ambulatory ANTON Valadez [facility] Start: 03-23-2024 End: 03-23-2024 ambulatory ANTON Valadez [facility] Start: 02-25-2024 End: 02-25-2024 ambulatory MICHELLE KAM [facility] Start: 02-04-2024 End: 02-04-2024 ambulatory Dennise Sahni Facility:[facility] Start: 09-12-2021 End: 09-12-[address] Dennise Sahni Work Phone: [facility]-Outpatient Breast Imaging Start: 09-11-[address] Nieves Sahni [facility] Start: 09-11-2021 End: 09-11-[address] Dennise Sahni Work Phone: [facility] Start: 08-15-2021 End: 08-15-2021 Admission to establishment АНДРЕЙ ZHANG DO [facility] Start: 08-13-2021 End: 08-13-[address] Dennise Sahni Work Phone: [facility] Start: 08-06-2021 End: 08-06-[address] Dennise Sahni Work Phone: [facility] Start: 07-16-2021 End: 07-16-[address] Dennise Sahni Work Phone: [facility]Laboratory Start: 06-11-2021 End: 07-09-[address] Dennise Sahni Work Phone: [facility] Start: 06-11-2021 End: 06-11-[address] Dennise Sahni Work Phone: [facility]-Pulmonary Medicine [facility] Procedures Date Procedure Procedure Detail Performing Clinician Start: 01-10-[address] Dennise Sahni MD Work Phone: Start: 10-13-2024 Total iron binding capacity measurement Dr. Dennise Sahni MD Work Phone: Start: 08-23-2024 X-ray of sacrum and coccyx, two or more views Dr. Dennise Sahni MD Work Phone: Start: 08-11-[address] Dennise Sahni MD Work Phone: Start: 02-04-[address] e fraction Dr[address] Dennise Sahni MD Work Phone: Start: 09-12-2021 Screening mammography D shy Sahni Work Phone: Start: 03-05-2017 Stent, device (physi duran object) АНДРЕЙ ZHANG DO Comment on above: cardiac Colonoscopy АНДРЕЙ ZHANG DO Family history of replacement of total knee joint АНДРЕЙ ZHANG DO Knee region structur e (body structure) АНДРЕЙ ZHANG DO Comment on above: BILATERAL KNEE SCOPE Placement of stent АНДРЕЙ FLOYD DO Comment on above: CARDIAC Rupture of anterior cruciate ligament (disorder) АНДРЕЙ ZHANG DO Comment on above: LEFT, REPAIR Plan of Treatment Date Care Activity Detail Author Start: 01-10-2025 CBC W Auto Different ial panel - Blood [facility] Start: 01-10-2025 Comprehensive metabo lic 2000 panel - Serum or Plasma [facility] Start: 01-10-2025 Phlebotomy [facility] Start: 01-10-2025 [facility] Start: 05-05-2024 Phlebotomy [facility] Start: 02-04-2024 Phlebotomy [facility] Start: 09-04-2023 Phlebotomy [facility] Start: 06-25-2023 Phlebotomy [facility] Start: 03-17-2023 Phlebotomy [facility] Start: 09-18-2022 Phlebotomy [facility] Start: 06-11-2021 Patient referral [facility] Work Phone: Alanine aminotransfe rase [Enzymatic activity/volume] in Serum or Plasma [facility] Albumin [Mass/volume ] in Serum or Plasma [facility] Alkaline phosphatase [Enzymatic activity/volume] in Serum or Plasma [facility] Anion gap in Serum or Plasma [facility] Bilirubin, total measurement [facility] BUN/Creatinine ratio [facility] Calcium [Mass/volume ] in Serum or Plasma [facility] Carbon dioxide, tota l [Moles/volume] in Central venous blood [facility] CBC W Auto Different ial panel - Blood [facility] Comprehensive metabo lic 2000 panel - Serum or Plasma [facility] Creatinine [Mass/vol ume] in Serum or Plasma [facility] Erythrocyte mean cor puscular volume determination [facility] Ferritin [Mass/volum e] in Serum or Plasma [facility] Glucose [Mass/volume ] in Serum or Plasma [facility] Hematocrit [Volume F raction] of Blood [facility] Hemoglobin [Mass/volume] in Blood [facility] Iron and Iron bindin g capacity panel - Serum or Plasma [facility] Leukocytes [#/volume] in Blood [facility] Mean corpuscular hem oglobin concentration determination [facility] Mean corpuscular hem oglobin determination [facility] Measurement of renal function [facility] MG Breast - bilateral Screening [facility] Neutrophil count [facility] Neutrophil percent d ifferential count [facility] Patient referral [facility] Work Phone: Platelets [#/volume] in Blood [facility] Potassium measurement [facility] Red blood cell count [facility] Red cell distributio n width determination [facility] Serum chloride measurement [facility] Sodium measurement [facility] Total protein measurement [facility] Urea nitrogen [Mass/ volume] in Serum or Plasma [facility] Immunizations Immunization Date Immunization Notes Care Provider Juan hernandez 03-06-2017 influenza, injectabl e, quadrivalent, preservative free АНДРЕЙ ZHANG DO [facility] Payers Date Payer Category Payer Self-pay [id number] 2016 Medicare [id number] 2010 Unknown [id number] 1950 Unknown [id number] 2.16.8 [id number] 1950 Unknown [id number] 2.16.8 40.1.975386.3.579.2.651 1950 Unknown [id number] 2.16.8 40.1.243635.3.579.2.651 1950 Unknown [id number] 2.16.8 40.1.881842.3.579.2.651 1950 Unknown [id number] 2.16.8 40.1.677290.3.579.2.651 1950 Unknown [id number] 2.16.8 40.1.779139.3.579.2.651 1950 Unknown [id number] 2.16.8 40.1.708285.3.579.2.651 Unknown [id number] 2.16.8 40.1.488907.3.579.2.462 Unknown [id number] 2.16.8 40.1.905766.3.579.2.462 Unknown [id number] 2.16.8 40.1.630157.3.579.2.462 Unknown [id number] 2.16.8 40.1.479353.3.579.2.462 Unknown [id number] 2.16.8 40.1.087899.3.579.2.462 Unknown [id number] 2.16.8 40.1.009729.3.579.2.462 Unknown [id number] 2.16.8 40.1.000973.3.579.2.462 Unknown [id number] 2.16.8 40.1.546480.3.579.2.462 Unknown [id number] 2.16.8 40.1.798052.3.579.2.462 Unknown [id number] 2.16.8 40.1.883158.3.579.2.462 Unknown [id number] 2.16.8 40.1.835940.3.579.2.462 Unknown [id number] 2.16.8 40.1.872908.3.579.2.462 Unknown [id number] 2.16.8 40.1.116861.3.579.2.462 Social History Date Type Detail Facility Start: 07-20-2019 End: 08-20-2024 Never smoked tobacco (finding) [facility] Start: 1950 Sex Assigned At Female [facility] Start: 06-11-2021 Tobacco smoking stat [facility] Unknown if ever smoked [facility] Work Phone: Start: 08-24-2024 End: 09-21-2024 Sex Female (finding) [facility] Mental Status Date Assessment Result Facility 02-04-2024 Cognitive function Awake;Alert;A ppropriate;Foll ows Commands [facility] Work Phone: 06-25-2023 Cognitive function Arousable To Voice/Nam e [facility] Work Phone: Evaluation note 09-13-2024 Note Date & Type Note Facility 09-13-2024 Evaluation note Diagnosis Onset Date Resolution Cystocele with incomplete uterovaginal prolapse acute September 13, 2024 11:09am PMB (postmenopausal bleeding) acute September 13, 2024 11:09am Stress incontinence acute September 13, 2024 11:09am Vaginal abrasion acute September 11:09am Atrophic vaginitis acute September 21, 2024 2:18pm Cystocele with incomplete uterovaginal prolapse acute September 21, 2024 2:18pm Vaginal abrasion acute September [id number] 2:18pm Polycythemia vera chronic October 1:42pm Polycythemia vera chronic January 10, 2025 12:53pm [facility] Work Phone: Radiology Diagnostic study note 08-11-2024 Note Date & Type Note Facility 08-11-2024 Radiology Diagnostic study note [facility] Imaging Services [address] [place] [address] Transvaginal Non- MR#: [id number] Acct: [id number] Name: PHONG JANG Rep #: [id number] : 1950 F 74 From: Leah Mathias MD PCP: Dr. Dennise Sahni MD Status: R EG CLI Study:Transvaginal Non- Date of Exam: 08/11/24 Exam# [id number] Ordering Dr: Francheska Powell NP ANGULAR DEVELOPER-C PROCEDURE: Transvaginal pelvic ultrasound REASON FOR EXAM: PMB TECHNIQUE: Grayscale and color Doppler pelvic ultrasound. COMPARISON: None. FINDINGS: Uterus: 4.7 x 3.5 x 2.3 cm, anteverted. Heterogeneous myometrium. Hypoechoic fibroids measure 4 x 4 x 2 mm and 3 x 4 x 3 mm and appear intramural. Endometrium: 1 mm in thickness, exclusive of trace endocavitary fluid. Nonspecific echogenic shadowing central endometrial calcification measures 2 x 3 x 1 mm. Cervix: Grossly unremarkable. Right ovary: Not visualized. Left ovary: Nonvisualized. Free fluid: None visualized. US/Transvaginal Non- IMPRESSION: 1. Very thin endometrium ~1 mm is within normal limits for a postmenopausal female; note however that endometrial atrophy can be a source of abnormal bleeding. Trace nonspecific endometrial fluid, compatible with provided history. 2. Heterogeneous myometrium may be related to previous adenomyosis. Tiny presumed fibroids up to 4 mm. 3. Nonspecific endometrial calcification. Correlate for possible history of previous instrumentation. 4. Nonvisualized bilateral ovaries. 5. Additional description as above. Reading Location: [id number] CC: ANGULAR DEVELOPER-C Francheska Powell; Dr. Dennise Sahni MD ~ Forging Press Setter Up: Signed [facility] Evaluation note 08-04-2024 Note Date & Type Note Facility 08-04-2024 Evaluation note Diagnosis Onset Date Resolution Polycythemia vera chronic Februar y 2024 2:08pm Fracture of sacrum deleted August 23, 2024 2:31pm Cystocele with incomplete uterovaginal prolapse acute September 13, 2024 11:09am PMB (postmenopausal bleeding) acute September 13, 2024 11:09am Stress incontinence acute September 13, 2024 11:09am Vaginal abrasion acute September 11:09am [facility] Work Phone: Evaluation note 05-05-2024 Note Date & Type Note Facility 05-05-2024 Evaluation note Diagnosis Onset Date Resolution Polycythemia vera chronic Novembe r 2023 1:55pm Polycythemia vera chronic Februar y 2024 2:08pm Fracture of sacrum acute August 23, 2024 2:31pm [facility] Work Phone: Evaluation + Plan note LaboratoryRadiology Note Date & Type Note Facility Evaluation + Plan note Future Appointments Appointment Date:12/26/2021 04:00:00 PM Scheduled Provider: Location:[facility] Appointment Type:CV OV Future Scheduled TestsLactate Dehydrogenase 05/22/21Lactate Dehydrogenase 06/19/21Uric Acid 05/22/21Uric Acid 06/19/21Complete Blood Count 05/22/21Complete Blood Count 06/19/21Complete Metabolic Panel 05/22/21Complete Metabolic Panel 06/19/21US Abdomen Complete 07/24/21 [facility] Evaluation note Note Date & Type Note Facility Evaluation note Diagnosis Onset Date BMI 31.0-31.9,adult acute Sleep apnea acute Polycythemia vera chronic Polycythemia vera chronic Polycythemia vera chronic [facility] Work Phone: Hospital course Narrative Note Date & Type Note Facility Hospital course Narrative No data available for this section [facility] Hospital Discharge instructions Note Date & Type Note Facility Hospital Discharge instructions No data available for this section [facility] Hospital Discharge instructions Note Date & Type Note Facility Hospital Discharge instructions [facility] Work Phone: Reason for referral (narrative) Note Date & Type Note Facility Reason for referral (narrative) No reason for referral information available [facility] Work Phone: Summary Purpose Family History No Family History Records Found Relationship Condition Age at Onset Recorded Date/T maxwell father Myocardial infarction Unknown Cerebrovascular accident (CVA) Unknown mother Malignant neoplasm Unknown sister Malignant neoplasm Unknown Relationship Condition Age at Onset Recorded Date/T maxwell father Myocardial infarction Unknown Cerebrovascular accident (CVA) Unknown mother Malignant neoplasm Unknown sister Malignant neoplasm of breast Unknown Advance Directives No Advanced Directives Records FoundNo Advanced Directives Records FoundNo Advanced Directives Records FoundNo Advanced Directives Records Found Chief Complaint and Reason for Visit Chief Complaint Obstructive sleep ap raine LABS NEW-TRANSFER FROM [place] [facility] 1 WK - NO LABS 1 MO - LABS LABS SCREENING Reason for Visit BMI 31.0-31.9,adult Sleep apnea Polycythemia vera Polycythemia vera Polycythemia vera Chief Complaint Admit Date 3 MO - LABS - PHLEBO? May 05 1:55pm 3 MO - LABS - PHLEBO? August 04 2:08pm LABS August 04, 2024 2:15pm PMB August 11, 2024 2:24 pm LUMBAR SPINE August 23, 2024 2:3 1pm Room 1 August 23, 2024 2:4 8pm Reason for Visit Admit Date Polycythemia vera May 05, 2024 1:55pm Polycythemia vera August 04, 2024 2:08pm Fracture of sacrum August 23, 2024 2:3 1pm Chief Complaint Admit Date 3 MO - LABS - PHLEBO? August 04 2:08pm LABS August 04, 2024 2:15pm PMB August 11, 2024 2:24 pm LUMBAR SPINE August 23, 2024 2:3 1pm Room 1 August 23, 2024 2:4 8pm EMB/PMB September 13, 2024 11:0 9am PMB September 13, 2024 1:03 pm Reason for Visit Admit Date Polycythemia vera August 04, 2024 2:08pm Fracture of sacrum August 23, 2024 2:3 1pm Cystocele with incomplete uterovaginal p rolapse September 13, 2024 11:09am PMB (postmenopausal bleeding) September 13, 2024 11:09am Stress incontinence September 13, 2024 11:0 9am Vaginal abrasion September 13, 2024 11:0 9am Chief Complaint Admit Date EMB/PMB September 13, 2024 11:0 9am PMB September 13, 2024 1:03 pm Pessary Check September 21, 2024 2:1 8pm 3MO LABS PHLEBO October 13, 2024 1:42pm LABS January 10, 2025 12: 45pm 12 WKS - LABS - PHLEBO January 10, 2025 12:53pm Reason for Visit Admit Date Cystocele with incomplete uterovaginal p rolapse September 13, 2024 11:09am PMB (postmenopausal bleeding) September 13, 2024 11:09am Stress incontinence September 13, 2024 11:0 9am Vaginal abrasion September 13, 2024 11:0 9am Atrophic vaginitis September 21, 2024 2:1 8pm Cystocele with incomplete uterovaginal p rolapse September 21, 2024 2:18pm Vaginal abrasion September 21, 2024 2:1 8pm Polycythemia vera October 13, 2024 1:42pm Polycythemia vera January 10, 2025 12: 53pm Additional Source Comments INFORMATION SOURCE (unrecogn ized section and content) DATE CREATED AUTHOR 04/12/2021 [facility] DATE CREATED AUTHOR AUTHOR'S ORGANIZ ATION 05/15/2022 [facility] DATE CREATED AUTHOR AUTHOR'S ORGANIZ ATION 01/22/2025 [facility] DATE CREATED AUTHOR AUTHOR'S ORGANIZ ATION 01/30/2025 [facility] Goals (unrecognized section and content) Goals may be documented in a n alternate section Care Teams (unrecognized sec tion and content) Team Status: Active Member Role Status Dates Dr. Dennise Sahni MD Primary Care Provider Active Team Status: Inactive Member Role Status Dates Dr. Dennise Sahni MD Primary Care Provider Active Start: May 05, 2024 End: May 05, 2024 Dr. Dennise Sahni MD Referring Provider Active Start: May 05, 2024 End: May 05, 2024 Dr. Tristen Guevara MD Attending Provider Active Start: May 05, 2024 End: May 05, 2024 Team Status: Inactive Member Role Status Dates Dr. Dennise Sahni MD Primary Care Provider Active Start: August 04, 2024 End: August 04, 2024 Dr. Dennise Sahni MD Referring Provider Active Start: August 04, 2024 End: August 04, 2024 Krystina Steel ANGULAR DEVELOPER, ANGULAR DEVELOPER-C Attending Provider Active Start: August 04, 2024 End: August 04, 2024 Team Status: Active Member Role Status Dates Dr. Dennise Sahni MD Primary Care Provider Active Start: August 04, 2024 Dr. Dennise Sahni MD Other Provider Active Start: August 04, 2024 Dr. Tristen Guevara MD Attending Provider Active Start: August 04, 2024 Dr. Tristen Guevara MD Referring Provider Active Start: August 04, 2024 ZULMA MARTINEZ Other Provider Active Start: August 04, 2024 Team Status: Inactive Member Role Status Dates Dr. Dennise Sahni MD Primary Care Provider Active Start: August 11, 2024 End: August 11, 2024 Francheska Powell ANGULAR DEVELOPER, ANGULAR DEVELOPER-C Attending Provider Active Start: August 11, 2024 End: August 11, 2024 Francheska Powell ANGULAR DEVELOPER, ANGULAR DEVELOPER-C Referring Provider Active Start: August 11, 2024 End: August 11, 2024 Team Status: Inactive Member Role Status Dates Dr. Dennise Sahni MD Primary Care Provider Active Start: August 23, 2024 End: August 23, 2024 Dr. Dennise Sahni MD Referring Provider Active Start: August 23, 2024 End: August 23, 2024 BRANDON Peres Attending Provider Active Star t: August 23, 2024 End: August 23, 2024 Team Status: Inactive Member Role Status Dates Dr. Dennise Sahni MD Primary Care Provider Active Start: August 23, 2024 End: August 23, 2024 Dr. Gian Phipps MD Attending Provider Active S tart: August 23, 2024 End: August 23, 2024 Team Status: Inactive Member Role Status Dates Dr. Dennise Sahni MD Primary Care Provider Active Start: September 13, 2024 End: September 13, 2024 Dr. Dennise Sahni MD Referring Provider Active Start: September 13, 2024 End: September 13, 2024 Francheska Powell ANGULAR DEVELOPER, ANGULAR DEVELOPER-C Attending Provider Active Start: September 13, 2024 End: September 13, 2024 Team Status: Inactive Member Role Status Dates Dr. Dennise Sahni MD Primary Care Provider Active Start: September 13, 2024 End: September 13, 2024 Francheska Powell ANGULAR DEVELOPER, ANGULAR DEVELOPER-C Attending Provider Active Start: September 13, 2024 End: September 13, 2024 Team Status: Active Member Role/Relationship Status Dates Dr. Dennise Sahni MD Primary Care Provider Active Team Status: Inactive Member Role/Relationship Status Dates Dr. Dennise Sahni MD Primary Care Provider Active Start: September 13, 2024 End: September 13, 2024 Dr. Dennise Sahni MD Referring Provider Active Start: September 13, 2024 End: September 13, 2024 Francheska Powell ANGULAR DEVELOPER, ANGULAR DEVELOPER-C Attending Provider Active Start: September 13, 2024 End: September 13, 2024 Team Status: Inactive Member Role/Relationship Status Dates Dr. Dennise Sahni MD Primary Care Provider Active Start: September 13, 2024 End: September 13, 2024 Francheska Powell ANGULAR DEVELOPER, ANGULAR DEVELOPER-C Attending Provider Active Start: September 13, 2024 End: September 13, 2024 Team Status: Inactive Member Role/Relationship Status Dates Dr. Dennise Sahni MD Primary Care Provider Active Start: September 21, 2024 End: September 21, 2024 Dr. Dennise Sahni MD Referring Provider Active Start: September 21, 2024 End: September 21, 2024 Francheska Powell ANGULAR DEVELOPER, ANGULAR DEVELOPER-C Attending Provider Active Start: September 21, 2024 End: September 21, 2024 Team Status: Inactive Member Role/Relationship Status Dates Dr. Dennise Sahni MD Primary Care Provider Active Start: October 13, 2024 End: October 13, 2024 Dr. Dennise Sahni MD Referring Provider Active Start: October 13, 2024 End: October 13, 2024 Krystina Steel ANGULAR DEVELOPER, ANGULAR DEVELOPER-C Attending Provider Active Start: October 13, 2024 End: October 13, 2024 Team Status: Active Member Role/Relationship Status Dates Dr. Dennise Sahni MD Primary Care Provider Active Start: January 10, 2025 Dr. Dennise Sahni MD Other Provider Active Start: January 10, 2025 Dr. Tristen Guevara MD Attending Provider Active Start: January 10, 2025 Dr. Tristen Guevara MD Referring Provider Active Start: January 10, 2025 ZULMA MARTINEZ Other Provider Active Start: January 10, 2025 Team Status: Inactive Member Role/Relationship Status Dates Dr. Dennise Sahni MD Primary Care Provider Active Start: January 10, 2025 End: January 10, 2025 Dr. Dennise Sahni MD Referring Provider Active Start: January 10, 2025 End: January 10, 2025 Krystina Steel NP, JORGE-C Attending Provider Active Start: January 10, 2025 End: January 10, 2025 FOR RECORDS PERTAINING TO PATIENTS WHO ARE OR HAVE BEEN ENROLLED IN A CHEMICAL DEPENDENCY/SUBSTANCEABUSE PROGRAM, SOME INFORMATION MAY BE OMITTED. This clinical summary was aggregated from multiple sources. Caution should be exercised in using it in the provision of clinical care. This summary normalizes information from multiple sources, and as a consequence, information in this document may materially change the coding, format and clinical context of patient data. In addition, data may be omitted in some cases. CLINICAL DECISIONS SHOULD BE BASED ON THE PRIMARY CLINICAL RECORDS. [employer] provides no warranty or guarantee of the accuracy or completeness of information in this document.
== END | disposition home or self-care (01) ==
LOC: OPBI 13:30
PROVIDERS: PCP Student in an Organized Health Care Education/Training Program; Referring Provider Nurse Practitioner Family; Visit Provider Nurse Practitioner Family
DX: Z12.31 Encounter for screening mammogram for malignant neoplasm of breast (principal)
CPT/HCPCS: 77063; 77067

== ENCOUNTER → 2025-02-04 | Outpatient (CLI) | payer MEDICARE, OTHER, SELFPAY ==
--- NOTE | 2025-02-04 14:07 | BI_ITS ---
EXAM: DIAG MAMM W/CAD, UNILAT 02/04/2025 CLINICAL HISTORY: F, Age 74 y/o , ABN MAMM TECHNIQUE: Procedure Code: [id number] Modality: MG Procedure: DIAG MAMM W/CAD, UNILAT. COMPARISON: Prior exam(s) dated 02/01/2025, 01/30/2024, 11/13/2022. FINDINGS: TISSUE DENSITY: The breasts are extremely dense, which lowers the sensitivity of mammography. Unilateral Left Breast Mammographic Findings: Follow-up examination performed for the calcifications in the left breast on examination of 02/01/2025. On the present examination, there are coarse heterogeneous and fine pleomorphic calcifications in the upper outer left breast in a segmental distribution extending from anterior to middle depth. Overall, these calcifications measure 7.6 x 3.8 x 6.0 cm AP by TR by CC. BI/DIAG MAMM W/CAD, UNILAT IMPRESSION: Suspicious left breast calcifications in the upper-outer left breast extending from anterior to middle depth. Recommend tissue sampling with stereotactic/tomosynthesis guided biopsy of the anterior aspect a nd of the posterior aspect of the calcifications. OVERALL FINAL ASSESSMENT BI-RADS 4: SUSPICIOUS RECOMMENDATION: Biopsy Recommended A letter with findings and recommendations will be mailed to the patient. Reading Location: [id number]
== END | disposition home or self-care (01) ==
LOC: OPBI 14:08
PROVIDERS: PCP Student in an Organized Health Care Education/Training Program; Referring Provider Nurse Practitioner Family; Visit Provider Nurse Practitioner Family
DX: R92.1 Mammographic calcification found on diagnostic imaging of breast (principal)
CPT/HCPCS: 77065

== ENCOUNTER → 2025-02-16 | Outpatient (CLI) | payer MEDICARE, OTHER, SELFPAY ==
--- NOTE | 2025-02-16 | BRBX_PTH ---
PATIENT: PHONG JANG LOC: [facility] U#:[id number] AGE/SX: 74/F ROOM: RE02/16/[address]: Dr. Michael Ashraf MD : 1950 BED: DIS: 02/16/2025 SPEC #: [id number] RECD: 02/16/25 11:27 STATUS: DOROTHEA REQ #: [id number] ALVAREZ: 02/16/25 00:[address]: Michael Ashraf DEPT: SURGICAL PATHOLOGY RECD BY: Bhanu Valiente ENTERED: 02/16/25 14:42 SP TYPE: BREAST BX OTHR DR: Dr. Dennise Sahni MD Tissues: A - Left breast, NOS Procedures: Immunohistochemical Stains Surgery Specimen Level IV IHC Stain ADDITIONAL HEADER OPERATION: Left breast stereotactic biopsy PRE-OP DIAGNOSIS: Left breast - calcifications TISSUE SUBMITTED: [place] - 11-6 microcals MICROSCOPIC DIAGNOSIS A. 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 - Minimum span of 0.9 cm. - ER: positive (100%, strong intensity). - TX: PENDING, to be reported in an addendum. - Ki67: PENDING, to be reported in an addendum. - IHC for Ecadherin, CK5/6, and p40 support the diagnosis. MICROSCOPIC DESCRIPTION Slides are reviewed. ?All matched controls reacted appropriately. These tests were developed and their performance characteristics determined by [facility]. They may not have been cleared or approved by the U.S. Food and Drug Administration. The FDA has determined that such clearance or approval is not necessary.? The above immunohistochemical?markers and/or special stains have been reviewed by the Pathologist. GROSS DESCRIPTION A. Received fresh and subsequently placed in formalin labeled with the patient's name and date of are 5 hinds-yellow lobulated soft tissue cores, 2.2-3.3 cm in length by 0.4 cm in diameter. The specimen is entirely submitted in 2 cassettes, following postoperative imaging as follows: A1: Christiane #1/#5A2: Christiane #2/#3/#4 Cold ischemic time: 10 minutesFormalin fixation time: 8 hours LA 02/16/2025 CPT:[id number] ADDENDUM ADDENDUM ADDENDUM ADDENDUM ADDENDUM 02/23/2025 15:15 ADDENDUM 02/23/2025 15:15 ADDENDUM 02/23/2025 15:15 ADDENDUM 02/23/2025 15:15 ADDENDUM 02/23/2025 15:15 This addendum is to report the additional IHC stains: TX: positive (5-10%, weak intensity). Ki67: 10%
--- NOTE | 2025-02-16 11:56 | PCM.OPRPT ---
Procedures Integumentary [id number]-193xx: [id number] [facility] (Standard) Operative Information Date of Procedure: 02/16/25 Pre-Operative Diagnosis: Abnormal left breast mammogram Post-Operative Diagnosis: Same Surgery/Procedure Performed: Left breast stereotactic biopsy city weighmaster: No Type of Anesthesia: Local Procedure Start Time: 11:00 Procedure Stop Time: 11:20 Select all DRAINS/GRAFTS/IMPLANTS that apply: None Special Medications: None Estimated Blood Loss: 15 mL Specimen collected: Yes Description of specimen(s) removed: Left breast tissue with microcalcifications Description of surgery: The patient is a 74-year-old female who is recently seen through the office with a newly discovered region of calcifications in the left breast. Biopsy was recommended to rule out possible malignancy. We discussed the details of the planned procedure including risks benefits and alternatives. She wished to proceed. She was brought to the mammography suite today following informed consent. She was placed prone on the stereotactic biopsy table with the left breast suspended through the aperture and the table. The left breast was placed into cc view compression and images were obtained until the region of calcifications were clearly identified. At this point 2 stereotactic views were then obtained upon which the region of maximal calcifications were targeted upon. Once this was targeted, the skin of the breast was prepped and draped in the usual manner. Local anesthetic was infiltrated into the vicinity. A #11 blade was then used to make a skin incision. The biopsy probe was then inserted to the desired depth. Chio fire images were obtained and showed the device to be in appropriate location. The device was then fired. Next, circumferential suction biopsies were obtained with good tissue sampling. The samples were then plated and radiographed. Essentially all samples contain numerous microcalcifications. Next, a marking clip was then deployed. A post clip placement image was obtained and showed the clip to be in the desired location. She was then taken out of compression and manual pressure was held until a dressing was applied. She then underwent postprocedure mammograms. She did have some postoperative bleeding/hematoma which resolved with pressure and placement of an LAW wrap. Overall she tolerated the procedure well. I will contact her with results once they become available Surgical Findings: See procedure note Complications Complications: No Admit VTE Documentation VTE Present on Admission: No VTE Mechan Device Prophylaxis: None VTE Pharm Prophylaxis ordered?: No Reason prophylaxis not ordered: Treatment Not Indicated
== END | disposition home or self-care (01) ==
LOC: BIRAD 10:43
PROVIDERS: PCP Student in an Organized Health Care Education/Training Program; Referring Provider Surgery; Visit Provider Surgery
DX: D05.12 Intraductal carcinoma in situ of left breast (principal)
CPT/HCPCS: 19081; 88305; 88307; 88341; 88342; A4648

== ENCOUNTER → 2025-03-31 | Outpatient (CLI) | payer MEDICARE, OTHER, SELFPAY ==
--- NOTE | 2025-03-31 12:25 | MRI_ITS ---
PROCEDURE: BREAST BILATERAL W/O AND W 03/31/2025 REASON FOR EXAM: 74-year-old female with recently diagnosed left breast DCIS presents for diagnostic MRI of the breast for extent of disease. TECHNIQUE: Procedure Code: [id number] Modality: MR Procedure: BREAST BILATERAL W/O AND W CONTRAST: 15 mL of IV Clariscan COMPARISON: Mammogram 02/04/2025, 02/01/2025, 01/30/2024 FINDINGS: TISSUE DENSITY: The breasts are heterogeneously dense, which may obscure small masses. Background Parenchymal Enhancement: Mild RIGHT Breast: No suspicious mass or non-mass enhancement. LEFT Breast: There is segmental non- mass enhancement in the upper-outer left breast extending from anterior to posterior depth, measuring 8.1 x 2.6 x 6.0 cm. This non-mass enhancement extends into the nipple and is best seen on series 7 image 43. There is a small post biopsy hematoma with an adjacent biopsy marker clip in the middle aspect of this non-mass enhancement. This area correlates to the suspicious calcifications in the left breast seen on the mammogram of 02/04/2025 and corresponds to the biopsy-proven DCIS. Other Findings: No suspicious axillary or internal mammary lymph nodes. Visualized portions of the thoracic and abdominal viscera are unremarkable. MRI/Breast Bilateral W/O and W IMPRESSION: 1. Segmental non-mass enhancement in the upper-outer left breast from anterior to posterior depth, and extending into the nipple, correlates to the biopsy-proven malignancy. Appropriate surgical/clini duran management is recommended. 2. There is no MR evidence of malignancy in the right breast. OVERALL FINAL ASSESSMENT BI-RADS 6: KNOWN BIOPSY-PROVEN MALIGNANCY. RECOMMENDATION: OTHER Reading Location: [id number]
== END | disposition home or self-care (01) ==
LOC: MRI 12:24
PROVIDERS: PCP Student in an Organized Health Care Education/Training Program; Referring Provider Surgery; Visit Provider Surgery
DX: D05.12 Intraductal carcinoma in situ of left breast (principal)
CPT/HCPCS: 77049; A9575; A4216; C8908

== ENCOUNTER 2025-05-12 12:59 | Observation (INO) | payer MEDICARE, OTHER, SELFPAY ==
--- NOTE | 2025-05-03 13:05 | EKG12_ITS ---
Test Reason : PREOP Blood Pressure : */* mmHG Vent. Rate : 74 BPM Atrial Rate : 74 BPM P-R Int : 118 ms QRS Dur : 72 ms QT Int : 404 ms P-R-T Axes : -2 12 30 degrees QTcB Int : 448 ms Normal sinus rhythm Normal ECG Confirmed by EDIE KAM, JESUSITA ([id number]), city editor HILLARY DIEZ ([id number]) on 05/04/2025 9:03:34 AM Referred By: Michael Ashraf Confirmed By: JESUSITA IRIZARRY MD
--- NOTE | 2025-05-03 13:47 | PAT.ANESEVAL ---
Pre-Assessment Diagnosis/Proposed Procedure Planned Operative Procedure(s): LEFT SIMPLE MASTECTOMY WITH LEFT AXILLARY SENTINEL LYMPH NODE BX Anesthesia History Anesthesia History - radiology special procedure tech: Anesthesia History - radiology special procedure tech Hx Hospitalization No 04/29/25 11:36 Any Problems With Anesthesia Yes: N,V/SPINAL HEADACHE 04/29/25 11:36 Cholinesterase deficiency No 04/29/25 11:36 You/Your Family Experience No 04/29/25 11:36 fever (hyperthermia) with Relationship Recent Exposure to Contagious Disease Does patient have nerve No 04/29/25 11:36 stimulator Patient instructed to have device shut off --Does patient have Pacemaker or ICD? When Was Last Pacemaker Check QUESTION #4 FULL TEXT: You/Your Family Experience fever (hyperthermia) with Anesthesia Last Oral Intake Last Oral intake: Last Oral Intake NPO since Meds taken in AM with sips of water? Meds patient instructed to take am of surgery PONV PONV - radiology special procedure tech: PONV - radiology special procedure tech Female Yes 04/29/25 11:36 HX of Motion Sickness No 04/29/25 11:36 HX of N/V After Surgery Yes 04/29/25 11:36 Non-Smoker Yes 04/29/25 11:36 Duration of Surgery greater Yes 04/29/25 11:36 than 60 minutes Number of Risk Factors 4 04/29/25 11:36 PONV Score Severe Risk 04/29/25 11:36 Height & Weight Height & Weight: Anesthesia: Height & Weight Height 5 ft 5 in 04/06/25 13:36 Respiratory Assessment Respiratory Assessment - radiology special procedure tech: Respiratory Tract Infection Hx - radiology special procedure tech Hx Respiratory Tract Infection No 04/29/25 11:36 STOP Sleep Apnea STOP Sleep Apnea - radiology special procedure tech: STOP Sleep Apnea - radiology special procedure tech Hx Hypertension Yes: CONTROLLED WITH MED 04/29/25 11:36 Hx Sleep Apnea Yes 04/29/25 11:36 CPAP Yes: NONCOMPLIANT/ 04/29/25 11:36 CLAUSTROPHOBIA BIPAP No 04/29/25 11:36 Do you snore loudly (louder than talking or can be heard Do you often feel tired/ fatigued/ sleepy during daytime? Has anyone observed you stop breathing during sleep? STOP Results Positive 04/29/25 11:36 QUESTION #5 FULL TEXT : Do you snore loudly (louder than talking or can be heard through closed doors)? 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 Specify any problems Hx of Preganancy in last 3 No 04/29/25 11:36 Months Nurse Filling Out Transfusion DSCHRIBER 04/29/25 11:36 & Questions: Date: 04/29/25 04/29/25 11:36 Time: 11:42 04/29/25 11:36 Patient unable to answer at this time (ie. confused, unrespo /Reproduction History /Reproductive History - radiology special procedure tech: /Reproductive Hx- radiology special procedure tech Hx Now No 04/29/25 11:36 Gestational Age (in weeks): EDC: Hx Hx Para Hx Section SAB No 04/29/25 11:36 Does the father of the baby or his family experience fever w Father of the baby Malignant Hypertension history comment [facility] Medical History (Updated 04/29/25 @ 11:58 by Faith Ríos) Wears glasses History of Clostridium difficile infection Cancer Hx of fracture of pelvis Depression Arthritis Hepatitis High cholesterol Injury of head and neck Migraine headache Seizures Gastric reflux Non-smoker CPAP (continuous positive airway pressure) dependence Leg cramps History of edema History of stress test Hypertension Cardiology follow-up encounter DCIS (ductal carcinoma in situ) of breast Animal-rider injured by fall from or being thrown from horse in noncollision accident, initial encounter History of fractured kneecap Thyroid disorder Heart attack Acquired polycythemia vera Home Medications ?Medication ?Instructions ?Recorded ?Last Taken ?Type aspirin 81 mg chewable tablet 81 mg PO DAILY@0800 07/22/17 Unknown History atorvastatin 40 mg tablet 40 mg PO QHS 07/22/17 Unknown History metoprolol tartrate 25 mg tablet 25 mg PO QHS 09/18/22 Unknown History famotidine 20 mg tablet 20 mg PO QHS 12/11/22 Unknown History hydroxyurea 500 mg capsule 2,500 mg (5 x 500 mg) PO QDAY 90 05/05/24 Unknown Rx days #450 caps estradiol 0.01% (0.1 mg/gram) 1 appful vaginal TUTH 04/29/25 Unknown History vaginal cream vitamin B complex (Complex B-100 1 tab PO DAILY 04/29/25 Unknown History tablet,extended release) Allergy/AdvReac Type Severity Reaction Status Date / Time No Known Allergies Allergy Verified 04/29/25 11:04 Family History Father Myocardial infarction CVA (cerebral vascular accident) Cancer Mother Cancer Breast cancer of breast CA in 30's Sister Breast cancer dx in early 40's and passed at 68 Uncle Cancer lung Surgical History (Updated 04/29/25 @ 11:58 by Faith Ríos) Hx of foot surgery History of repair of ACL H/O heart artery stent History of knee replacement Social History Smoking Status: Never smoker alcohol intake: never Audit: Pertinent Findings HISTORY of Pertinent Findings History of Pertinent Findings: CAD in LAD, s/p PCI in 2017. Pertinent Findings EKG Perinent findings: 02/2024: NSR Stress test pertinent findings: 12/2022: Normal nuclear stress test with normal EF Echo (EF%) pertinent findings: 02/2024: LV normal, systolic EF 55-60%, RVSP 28. Recommendation Anesthesia Recommendation Anesthesia recommendation: OPTIMIZED for anesthesia
[2025-05-10 10:34] VITALS: BP 139/95; PULSE 70; RESP 18; TEMP 36.9; O2SAT 98; BMI 27.8
[2025-05-10] MEDS: Lactated Ringers 1,000 ML 15 ML IV (10:40)
--- NOTE | 2025-05-10 10:50 | PCM.PRE.AN2 ---
ASA Classification* ASA Classification ASA Classification: 3 Assessment & Plan Anesthesia* Anesthesia Assessment Anesthesia Assessment: Discussed sedation and/or anesthesia options, risks, benefits, and alternatives with patient/parents/legal guardian/POA. Questions invited. The patient/parents/legal guardian/POA seems to understand and agrees to proceed with anesthesia plan. Reviewed the physical assessment, medical history, allergy history and patient home medications list prior to surgery/procedure/anesthetic and documented any changes. Performed airway and anesthesia risk assessments. Anesthesia Type Anesthesia Type: General History Source History Obtained from:: Patient and Chart Anesthesia Focused Assessment* Temperature: 98.5 F Pulse Rate: 70 Blood Pressure: 139/95 Respiratory Rate: 18 Pulse Ox: 98 Oxygen Delivery Method: Room Air Airway Assessment Mouth opens: >3 cm Mallampati Score: II Teeth Condition: Caps/Crowns (Patient has a crown. It is tight.) and Missing (Patient has a couple missing teeth. The rest are tight.) Neck Range of motion (ROM): Limited ROM (Slight Decrease) Labs Anesthesia Preop lab: CBC WBC, (4.4-11.0) 9.1 K/mm3 04/06/25, 13:05 RBC, (4.2-5.4) 4.47 M/mm3 04/06/25, 13:05 Hgb, (12.0-15.0) 11.9 g/dL L 04/06/25, 13:05 Hct, (37-47) 40.3 % 04/06/25, 13:05 Plt Count, (150-450) 352 K/mm3 04/06/25, 13:05 CHEMISTRY Potassium, (3.3-5.1) 4.2 mmol/L 04/06/25, 13:05 Sodium, (133-145) 141 mmol/L 04/06/25, 13:05 BUN, (4-19) 22 mg/dL H 04/06/25, 13:05 Creatinine, (0.70-1.20) 0.74 mg/dL 04/06/25, 13:05 Glucose, (70-99) 105 mg/dL H 04/06/25, 13:05 TSH, (0.358-3.74) 3.27 uIU/mL 08/06/21, 12:01 COAG Pre-Assessment Diagnosis/Proposed Procedure Planned Operative Procedure(s): LEFT SIMPLE MASTECTOMY WITH LEFT AXILLARY SENTINEL LYMPH NODE BX Anesthesia History 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 When Was Last Pacemaker Check QUESTION #4 FULL TEXT: You/Your Family Experience fever (hyperthermia) with Anesthesia Last Oral Intake Last Oral intake: Last Oral Intake NPO since 06:00 05/10/25 10:34 Meds taken in AM with sips of No 05/10/25 10:34 water? Meds patient instructed to take am of surgery Any additional information?: Yes NPO since: 06:00 (Patient had black coffee at 6 AM.) Meds taken in AM with sips of water?: No PONV PONV - warehouse engineer: PONV - warehouse engineer Female Yes 04/29/25 11:36 HX of Motion Sickness No 04/29/25 11:36 HX of N/V After Surgery Yes 04/29/25 11:36 Non-Smoker Yes 04/29/25 11:36 Duration of Surgery greater Yes 04/29/25 11:36 than 60 minutes Number of Risk Factors 4 04/29/25 11:36 PONV Score Severe Risk 04/29/25 11:36 Height & Weight Height & Weight: Anesthesia: Height & Weight Height 5 ft 5 in 05/10/25 10:34 Weight: 76 kg 05/10/25 10:34 Body Mass Index (BMI) 27.8 05/10/25 10:34 Respiratory Assessment Respiratory Assessment - warehouse engineer: Respiratory Tract Infection Hx - warehouse engineer Hx Respiratory Tract Infection No 04/29/25 11:36 STOP Sleep Apnea STOP Sleep Apnea - warehouse engineer: STOP Sleep Apnea - warehouse engineer Hx Hypertension Yes: CONTROLLED WITH MED 04/29/25 11:36 Hx Sleep Apnea Yes 04/29/25 11:36 CPAP Yes: NONCOMPLIANT/ 04/29/25 11:36 CLAUSTROPHOBIA BIPAP No 04/29/25 11:36 Do you snore loudly (louder than talking or can be heard Do you often feel tired/ fatigued/ sleepy during daytime? Has anyone observed you stop breathing during sleep? STOP Results Positive 04/29/25 11:36 QUESTION #5 FULL TEXT : Do you snore loudly (louder than talking or can be heard through closed doors)? 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 Specify any problems Hx of Preganancy in last 3 No 04/29/25 11:36 Months Nurse Filling Out Transfusion DSCHRIBER 04/29/25 11:36 & Questions: Date: 04/29/25 04/29/25 11:36 Time: 11:42 04/29/25 11:36 Patient unable to answer at this time (ie. confused, unrespo /Reproduction History /Reproductive History - warehouse engineer: /Reproductive Hx- warehouse engineer Hx Now No 04/29/25 11:36 Gestational Age (in weeks): EDC: Hx Hx Para Hx Section SAB No 04/29/25 11:36 Does the father of the baby or his family experience fever w Father of the baby Malignant Hypertension history comment Active Medications Active Medications: Current Medications Generic Name Dose Route Start Last Admin Trade Name Freq PRN Reason Stop Dose Admin Lactated Ringer's 1,000 mls @ 15 mls/hr 05/10/25 10:15 05/10/25 10:40 IV 15 mls/hr .Q48H POLA Administration PFSH Medical History Wears glasses History of Clostridium difficile infection Cancer Hx of fracture of pelvis Depression Arthritis Hepatitis High cholesterol Injury of head and neck Migraine headache Seizures Gastric reflux Non-smoker CPAP (continuous positive airway pressure) dependence Leg cramps History of edema History of stress test Hypertension Cardiology follow-up encounter DCIS (ductal carcinoma in situ) of breast Animal-rider injured by fall from or being thrown from horse in noncollision accident, initial encounter History of fractured kneecap Thyroid disorder Heart attack Acquired polycythemia vera Home Medications ?Medication ?Instructions ?Recorded ?Last Taken ?Type aspirin 81 mg chewable tablet 81 mg PO DAILY@0800 07/22/17 05/05/25 History atorvastatin 40 mg tablet 40 mg PO QHS 07/22/17 Unknown History metoprolol tartrate 25 mg tablet 25 mg PO QHS 09/18/22 05/09/25 22:00 History famotidine 20 mg tablet 20 mg PO QHS 12/11/22 Unknown History hydroxyurea 500 mg capsule 2,500 mg (5 x 500 mg) PO QDAY 90 05/05/24 05/08/25 Rx days #450 caps estradiol 0.01% (0.1 mg/gram) 1 appful vaginal TUTH 04/29/25 Unknown History vaginal cream vitamin B complex (Complex B-100 1 tab PO DAILY 04/29/25 Unknown History tablet,extended release) Allergy/AdvReac Type Severity Reaction Status Date / Time No Known Allergies Allergy Verified 05/10/25 10:31 Family History Father Myocardial infarction CVA (cerebral vascular accident) Cancer Mother Cancer Breast cancer of breast CA in 30's Sister Breast cancer dx in early 40's and passed at 68 Uncle Cancer lung Surgical History Hx of foot surgery History of repair of ACL H/O heart artery stent History of knee replacement Social History Smoking Status: Never smoker alcohol intake: never Review of Systems (Anesthesia) ROS Narrative System reviewed and no additional complaints, except as documented.
[2025-05-10 11:02] VITALS: BP 139/95; PULSE 70; RESP 18; TEMP 36.9; O2SAT 98
--- NOTE | 2025-05-10 12:19 | PN_ITS ---
Progress Note Patient was scheduled for a left mastectomy with left axillary sentinel lymph node biopsy. Unfortunately, Lymphoseek did not get ordered as her original surgery order was for just a simple left mastectomy and the sentinel lymph node portion was added later as requested by oncology. Had a lengthy discussion regarding this issue with the patient and the fact that it does take 2 days or so to order the Lymphoseek. We discussed options of proceeding without sentinel lymph node biopsy but if cancer is present in the specimen, she will need a com plete lymph node dissection which may be more difficult following a mastectomy. Patient states that she really does not want to risk needing to go through a second surgery. She states that she would be comfortable rescheduling. I apologized profusely for the situation. I have discussed this with our plastic surgery manager and we will call her later today with a rescheduled surgery time.
--- NOTE | 2025-05-10 12:20 | NURSING ---
Surgery cancelled due to scheduling error and not able to have radiotracer injected
[2025-05-12] VITALS (18 sets, daily range): BP systolic 97–131; BP diastolic 47–76; PULSE 64–99; RESP 12–18; TEMP 36.4–37.4; O2SAT 92–96; BMI 28.3
--- NOTE | 2025-05-12 08:58 | NM_ITS ---
PROCEDURE: LYMPH NODE INJECTION ONLY 05/12/2025 REASON FOR EXAM: LEFT BREAST CANCER TECHNIQUE: Procedure Code: [id number] Modality: NM Procedure: LYMPH NODE INJECTION ONLY 586 uCi of Tilmanocept was injected subdermally above the left areolar complex. RADIOPHARMACEUTICAL DOSE: 585 uCi. COMPARISON: None FINDINGS: Radiopharmaceutical injection for left sentinel node imaging. NM/Lymph Node Injection Only IMPRESSION: Radiopharmaceutical injection for left sentinel node imaging. The patient sharon rated the procedure well. Reading Location: [facility]
--- OUTSIDE RECORDS SUMMARY | 2025-05-12 08:59 | XMS RPT_ITS | CCD ---
Author Organization [facility] Care Team Providers [employer] Manager Name Role Phone DENNISE SAHNI MD Primary Care Physician [facility] Furnace Combination Analyst, Augustin Unavailable Unavailable Dr. Dennise Sahni Primary Care Provider Dr. Dennise Sahni Referring Provider Taisha MACHINE LACER, MACHINE LACER-C Whit Attending Provider Dr. Tristen Guevara Attending Provider Dr. Dennise Sahni MD Primary Care Provider Dr. Dennise Sahni MD Referring Provider Dr. Tristen Guevara MD Attending Provider Damián MACHINE LACER-C, Krystina Attending Provider Dr. Dennise Sahni MD Other Provider Dr. Tristen Guevara MD Referring Provider MICHELLE MAYA Other Provider Unavailable Aristes MACHINE LACER-C, Francheska Attending Provider Andre MACHINE LACER-C, Francheska Referring Provider Daynelle Rivera Attending Provider Desire KAM, Dr. Springer Attending Provider Dr. Dennise Sahni MD Primary Care Provider Dr. Dennise Sahni MD Referring Provider Dr. Tristen Guevara MD Attending Provider Kaitlyn KAM, Dr. Bowden Primary Care Provider Kaitlyn KAM, Dr. Bowden Referring Provider Andre MACHINE LACER-C, Francheska Attending Provider Damián MACHINE LACER-C, Krystina Attending Provider Kaitlyn KAM, Dr. Bowden Other Provider Dr. Tristen Guevara MD Attending Provider Dr. Tristen Guevara MD Referring Provider MICHELLE MAYA Other Provider Unavailable ANJELICAANTON ADAME Primary Care Unavailable ANTON DEJESUS Attending Unavailable [...] DENNISE SAHNI MD Primary Care Unavailable DENNISE SANHI MD Consulting Unavailable DENNISE SAHNI MD Attending Unavailable PROVIDER, UNKNOWN Consulting Unavailable PROVIDER, UNKNOWN Consulting Unavailable DENNISE SAHNI MD Admitting Unavailable DENNISE SAHNI MD Primary Care Unavailable DENNISE SAHNI MD Consulting Unavailable DENNISE SAHNI MD Attending Unavailable PROVIDER, UNKNOWN Consulting Unavailable PROVIDER, UNKNOWN Consulting Unavailable MICHELLE MAYA MD Primary Care Unavailjanay e MICHELLE MAYA MD Attending Unavailabl e DENNISE SAHNI MD Consulting Unavailable MICHELLE MAYA MD Admitting Unavailabl e PROVIDER, UNKNOWN Consulting Unavailable PROVIDER, UNKNOWN Consulting Unavailable Kaitlyn KAM, Dr. Bowden Primary Care Provider Kaitlyn KAM, Dr. Bowden Referring Provider Damián MACHINE LACER-C, Krystina Referring Provider Kaitlyn KAM, Dr. Bowden Primary Care Provider Kaitlyn KAM, Dr. Bowden Referring Provider Damián MACHINE LACER-C, Krystina Attending Provider Andriy KAM, Dr. Michael Shay Attending Provider Kaitlyn KAM, Dr. Bowden Primary Care Physician Damián MACHINE LACER-C, Krystina Attending Physician Andriy KAM, Dr. Michael Shay Attending Physician Andriy KAM, Dr. Michael Shay Referring Provider Andriy KAM, Dr. Michael Shay Nurse Practitioner Paola KAM, Dr. Ramon Attending Physician Kaitlyn KAM, Dr. Bowden Nurse Practitioner Paola KAM, Dr. Ramon Referring Provider MICHELLE MAYA Nurse Practitioner Unavailjanay Sahni MD, Dr. Bowden Nurse Practitioner Paola KAM, Dr. Ramon Referring Provider MICHELLE MAYA Nurse Practitioner Unavailabl e Dennise Sahni Primary Care Unavailable Dennise Sahni Referring Unavailable Tristen Guevara Attending Unavailable Michael Ashraf Attending Unavailable Michael Ashraf Referring Unavailable Dennise Sahni Primary Care Unavailable Andre MACHINE LACER, Francheska Referring Unavailable Aristes MACHINE LACER, Francheska Attending Unavailable Dennise Sahni Primary Care Unavailable Aristes MACHINE LACER, Francheska Attending Unavailable Dennise Sahni Referring Unavailable Dennise Sahni Primary Care Unavailable Kalisetti, Dennise Referring Unavailable Kalisetti, Dennise Primary Care Unavailable Damián MACHINE LACER, Krystina Attending Unavailable Kalisetti, Dennise Referring Unavailable Kalisetti, Dennise Primary Care Unavailable Damián MACHINE LACER, Krystina Attending Unavailable Kalisetti, Dennise Primary Care Unavailable Kalisetti, Dennise Referring Unavailable Isckarus, Mansour Attending Unavailable Aristes MACHINE LACER, Francheska Attending Unavailable Kalisetti, Dennise Primary Care Unavailable Kalisetti, Dennise Primary Care Unavailable Kalisetti, Dennise Referring Unavailable Damián MACHINE LACER, Krystina Attending Unavailable Danyelle Manzano Attending Unavailable Kalisetti, Dennise Referring Unavailable Kalisetti, Dennise Primary Care Unavailable Gian Phipps Attending Unavailable Kalisetti, Dennise Primary Care Unavailable Aristes MACHINE LACER, Francheska Attending Unavailable Kalisetti, Dennise Referring Unavailable Kalisetti, Dennise Primary Care Unavailable Damián MACHINE LACER, Krystina Referring Unavailable Kalisetti, Dennise Primary Care Unavailable Damián MACHINE LACER, Krystina Attending Unavailable Michael Ashraf Referring Unavailable Michael Asrhaf Attending Unavailable Kalisetti, Dennise Primary Care Unavailable Kalisetti, Dennise Consulting Unavailable Kalisetti, Dennise Primary Care Unavailable Isckarus, Mansour Referring Unavailable Bestkarus, Mansour Attending Unavailable ROCCO WHITTINGTON Consulting Unavailable Michael Ashraf Attending Unavailable Kalisetti, Dennise Primary Care Unavailable Damián MACHINE LACER, Krystina Attending Unavailable Damián MACHINE LACER, Krystina Referring Unavailable Kalisetti, Dennise Primary Care Unavailable Kalisetti, Dennise Primary Care Unavailable Kalisetti, Dennise Referring Unavailable Isckarus, Mansour Attending Unavailable Michael Ashraf Attending Unavailable Kalisetti, Dennise Primary Care Unavailable Kalisetti, Dennise Referring Unavailable Michael Ashraf Attending Unavailable Kalisetti, Dennise Referring Unavailable Kalisetti, Dennise Primary Care Unavailable Michael Ashraf Attending Unavailable Michael Ashraf Consulting Unavailable Michael Ashraf Referring Unavailable Kalisetti, Dennise Primary Care Unavailable Michael Ashraf Attending Unavailable Kalisetti, Dennise Referring Unavailable Kalisetti, Dennise Primary Care Unavailable Kalisetti, Dennise Referring Unavailable Kalisetti, Dennise Primary Care Unavailable Isckarus, Mansour Attending Unavailable Kaitlyn KAM, Dr. Bowden Primary Care Physician Kaitlyn KAM, Dr. Bowden Referring Provider Damián MACHINE LACER-C, Krystina Attending Physician Damián MACHINE LACER-C, Krystina Referring Provider Andriy KAM, Dr. Michael Shay Attending Physician Andriy KAM, Dr. Michael Shay Referring Provider Andriy KAM, Dr. Michael Shay Nurse Practitioner Paola KAM, Dr. Ramon Attending Physician Kaitlyn KAM, Dr. Bowden Nurse Practitioner Paola KAM, Dr. Ramon Referring Provider MICHELLE MAYA Nurse Practitioner Unavailabl e Medications Current Medications Medication Drug Class(es) Dates Sig (Normalized) Sig (Original) Aspirin (13 sources) Platelet Aggregation Inhibitor, Nonsteroidal Anti-inflammatory Drug Start: 10-07-2017 aspirin 81 mg oral delayed release tablet Dose : 81 mg = 1 tab(s), Oral, qAM Start Date: 10/07/17 Status: Ordered Start: 07-22-2017 take 1 tablet by mouth once da justina atorvastatin 40 mg oral tablet (13 sources) HMG-CoA Reductase Inhibitor Start: 07-22-2017 take 1 tablet by mouth at bedtime estradiol 0.1 mg/ml vaginal cream (10 sources) Estrogen Start: 09-13-2024 famotidine 20 mg oral tablet (11 sources) Histamine-2 Receptor Antagonist Start: 12-11-2022 take 1 tablet by mouth at bedtime hydroxyurea 500 mg oral capsule (20 sources) Antimetabolite Start: 05-05-2024 End: 05-05-2024 take 1 capsule by mouth once daily Start: 08-01-2022 End: 05-05-2024 Hydroxyurea 500 mg capsule Discontinued 1500 mg PO .COMPLEX 216 1 March 23, 2024 4:47pm May 05, 2024 2:31pm Polycythemia vera Polycythemia vera 1,500 mg orally Friday through Friday; Start: 02-06-2022 End: 08-01-2022 take 2 capsules by mouth once daily Hydroxyurea 500 mg capsule Discontinued 0 .ROUTE .COMPLEX 180 0 April 22, 2022 9:17am August 01, 2022 8:26am Polycythemia vera Polycythemia vera TAKE 2 CAPSULES BY MOUTH (1,000MG) DAILY ON MONDAYS-SATURDAYS ONLY Start: 06-11-2021 End: 02-06-2022 take 1 capsule by mouth once daily Hydroxyurea 500 mg capsule Discontinued 500 mg PO DAILY June 11, 2021 12:00am February 06, 2022 1:12pm LORazepam 1 mg oral tablet (1 source) Benzodiazepine Start: 03-28-2025 End: 03-29-2025 Lorazepam (Ativan) 1 mg tablet Discontinued 0.5 mg PO TWICE A DAY as needed for anxiety 3 1 0 March 27, 2025 11:00pm March 27, 2025 11:00pm March 28, 2025 11:10pm take 1-2 tabs 30 min prior to MRI metoprolol tartrate 25 mg oral tablet (20 sources) beta-Adrenergic Ludy Start: 09-18-2022 take 1 tablet by mouth once daily Start: 07-22-2017 End: 09-18-2022 take 1 tablet by mouth twice daily Metoprolol Tartrate 25 MG tablet Discontinued 25 mg PO TWICE A DAY July 22, 2017 12:00am September 18, 2022 1:04pm Completed/Discontinued Medications Medication Drug Class(es) Dates Sig (Normalized) Sig (Original) acetaminophen 325 mg oral tablet (11 sources) Start: 08-04-2024 End: 09-21-2024 take 1 tablet by mouth once as needed Acetaminophen (Tylenol) 325 mg tablet Discontinued 325 mg PO ONCE as needed August 04, 2024 12:00am September 21, 2024 1:26pm cyclobenzaprine hydrochloride 5 mg oral tablet (11 sources) Muscle Relaxant Start: 08-23-2024 End: 03-28-2025 take 1 tablet by mouth three times daily as needed for muscle spasms Cyclobenzaprine 5 mg tablet Discontinued 5 mg PO THREE TIMES A DAY as needed for muscle spasm 60 0 August 22, 2024 11:00pm March 28, 2025 1:44pm ibuprofen 200 mg oral tablet (11 sources) Nonsteroidal Anti-inflammatory Drug Start: 08-04-2024 End: 09-21-2024 take 1 tablet by mouth every six hours as needed Ibuprofen (Advil) 200 mg tablet Discontinued 200 mg PO EVERY 6 HOURS as needed August 04, 2024 12:00am September 21, 2024 1:26pm omeprazole 20 mg delayed release oral capsule (13 sources) Proton Pump Inhibitor Start: 09-27-2020 End: 03-17-2023 take 1 capsule by mouth once daily Omeprazole 20 mg capsule,delayed release(DR/EC) Discontinued 20 mg PO DAILY June 11, 2021 12:00am March 17, 2023 1:03pm ticagrelor 90 mg oral tablet (12 sources) Start: 07-22-2017 End: 06-11-2021 take 1 tablet by mouth twice daily Ticagrelor (Brilinta) 90 MG tablet Discontinued 90 mg PO TWICE A DAY July 22, 2017 12:00am June 11, 2021 10:34am Problems Active Problems Problem Classification Problem Date Documented Date Episodic/Chronic Acute myocardial infarction (13 sources) Acute non-ST segment elevation myocardial infarction; Translations: [Myocardial infarction] Onset: 7 03-06-2017 Chronic Cancer of breast (15 sources) Intraductal carcinoma in situ of breast; Translations: [Intraductal carcinoma in situ of unspecified breast] Onset: 5 03-01-2025 Chronic Coronary atherosclerosis and other heart disease (15 sources) Coronary arteriosclerosis in [place] artery; Translations: [Coronary atherosclerosis] Onset: 7 07-19-2019 Chronic Comment on above: NSTEMI s/p prox LAD Reolute integrity SUNITHA (RS) 05/12/2018: SPECT MPI negative for inducible ischemia. Gated SPECT LVEF 68% Disorders of lipid metabolism (13 sources) Dyslipidemia; Translations: [Hyperlipidemia, unspecified] 07-19-2019 Chronic [...] initial encounter] Onset: 5 Episodic Esophageal disorders (20 sources) Gastro-esophageal reflux disease with esophagitis; Translations: [Gastroesophageal reflux disease with esophagitis] 10-07-2017 Chronic Essential hypertension (14 sources) Benign hypertension; Translations: [Hypertensive disorder] 07-19-2019 Chronic Genitourinary symptoms and ill-defined conditions (13 sources) Genuine stress incontinence; Translations: [Stress incontinence [...] in relapse] Onset: 5 Chronic Menopausal disorders (20 sources) Postmenopausal bleeding; Translations: [Postmenopausal bleeding] Onset: 5 08-11-2024 Chronic Comment on above: TVUS TVUS:uterus ,5cm and lining 1mm TVUS:uterus ,5cm and lining 1mm. Normal EMB Neoplasms of unspecified nature or uncertain behavior (20 sources) Polycythemia vera (clinical); Translations: [Polycythemia vera] Onset: 5 Chronic Neoplasms of unspecified nature or uncertain behavior (1 source) Myeloproliferative disorder 07-19-2019 Episodic Comment on above: being followed by Dr Luh Gross in [place]. Nonmalignant breast conditions (1 source) Mammographic calcification found on diagnostic imaging of breast; Translations: [Mammographic calcification found on diagnostic imaging of breast] Onset: 5 Episodic Nonspecific chest pain (1 source) Acute chest pain 03-05-2017 Episodic Other fractures (3 sources) Fracture of sacrum; Translations: [Unspecified fracture of sacrum, initial encounter for closed fracture] 08-23-2024 Episodic Other hematologic conditions (1 source) Erythrocytosis 07-19-2019 Episodic Other injuries and conditions due to external causes (10 sources) H/O: fracture; Translations: [Personal history of (healed) traumatic fracture] 09-13-2024 Episodic Comment on above: 06/2024 Other lower respiratory disease (13 sources) Dyspnea; Translations: [Shortness of breath] 07-19-2019 Episodic Comment on above: 05/12/2018: Mild LVH, EF 55 to 60%. Mild MR, TR. RVSP 29 mmHg. Other nutritional; endocrine; and metabolic disorders (12 sources) Body mass index 30+ - obesity; Translations: [Body mass index (BMI) 31.0-31.9, adult] 06-11-2021 Chronic Other nutritional; endocrine; and metabolic disorders (1 source) Body mass index (BMI) 31.0-31.9, adult; Translations: [Body Mass Index 31.0-31.9, adult] Chronic Other screening for suspected conditions (not mental disorders or infectious disease) (20 sources) Patient encounter status; Translations: [Encounter for other screening for malignant neoplasm of breast] Onset: 01-10-2025 Episodic Prolapse of female genital organs (13 sources) Cystocele co-occurrent with incomplete uterovaginal prolapse; Translations: [Incomplete uterovaginal prolapse] 09-13-2024 Chronic Residual codes; unclassified (12 sources) Sleep apnea; Translations: [Sleep apnea, unspecified] 06-11-2021 Chronic Residual codes; unclassified (1 source) Sleep apnea, unspecified; Translations: [Unspecified sleep apnea] Chronic Residual codes; unclassified (3 sources) Obstructive sleep apnea (adult) (pediatric); Translations: [Obstructive sleep apnea (adult) (pediatric)] Onset: Chronic Superficial injury; contusion (13 sources) Abrasion of vagina; Translations: [Abrasion of [...] [facility] Facility Absolute lymphocyte countOrd ered By: Krystina Steel on 04-06-2025 Lymphocytes Auto (Unsp spec) [#/Vol] 0.98 10*3/uL 0.83-4.51 [facility] Absolute neutrophil countOrd ered By: Krystinasanjiv SuarezDamián on 04-06-2025 Neutrophils (Bld) [#/Vol] 7.5 10*3/uL 2.0-7.7 [facility] Anion gap in Serum or Plasma Ordered By: Krystina SuarezDamián on 04-06-2025 Anion gap [Moles/Vol] 9 mmol/L 5- [facility] Automated lymphocyte count a s percentage of total leukocytesOrdered By: Krystina Steel on 04-06-2025 Lymphocytes/100 WBC Auto (Unsp spec) 10.8 % Low - [facility] BUN/creatinine ratioOrdered By: Krystina Steel on 04-06-2025 Urea nitrogen/Creatinine [Mass ratio] 29.9 mg/mg High 10- [facility] Basophil percentageOrdered B y: Krystina Steel on 04-06-2025 Basophils/100 WBC (Bld) 0.4 % 0-1 [facility] Bilirubin, totalOrdered By: Krystina Steel on 04-06-2025 Bilirubin [Mass/Vol] 0.60 mg/dL 0.00-1.30 [facility] CBC W/Diff, Automatedon 03-10 Absolute Lymph 0.98 X10 3/uL Normal 0.83-4.51 [facility] Comment on above: Performed By: #### L 100.0100, L500.4050 ####[facility] [address] [place], [address] Absolute Neut 7.5 X10 3/uL Normal 2.0-7.7 [facility] Comment on above: Performed By: #### L 100.0100, L500.4050 ####[facility] [address] [place], [address] Basophils/100 WBC (Bld) 0.4 % Normal 0-1 [facility] Comment on above: Performed By: #### L 100.0100, L500.4050 ####[facility] [address] [place], [address] Eosinophils/100 WBC (Bld) 1.9 % Normal 0-5 [facility] Comment on above: Performed By: #### L 100.0100, L500.4050 ####[facility] [address] [place], [address] Erythrocyte distribution width (RBC) [Ratio] 17.2 % High 11.6-14.6 [facility] Comment on above: Performed By: #### L 100.0100, L500.4050 ####[facility] [address] [place], [address] Hematocrit (Bld) [Volume fraction] 40.3 % Normal 37-47 [facility] Comment on above: Performed By: #### L 100.0100, L500.4050 ####[facility] [address] [place], [address] Hemoglobin (Bld) [Mass/Vol] 11.9 g/dL Low 12.0-15.0 [facility] Comment on above: Performed By: #### L 100.0100, L500.4050 ####[facility] [address] [place], [address] IG% 1.000 High 0.0-0.9 [facility] Comment on above: Result Comment: IG% - Immature Granulocytes (promyelocytes, myelocytes and metamyelocytes) > 1% indicates that a LEFT SHIFT is Present. Performed By: #### L 100.0100, L500.4050 ####[facility] [address] [place], [address] Lymphocytes/100 WBC (Bld) 10.8 % Low 19-41 [facility] Comment on above: Performed By: #### L 100.0100, L500.4050 ####[facility] [address] [place], [address] MCH (RBC) [Entitic mass] 26.6 pg Low 27.0-32.0 [facility] Comment on above: Performed By: #### L 100.0100, L500.4050 ####[facility] [address] [place], [address] MCHC (RBC) [Mass/Vol] 29.5 g/dL Low 32-36 [facility] Comment on above: Performed By: #### L 100.0100, L500.4050 ####[facility] [address] [place], [address] MCV (RBC) [Entitic vol] 90.2 fL Normal 81-99 [facility] Comment on above: Performed By: #### L 100.0100, L500.4050 ####[facility] [address] [place], [address] Monocytes/100 WBC (Bld) 3.3 % Normal 0-10 [facility] Comment on above: Performed By: #### L 100.0100, L500.4050 ####[facility] [address] [place], [address] Neutrophils/100 WBC (Bld) 82.6 % High 47-70 [facility] Comment on above: Performed By: #### L 100.0100, L500.4050 ####[facility] [address] [place], [address] Nucleated RBC (Bld) [#/Vol] 0 10*3/uL Normal 0-5 [facility] Comment on above: Performed By: #### L 100.0100, L500.4050 ####[facility] [address] [place], [address] Platelet mean volume (Bld) [Entitic vol] 9.9 fL Normal 6.2-12.0 [facility] Comment on above: Performed By: #### L 100.0100, L500.4050 ####[facility] [address] [place], [address] Platelets (Bld) [#/Vol] 352 10*3/uL Normal 150-450 [facility] Comment on above: Performed By: #### L 100.0100, L500.4050 ####[facility] [address] [place], [address] RBC (Bld) [#/Vol] 4.47 10*6/uL Normal 4.2-5.4 [facility] Comment on above: Performed By: #### L 100.0100, L500.4050 ####[facility] [address] [place], [address] RDW SD 55.9 fl High 35.1-43.9 [facility] Comment on above: Performed By: #### L 100.0100, L500.4050 ####[facility] [address] [place], [address] WBC (Bld) [#/Vol] 9.1 10*3/uL Normal 4.4-11.0 [facility] Comment on above: Performed By: #### L 100.0100, L500.4050 ####[facility] [address] [place], [address] Carbon dioxide, total [Moles /volume] in Central venous bloodOrdered By: Krystina Steel on 04-06-2025 CO2 [Moles/Vol] 26.4 mmol/L 21.0-32.0 [facility] Chloride assayOrdered By: [place] Steel on 04-06-2025 Chloride [Moles/Vol] 106 mmol/L 98-108 [facility] Comprehensive Metabolic Prof ilon 04-06-2025 Albumin [Mass/Vol] 4.0 g/dL Normal 3.4-4.8 [facility] Comment on above: Performed By: #### L 100.0100, L500.4050 ####[facility] [address] [place], [address] Albumin/Globulin [Mass ratio] 1.3 {ratio} Normal 0.9-2.4 [facility] Comment on above: Performed By: #### L 100.0100, L500.4050 ####[facility] [address] [place], [address] ALK PHOS 97 U/L Normal 35-104 [facility] Comment on above: Performed By: #### L 100.0100, L500.4050 ####[facility] [address] [place], [address] ALT [Catalytic activity/Vol] 14 U/L Normal <=34 [facility] Comment on above: Performed By: #### L 100.0100, L500.4050 ####[facility] [address] [place], [address] AST [Catalytic activity/Vol] 31 U/L Normal <=31 [facility] Comment on above: Performed By: #### L 100.0100, L500.4050 ####[facility] [address] [place], [address] Bilirubin [Mass/Vol] 0.60 mg/dL Normal 0.00-1.30 [facility] Comment on above: Performed By: #### L 100.0100, L500.4050 ####[facility] [address] [place], [address] BUN/CRE 29.9 RATIO High 10-20 [facility] Comment on above: Performed By: #### L 100.0100, L500.4050 ####[facility] [address] [place], [address] Calcium [Mass/Vol] 9.3 mg/dL Normal 7.6-11.0 [facility] Comment on above: Performed By: #### L 100.0100, L500.4050 ####[facility] [address] [place], [address] Chloride [Moles/Vol] 106 mmol/L Normal 98-108 [facility] Comment on above: Performed By: #### L 100.0100, L500.4050 ####[facility] [address] [place], [address] CO2 [Moles/Vol] 26.4 mmol/L Normal 21.0-32.0 [facility] Comment on above: Performed By: #### L 100.0100, L500.4050 ####[facility] [address] [place], [address] Creatinine [Mass/Vol] 0.74 mg/dL Normal 0.70-1.20 [facility] Comment on above: Performed By: #### L 100.0100, L500.4050 ####[facility] [address] [place], [address] ECRCL 63.97 ml/min Normal 50-250 [facility] Comment on above: Performed By: #### L 100.0100, L500.4050 ####[facility] [address] [place], [address] GAP 9 Normal 5-15 [facility] Comment on above: Performed By: #### L 100.0100, L500.4050 ####[facility] [address] [place], [address] GFR/1.73 sq M.predicted among non-blacks MDRD (S/P/Bld) [Vol rate/Area] 85 mL/min/{1.73_m2} Normal >60 [facility] Comment on above: Result Comment: mL/m in/1.73m2 CKD-EPI Creatinine Equation (2020) Performed By: #### L 100.0100, L500.4050 ####[facility] [address] [place], [address] Globulin (S) [Mass/Vol] 3.0 g/dL Normal 2.2-4.2 [facility] Comment on above: Performed By: #### L 100.0100, L500.4050 ####[facility] [address] [place], [address] Glucose [Mass/Vol] 105 mg/dL High 70-99 [facility] Comment on above: Performed By: #### L 100.0100, L500.4050 ####[facility] [address] [place], [address] Potassium [Moles/Vol] 4.2 mmol/L Normal 3.3-5.1 [facility] Comment on above: Performed By: #### L 100.0100, L500.4050 ####[facility] [address] [place], [address] Sodium [Moles/Vol] 141 mmol/L Normal 133-145 [facility] Comment on above: Performed By: #### L 100.0100, L500.4050 ####[facility] [address] [place], [address] T PROT 7.1 g/dL Normal 5.9-8.4 [facility] Comment on above: Performed By: #### L 100.0100, L500.4050 ####[facility] [address] [place], [address] Urea nitrogen [Mass/Vol] 22 mg/dL High 4-19 [facility] Comment on above: Performed By: #### L 100.0100, L500.4050 ####[facility] [address] [place], [address] Eosinophil percentageOrdered By: Krystina tSeel on 04-06-2025 Eosinophils/100 WBC (Bld) 1.9 % 0-5 [facility] Erythrocyte distribution wid th ratioOrdered By: Krystina Steel on 04-06-2025 Erythrocyte distribution width (RBC) [Ratio] 17.2 % High 11.6-14.6 [facility] Erythrocyte distribution wid th standard deviationOrdered By: Krystina Steel on 04-06-2025 Erythrocyte distribution width (RBC) [Ratio] 55.9 fl High 35.1-43.9 [facility] Glomerular filtration rate ( GFR) estimation/1.73 sq m using serum, plasma, or whole bOrdered By: Krystinasanjiv Steel on 04-06-2025 GFR/1.73 sq M.predicted among non-blacks MDRD (S/P/Bld) [Vol rate/Area] 85 mL/min/{1.73_m2} >60 [facility] Comment on above: mL/min/1.73m2 CKD-EP I Creatinine Equation (2020) Hematocrit Auto (Bld) [Volum e fraction]Ordered By: Krystina Steel on 04-06-2025 Hematocrit (Bld) [Volume fraction] 40.3 % 37-47 [facility] Hemoglobin measurementOrdere d By: Krystina Steel on 04-06-2025 Hemoglobin (Bld) [Mass/Vol] 11.9 g/dL Low 12.0-15.0 [facility] Immature granulocytes/100 WB C Auto (Bld)Ordered By: Krystina Steel on 04-06-2025 Immature granulocytes/100 WBC (Bld) 1.000 % High 0.0-0.9 [facility] Comment on above: IG% - Immature Granu locytes (promyelocytes, myelocytes and metamyelocytes) > 1% indicates that a LEFT SHIFT is Present. Laboratory - Chemistry and C hemistry - challengeOrdered By: Krystina Steel on 04-06-2025 AST [Catalytic activity/Vol] 31 U/L <32 [facility] MCV (mean corpuscular volume ) determinationOrdered By: Krystina Steel on 04-06-2025 MCV (RBC) [Entitic vol] 90.2 fL 81-99 [facility] Mean corpuscular hemoglobin (MCH) determinationOrdered By: Krystina Damián on 04-06-2025 MCH (RBC) [Entitic mass] 26.6 pg Low 27.0-32.0 [facility] Mean corpuscular hemoglobin concentration (MCHC) determinationOrdered By: Krystinasanjiv SuarezDamián on 04-06-2025 MCHC (RBC) [Mass/Vol] 29.5 g/dL Low 32-36 [facility] Mean platelet volume determi nationOrdered By: Krystina Damián on 04-06-2025 Platelet mean volume (Bld) [Entitic vol] 9.9 fL 6.2-12.0 [facility] Monocyte percentageOrdered B y: Krystinasanjiv BowmanDamián on 04-06-2025 Monocytes/100 WBC (Bld) 3.3 % 0-10 [facility] Neutrophil percentageOrdered By: Krystina Steel on 04-06-2025 Neutrophils/100 WBC (Bld) 82.6 % High 47-70 [facility] Nucleated red blood cell per centageOrdered By: Krystina Damián on 04-06-2025 Nucleated RBC/100 WBC (Bld) [Ratio] 0 % 0-5 [facility] Oncology Visit Reporton 10 Oncology Visit Report [facility] [address] [address] OFFICE VISIT Date of Service: 04/06/25 1330 MR#: [id number] Acct: [id number] Name: PHONG JANG LASHAUN Rep #: [id number] : 1950 From: Tristen Guevara MD Age/Sex: 74/F [place] [facility] Status: Signed HPI Subjective Date of Service 04/06/25 Chief Complaint P vera and breast Cance History of Present Illness 74-year-old female with #1- Polycythemia vera transferring her care from [facility] to [facility] in July 2021 closer to home and because 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 She presented in 2017 with vague nonspecific [...] however an ultrasound of March 2022 at [facility] shows stable mild splenomegaly of 13.7 cm. She was treated with phlebotomies and hydroxyurea since 2017. Initially the phlebotomies were done on a weekly basis, less often thereafter and by 2021 she is on phlebotomy every 2 months or so. Most of her symptoms improved although she continues to report some fatigue yet not as bad as when she was first diagnosed. She has not developed any infectious or bleeding complications during the course of her illness. #2-Breast cancer: DCIS February 01, 2025 screening mammography: IMPRESSION: Suspicious left breast calcifications in the upper-outer left breast extending from anterior to middle depth. 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 - Minimum span of 0.9 cm. - ER: positive (100%, strong intensity). - IN: PENDING, to be reported in an addendum. - Ki67: PENDING, to be reported in an addendum. - IHC for Ecadherin, CK5/6, and p40 support the diagnosis Genetic testing February 2025 showed no known pathogenic or likely pathogenic variants. March 31, 2025 breast MRI: LEFT Breast: There is segmental non- mass enhancement in the upper-outer left breast extending from anterior to posterior depth, measuring 8.1 x 2.6 x 6.0 cm. This non-mass enhancement extends into the nipple and is best seen on series 7 image 43. There is a small post biopsy hematoma with an adjacent biopsy marker clip in the middle aspect of this non- mass enhancement. This area correlates to the suspicious calcifications in the left breast seen on the mammogram of 02/04/2025 and corresponds to the biopsy-proven DCIS. Treatment summary : Phlebotomies 2017-ongoing Hydroxyurea 2017-ongoing [facility] Medical History DCIS (ductal carcinoma in situ) of breast Abnormal mammogram of left breast Screening for breast cancer GERD (gastroesophageal reflux disease) Cellulitis of left [...] Father Myocardial infarction CVA (cerebral vascular accident) Cancer Mother Cancer Breast cancer of breast CA in 30's Sister Breast cancer dx in early 40's and passed at 68 Uncle Cancer lung Social History Smoking Status: Never smoker alcohol intake: never ROS ROS Narrative No breast mass Intake Vital Signs 01/10/25 13:18 03/28/25 14:40 04/06/25 13:31 04/06/25 13:36 Height 5 ft 5 in 5 ft 5 in 5 ft 5 in 5 ft 5 in Weight: 76.26 kg BMI 27.9 BP 120/79 Blood Pressure Location Rt brachial Position Sitting Respiration 16 Pulse 64 Pulse Source Monitor Temp 98.5 F Temperature Source Temporal Artery Pulse Oximetry (%) 97 Oxygen Delivery Method room air Intake Is patient in pain?: No Allergies No Known Allergies Allergy (Verified 04/06/25 13:34) Medications ???Medication ???Instructions ???Recorded ???Confirmed ???Type aspirin 81 mg chewable tablet 81 mg PO DAILY@0800 07/22/1704/06 History atorvastatin 40 mg tablet 40 mg PO QHS 07/22/17 04/06/25 His tory metoprolol tartrate 25 mg tablet 25 mg PO DAILY 09/18/22 04/06/25 (more content not included)... Normal [facility] Platelet countOrdered By: [place] Steel on 04-06-2025 Platelets (Bld) [#/Vol] 352 10*3/uL 150-450 [facility] Potassium measurement (mass/ volume)Ordered By: Krystina Steel on 04-06-2025 Potassium (Unsp spec) [Mass/Vol] 4.2 mmol/L 3.3-5.1 [facility] RBC Auto (Bld) [#/Vol]Ordere d By: Krystina Steel on 04-06-2025 RBC (Bld) [#/Vol] 4.47 10*6/uL 4.2-5.4 [facility] Serum creatinine measurement (mass/volume)Ordered By: Krystina Steel on 04-06-2025 Creatinine [Mass/Vol] 0.74 mg/dL 0.70-1.20 [facility] Serum globulin measurementOr dered By: Krystina Steel on 04-06-2025 Globulin (S) [Mass/Vol] 3.0 g/dL 2.2-4.2 [facility] Serum glucose measurement (m ass/volume)Ordered By: Krystina Steel on 04-06-2025 Glucose [Mass/Vol] 105 mg/dL High 70-99 [facility] Serum or plasma alanine rivera otransferase (ALT) measurementOrdered By: Krystina Steel on 04-06-2025 ALT [Catalytic activity/Vol] 14 U/L <35 [facility] Serum or plasma albumin bry urement (mass/volume)Ordered By: Krystina Steel on 04-06-2025 Albumin [Mass/Vol] 4.0 g/dL 3.4-4.8 [facility] Serum or plasma albumin/glob ulin mass ratioOrdered By: Krystina Steel on 04-06-2025 Albumin/Globulin [Mass ratio] 1.3 {ratio} 0.9-2.4 [facility] Serum or plasma alkaline tre sphatase measurementOrdered By: Krystina Steel on 04-06-2025 ALP [Catalytic activity/Vol] 97 U/L 35-104 [facility] Serum or plasma calcium bry urement (mass/volume)Ordered By: Krystina Steel on 04-06-2025 Calcium [Mass/Vol] 9.3 mg/dL 7.6-11.0 [facility] Serum or plasma urea nitroge n measurement (mass/volume)Ordered By: Krystina Steel on 04-06-2025 Urea nitrogen [Mass/Vol] 22 mg/dL High 4-19 [facility] Sodium levelOrdered By: Krystina Steel on 04-06-2025 Sodium [Moles/Vol] 141 mmol/L 133-145 [facility] Total proteinOrdered By: Tyr sanjiv Damián on 04-06-2025 Protein [Mass/Vol] 7.1 g/dL 5.9-8.4 [facility] White blood cell (WBC) count Ordered By: Krystina SuarezDamián on 04-06-2025 WBC (Bld) [#/Vol] 9.1 10*3/uL 4.4-11.0 [facility] Breast Bilateral W/O and Won 03-31-2025 Breast Bilateral W/O and W [facility] [address], [place] [id number] Breast Bilateral W/O and W MR#: [id number] Acct: [id number] Name: PHONG JANG Rep #: [id number] : 1950 F 74 From: Charu Brunner MD PCP: Dr. Dennise Sahni MD Status: REG CLI Study: Breast Bilateral W/O and W Date of Exam: 03/31 Exam# [id number] Ordering Dr: Michael Ashraf MD PROCEDURE: BREAST BILATERAL W/O AND W 03/31/2025 REASON FOR EXAM: 74-year-old female with recently diagnosed left breast DCIS presents for diagnostic MRI of the breast for extent of disease. TECHNIQUE: Procedure Code: [id number] Modality: MR Procedure: BREAST BILATERAL W/O AND W CONTRAST: 15 mL of IV Clariscan COMPARISON: Mammogram 02/04/2025, 02/01/2025, 01/30/2024 FINDINGS: TISSUE DENSITY: The breasts are heterogeneously dense, which may obscure small masses. Background Parenchymal Enhancement: Mild RIGHT Breast: No suspicious mass or non-mass enhancement. LEFT Breast: There is segmental non- mass enhancement in the upper-outer left breast extending from anterior to posterior depth, measuring 8.1 x 2.6 x 6.0 cm. This non-mass enhancement extends into the nipple and is best seen on series 7 image 43. There is a small post biopsy hematoma with an adjacent biopsy marker clip in the middle aspect of this non- mass enhancement. This area correlates to the suspicious calcifications in the left breast seen on the mammogram of 02/04/2025 and corresponds to the biopsy-proven DCIS. Other Findings: No suspicious axillary or internal mammary lymph nodes. Visualized portions of the thoracic and abdominal viscera are unremarkable. MRI/Breast Bilateral W/O and W IMPRESSION: 1. Segmental non-mass enhancement in the upper-outer left breast from anterior to posterior depth, and extending into the nipple, correlates to the biopsy-proven malignancy. Appropriate surgical/clinical management is recommended. 2. There is no MR evidence of malignancy in the right breast. OVERALL FINAL ASSESSMENT BI-RADS 6: KNOWN BIOPSY-PROVEN MALIGNANCY. RECOMMENDATION: OTHER Reading Location: [facility] CC: Dr. Dennise Sahni MD; Dr. Michael Ashraf MD Registered Radiographer: Signed Normal [facility] Surgery Visit Reporton 03-28 Surgery Visit Report [facility] [address] [place] [address] OFFICE VISIT Date of Service: 03/28/25 MR#: [id number] Acct: [id number] Name: PHONG JANG LASHAUN Rep #: [id number] : 1950 Provider: Dr. Michael caldwell MD Age/Sex: 74/F Location: [facility] Status: Signed Intake Vital Signs 03/17/25 12:58 03/28/25 14:40 Height 5 ft 5 in 5 ft 5 in Weight: 167 lb 8 oz 169 lb BMI 27.8 28.1 BP 121/70 H 118/73 Blood Pressure Location Rt brachial Rt brachial Position Sitting Sitting Respiration 18 17 Pulse 67 72 Pulse Source Monitor Monitor Temp 97.8 F Pulse Oximetry (%) 97 98 Oxygen Delivery Method room air room air Intake Visit Reasons: DISCUSS BREAST SX Chief Complaint: discuss breast sx Is patient in pain?: No Allergies No Known Allergies Allergy (Verified 03/28/25 14:43) Medications ???Medication ???Instructions ???Recorded ???Confirmed ???Type aspirin 81 mg chewable tablet 81 mg PO DAILY@0800 07/22/1703/28 History atorvastatin 40 mg tablet 40 mg PO QHS 07/22/17 03/28/25 His tory metoprolol tartrate 25 mg tablet 25 mg PO DAILY 09/18/22 03/28/25 H istory famotidine 20 mg tablet 20 mg PO QHS 12/11/22 03/28/25 His tory hydroxyurea 500 mg capsule 2,500 mg (5 x 500 mg) PO QDAY 90 1 07/05/23 03/28/25 Rx days #450 caps estradiol 0.01% (0.1 mg/gram) See Rx Instructions vaginal 03/28/25 Rx vaginal cream .COMPLEX #42.5 grams lorazepam 1 mg tablet (Ativan) 0.5 mg (1/2 x 1 mg) PO BID PRN 03/28/25 Rx anxiety 1 day #3 tabs Have you fallen in the past year?: No PFSH Medical History DCIS (ductal carcinoma in situ) of breast Abnormal mammogram of left breast Screening for breast cancer GERD (gastroesophageal reflux disease) Cellulitis of left [...] Father Myocardial infarction CVA (cerebral vascular accident) Cancer Mother Cancer Breast cancer of breast CA in 30's Sister Breast cancer dx in early 40's and passed at 68 Uncle Cancer lung Social History Smoking Status: Never smoker alcohol intake: never HPI HPI HPI: The patient is a 74-year-old female who is being seen today ly her treatment options for her recently diagnosed left breast DCIS. She had a very diffuse region of microcalcifications which were biopsied stereotactically. The region seem to span at least 5 centimeters or so if not more. At our initial meeting, she seemed to be leaning towards mastectomy as treatment. However she is now considering lumpectomy after meeting with medical oncology. Is a previously discussed with her, I would recommend getting a breast MRI if she is at least considering lumpectomy to hopefully estimate the overall size of DCIS as I would like to avoid a situation where we are not able to establish sufficient margin with lumpectomy. She states that some of her other medications tend to increase her risk of infection. I explained to her that there is a risk of infection regardless of whether or not she undergoes a lumpectomy or mastectomy. ROS General General: Yes fatigue and breast cancer; No weight change, appetite, colon cancer or weakness HEENT HEENT: No difficulty swallowing, eye injury, eye surgery, swollen glands or hoarseness Endo Endocrine: Yes thyroid disease; No diabetes mellitus, thyroid cancer, Hair loss, heat intolerance or cold intolerance Skin Skin: No rash or changing moles Musc Musculoskeletal: Yes arthritis; No back problems, rheumatoid arthritis, gout or joint pain Cardio Cardiovascular: Yes heart attack and heart stent; No murmur, pacemaker, heart disease, atrial fibrillation, high blood pressure, palpitations, shortness of breath with exertion or chest pain Psych Psychiatric: No depression, anxiety or hearing voices Resp Respiratory: No shortness of breath, Yes sleep apnea, No cough, No COPD, No asthma, No emphysema and No wheezing Gastro Gastrointestinal: No abdominal pain, Yes nausea or vomiting, No diarrhea, No constipation, No blood in stool, Yes acid reflux, No hemorrhoids, No ulcers, No gallbladder problem and No black,tarry stools [place] Hematologic: Yes blood thinners, Yes blood disorders, No bleeding, No anemia and (more content not included)... Normal [facility] Absolute lymphocyte countOrd ered By: Tristen Guevara on 03-17-2025 Lymphocytes Auto (Unsp spec) [#/Vol] 0.77 10*3/uL Low 0.83-4.51 [facility] Absolute neutrophil countOrd ered By: Tristen Guevara on 03-17-2025 Neutrophils (Bld) [#/Vol] 8.3 10*3/uL High 2.0-7.7 [facility] Automated lymphocyte count a s percentage of total leukocytesOrdered By: Tristen Guevara on 03-17-2025 Lymphocytes/100 WBC Auto (Unsp spec) 7.8 % Low 19-41 [facility] Basophil percentageOrdered B y: Tristen Guevara on 03-17-2025 Basophils/100 WBC (Bld) 0.3 % 0-1 [facility] CBC W/Diff, Automatedon - Absolute Lymph 0.77 X10 3/uL Low 0.83-4.51 [facility] Comment on above: Performed By: #### L 100.0100 ####[facility] [address] [place], [address] Absolute Neut 8.3 X10 3/uL High 2.0-7.7 [facility] Comment on above: Performed By: #### L 100.0100 ####[facility] [address] [place], [address] Basophils/100 WBC (Bld) 0.3 % Normal 0-1 [facility] Comment on above: Performed By: #### L 100.0100 ####[facility] [address] [place], [address] Eosinophils/100 WBC (Bld) 2.1 % Normal 0-5 [facility] Comment on above: Performed By: #### L 100.0100 ####[facility] [address] [place], [address] Erythrocyte distribution width (RBC) [Ratio] 17.0 % High 11.6-14.6 [facility] Comment on above: Performed By: #### L 100.0100 ####[facility] [address] [place], [address] Hematocrit (Bld) [Volume fraction] 41.1 % Normal 37-47 [facility] Comment on above: Performed By: #### L 100.0100 ####[facility] [address] [place], [address] Hemoglobin (Bld) [Mass/Vol] 12.5 g/dL Normal 12.0-15.0 [facility] Comment on above: Performed By: #### L 100.0100 ####[facility] [address] [place], [address] IG% 1.400 High 0.0-0.9 [facility] Comment on above: Result Comment: IG% - Immature Granulocytes (promyelocytes, myelocytes and metamyelocytes) > 1% indicates that a LEFT SHIFT is Present. Performed By: #### L 100.0100 ####[facility] [address] [place], [address] Lymphocytes/100 WBC (Bld) 7.8 % Low 19-41 [facility] Comment on above: Performed By: #### L 100.0100 ####[facility] [address] [place], [address] MCH (RBC) [Entitic mass] 27.0 pg Normal 27.0-32.0 [facility] Comment on above: Performed By: #### L 100.0100 ####[facility] [address] [place], [address] MCHC (RBC) [Mass/Vol] 30.4 g/dL Low 32-36 [facility] Comment on above: Performed By: #### L 100.0100 ####[facility] [address] [place], [address] MCV (RBC) [Entitic vol] 88.8 fL Normal 81-99 [facility] Comment on above: Performed By: #### L 100.0100 ####[facility] [address] [place], [address] Monocytes/100 WBC (Bld) 3.8 % Normal 0-10 [facility] Comment on above: Performed By: #### L 100.0100 ####[facility] [address] [place], [address] Neutrophils/100 WBC (Bld) 84.6 % High 47-70 [facility] Comment on above: Performed By: #### L 100.0100 ####[facility] [address] [place], [address] Nucleated RBC (Bld) [#/Vol] 0 10*3/uL Normal 0-5 [facility] Comment on above: Performed By: #### L 100.0100 ####[facility] [address] [place], [address] Platelet mean volume (Bld) [Entitic vol] 10.5 fL Normal 6.2-12.0 [facility] Comment on above: Performed By: #### L 100.0100 ####[facility] [address] [place], [address] Platelets (Bld) [#/Vol] 293 10*3/uL Normal 150-450 [facility] Comment on above: Performed By: #### L 100.0100 ####[facility] [address] [place], [address] RBC (Bld) [#/Vol] 4.63 10*6/uL Normal 4.2-5.4 [facility] Comment on above: Performed By: #### L 100.0100 ####[facility] [address] [place], [address] RDW SD 53.5 fl High 35.1-43.9 [facility] Comment on above: Performed By: #### L 100.0100 ####[facility] [address] [place], [address] WBC (Bld) [#/Vol] 9.8 10*3/uL Normal 4.4-11.0 [facility] Comment on above: Performed By: #### L 100.0100 ####[facility] [address] [place], [address] Eosinophil percentageOrdered By: [facility] Guevara on 03-17-2025 Eosinophils/100 WBC (Bld) 2.1 % 0-5 [facility] Erythrocyte distribution wid th ratioOrdered By: [facility] Guevara on 03-17-2025 Erythrocyte distribution width (RBC) [Ratio] 17.0 % High 11.6-14.6 [facility] Erythrocyte distribution wid th standard deviationOrdered By: [facility] Guevara on 03-17-2025 Erythrocyte distribution width (RBC) [Ratio] 53.5 fl High 35.1-43.9 [facility] Hematocrit Auto (Bld) [Volum e fraction]Ordered By: [facility] Guevara on 03-17-2025 Hematocrit (Bld) [Volume fraction] 41.1 % 37-47 [facility] Hemoglobin measurementOrdere d By: [facility] Guevara on 03-17-2025 Hemoglobin (Bld) [Mass/Vol] 12.5 g/dL 12.0-15.0 [facility] Immature granulocytes/100 WB C Auto (Bld)Ordered By: [facility] Guevara on 03-17-2025 Immature granulocytes/100 WBC (Bld) 1.400 % High 0.0-0.9 [facility] Comment on above: IG% - Immature Granu locytes (promyelocytes, myelocytes and metamyelocytes) > 1% indicates that a LEFT SHIFT is Present. MCV (mean corpuscular volume ) determinationOrdered By: Tristen Guevara on 03-17-2025 MCV (RBC) [Entitic vol] 88.8 fL 81-99 [facility] Mean corpuscular hemoglobin (MCH) determinationOrdered By: [facility] on 03-17-2025 MCH (RBC) [Entitic mass] 27.0 pg 27.0-32.0 [facility] Mean corpuscular hemoglobin concentration (MCHC) determinationOrdered By: [facility] G[facility] on 03-17-2025 MCHC (RBC) [Mass/Vol] 30.4 g/dL Low 32-36 [facility] Mean platelet volume determi nationOrdered By: Tristen Guevara on 03-17-2025 Platelet mean volume (Bld) [Entitic vol] 10.5 fL 6.2-12.0 [facility] Monocyte percentageOrdered B y: Tristen Guevara on 03-17-2025 Monocytes/100 WBC (Bld) 3.8 % 0-10 [facility] Neutrophil percentageOrdered By: Tristen Guevara on 03-17-2025 Neutrophils/100 WBC (Bld) 84.6 % High 47-70 [facility] Nucleated red blood cell per centageOrdered By: Tristen Guevara on 03-17-2025 Nucleated RBC/100 WBC (Bld) [Ratio] 0 % 0-5 [facility] Oncology Visit Reporton 10-0 Oncology Visit Report [facility] [address] [place] [address] OFFICE VISIT Date of Service: 03/17/25 1257 MR#: [id number] Acct: [id number] Name: LAINEPHONG LASHAUN Rep #: [id number] : 1950 From: Tristen Guevara MD Age/Sex: 74/F [facility] [facility] Status: Signed HPI Subjective Date of Service 03/17/25 Chief Complaint P vera and breast Cance History of Present Illness 74-year-old female with #1- Polycythemia vera transferring her care from [facility] to [facility] in July 2021 closer to home and because 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 She presented in 2016 with vague nonspecific [...] however an ultrasound of March 2022 at [facility] shows stable mild splenomegaly of 13.7 cm. [...] complications during the course of her illness. #2-Breast cancer: DCIS February 01, 2025 screening mammography: IMPRESSION: Suspicious left breast calcifications in the upper-outer left breast extending from anterior to middle depth. 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 - Minimum span of 0.9 cm. - ER: positive (100%, strong intensity). - IN: PENDING, to be reported in an addendum. - Ki67: PENDING, to be reported in an addendum. - IHC for Ecadherin, CK5/6, and p40 support the diagnosis Genetic testing February 2025 showed no known pathogenic or likely pathogenic variants. Treatment summary : Phlebotomies 2017-ongoing Hydroxyurea 2017-ongoing [facility] Medical History DCIS (ductal carcinoma in situ) of breast Abnormal mammogram of left breast Screening for breast cancer GERD (gastroesophageal reflux disease) Cellulitis of left [...] Father Myocardial infarction CVA (cerebral vascular accident) Cancer Mother Cancer Breast cancer of breast CA in 30's Sister Breast cancer dx in early 40's and passed at 68 Uncle Cancer lung Social History Smoking Status: Never smoker alcohol intake: never ROS ROS Narrative No breast mass Intake Vital Signs 03/02/25 14:09 03/17/25 12:58 Height 5 ft 5 in 5 ft 5 in Weight: 75.41 kg 75.977 kg BMI 27.6 27.8 BP 120/74 121/70 H Blood Pressure Location Rt brachial Rt brachial Position Sitting Sitting Respiration 16 18 Pulse 67 67 Pulse Source Monitor Monitor Temp 97.3 F L 97.8 F Temperature Source Temporal Artery Temporal Artery Pulse Oximetry (%) 96 97 Oxygen Delivery Method room air room air Intake Is patient in pain?: No Allergies No Known Allergies Allergy (Verified 03/17/25 13:16) Medications ???Medication ???Instructions ???Recorded ???Confirmed ???Type aspirin 81 mg chewable tablet 81 mg PO DAILY@0800 07/22/1703/17 History atorvastatin 40 mg tablet 40 mg PO QHS 07/22/17 03/17/25 His tory metoprolol tartrate 25 mg tablet 25 mg PO DAILY 09/18/22 03/17/25 H istory famotidine 20 mg tablet 20 mg PO QHS 12/11/22 03/17/25 His tory hydroxyurea 500 mg capsule 2,500 mg (5 x 500 mg) PO QDAY 90 1 07/05/23 03/17/25 Rx days #450 caps cyclobenzaprine 5 mg tablet 5 mg PO TID PRN muscle spasm #60 0 08/23/24 03/17/25 Rx tabs estradiol 0.01% (0.1 mg/gram) See Rx Instructions vaginal 03/17/25 Rx vaginal cream .COMPLEX #42.5 grams Have you fallen in the past year?: No Exam Physical Exam Narrative ECOG 0-1 Const alert, orient (more content not included)... Normal [facility] Platelet countOrdered By: Amara Guevara on 03-17-2025 Platelets (Bld) [#/Vol] 293 10*3/uL 150-450 [facility] RBC Auto (Bld) [#/Vol]Ordere d By: Tristen Guevara on 03-17-2025 RBC (Bld) [#/Vol] 4.63 10*6/uL 4.2-5.4 [facility] White blood cell (WBC) count Ordered By: Tristen Guevara on 03-17-2025 WBC (Bld) [#/Vol] 9.8 10*3/uL 4.4-11.0 [facility] Absolute lymphocyte countOrd ered By: Tristen Guevara on 03-02-2025 Lymphocytes Auto (Unsp spec) [#/Vol] 0.95 10*3/uL 0.83-4.51 [facility] Absolute neutrophil countOrd ered By: Tristen Jewellmario on 03-02-2025 Neutrophils (Bld) [#/Vol] 8.4 10*3/uL High 2.0-7.7 [facility] Automated blood erythrocyte countOrdered By: Tristen Jewellmario on 03-02-2025 RBC (Bld) [#/Vol] 4.65 10*6/uL Normal 4.2-5.4 [facility] Comment on above: Performed By: #### L 900.0098, L100.0100 #### [facility] [address] [place], [address] Automated blood hematocrit ( percentage)Ordered By: Tristen Paola on 03-02-2025 Hematocrit (Bld) [Volume fraction] 42.4 % Normal 37-47 [facility] Comment on above: Performed By: #### L 900.0098, L100.0100 #### [facility] [address] [place], [address] Automated lymphocyte count a s percentage of total leukocytesOrdered By: Tristen Jewellmario on 03-02-2025 Lymphocytes/100 WBC Auto (Unsp spec) 9.3 % Low 19-41 [facility] Basophil percentageOrdered B y: Tristen Jewellmario on 03-02-2025 Basophils/100 WBC (Bld) 0.5 % Normal 0-1 [facility] Comment on above: Performed By: #### L 900.0098, L100.0100 #### [facility] [address] [place], [address] CBC W/Diff, Automatedon 02-08 Absolute Lymph 0.95 X10 3/uL Normal 0.83-4.51 [facility] Comment on above: Performed By: #### L 900.0098, L100.0100 #### [facility] [address] [place], [address] Absolute Neut 8.4 X10 3/uL High 2.0-7.7 [facility] Comment on above: Performed By: #### L 900.0098, L100.0100 #### [facility] [address] [place], [address] IG% 2.300 High 0.0-0.9 [facility] Comment on above: Result Comment: IG% - Immature Granulocytes (promyelocytes, myelocytes and metamyelocytes) > 1% indicates that a LEFT SHIFT is Present. Performed By: #### L 900.0098, L100.0100 #### [facility] [address] [place], [address] Lymphocytes/100 WBC (Bld) 9.3 % Low 19-41 [facility] Comment on above: Performed By: #### L 900.0098, L100.0100 #### [facility] [address] [place], [address] Nucleated RBC (Bld) [#/Vol] 0 10*3/uL Normal 0-5 [facility] Comment on above: Performed By: #### L 900.0098, L100.0100 #### [facility] [address] [place], [address] RDW SD 51.9 fl High 35.1-43.9 [facility] Comment on above: Performed By: #### L 900.0098, L100.0100 #### [facility] [address] [place], [address] Eosinophil percentageOrdered By: Tristen Guevara on 03-02-2025 Eosinophils/100 WBC (Bld) 1.9 % Normal 0-5 [facility] Comment on above: Performed By: #### L 900.0098, L100.0100 #### [facility] [address] [place], [address] Erythrocyte distribution wid th ratioOrdered By: Tristen Guevara on 03-02-2025 Erythrocyte distribution width (RBC) [Ratio] 15.9 % High 11.6-14.6 [facility] Comment on above: Performed By: #### L 900.0098, L100.0100 #### [facility] [address] [place], [address] Erythrocyte distribution wid th standard deviationOrdered By: Tristen Guevara on 03-02-2025 Erythrocyte distribution width (RBC) [Ratio] 51.9 fl High 35.1-43.9 [facility] Hemoglobin measurementOrdere d By: rTisten Guevara on 03-02-2025 Hemoglobin (Bld) [Mass/Vol] 12.6 g/dL Normal 12.0-15.0 [facility] Comment on above: Performed By: #### L 900.0098, L100.0100 #### [facility] [address] [place], [address] Immature granulocytes/100 WB C Auto (Bld)Ordered By: Tristen Guevara on 03-02-2025 Immature granulocytes/100 WBC (Bld) 2.300 % High 0.0-0.9 [facility] Comment on above: IG% - Immature Granu locytes (promyelocytes, myelocytes and metamyelocytes) > 1% indicates that a LEFT SHIFT is Present. MCV (mean corpuscular volume ) determinationOrdered By: Tristen Guevara on 03-02-2025 MCV (RBC) [Entitic vol] 91.2 fL Normal 81-99 [facility] Comment on above: Performed By: #### L 900.0098, L100.0100 #### [facility] [address] [place], [address] Mean corpuscular hemoglobin (MCH) determinationOrdered By: Tristen Guevara on 03-02-2025 MCH (RBC) [Entitic mass] 27.1 pg Normal 27.0-32.0 [facility] Comment on above: Performed By: #### L 900.0098, L100.0100 #### [facility] [address] [place], [address] Mean corpuscular hemoglobin concentration (MCHC) determinationOrdered By: Tristen Guevara on 03-02-2025 MCHC (RBC) [Mass/Vol] 29.7 g/dL Low 32-36 [facility] Comment on above: Performed By: #### L 900.0098, L100.0100 #### [facility] [address] [place], [address] Mean platelet volume determi nationOrdered By: Tristen Guevara on 03-02-2025 Platelet mean volume (Bld) [Entitic vol] 10.6 fL Normal 6.2-12.0 [facility] Comment on above: Performed By: #### L 900.0098, L100.0100 #### [facility] [address] [place], [address] Monocyte percentageOrdered B y: Tristen Guevara on 03-02-2025 Monocytes/100 WBC (Bld) 3.2 % Normal 0-10 [facility] Comment on above: Performed By: #### L 900.0098, L100.0100 #### [facility] [address] [place], [address] NATERAon 03-02-2025 NATURA SEE SCANNED REPORT Normal [facility] Comment on above: Performed By: #### L 900.0098, L100.0100 ####[facility] [address] [place], [address] Neutrophil percentageOrdered By: Tristen Guevara on 03-02-2025 Neutrophils/100 WBC (Bld) 82.8 % High 47-70 [facility] Comment on above: Performed By: #### L 900.0098, L100.0100 #### [facility] [address] [place], [address] Nucleated red blood cell per centageOrdered By: Tristen Guevara on 09-24-2025 Nucleated RBC/100 WBC (Bld) [Ratio] 0 % 0-5 [facility] Oncology Visit Reporton 02-08 Oncology Visit Report [facility] [address] [place] [address] OFFICE VISIT Date of Service: 03/02/25 1406 MR#: [id number] Acct: [id number] Name: PHONG JANG LASHAUN Rep #: [id number] : 1950 From: Tristen Guevara MD Age/Sex: 74/F Location[place] [facility] Status: Signed HPI Subjective Date of Service 03/02/25 Chief Complaint P vera and breast Cance History of Present Illness 74-year-old female with #1- Polycythemia vera transferring her care from [facility] to [facility] in July 2021 closer to home and because 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 She presented in 2016 with vague nonspecific [...] however an ultrasound of March 2022 at [facility] shows stable mild splenomegaly of 13.7 cm. [...] complications during the course of her illness. #2-Breast cancer: DCIS February 01, 2025 screening mammography: IMPRESSION: Suspicious left breast calcifications in the upper-outer left breast extending from anterior to middle depth. 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 - Minimum span of 0.9 cm. - ER: positive (100%, strong intensity). - IN: PENDING, to be reported in an addendum. - Ki67: PENDING, to be reported in an addendum. - IHC for Ecadherin, CK5/6, and p40 support the diagnosis Treatment summary : Phlebotomies 2017-ongoing Hydroxyurea 2017-ongoing Interval History Seen semiurgently because of recent diagnosis of left breast DCIS [facility] Medical History DCIS (ductal carcinoma in situ) of breast Abnormal mammogram of left breast Screening for breast cancer GERD (gastroesophageal reflux disease) Cellulitis of left [...] Father Myocardial infarction CVA (cerebral vascular accident) Cancer Mother Cancer Breast cancer of breast CA in 30's Sister Breast cancer dx in early 40's and passed at 68 Uncle Cancer lung Social History Smoking Status: Never smoker alcohol intake: never ROS ROS Narrative No breast mass Intake Vital Signs 02/11/25 09:35 02/25/25 14:46 03/02/25 14:09 Height 5 ft 5 in 5 ft 5 in 5 ft 5 in Weight: 74.559 kg 75.41 kg BMI 27.3 27.6 BP 123/75 H 120/74 Blood Pressure Location Rt brachial Rt brachial Position Sitting Sitting Respiration 17 16 Pulse 68 67 Pulse Source Monitor Monitor Temp 97.3 F L Temperature Source Temporal Artery Pulse Oximetry (%) 97 96 Oxygen Delivery Method room air room air Intake Is patient in pain?: No Allergies No Known Allergies Allergy (Verified 03/02/25 14:06) Medications ???Medication ???Instructions ???Recorded ???Confirmed ???Type aspirin 81 mg chewable tablet 81 mg PO DAILY@0800 07/22/1703/02 History atorvastatin 40 mg tablet 40 mg PO QHS 07/22/17 03/02/25 His tory metoprolol tartrate 25 mg tablet 25 mg PO DAILY 09/18/22 03/02/25 H istory famotidine 20 mg tablet 20 mg PO QHS 12/11/22 03/02/25 His tory hydroxyurea 500 mg capsule 2,500 mg (5 x 500 mg) PO QDAY 90 1 07/05/23 03/02/25 Rx days #450 caps cyclobenzaprine 5 mg tablet 5 mg PO TID PRN muscle spasm #60 0 08/23/24 03/02/25 Rx tabs estradiol 0.01% (0.1 mg/gram) See Rx Instructions vaginal 03/02/25 Rx vaginal cream .COMPLEX #42.5 grams Have you fallen in the past year?: No Exam Physical Exam Const alert, oriented x3 and no apparent dis (more content not included)... Normal [facility] Platelet countOrdered By: Amara Guevara on 03-02-2025 Platelets (Bld) [#/Vol] 402 10*3/uL Normal 150-450 [facility] Comment on above: Performed By: #### L 900.0098, L100.0100 #### [facility] [address] [place], [address] White blood cell (WBC) count Ordered By: Tristen Guevara on 03-02-2025 WBC (Bld) [#/Vol] 10.2 10*3/uL Normal 4.4-11.0 [facility] Comment on above: Performed By: #### L 900.0098, L100.0100 #### [facility] [address] [place], [address] Surgery Visit Reporton 02-25 Surgery Visit Report [facility] [address] [place] [address] OFFICE VISIT Date of Service: 02/25/25 MR#: [id number] Acct: [id number] Name: PHONG JANG LASHAUN Rep #: [id number] : 1950 Provider: Dr. Michael caldwell MD Age/Sex: 74/F Location: [facility] Status: Signed Intake Vital Signs 02/11/25 09:35 02/25/25 14:46 Height 5 ft 5 in 5 ft 5 in Weight: 167 lb 164 lb 6 oz BMI 27.8 27.3 BP 129/78 H 123/75 H Blood Pressure Location Rt brachial Rt brachial Position Sitting Sitting Respiration 16 17 Pulse 68 Pulse Source Monitor Pulse Oximetry (%) 97 Oxygen Delivery Method room air Intake Visit Reasons: DISCUSS BREAST PATH AND SX OPTIONS Chief Complaint: discuss breast path and surgery options Is patient in pain?: No Allergies No Known Allergies Allergy (Verified 02/25/25 14:47) Medications ???Medication ???Instructions ???Recorded ???Confirmed ???Type aspirin 81 mg chewable tablet 81 mg PO DAILY@0800 07/22/1702/25 History atorvastatin 40 mg tablet 40 mg PO QHS 07/22/17 02/25/25 His tory metoprolol tartrate 25 mg tablet 25 mg PO DAILY 09/18/22 02/25/25 H istory famotidine 20 mg tablet 20 mg PO QHS 12/11/22 02/25/25 His tory hydroxyurea 500 mg capsule 2,500 mg (5 x 500 mg) PO QDAY 90 1 07/05/23 02/25/25 Rx days #450 caps cyclobenzaprine 5 mg tablet 5 mg PO TID PRN muscle spasm #60 0 08/23/24 02/25/25 Rx tabs estradiol 0.01% (0.1 mg/gram) See Rx Instructions vaginal 02/25/25 Rx vaginal cream .COMPLEX #42.5 grams Have you fallen in the past year?: No PFSH Medical History (Updated 03/01/25 @ 11:[address] Michael Ashraf MD) DCIS (ductal carcinoma in situ) of breast Abnormal mammogram of left breast Screening for breast cancer GERD (gastroesophageal reflux disease) Cellulitis of left lower leg Polycythemia vera Animal-rider injured by fall from or being thrown from horse in noncollision accident, initial encounter History of fractured kneecap Thyroid disorder Heart attack Sleep apnea Pneumonia Acquired polycythemia vera Bronchitis Surgical History History of repair of ACL H/O heart artery stent History of knee replacement Family History (Updated 02/11/25 @ 09:[address]) Father Myocardial infarction CVA (cerebral vascular accident) Cancer Mother Cancer Breast cancer of breast CA in 30's Sister Breast cancer dx in early 40's and passed at 68 Uncle Cancer lung Social History Smoking Status: Never smoker alcohol intake: never HPI HPI HPI: The patient is a 74-year-old female who is being seen today in follow-up after recent left breast stereotactic biopsy for a broad area of microcalcifications. Unfortunately these calcifications c arin back positive for DCIS. No invasive cancer was identified. These results were initially discussed with her over the phone several days prior to today's office visit. She reminded me that she has a very extensive history of breast cancer in her family. Her sister, her mother as well as other close family members all had breast cancer. They did undergo genetic testing but this was 30+ years ago. ROS General General: Yes fatigue and breast cancer; No weight change, appetite, colon cancer or weakness HEENT HEENT: No difficulty swallowing, eye injury, eye surgery, swollen glands or hoarseness Endo Endocrine: Yes thyroid disease; No diabetes mellitus, thyroid cancer, Hair loss, heat intolerance or cold intolerance Skin Skin: No rash or changing moles Musc Musculoskeletal: Yes arthritis; No back problems, rheumatoid arthritis, gout or joint pain Cardio Cardiovascular: Yes heart attack and heart stent; No murmur, pacemaker, heart disease, atrial fibrillation, high blood pressure, palpitations, shortness of breath with exertion or chest pain Psych Psychiatric: No depression, anxiety or hearing voices Resp Respiratory: No shortness of breath, Yes sleep apnea, No cough, No COPD, No asthma, No emphysema and No wheezing Gastro Gastrointestinal: No abdominal pain, Yes nausea or vomiting, No diarrhea, No constipation, No blood in stool, Yes acid reflux, No hemorrhoids, No ulcers, No gallbladder problem and No black,tarry stools [place] Hematologic: Yes blood thinners, Yes blood disorders, No bleeding, No anemia and No blood clots Neuro Neurologic: No system reviewed and no additional complaints, except as documented, No as per HPI, No abnormal gait, No abnormal hearing, No abnormal movements, No abnormal speech, No behavioral changes, No burning sensations, No confusion, No convulsions, No disequilibrium, No dizziness, No localized weakness, No frequent fal (more content not included)... Normal [facility] Surgical pathology reportOrd ered By: Hailey Padilla on 02-23-2025 Surgical pathology study [facility] Immunohistochemical Stainson 02-16-2025 Immunohistochemical Stains ---- Patient Age/Sex Location Account Attending Physician ---- PHONG JANG 74/F [facility] [id number] Dr. Michael Ashraf MD ---- Specimen: [id number] Received: 02/16/25 Status: DOROTHEA Delgado Num: [id number] Spec Type: BREAST BX Subm Dr: Dr. Michael Ashraf MD HEADER OPERATION: Left breast stereotactic biopsy PRE-OP DIAGNOSIS: Left breast - calcifications TISSUE SUBMITTED: [place] - 11-6 microcals ---- MICROSCOPIC DIAGNOSIS A. 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 - Minimum span of 0.9 cm. - ER: positive (100%, strong intensity). - IN: PENDING, to be reported in an addendum. - Ki67: PENDING, to be reported in an addendum. - IHC for Ecadherin, CK5/6, and p40 support the diagnosis. MICROSCOPIC DESCRIPTION Slides are reviewed. ???All matched controls reacted appropriately. These tests were developed and their performance characteristics determined by [facility]. They may not have been cleared or approved by the U.S. Food and Drug Administration. The FDA has determined that such clearance or approval is not necessary.??? The above immunohistochemical??? markers and/or special stains have been reviewed by the Pathologist. GROSS DESCRIPTION A. Received fresh and subsequently placed in formalin labeled with the patient's name and date of are 5 hinds-yellow lobulated soft tissue cores, 2.2-3.3 cm in length by 0.4 cm in diameter. The specimen is entirely submitted in 2 cassettes, following postoperative imaging as follows: A1: Christiane #1/#5A2: Christiane #2/#3/#4 Cold ischemic time: 10 minutesFormalin fixation time: 8 hours NV 02/16/2025 CPT:85622,54843,[id number] [id number] ---- ---- Patient Age/Sex Location Account Attending Physician ---- PHONG JANG 74/F [facility] [id number] Dr. Michael Ashraf MD ---- ADDENDUM Addendum 1 Entered: 02/23/25-151 This addendum is to report the additional IHC stains: IN: positive (5-10%, weak intensity). Ki67: 10% Addendum Signed (signature on file) Dr. Hailey Padilla MD 02/23/25 1515 ---- ---- Patient Age/Sex Location Account Attending Physician ---- PHONG JANG 74/F [facility] [id number] Dr. Michael Ashraf MD ---- Signed (signature on file) Dr. Hailey Padilla MD 02/21/25 1420 ---- Normal [facility] Comment on above: Performed By: #### P SHANTINC #### [facility] [address] [place], [place], [id number] Operative Reporton 5 Operative Report [facility] Medical Records Department [address] [address] Operative Report 02/16/25 1156 MR#: [id number] Acct: [id number] Name: PHONG JANG Rep #: [id number] : 1950 74 From: Michael Ashraf MD PCP: Dr. Dennise Sahni MD Status:REG CLI Location: [facility] Procedures Integumentary 16xxx-193xx: 18391 Bx breast 1st lesion [facility] Operative Report (Standard) Operative Information Date of Procedure: 02/16/25 Pre-Operative Diagnosis: Abnormal left breast mammogram Post-Operative Diagnosis: Same Surgery/Procedure Performed: Left breast stereotactic biopsy qualification engineer: No Type of Anesthesia: Local Procedure Start Time: 11:00 Procedure Stop Time: 11:20 Select all DRAINS/GRAFTS/IMPLANTS that apply: None Special Medications: None Estimated Blood Loss: 15 mL Specimen collected: Yes Description of specimen(s) removed: Left breast tissue with microcalcifications Description of surgery: The patient is a 74-year-old female who is recently seen through the office with a newly discovered region of calcifications in the left breast. Biopsy was recommended to rule out possible malignancy. We discussed the details of the planned procedure including risks benefits and alternatives. She wished to proceed. She was brought to the mammography suite today following informed consent. She was placed prone on the stereotactic biopsy table with the left breast suspended through the aperture and the table. The left breast was placed into cc view compression and images were obtained until the region of calcifications were clearly identified. At this point 2 stereotactic views were then obtained upon which the region of maximal calcifications were targeted upon. Once this was targeted, the skin of the breast was prepped and draped in the usual manner. Local anesthetic was infiltrated into the vicinity. A #11 blade was then used to make a skin incision. The biopsy probe was then inserted to the desired depth. Chio fire images were obtained and showed the device to be in appropriate location. The device was then fired. Next, circumferential suction biopsies were obtained with good tissue sampling. The samples were then plated and radiographed. Essentially all samples contain numerous microcalcifications. Next, a marking clip was then deployed. A post clip placement image was obtained and showed the clip to be in the desired location. She was then taken out of compression and manual pressure was held until a dressing was applied. She then underwent postprocedure mammograms. She did have some postoperative bleeding/hematoma which resolved with pressure and placement of an LAW wrap. Overall she tolerated the procedure well. I will contact her with results once they become available Surgical Findings: See procedure note Complications Complications: No Admit VTE Documentation VTE Present on Admission: No VTE Mechan Device Prophylaxis: None VTE Pharm Prophylaxis ordered?: No Reason prophylaxis not ordered: Treatment Not Indicated 02/16/25 6669 Cosigner Signature (if applicable): CC: Dr. Dennise Sahni MD; Dr. Michael Ashraf MD Signed Normal [facility] Surgery Visit Reporton 02-11 Surgery Visit Report [facility] [address] [place] [address] OFFICE VISIT Date of Service: 02/11/25 MR#: [id number] Acct: [id number] Name: PHONG JANG Rep #: [id number] : 1950 Provider: Dr. 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 Required: No Is patient in pain?: No Allergies No Known Allergies Allergy (Verified 02/11/25 09:35) Medications ???Medication ???Instructions ???Recorded ???Confirmed ???Type aspirin 81 mg chewable tablet 81 mg PO DAILY@0800 07/22/1702/11 History atorvastatin 40 mg tablet 40 mg PO QHS 07/22/17 02/11/25 His tory metoprolol tartrate 25 mg tablet 25 mg PO DAILY 09/18/22 02/11/25 H istory famotidine 20 mg tablet 20 mg PO QHS 12/11/22 02/11/25 His tory hydroxyurea 500 mg capsule 2,500 mg (5 x 500 mg) PO QDAY 90 1 07/05/23 02/11/25 Rx days #450 caps cyclobenzaprine 5 mg tablet 5 mg PO TID PRN muscle spasm #60 0 08/23/24 02/11/25 Rx tabs estradiol 0.01% (0.1 mg/gram) See Rx Instructions vaginal 02/11/25 Rx vaginal cream .COMPLEX #42.5 grams Have you fallen in the past year?: No PFSH Medical History Abnormal mammogram of left breast Screening for breast cancer GERD (gastroesophageal reflux disease) Cellulitis of left lower leg Polycythemia vera Animal-rider injured by fall from or being thrown from horse in noncollision accident, initial encounter History of fractured kneecap Thyroid disorder Heart attack Sleep apnea Pneumonia Acquired polycythemia vera Bronchitis Surgical History History of repair of ACL H/O heart artery stent History of knee replacement Family History (Updated 02/11/25 @ 09:[address]) Father Myocardial infarction CVA (cerebral vascular accident) Cancer Mother Cancer Breast cancer of breast CA in 30's Sister Breast cancer dx in early 40's and passed at 68 Uncle Cancer lung Social History Smoking Status: Never smoker alcohol intake: never HPI HPI HPI: Patient is a 74-year-old female who presents today with an abnormal left breast mammogram showing an area of calcifications in the left breast. It is noted in the mammogram report that this area of calcifications spans about centimeters. Patient has a very extensive family history of breast cancer. Her mother and sister both of breast cancer. She has several other relatives with breast cancer. The only male cancer in her family was lung cancer. It sounds as though her sister was tested for BRCA gene and was reportedly negative. However this does not necessarily exclude the possibility of other genes being responsible for breast cancer. Her family history is certainly compelling. She herself denies any recent breast issues or complaints. No nipple discharge or drainage. No palpable masses. ROS General General: Yes fatigue; No weight change, appetite, colon cancer, breast cancer or weakness HEENT HEENT: No difficulty swallowing, eye injury, eye surgery, swollen glands or hoarseness Endo Endocrine: Yes thyroid disease; No diabetes mellitus, thyroid cancer, Hair loss, heat intolerance or cold intolerance Skin Skin: No rash or changing moles Breast Breast: No left breast lump, right breast lump, nipple discharge, breast pain, abnormal mammogram, abnormal US or breast enlargement Musc Musculoskeletal: Yes arthritis; No back problems, rheumatoid arthritis, gout or joint pain Cardio Cardiovascular: Yes heart attack and heart stent; No murmur, pacemaker, heart disease, atrial fibrillation, high blood pressure, palpitations, shortness of breath with exertion or chest pain Psych Psychiatric: No depression, anxiety or hearing voices Resp Respiratory: No shortness of breath, Yes sleep apnea, No cough, No COPD, No asthma, No emphysema and No wheezing Gastro Gastrointestinal: No abdominal pain, Yes nausea or vomiting, No diarrhea, No constipation, No blood in stool, Yes acid reflux, No hemorrhoids, No ulcers, No gallbladder problem and No black,tarry stools [place] Hematologic: Yes blood thinners, Yes blood disorders, No bleeding, No anemia and No blood clots Neuro Neurologic: No system reviewed and no additional complaints, except as documented, No as per HPI, No abnormal gait, No abnormal hearing, No abnormal movements, No abnormal speech, No behavioral (more content not included)... Normal [facility] Breast imaging reportOrdered By: Charu Brunner on 02-04-2025 Study report [facility] Imaging Services [address] [place] [address] DIAG MAMM W/CAD, UNILAT MR#: [id number] Acct: [id number] Name: PHONG JANG Rep #: [id number] : 1950 F 74 From: Moriah Brunner MD PCP: Dr. Dennise Sahni MD Status: R EG CLI Study:DIAG MAMM W/CAD, UNILAT Date of Exam: 02/04/25 Exam# [id number] Ordering Dr: Krystina Cherry NP MACHINE LACER-C EXAM: DIAG MAMM W/CAD, UNILAT 02/04/2025 CLINICAL HISTORY: F, Age 74 y/o , ABN MAMM TECHNIQUE: Procedure Code: BIDMWCADU Modality: MG Procedure: DIAG MAMM W/CAD, UNILAT. COMPARISON: Prior exam(s) dated 02/01/2025, 01/30/2024, 11/13/2022. FINDINGS: TISSUE DENSITY: The breasts are extremely dense, which lowers the sensitivity ofmammography. Unilateral Left Breast Mammographic Findings: Follow-up examination performed for the calcifications in the left breast on examination of 02/01/2025. On the present examination, there are coarse heterogeneous and fine pleomorphic calcifications in the upper outer left breast in a segmental distribution extending from anterior to middle depth. Overall, these calcifications measure 7.6 x 3.8 x 6.0 cm AP by TR by CC. BI/DIAG MAMM W/CAD, UNILAT IMPRESSION: Suspicious left breast calcifications in the upper-outer left breast extending from anterior to middle depth. Recommend tissue sampling with stereotactic/tomosynth esis guided biopsy of the anterior aspect and of the posterior aspect of the calcifications. OVERALL FINAL ASSESSMENT BI-RADS 4: SUSPICIOUS RECOMMENDATION: Biopsy Recommended A letter with findings and recommendations will be mailed to the patient. Reading Location: [facility] CC: MACHINE LACER-C Krystina Steel; Dr. Dennise Sahni MD ~ Registered Radiographer: Signed [facility] DIAG MAMM W/CAD, UNILATon DIAG MAMM W/CAD, UNILAT [facility] Imaging Services [address] [place], [place] [id number] DIAG MAMM W/CAD, UNILAT MR#: [id number] Acct: [id number] Name: PHONG JANG Rep #: [id number] : 1950 F 74 From: Charu Brunner MD PCP: Dr. Dennise Sahni MD Status: [facility] CLI Study: DIAG MAMM W/CAD, UNILAT Date of Exam: 02/04/25 Exam# [id number] Ordering Dr: Krystina Steel NP MACHINE LACER -C EXAM: DIAG MAMM W/CAD, UNILAT 02/04/2025 CLINICAL HISTORY: F, Age 74 y/o , ABN MAMM TECHNIQUE: Procedure Code: [id number] Modality: MG Procedure: DIAG MAMM W/CAD, UNILAT. COMPARISON: Prior exam(s) dated 02/01/2025, 01/30/2024, 11/13/2022. FINDINGS: TISSUE DENSITY: The breasts are extremely dense, which lowers the sensitivity of mammography. Unilateral Left Breast Mammographic Findings: Follow-up examination performed for the calcifications in the left breast on examination of 02/01/2025. On the present examination, there are coarse heterogeneous and fine pleomorphic calcifications in the upper outer left breast in a segmental distribution extending from anterior to middle depth. Overall, these calcifications measure 7.6 x 3.8 x 6.0 cm AP by TR by CC. BI/DIAG MAMM W/CAD, UNILAT IMPRESSION: Suspicious left breast calcifications in the upper-outer left breast extending from anterior to middle depth. Recommend tissue sampling with stereotactic/tomosynth esis guided biopsy of the anterior aspect and of the posterior aspect of the calcifications. OVERALL FINAL ASSESSMENT BI-RADS 4: SUSPICIOUS RECOMMENDATION: Biopsy Recommended A letter with findings and recommendations will be mailed to the patient. Reading Location: [facility] CC: MACHINE LACER-C Krystina Steel; Dr. Dennise Sahni MD Registered Radiographer: Signed Normal [facility] Breast imaging reportOrdered By: Efra Blas on 02-03-2025 Study report [facility] Imaging Services [address], [place] [id number] SCRN MAMM (CAD)W/ALAN BILAT MR#: [id number] Acct: [id number] Name: PHONG JANG Rep #: [id number] : 1950 F 74 From: Arron Blas MD PCP: Dr. Dennise Sahni MD Status: R EG CLI Study:SCRN MAMM (CAD)W/ALAN BILAT Date of Exa m: 02/01/25 Exam# [id number] Ordering Dr: Krystina Cherry NP, NP-C ADDENDUM by Dr. Efra Blas MD on 02/03/25 at 0920 This is an addendum report. Faint cluster of microcalcification is seen in the upper lateral aspect of the left breast. The patient will be recalled for additional views including compression spot views and 90 degree lateral views. BI-RADS category 0. Reading Location: [facility] 02/03/25919 Date cc: JAIME Steel; Dr. Dennise Sahni MD ~* Signed EXAM: SCRN MAMM (CAD)W/ALAN BILAT DATE: 02/01/2025 CLINICAL HISTORY: F, Age 74 y/o , SCREENING Sister with breast cancer. Mother with breast cancer. Remote right stereotactic breast biopsy. TECHNIQUE: SCRN MAMM (CAD)W/ALAN BILAT COMPARISON: Prior exam(s) dated January 30, 2024.. FINDINGS: TISSUE DENSITY: The breasts are extremely dense, which lowers the sensitivity ofmammography. Bilateral Breast Mammographic Findings: No significant masses, calcifications or other abnormalities are identified. A tissue clip marker is once again seen in the deep upper lateral aspect of the right breast. Stable small bilateral fat containingaxillary lymph nodes. No suspicious masses, areas of developing architectural distortion, or suspicious calcifications. There has been no significant interval change. BI/SCRN MAMM (CAD)W/ALAN BILAT IMPRESSION: Stable examination. OVERALL FINAL ASSESSMENT BI-RADS 2: BENIGN RECOMMENDATION: Routine annual follow-up in 1 Year A letter with findings and recommendations will be mailed to the patient. Reading Location: [facility] CC: JAIME Steel; Dr. Dennise Sahni MD ~ Registered Radiographer: Signed [facility] SCRN MAMM (CAD)W/ALAN BILATo n 02-01-2025 SCRN MAMM (CAD)W/ALAN BILAT [facility] Imaging Services [address] [place] [id number] SCRN MAMM (CAD)W/ALAN BILAT MR#: [id number] Acct: [id number] Name: PHONG JANG Rep #: [id number] : 1950 F 74 From: Efra hampton MD PCP: Dr. Dennise Sahni MD Status: [facility] Study: SCRN MAMM (CAD)W/ALAN BILAT Date of Exam: 01/08 12/01 Exam# [id number] Ordering Dr: rKystina Steel NP, NP -C ADDENDUM by Dr. Efra Blas MD on 02/03/25 at 0920 This is an addendum report. Faint cluster of microcalcification is seen in the upper lateral aspect of the left breast. The patient will be recalled for additional views including compression spot views and 90 degree lateral views. BI-RADS category 0. Reading Location: [id number] 02/03/25 0920 Date cc: JAIME Steel; Dr. Dennise Sahni MD * Signed EXAM: SCRN MAMM (CAD)W/ALAN BILAT DATE: 02/01/2025 CLINICAL HISTORY: F, Age 74 y/o , SCREENING Sister with breast cancer. Mother with breast cancer. Remote right stereotactic breast biopsy. TECHNIQUE: SCRN MAMM (CAD)W/ALAN BILAT COMPARISON: Prior exam(s) dated January 30, 2024.. FINDINGS: TISSUE DENSITY: The breasts are extremely dense, which lowers the sensitivity of mammography. Bilateral Breast Mammographic Findings: No significant masses, calcifications or other abnormalities are identified. A tissue clip marker is once again seen in the deep upper lateral aspect of the right breast. Stable small bilateral fat containing axillary lymph nodes. No suspicious masses, areas of developing architectural distortion, or suspicious calcifications. There has been no significant interval change. BI/SCRN MAMM (CAD)W/ALAN BILAT IMPRESSION: Stable examination. OVERALL FINAL ASSESSMENT BI-RADS 2: BENIGN RECOMMENDATION: Routine annual follow-up in 1 Year A letter with findings and recommendations will be mailed to the patient. Reading Location: [id number] CC: JAIME Steel; Dr. Dennise Sahni MD Registered Radiographer: Signed Normal [facility] Absolute lymphocyte countOrd ered By: [facility] on 01-10-2025 Lymphocytes Auto (Unsp spec) [#/Vol] 0.88 10*3/uL 0.83-4.51 [facility] Absolute neutrophil countOrd ered By: [facility] Paola on 01-10-2025 Neutrophils (Bld) [#/Vol] 7.0 10*3/uL 2.0-7.7 [facility] Anion gap in Serum or Plasma Ordered By: Tristen Guevara on 01-10-2025 Anion gap [Moles/Vol] 12 mmol/L 5-15 [facility] Automated lymphocyte count a s percentage of total leukocytesOrdered By: [facility] on 01-10-2025 Lymphocytes/100 WBC Auto (Unsp spec) 10.4 % Low 19-41 [facility] BUN/creatinine ratioOrdered By: [facility] Paola on 01-10-2025 Urea nitrogen/Creatinine [Mass ratio] 27.8 mg/mg High 10-20 [facility] Basophil percentageOrdered B y: Tristen Guevara on 01-10-2025 Basophils/100 WBC (Bld) 0.7 % 0-1 [facility] Bilirubin, totalOrdered By: Emilyclive Guevara on 01-10-2025 Bilirubin [Mass/Vol] 0.91 mg/dL 0.00-1.30 [facility] CBC W/Diff, Automatedon 08-0 Absolute Neut Normal 2.0-7.7 [facility] Comment on above: Result Comment: DUPL ICATE ORDER Performed By: #### L 100.0100, L500.4050 #### [facility] [address] [place], [address] HCT Normal 37-47 [facility] Comment on above: Result Comment: DUPL ICATE ORDER Performed By: #### L 100.0100, L500.4050 #### [facility] [address] [place], [address] HGB Normal 12.0-15.0 [facility] Comment on above: Result Comment: DUPL ICATE ORDER Performed By: #### L 100.0100, L500.4050 #### [facility] [address] [place], [address] MCH Normal 27.0-32.0 [facility] Comment on above: Result Comment: DUPL ICATE ORDER Performed By: #### L 100.0100, L500.4050 #### [facility] [address] [place], [address] MCHC Normal 32-36 [facility] Comment on above: Result Comment: DUPL ICATE ORDER Performed By: #### L 100.0100, L500.4050 #### [facility] [address] [place], [address] MCV Normal 81-99 [facility] Comment on above: Result Comment: DUPL ICATE ORDER Performed By: #### L 100.0100, L500.4050 #### [facility] [address] [place], [address] NEUT% Normal 47-70 [facility] Comment on above: Result Comment: DUPL ICATE ORDER Performed By: #### L 100.0100, L500.4050 #### [facility] [address] [place], [address] PLT Normal 150-450 [facility] Comment on above: Result Comment: DUPL ICATE ORDER Performed By: #### L 100.0100, L500.4050 #### [facility] [address] [place], [address] RBC Normal 4.2-5.4 [facility] Comment on above: Result Comment: DUPL ICATE ORDER Performed By: #### L 100.0100, L500.4050 #### [facility] [address] [place], [address] RDW CV Normal 11.6-14.6 [facility] Comment on above: Result Comment: DUPL ICATE ORDER Performed By: #### L 100.0100, L500.4050 #### [facility] [address] [place], [address] RDW SD Normal 35.1-43.9 [facility] Comment on above: Result Comment: DUPL ICATE ORDER Performed By: #### L 100.0100, L500.4050 #### [facility] [address] [place], [address] WBC Normal 4.4-11.0 [facility] Comment on above: Result Comment: DUPL ICATE ORDER Performed By: #### L 100.0100, L500.4050 #### [facility] [address] [place], [address] Absolute Lymph 0.88 X10 3/uL Normal 0.83-4.51 [facility] Comment on above: Performed By: #### P IMHI #### [facility] [address] [place], [address] Absolute Neut 7.0 X10 3/uL Normal 2.0-7.7 [facility] Comment on above: Performed By: #### P IMHI #### [facility] [address] [place], [address] Basophils/100 WBC (Bld) 0.7 % Normal 0-1 [facility] Comment on above: Performed By: #### P IMHI #### [facility] [address] [place], [address] Eosinophils/100 WBC (Bld) 1.4 % Normal 0-5 [facility] Comment on above: Performed By: #### P IMHI #### [facility] [address] [place], [address] Erythrocyte distribution width (RBC) [Ratio] 16.1 % High 11.6-14.6 [facility] Comment on above: Performed By: #### P IMHI #### [facility] [address] [place], [address] Hematocrit (Bld) [Volume fraction] 46.9 % Normal 37-47 [facility] Comment on above: Performed By: #### P IMHI #### [facility] [address] [place], [address] Hemoglobin (Bld) [Mass/Vol] 14.3 g/dL Normal 12.0-15.0 [facility] Comment on above: Performed By: #### P IMHI #### [facility] [address] [place], [address] IG% 1.300 High 0.0-0.9 [facility] Comment on above: Result Comment: IG% - Immature Granulocytes (promyelocytes, myelocytes and metamyelocytes) > 1% indicates that a LEFT SHIFT is Present. Performed By: #### P IMHI #### [facility] [address] [place], [address] Lymphocytes/100 WBC (Bld) 10.4 % Low 19-41 [facility] Comment on above: Performed By: #### P IMHI #### [facility] [address] [place], [address] MCH (RBC) [Entitic mass] 28.7 pg Normal 27.0-32.0 [facility] Comment on above: Performed By: #### P IMHI #### [facility] [address] [place], [address] MCHC (RBC) [Mass/Vol] 30.5 g/dL Low 32-36 [facility] Comment on above: Performed By: #### P IMHI #### [facility] [address] [place], [address] MCV (RBC) [Entitic vol] 94.0 fL Normal 81-99 [facility] Comment on above: Performed By: #### P IMHI #### [facility] [address] [place], [address] Monocytes/100 WBC (Bld) 3.7 % Normal 0-10 [facility] Comment on above: Performed By: #### P IMHI #### [facility] [address] [place], [address] Neutrophils/100 WBC (Bld) 82.5 % High 47-70 [facility] Comment on above: Performed By: #### P IMHI #### [facility] [address] [place], [address] Nucleated RBC (Bld) [#/Vol] 0 10*3/uL Normal 0-5 [facility] Comment on above: Performed By: #### P IMHI #### [facility] [address] [place], [address] Platelet mean volume (Bld) [Entitic vol] 10.2 fL Normal 6.2-12.0 [facility] Comment on above: Performed By: #### P IMHI #### [facility] [address] [place], [address] Platelets (Bld) [#/Vol] 336 10*3/uL Normal 150-450 [facility] Comment on above: Performed By: #### P IMHI #### [facility] [address] [place], [address] RBC (Bld) [#/Vol] 4.99 10*6/uL Normal 4.2-5.4 [facility] Comment on above: Performed By: #### P IMHI #### [facility] [address] [place], [address] RDW SD 54.4 fl High 35.1-43.9 [facility] Comment on above: Performed By: #### P IMHI #### [facility] [address] [place], [address] WBC (Bld) [#/Vol] 8.5 10*3/uL Normal 4.4-11.0 [facility] Comment on above: Performed By: #### P IMHI #### [facility] [address] [place], [address] Carbon dioxide, total [Moles /volume] in Central venous bloodOrdered By: Tristen Guevara on 01-10-2025 CO2 [Moles/Vol] 23.5 mmol/L 21.0-32.0 [facility] Chloride assayOrdered By: Amara Guevara on 01-10-2025 Chloride [Moles/Vol] 105 mmol/L 98-108 [facility] Comprehensive Metabolic Prof ilon 01-10-2025 ALB Normal 3.4-4.8 [facility] Comment on above: Result Comment: DUPL ICATE ORDER Performed By: #### L 100.0100, L500.4050 #### [facility] [address] [place], [address] ALK PHOS Normal 35-104 [facility] Comment on above: Result Comment: DUPL ICATE ORDER Performed By: #### L 100.0100, L500.4050 #### [facility] [address] [place], [address] ALT Normal <=34 [facility] Comment on above: Result Comment: DUPL ICATE ORDER Performed By: #### L 100.0100, L500.4050 #### [facility] [address] [place], [address] AST Normal <=31 [facility] Comment on above: Result Comment: DUPL ICATE ORDER Performed By: #### L 100.0100, L500.4050 #### [facility] [address] [place], [address] BUN Normal 4-19 [facility] Comment on above: Result Comment: DUPL ICATE ORDER Performed By: #### L 100.0100, L500.4050 #### [facility] [address] [place], [address] BUN/CRE Normal 10-20 [facility] Comment on above: Result Comment: DUPL ICATE ORDER Performed By: #### L 100.0100, L500.4050 #### [facility] [address] [place], [address] Calcium Normal 7.6-11.0 [facility] Comment on above: Result Comment: DUPL ICATE ORDER Performed By: #### L 100.0100, L500.4050 #### [facility] [address] [place], [address] CL Normal 98-108 [facility] Comment on above: Result Comment: DUPL ICATE ORDER Performed By: #### L 100.0100, L500.4050 #### [facility] [address] [place], [address] CO2 Normal 21.0-32.0 [facility] Comment on above: Result Comment: DUPL ICATE ORDER Performed By: #### L 100.0100, L500.4050 #### [facility] [address] [place], [address] CREAT,SERUM Normal 0.70-1.20 [facility] Comment on above: Result Comment: DUPL ICATE ORDER Performed By: #### L 100.0100, L500.4050 #### [facility] [address] [place], [address] eGFR Normal >60 [facility] Comment on above: Result Comment: DUPL ICATE ORDER Performed By: #### L 100.0100, L500.4050 #### [facility] [address] [place], [address] GAP Normal 5-15 [facility] Comment on above: Result Comment: DUPL ICATE ORDER Performed By: #### L 100.0100, L500.4050 #### [facility] [address] [place], [address] GLU Normal 70-99 [facility] Comment on above: Result Comment: DUPL ICATE ORDER Performed By: #### L 100.0100, L500.4050 #### [facility] [address] [place], [address] Potassium Normal 3.3-5.1 [facility] Comment on above: Result Comment: DUPL ICATE ORDER Performed By: #### L 100.0100, L500.4050 #### [facility] [address] [place], [address] T BILI Normal 0.00-1.30 [facility] Comment on above: Result Comment: DUPL ICATE ORDER Performed By: #### L 100.0100, L500.4050 #### [facility] [address] [place], [address] T PROT Normal 5.9-8.4 [facility] Comment on above: Result Comment: DUPL ICATE ORDER Performed By: #### L 100.0100, L500.4050 #### [facility] [address] [place], [address] Comprehensive Metabolic Profil Normal 133-145 [facility] Comment on above: Result Comment: DUPL ICATE ORDER Performed By: #### L 100.0100, L500.4050 #### [facility] [address] [place], [address] Albumin [Mass/Vol] 4.0 g/dL Normal 3.4-4.8 [facility] Comment on above: Performed By: #### P IMHI #### [facility] [address] [place], [address] Albumin/Globulin [Mass ratio] 1.4 {ratio} Normal 0.9-2.4 [facility] Comment on above: Performed By: #### P IMHI #### [facility] [address] [place], [address] ALK PHOS 94 U/L Normal 35-104 [facility] Comment on above: Performed By: #### P IMHI #### [facility] [address] [place], [address] ALT [Catalytic activity/Vol] 11 U/L Normal <=34 [facility] Comment on above: Performed By: #### P IMHI #### [facility] [address] [place], [address] AST [Catalytic activity/Vol] 26 U/L Normal <=31 [facility] Comment on above: Performed By: #### P IMHI #### [facility] [address] [place], [address] Bilirubin [Mass/Vol] 0.91 mg/dL Normal 0.00-1.30 [facility] Comment on above: Performed By: #### P IMHI #### [facility] [address] [place], [address] BUN/CRE 27.8 RATIO High 10-20 [facility] Comment on above: Performed By: #### P IMHI #### [facility] [address] [place], [address] Calcium [Mass/Vol] 9.3 mg/dL Normal 7.6-11.0 [facility] Comment on above: Performed By: #### P IMHI #### [facility] [address] [place], [address] Chloride [Moles/Vol] 105 mmol/L Normal 98-108 [facility] Comment on above: Performed By: #### P IMHI #### [facility] [address] [place], [address] CO2 [Moles/Vol] 23.5 mmol/L Normal 21.0-32.0 [facility] Comment on above: Performed By: #### P IMHI #### [facility] [address] [place], [address] Creatinine [Mass/Vol] 0.76 mg/dL Normal 0.70-1.20 [facility] Comment on above: Performed By: #### P IMHI #### [facility] [address] [place], [address] ECRCL 64.23 ml/min Normal 50-250 [facility] Comment on above: Performed By: #### P IMHI #### [facility] [address] [place], [address] GAP 12 Normal 5-15 [facility] Comment on above: Performed By: #### P IMHI #### [facility] [address] [place], [address] GFR/1.73 sq M.predicted among non-blacks MDRD (S/P/Bld) [Vol rate/Area] 82 mL/min/{1.73_m2} Normal >60 [facility] Comment on above: Result Comment: mL/m in/1.73m2 CKD-EPI Creatinine Equation (2020) Performed By: #### P IMHI #### [facility] [address] [place], [address] Globulin (S) [Mass/Vol] 3.0 g/dL Normal 2.2-4.2 [facility] Comment on above: Performed By: #### P IMHI #### [facility] [address] [place], [address] Glucose [Mass/Vol] 87 mg/dL Normal 70-99 [facility] Comment on above: Performed By: #### P IMHI #### [facility] [address] [place], [address] Potassium [Moles/Vol] 4.0 mmol/L Normal 3.3-5.1 [facility] Comment on above: Performed By: #### P IMHI #### [facility] [address] [place], [address] Sodium [Moles/Vol] 140 mmol/L Normal 133-145 [facility] Comment on above: Performed By: #### P IMHI #### [facility] [address] [place], [place], [id number] T PROT 7.0 g/dL Normal 5.9-8.4 [facility] Comment on above: Performed By: #### P IMHI #### [facility] [address] [place], [place], [id number] Urea nitrogen [Mass/Vol] 21 mg/dL High 4-19 [facility] Comment on above: Performed By: #### P IMHI #### [facility] [address] [place], [place], [id number] Eosinophil percentageOrdered By: Tristen Guevara on 01-10-2025 Eosinophils/100 WBC (Bld) 1.4 % 0-5 [facility] Erythrocyte distribution wid th ratioOrdered By: Tristen Guevara on 01-10-2025 Erythrocyte distribution width (RBC) [Ratio] 16.1 % High 11.6-14.6 [facility] Erythrocyte distribution wid th standard deviationOrdered By: Tristen Guevara on 01-10-2025 Erythrocyte distribution width (RBC) [Ratio] 54.4 fl High 35.1-43.9 [facility] Glomerular filtration rate ( GFR) estimation/1.73 sq m using serum, plasma, or whole bOrdered By: Tristen Guevara on 01-10-2025 GFR/1.73 sq M.predicted among non-blacks MDRD (S/P/Bld) [Vol rate/Area] 82 mL/min/{1.73_m2} >60 [facility] Comment on above: mL/min/1.73m2 CKD-EP I Creatinine Equation (2020) Hematocrit Auto (Bld) [Volum e fraction]Ordered By: Tristen Guevara on 01-10-2025 Hematocrit (Bld) [Volume fraction] 46.9 % 37-47 [facility] Hemoglobin measurementOrdere d By: Tristen Guevara on 01-10-2025 Hemoglobin (Bld) [Mass/Vol] 14.3 g/dL 12.0-15.0 [facility] Immature granulocytes/100 WB C Auto (Bld)Ordered By: Tristen Guevara on 01-10-2025 Immature granulocytes/100 WBC (Bld) 1.300 % High 0.0-0.9 [facility] Comment on above: IG% - Immature Granu locytes (promyelocytes, myelocytes and metamyelocytes) > 1% indicates that a LEFT SHIFT is Present. Laboratory - Chemistry and C hemistry - challengeOrdered By: Tristen Guevara on 01-10-2025 AST [Catalytic activity/Vol] 26 U/L <32 [facility] MCV (mean corpuscular volume ) determinationOrdered By: Tristen Guevara on 01-10-2025 MCV (RBC) [Entitic vol] 94.0 fL 81-99 [facility] Mean corpuscular hemoglobin (MCH) determinationOrdered By: Tristen Guevara on 01-10-2025 MCH (RBC) [Entitic mass] 28.7 pg 27.0-32.0 [facility] Mean corpuscular hemoglobin concentration (MCHC) determinationOrdered By: Tristen Guevara on 01-10-2025 MCHC (RBC) [Mass/Vol] 30.5 g/dL Low 32-36 [facility] Mean platelet volume determi nationOrdered By: Tristen Guevara on 01-10-2025 Platelet mean volume (Bld) [Entitic vol] 10.2 fL 6.2-12.0 [facility] Monocyte percentageOrdered B y: Tristen Guevara on 01-10-2025 Monocytes/100 WBC (Bld) 3.7 % 0-10 [facility] Neutrophil percentageOrdered By: Tristen Guevara on 01-10-2025 Neutrophils/100 WBC (Bld) 82.5 % High 47-70 [facility] Nucleated red blood cell per centageOrdered By: Tristen Jewellmario on 01-10-2025 Nucleated RBC/100 WBC (Bld) [Ratio] 0 % 0-5 [facility] Oncology Visit Reporton 08 Oncology Visit Report [facility] [place] [facility] [place] [address] OFFICE VISIT Date of Service: 01/10/25 1318 MR#: [id number] Acct: [id number] Name: PHONG JANG Rep #: [id number] : 1950 From: Krystina MckeonC Age/Sex: 74/F Location: [facility] Status: Signed HPI Subjective Date of Service 01/10/25 Chief Complaint Polycythemia vera on treatment History of Present Illness 74-year-old female with polycythemia vera transferring her care from [facility] to [facility] in July 2021 closer to home and because 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 She presented in 2017 with vague nonspecific [...] however an ultrasound of March 2022 at [facility] shows stable mild splenomegaly of 13.7 cm. [...] her pcp later this week to discuss. [facility] Medical History GERD (gastroesophageal reflux disease) Cellulitis [...] regular rhy (more content not included)... Normal [facility] Platelet countOrdered By: Amara Guevara on 01-10-2025 Platelets (Bld) [#/Vol] 336 10*3/uL 150-450 [facility] Potassium measurement (mass/ volume)Ordered By: Tristen Guevara on 01-10-2025 Potassium (Unsp spec) [Mass/Vol] 4.0 mmol/L 3.3-5.1 [facility] RBC Auto (Bld) [#/Vol]Ordere d By: Tristen Guevara on 01-10-2025 RBC (Bld) [#/Vol] 4.99 10*6/uL 4.2-5.4 [facility] Serum creatinine measurement (mass/volume)Ordered By: Tristen Guevara on 01-10-2025 Creatinine [Mass/Vol] 0.76 mg/dL 0.70-1.20 [facility] Serum globulin measurementOr dered By: Tristen Guevara on 01-10-2025 Globulin (S) [Mass/Vol] 3.0 g/dL 2.2-4.2 [facility] Serum glucose measurement (m ass/volume)Ordered By: Tristen Guevara on 01-10-2025 Glucose [Mass/Vol] 87 mg/dL 70-99 [facility] Serum or plasma alanine rivera otransferase (ALT) measurementOrdered By: Tristen Guevara on 01-10-2025 ALT [Catalytic activity/Vol] 11 U/L <35 [facility] Serum or plasma albumin bry urement (mass/volume)Ordered By: Tristen Guevara on 01-10-2025 Albumin [Mass/Vol] 4.0 g/dL 3.4-4.8 [facility] Serum or plasma albumin/glob ulin mass ratioOrdered By: Tristen Guevara on 01-10-2025 Albumin/Globulin [Mass ratio] 1.4 {ratio} 0.9-2.4 [facility] Serum or plasma alkaline tre sphatase measurementOrdered By: Tristen Guevara on 01-10-2025 ALP [Catalytic activity/Vol] 94 U/L 35-104 [facility] Serum or plasma calcium bry urement (mass/volume)Ordered By: Tristen Guevara on 01-10-2025 Calcium [Mass/Vol] 9.3 mg/dL 7.6-11.0 [facility] Serum or plasma urea nitroge n measurement (mass/volume)Ordered By: Tristen Guevara on 01-10-2025 Urea nitrogen [Mass/Vol] 21 mg/dL High 4-19 [facility] Sodium levelOrdered By: Emily Guevara on 01-10-2025 Sodium [Moles/Vol] 140 mmol/L 133-145 [facility] Total proteinOrdered By: Alin Guevara on 01-10-2025 Protein [Mass/Vol] 7.0 g/dL 5.9-8.4 [facility] White blood cell (WBC) count Ordered By: Tristen Guevara on 01-10-2025 WBC (Bld) [#/Vol] 8.5 10*3/uL 4.4-11.0 [facility] CBC W/Diff, Automatedon 05-0 Absolute Lymph 0.89 X10 3/uL Normal 0.83-4.51 [facility] Comment on above: Performed By: #### L 503.3464, L503.6030, L100.0100, L500.4050 #### [facility] [address] [place], [address] Absolute Neut 9.1 X10 3/uL High 2.0-7.7 [facility] Comment on above: Performed By: #### L 503.6550, L503.6030, L100.0100, L500.4050 #### [facility] [address] [place], [address] Basophils/100 WBC (Bld) 0.5 % Normal 0-1 [facility] Comment on above: Performed By: #### L 503.6550, L503.6030, L100.0100, L500.4050 #### [facility] [address] [place], [address] Eosinophils/100 WBC (Bld) 1.2 % Normal 0-5 [facility] Comment on above: Performed By: #### L 503.6550, L503.6030, L100.0100, L500.4050 #### [facility] [address] [place], [address] Erythrocyte distribution width (RBC) [Ratio] 16.0 % High 11.6-14.6 [facility] Comment on above: Performed By: #### L 503.6550, L503.6030, L100.0100, L500.4050 #### [facility] [address] [place], [address] Hematocrit (Bld) [Volume fraction] 45.2 % Normal 37-47 [facility] Comment on above: Performed By: #### L 503.6550, L503.6030, L100.0100, L500.4050 #### [facility] [address] [place], [address] Hemoglobin (Bld) [Mass/Vol] 14.2 g/dL Normal 12.0-15.0 [facility] Comment on above: Performed By: #### L 503.6550, L503.6030, L100.0100, L500.4050 #### [facility] [address] [place], [address] IG% 0.600 Normal 0.0-0.9 [facility] Comment on above: Result Comment: IG% - Immature Granulocytes (promyelocytes, myelocytes and metamyelocytes) > 1% indicates that a LEFT SHIFT is Present. Performed By: #### L 503.6550, L503.6030, L100.0100, L500.4050 #### [facility] [address] [place], [address] Lymphocytes/100 WBC (Bld) 8.4 % Low 19-41 [facility] Comment on above: Performed By: #### L 503.6550, L503.6030, L100.0100, L500.4050 #### [facility] [address] [place], [address] MCH (RBC) [Entitic mass] 30.2 pg Normal 27.0-32.0 [facility] Comment on above: Performed By: #### L 503.6550, L503.6030, L100.0100, L500.4050 #### [facility] [address] [place], [address] MCHC (RBC) [Mass/Vol] 31.4 g/dL Low 32-36 [facility] Comment on above: Performed By: #### L 503.6550, L503.6030, L100.0100, L500.4050 #### [facility] [address] [place], [address] MCV (RBC) [Entitic vol] 96.2 fL Normal 81-99 [facility] Comment on above: Performed By: #### L 503.6550, L503.6030, L100.0100, L500.4050 #### [facility] [address] [place], [address] Monocytes/100 WBC (Bld) 3.6 % Normal 0-10 [facility] Comment on above: Performed By: #### L 503.6550, L503.6030, L100.0100, L500.4050 #### [facility] [address] [place], [address] Neutrophils/100 WBC (Bld) 85.7 % High 47-70 [facility] Comment on above: Performed By: #### L 503.6550, L503.6030, L100.0100, L500.4050 #### [facility] [address] [place], [address] Nucleated RBC (Bld) [#/Vol] 0 10*3/uL Normal 0-5 [facility] Comment on above: Performed By: #### L 503.6550, L503.6030, L100.0100, L500.4050 #### [facility] [address] [place], [address] Platelet mean volume (Bld) [Entitic vol] 10.2 fL Normal 6.2-12.0 [facility] Comment on above: Performed By: #### L 503.6550, L503.6030, L100.0100, L500.4050 #### [facility] [address] [place], [address] Platelets (Bld) [#/Vol] 395 10*3/uL Normal 150-450 [facility] Comment on above: Performed By: #### L 503.6550, L503.6030, L100.0100, L500.4050 #### [facility] [address] [place], [address] RBC (Bld) [#/Vol] 4.70 10*6/uL Normal 4.2-5.4 [facility] Comment on above: Performed By: #### L 503.6550, L503.6030, L100.0100, L500.4050 #### [facility] [address] [place], [address] RDW SD 55.6 fl High 35.1-43.9 [facility] Comment on above: Performed By: #### L 503.6550, L503.6030, L100.0100, L500.4050 #### [facility] [address] [place], [address] WBC (Bld) [#/Vol] 10.6 10*3/uL Normal 4.4-11.0 [facility] Comment on above: Performed By: #### L 503.6550, L503.6030, L100.0100, L500.4050 #### [facility] [address] [place], [address] Comprehensive Metabolic Prof [facility] 10-13-2024 Albumin [Mass/Vol] 4.0 g/dL Normal 3.4-4.8 [facility] Comment on above: Performed By: #### L 503.6550, L503.6030, L100.0100, L500.4050 #### [facility] [address] [place], [address] Albumin/Globulin [Mass ratio] 1.4 {ratio} Normal 0.9-2.4 [facility] Comment on above: Performed By: #### L 503.6550, L503.6030, L100.0100, L500.4050 #### [facility] [address] [place], [address] ALK PHOS 109 U/L High 35-104 [facility] Comment on above: Performed By: #### L 503.6550, L503.6030, L100.0100, L500.4050 #### [facility] [address] [place], [address] ALT [Catalytic activity/Vol] 12 U/L Normal <=34 [facility] Comment on above: Performed By: #### L 503.6550, L503.6030, L100.0100, L500.4050 #### [facility] [address] [place], [address] AST [Catalytic activity/Vol] 23 U/L Normal <=31 [facility] Comment on above: Performed By: #### L 503.6550, L503.6030, L100.0100, L500.4050 #### [facility] [address] [place], [address] Bilirubin [Mass/Vol] 0.68 mg/dL Normal 0.00-1.30 [facility] Comment on above: Performed By: #### L 503.6550, L503.6030, L100.0100, L500.4050 #### [facility] [address] [place], [address] BUN/CRE 25.5 RATIO High 10-20 [facility] Comment on above: Performed By: #### L 503.6550, L503.6030, L100.0100, L500.4050 #### [facility] [address] [place], [address] Calcium [Mass/Vol] 9.2 mg/dL Normal 7.6-11.0 [facility] Comment on above: Performed By: #### L 503.6550, L503.6030, L100.0100, L500.4050 #### [facility] [address] [place], [address] Chloride [Moles/Vol] 104 mmol/L Normal 98-108 [facility] Comment on above: Performed By: #### L 503.6550, L503.6030, L100.0100, L500.4050 #### [facility] [address] [place], [address] CO2 [Moles/Vol] 25.9 mmol/L Normal 21.0-32.0 [facility] Comment on above: Performed By: #### L 503.6550, L503.6030, L100.0100, L500.4050 #### [facility] [address] [place], [address] Creatinine [Mass/Vol] 0.96 mg/dL Normal 0.70-1.20 [facility] Comment on above: Performed By: #### L 503.6550, L503.6030, L100.0100, L500.4050 #### [facility] [address] [place], [address] ECRCL 54.79 ml/min Normal 50-250 [facility] Comment on above: Performed By: #### L 503.6550, L503.6030, L100.0100, L500.4050 #### [facility] [address] [place], [address] GAP 10 Normal 5-15 [facility] Comment on above: Performed By: #### L 503.6550, L503.6030, L100.0100, L500.4050 #### [facility] [address] [place], [address] GFR/1.73 sq M.predicted among non-blacks MDRD (S/P/Bld) [Vol rate/Area] 62 mL/min/{1.73_m2} Normal >60 [facility] Comment on above: Result Comment: mL/m in/1.73m2 CKD-EPI Creatinine Equation (2020) Performed By: #### L 503.6550, L503.6030, L100.0100, L500.4050 #### [facility] [address] [place], [address] Globulin (S) [Mass/Vol] 2.9 g/dL Normal 2.2-4.2 [facility] Comment on above: Performed By: #### L 503.6550, L503.6030, L100.0100, L500.4050 #### [facility] [address] [place], [address] Glucose [Mass/Vol] 112 mg/dL High 70-99 [facility] Comment on above: Performed By: #### L 503.6550, L503.6030, L100.0100, L500.4050 #### [facility] [address] [place], [address] Potassium [Moles/Vol] 4.3 mmol/L Normal 3.3-5.1 [facility] Comment on above: Performed By: #### L 503.6550, L503.6030, L100.0100, L500.4050 #### [facility] [address] [place], [address] Sodium [Moles/Vol] 140 mmol/L Normal 133-145 [facility] Comment on above: Performed By: #### L 503.6550, L503.6030, L100.0100, L500.4050 #### [facility] [address] [place], [address] T PROT 6.9 g/dL Normal 5.9-8.4 [facility] Comment on above: Performed By: #### L 503.6550, L503.6030, L100.0100, L500.4050 #### [facility] [address] [place], [address] Urea nitrogen [Mass/Vol] 25 mg/dL High 4-19 [facility] Comment on above: Performed By: #### L 503.6550, L503.6030, L100.0100, L500.4050 #### [facility] [address] [place], [address] Ferritinon 05-07-2025 Ferritin [Mass/Vol] 23 ng/mL Normal 22-378 [facility] Comment on above: Performed By: #### L 503.6550, L503.6030, L100.0100, L500.4050 #### [facility] [address] [place], [address] Iron measurement (mass/mass) Ordered By: Krystina Steel on 10-13-2024 Iron (Unsp spec) [Mass/Mass] 29 ug/dL Low 50-170 [facility] Iron+Iron Binding Capacityon 10-13-2024 Iron [Mass/Vol] 29 ug/dL Low 50-170 [facility] Comment on above: Performed By: #### L 503.6550, L503.6030, L100.0100, L500.4050 #### [facility] [address] [place], [address] IRON SATURATION 9.0 Low 13-59 [facility] Comment on above: Performed By: #### L 503.6550, L503.6030, L100.0100, L500.4050 #### [facility] [address] [place], [address] TIBC 311 ug/dL Normal 250-450 [facility] Comment on above: Performed By: #### L 503.6550, L503.6030, L100.0100, L500.4050 #### [facility] [address] [place], [address] UIBC 282 ug/dL Normal 228-428 [facility] Comment on above: Performed By: #### L 503.6550, L503.6030, L100.0100, L500.4050 #### [facility] [address] [place], [address] No Panel InformationOrdered By: Krystina Steel on 10-13-2024 Unsaturated Iron Binding Capacity 282 ug/dL 228-428 [facility] Oncology Visit Reporton Oncology Visit Report [facility] [place] [facility] [address] [place] [address] OFFICE VISIT Date of Service: 10/13/24 1451 MR#: [id number] Acct: [id number] Name: PHONG JANG Rep #: [id number] : 1950 From: Krystina Steel NP MACHINE LACER -C Age/Sex: 74/F Location: [facility] Status: Signed HPI Subjective Date of Service 10/13/24 Chief Complaint Polycythemia vera on treatment History of Present Illness 74-year-old female with polycythemia vera transferring her care from [facility] to [facility] in July 2021 closer to home and because 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 She presented in 2016 with vague nonspecific [...] however an ultrasound of March 2022 at [facility] shows stable mild splenomegaly of 13.7 cm. [...] good adherence to ASA 81 mg daily. [facility] Medical History GERD (gastroesophageal reflux disease) Cellulitis [...] Problem [place] (more content not included)... 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 Office Visit Reporton 09-21-2024 Confectionery Maker Office Visit Report [facility] [address], [address] [place] [address] OFFICE VISIT Date of Service: 09/21/24 MR#: [id number] Acct: [id number] Name: PHONG JANG Rep #: [id number] : 1950 Provider: JAIME ladd Age/Sex: 74/F [place] [facility] [place] Signed Intake Vital Signs 09/13/24 11:16 09/21/24 14:21 09/21/24 14:26 Height 5 ft 5 in 5 ft 5 in 5 ft 5 in Weight: 173 lb 6 oz BMI 28.8 BP 126/68 H Intake Visit Reasons: Pessary Check Chief Complaint: Pessary check Community Association Manager Required: No Is patient in pain?: No [...] menopausal: Yes Patient : No : No [facility] Medical History GERD (gastroesophageal reflux disease) Cellulitis [...] annual exam, prn 09/21/24 1553 Date Francheska SANDOVAL Cosigner Signature: Date (if applicable) CC: Normal [facility] Surgical pathology reportOrd ered By: Hailey Padilla on 09-21-2024 Surgical pathology study [facility] [employer]fection[employer] Office Visit Reporton 09-13-2024 Confectionery Maker Office Visit Report [facility] [address], [address] [place] [address] OFFICE VISIT Date of Service: 09/13/24 MR#: [id number] Acct: [id number] Name: PHONG JANG Rep #: [id number] : 1950 Provider: JAIME ladd Age/Sex: 74/F Location[facility] Status: Signed Intake Vital Signs 08/04/24 14:54 08/23/24 14:34 09/13/24 11:10 09/13/24 11:16 Height 5 ft 5 in 5 ft 5 in 5 ft 5 in 5 ft 5 in Weight: 174 lb 6 oz BMI 29.0 BP 136/80 H Intake Visit Reasons: EMB/PMB Chief Complaint: EMB Community Association Manager Required: No Is patient in pain?: No [...] year old who presents for postmenopausal bleeding. [facility] had a fall in June and had pelvic fracture. Since then has had episodes of vaginal bleeding. Light amount but bright red in color. She has a pessary in place that she cares for herself. [facility] life for her has been very [...] noted. Coding Level of Care Code Attention Home Health Care Provider Diagnoses PMB (postmenopausal bleeding) N95.0 Stress incontinence N39.3 Abrasion of vagina, initial encounter S30.814A Encounter type: initial encounter Cystocele with incomplete uterovaginal prolapse N81.2 CPT Codes Endometrial Biopsy (29396) Assessment and Plan (more content not included)... Normal [facility] Surgery Specimen Level Gilles 09-13-2024 Surgery Specimen Level IV ---- Patient Age/Sex Location Account Attending Physician ---- PHONG JANG 74/F [facility] [id number] JAIME Schmitt ---- Specimen: [id number] Received: 09/14/24 Status: DOROTHEA Natarajan Num: [id number] Spec Type: ENDOM BX/C Subm Dr: JAIME Schmitt HEADER OPERATION: Endoemtrial biopsy PRE-OP DIAGNOSIS: Post menopausal bleeding TISSUE SUBMITTED: A- Endometrial lining ---- MICROSCOPIC DIAGNOSIS A. Uterus, endometrial lining, biopsy: [...] in aggregate. Submitted in toto in A1. [facility] 09-14-2024 CPT:82696 ---- Patient Age/Sex Location Account Attending Physician ---- PHONG JANG 74/F [facility] [id number] JAIME Schmitt ---- Signed (signature on file) Dr. Hailey Padilla MD 09/21/24 0843 ---- Normal [facility] Comment on above: Performed By: #### P IMNC #### [facility] [address] [place], [place], [address] Orthopedic Visit Reporton Orthopedic Visit Report [facility] [address] [place] [address] [address] [place] [address] OFFICE VISIT Date of Service: 08/23/24 MR#: [id number] Acct: [id number] Name: PHONG JANG Rep #: [id number] : 1950 Provider: BRANDON Prees Age/Sex: 74/F Location[place] [facility] Status: Signed Intake Vital Signs 08/04/24 14:54 [...] service provided and the decisions made by me, BRANDON Peres 08/23/24 1433. Part of today???s visit was documented by [...] physical therapy. Patient got an xray at [facility] 07/2024. She got an MRI 08/16/2024. The [...] encounter fo (more content not included)... Normal [facility] Sacrum-Coccyx min 2 Viewson 08-23-2024 Sacrum-Coccyx min 2 Views [facility] Services [address] [place] [address] Sacrum-Coccyx min 2 Views MR#: [id number] Acct: [id number] Name: PHONG JANG Rep #: [id number] : 1950 F 74 From: Chas Jackson i DO PCP: Dr. Dennise Sahni MD Status: DEP AMB Study: Sacrum-Coccyx min 2 Views Date of Exam: Exam# [id number] Ordering Dr: Danyelle Manzano PROCEDURE: Sacrum/coccyx radiographs, [...] MRI evaluation may be considered. Reading Location: [facility] CC: BRANDON Peres; Dr. Dennise Sahni MD Registered Radiographer: Signed Normal [facility] MR PELVIS W/O CONTRASTon MR PELVIS W/O CONTRAST [place] [id number] Patient: PHONG JANG Phone#: : 1950 Age: 74 Gender: F Pt. Type: Out Account: [id number] Location: [facility] Ordering: DENNISE SAHNI Exam Date: 08/16/2024/14:03 Family Phys: Charge Code: 621946 Physician: Spalding Order #: [id number] Dose#: PROCEDURE: MRI PELVIS WITHOUT CONTRAST COMPARISON: [...] Ku MD on 08/18/2024 at 20:26 Normal [facility] Transvaginal Non-on 08-11-2024 Transvaginal Non- [facility] [address] [place] [address] Transvaginal Non- MR#: [id number] Acct: [id number] Name: PHONG JANG Rep #: [id number] : 1950 F 74 From: Keaton Mathias MD PCP: Dr. Dennise Sahni MD Status: REG CLI Study: Transvaginal Non- Date of Exam: Exam# [id number] Ordering Dr: Francheska Powell MACHINE LACER MACHINE LACER -C PROCEDURE: Transvaginal pelvic ultrasound REASON FOR [...] 5. Additional description as above. Reading Location: [facility] CC: JAIME Powell; Dr. Dennise Sahni MD Registered Radiographer: Signed Normal [facility] Absolute neutrophil countOrd ered By: Tristen Guevara on 08-04-2024 Neutrophils (Bld) [#/Vol] 7.2 10*3/uL 2.0-7.7 [facility] BUN/creatinine ratioOrdered By: [facility] on 08-04-2024 Urea nitrogen/Creatinine [Mass ratio] 35.9 mg/mg High 10-20 [facility] Basophil percentageOrdered B y: Tristen Guevara on 08-04-2024 Basophils/100 WBC (Bld) 0.6 % 0-1 [facility] Bilirubin, totalOrdered By: [facility] Guevara on 08-04-2024 Bilirubin [Mass/Vol] 0.55 mg/dL 0.00-1.30 [facility] CBC W/Diff, Automatedon 07-11 Absolute Lymph 0.87 X10 3/uL Normal 0.83-4.51 [facility] Comment on above: Performed By: #### L 100.0100, L500.4050 ####[facility] [address] [place], [place], [id number] Absolute Neut 7.2 X10 3/uL Normal 2.0-7.7 [facility] Comment on above: Performed By: #### L 100.0100, L500.4050 ####[facility] [address] [place], [address] Basophils/100 WBC (Bld) 0.6 % Normal 0-1 [facility] Comment on above: Performed By: #### L 100.0100, L500.4050 ####[facility] [address] [place], [address] Eosinophils/100 WBC (Bld) 4.3 % Normal 0-5 [facility] Comment on above: Performed By: #### L 100.0100, L500.4050 ####[facility] [address] [place], [address] Erythrocyte distribution width (RBC) [Ratio] 17.9 % High 11.6-14.6 [facility] Comment on above: Performed By: #### L 100.0100, L500.4050 ####[facility] [address] [place], [address] Hematocrit (Bld) [Volume fraction] 44.0 % Normal 37-47 [facility] Comment on above: Performed By: #### L 100.0100, L500.4050 ####[facility] [address] [place], [address] Hemoglobin (Bld) [Mass/Vol] 13.7 g/dL Normal 12.0-15.0 [facility] Comment on above: Performed By: #### L 100.0100, L500.4050 ####[facility] [address] [place], [address] IG% 0.400 Normal 0.0-0.9 [facility] Comment on above: Result Comment: IG% - Immature Granulocytes (promyelocytes, myelocytes and metamyelocytes) > 1% indicates that a LEFT SHIFT is Present. Performed By: #### L 100.0100, L500.4050 ####[facility] [address] [place], [address] Lymphocytes/100 WBC (Bld) 9.8 % Low 19-41 [facility] Comment on above: Performed By: #### L 100.0100, L500.4050 ####[facility] [address] [place], [address] MCH (RBC) [Entitic mass] 30.8 pg Normal 27.0-32.0 [facility] Comment on above: Performed By: #### L 100.0100, L500.4050 ####[facility] [address] [place], [address] MCHC (RBC) [Mass/Vol] 31.1 g/dL Low 32-36 [facility] Comment on above: Performed By: #### L 100.0100, L500.4050 ####[facility] [address] [place], [address] MCV (RBC) [Entitic vol] 98.9 fL Normal 81-99 [facility] Comment on above: Performed By: #### L 100.0100, L500.4050 ####[facility] [address] [place], [address] Monocytes/100 WBC (Bld) 4.4 % Normal 0-10 [facility] Comment on above: Performed By: #### L 100.0100, L500.4050 ####[facility] [address] [place], [address] Neutrophils/100 WBC (Bld) 80.5 % High 47-70 [facility] Comment on above: Performed By: #### L 100.0100, L500.4050 ####[facility] [address] [place], [address] Nucleated RBC (Bld) [#/Vol] 0 10*3/uL Normal 0-5 [facility] Comment on above: Performed By: #### L 100.0100, L500.4050 ####[facility] [address] [place], [address] Platelet mean volume (Bld) [Entitic vol] 10.0 fL Normal 6.2-12.0 [facility] Comment on above: Performed By: #### L 100.0100, L500.4050 ####[facility] [address] [place], [address] Platelets (Bld) [#/Vol] 310 10*3/uL Normal 150-450 [facility] Comment on above: Performed By: #### L 100.0100, L500.4050 ####[facility] [address] [place], [address] RBC (Bld) [#/Vol] 4.45 10*6/uL Normal 4.2-5.4 [facility] Comment on above: Performed By: #### L 100.0100, L500.4050 ####[facility] [address] [place], [address] RDW SD 63.6 fl High 35.1-43.9 [facility] Comment on above: Performed By: #### L 100.0100, L500.4050 ####[facility] [address] [place], [address] WBC (Bld) [#/Vol] 8.9 10*3/uL Normal 4.4-11.0 [facility] Comment on above: Performed By: #### L 100.0100, L500.4050 ####[facility] [address] [place], [address] Carbon dioxide measurementOr dered By: Tristen Guevara on 08-04-2024 CO2 [Moles/Vol] 22.4 mmol/L 22.0-29.0 [facility] Chloride measurementOrdered By: Tristen Guevara on 08-04-2024 Chloride [Moles/Vol] 105 mmol/L 96-108 [facility] Metabolic Prof ilisaura 08-04-2024 Albumin [Mass/Vol] 3.9 g/dL Normal 3.4-4.8 [facility] Comment on above: Performed By: #### L 100.0100, L500.4050 ####[facility] [address] [place], [address] Albumin/Globulin [Mass ratio] 1.3 {ratio} Normal 0.9-2.4 [facility] Comment on above: Performed By: #### L 100.0100, L500.4050 ####[facility] [address] [place], [address] ALK PHOS 156 U/L High 35-104 [facility] Comment on above: Performed By: #### L 100.0100, L500.4050 ####[facility] [address] [place], [address] ALT [Catalytic activity/Vol] 11 U/L Normal <=34 [facility] Comment on above: Performed By: #### L 100.0100, L500.4050 ####[facility] [address] [place], [address] Anion gap [Moles/Vol] 11 mmol/L Normal 5-15 [facility] Comment on above: Performed By: #### L 100.0100, L500.4050 ####[facility] [address] [place], [address] AST [Catalytic activity/Vol] 31 U/L Normal <=31 [facility] Comment on above: Result Comment: Hemo lysis present, Results??could be affected. ?? Performed By: #### L 100.0100, L500.4050 ####[facility] [address] [place], [address] Bilirubin [Mass/Vol] 0.55 mg/dL Normal 0.00-1.30 [facility] Comment on above: Performed By: #### L 100.0100, L500.4050 ####[facility] [address] [place], [address] BUN/CRE 35.9 RATIO High 10-20 [facility] Comment on above: Performed By: #### L 100.0100, L500.4050 ####[facility] [address] [place], [address] Calcium [Mass/Vol] 8.8 mg/dL Normal 7.6-11.0 [facility] Comment on above: Performed By: #### L 100.0100, L500.4050 ####[facility] [address] [place], [address] Chloride [Moles/Vol] 105 mmol/L Normal 96-108 [facility] Comment on above: Performed By: #### L 100.0100, L500.4050 ####[facility] [address] [place], [address] CO2 [Moles/Vol] 22.4 mmol/L Normal 22.0-29.0 [facility] Comment on above: Performed By: #### L 100.0100, L500.4050 ####[facility] [address] [place], [address] Creatinine [Mass/Vol] 0.8 mg/dL Normal 0.6-1.0 [facility] Comment on above: Performed By: #### L 100.0100, L500.4050 ####[facility] [address] [place], [address] ECRCL 65.75 ml/min Normal [facility] Comment on above: Performed By: #### L 100.0100, L500.4050 ####[facility] [address] [place], [address] GFR/1.73 sq M.predicted among non-blacks MDRD (S/P/Bld) [Vol rate/Area] 83 mL/min/{1.73_m2} Normal >60 [facility] Comment on above: Result Comment: mL/m in/1.73m2 CKD-EPI Creatinine Equation (2020) Performed By: #### L 100.0100, L500.4050 ####[facility] [address] [place], [address] Globulin (S) [Mass/Vol] 3.0 g/dL Normal 2.2-4.2 [facility] Comment on above: Performed By: #### L 100.0100, L500.4050 ####[facility] [address] [place], [address] Glucose [Mass/Vol] 109 mg/dL High 70-99 [facility] Comment on above: Performed By: #### L 100.0100, L500.4050 ####[facility] [address] [place], [address] Potassium [Moles/Vol] 4.3 mmol/L Normal 3.3-5.1 [facility] Comment on above: Result Comment: Hemo lysis present, Results??could be affected. ?? Performed By: #### L 100.0100, L500.4050 ####[facility] [address] [place], [address] Sodium [Moles/Vol] 139 mmol/L Normal 133-145 [facility] Comment on above: Performed By: #### L 100.0100, L500.4050 ####[facility] [address] [place], [address] T PROT 6.9 g/dL Normal 5.9-8.4 [facility] Comment on above: Performed By: #### L 100.0100, L500.4050 ####[facility] [address] [place], [address] Urea nitrogen [Mass/Vol] 27 mg/dL High 4-19 [facility] Comment on above: Performed By: #### L 100.0100, L500.4050 ####[facility] [address] [place], [place], [address] Creatinine [Moles/Vol]Ordere d By: Tristen Guevara on 08-04-2024 Creatinine [Mass/Vol] 0.8 mg/dL 0.6-1.0 [facility] Eosinophil percentageOrdered By: [facility] Guevara on 08-04-2024 Eosinophils/100 WBC (Bld) 4.3 % 0-5 [facility] Erythrocyte distribution wid th ratioOrdered By: [facility] Guevara on 08-04-2024 Erythrocyte distribution width (RBC) [Ratio] 17.9 % High 11.6-14.6 [facility] Erythrocyte distribution wid th standard deviationOrdered By: [facility] Guevara on 08-04-2024 Erythrocyte distribution width (RBC) [Entitic vol] 63.6 fL High 35.1-43.9 [facility] Estimation of creatinine tian aranceOrdered By: Tristen Guevara on 08-04-2024 Estimated Creatinine Clearance Calc 65.75 ml/min [facility] GFR/1.73 sq M.predicted inna g non-blacks MDRD (S/P/Bld) [Vol rate/Area]Ordered By: Tristen Guevara on 08-04-2024 Estimated GFR (MDRD) Non-Af Amer 83 >60 [facility] Comment on above: mL/min/1.73m2 CKD-EP I Creatinine Equation (2020) Hematocrit Auto (Bld) [Volum e fraction]Ordered By: Tristen Guevara on 08-04-2024 Hematocrit (Bld) [Volume fraction] 44.0 % 37-47 [facility] Hemoglobin measurementOrdere d By: Tristen Guevara on 08-04-2024 Hemoglobin (Bld) [Mass/Vol] 13.7 g/dL 12.0-15.0 [facility] Immature granulocytes/100 WB C Auto (Bld)Ordered By: Tristen Guevara on 08-04-2024 Immature granulocytes/100 WBC (Bld) 0.400 % 0.0-0.9 [facility] Comment on above: IG% - Immature Granu locytes (promyelocytes, myelocytes and metamyelocytes) > 1% indicates that a LEFT SHIFT is Present. Laboratory - Chemistry and C hemistry - challengeOrdered By: Tristen Guevara on 08-04-2024 AST [Catalytic activity/Vol] 31 U/L <32 [facility] Comment on above: Hemolysis present, R esults could be affected. Lymphocytes Auto (Unsp spec) [#/Vol]Ordered By: Tristen Guevara on 08-04-2024 Lymphocytes (Bld) [#/Vol] 0.87 10*3/uL 0.83-4.51 [facility] Lymphocytes/100 WBC Auto (Un sp spec)Ordered By: Tristen Guevara on 08-04-2024 Lymphocytes/100 WBC (Bld) 9.8 % Low 19-41 [facility] MCV (mean corpuscular volume ) determinationOrdered By: Tristen Guevara on 08-04-2024 MCV (RBC) [Entitic vol] 98.9 fL 81-99 [facility] Mean corpuscular hemoglobin (MCH) determinationOrdered By: Tristen Guevara on 08-04-2024 MCH (RBC) [Entitic mass] 30.8 pg 27.0-32.0 [facility] Mean corpuscular hemoglobin concentration (MCHC) determinationOrdered By: Tristen Guevara on 08-04-2024 MCHC (RBC) [Mass/Vol] 31.1 g/dL Low 32-36 [facility] Mean platelet volume determi nationOrdered By: Tristen Guevara on 08-04-2024 Platelet mean volume (Bld) [Entitic vol] 10.0 fL 6.2-12.0 [facility] Monocyte percentageOrdered B y: Tristen Guevara on 08-04-2024 Monocytes/100 WBC (Bld) 4.4 % 0-10 [facility] Neutrophil percentageOrdered By: Tristen Guevara on 08-04-2024 Neutrophils/100 WBC (Bld) 80.5 % High 47-70 [facility] Nucleated red blood cell per centageOrdered By: Tristen Guevara on 08-04-2024 Nucleated RBC/100 WBC (Bld) [Ratio] 0 % 0-5 [facility] Oncology Visit Reporton 07-11 Oncology Visit Report [facility] [place] [facility] [address] [place] [address] OFFICE VISIT Date of Service: 08/04/24 1439 MR#: [id number] Acct: [id number] Name: PHONG JANG Rep #: [id number] : 1950 From: Krystina Steel NP MACHINE LACER -C Age/Sex: 74/F [place] [facility] Status: Signed HPI Subjective Date of Service 08/04/24 Chief Complaint Polycythemia vera on treatment History of Present Illness 74-year-old female with polycythemia vera transferring her care from [facility] to [facility] in July 2021 closer to home and because 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 She presented in 2017 with vague nonspecific [...] however an ultrasound of March 2022 at [facility] shows stable mild splenomegaly of 13.7 cm. [...] She describes as just like a period. [facility] Medical History GERD (gastroesophageal reflux disease) Cellulitis [...] Albumin 3.9 (more content not included)... Normal [facility] Platelet countOrdered By: Amara Guevara on 08-04-2024 Platelets (Bld) [#/Vol] 310 10*3/uL 150-450 [facility] RBC Auto (Bld) [#/Vol]Ordere d By: Tristen Guevara on 08-04-2024 RBC (Bld) [#/Vol] 4.45 10*6/uL 4.2-5.4 [facility] Serum globulin measurementOr dered By: Tristen Guevara on 08-04-2024 Globulin (S) [Mass/Vol] 3.0 g/dL 2.2-4.2 [facility] Serum glucose measurement (m ass/volume)Ordered By: Tristen Guevara on 08-04-2024 Glucose [Mass/Vol] 109 mg/dL High 70-99 [facility] Serum or plasma alanine rivera otransferase (ALT) measurementOrdered By: Tristen Guevara on 08-04-2024 ALT [Catalytic activity/Vol] 11 U/L <35 [facility] Serum or plasma albumin bry urement (mass/volume)Ordered By: Tristen Guevara on 08-04-2024 Albumin [Mass/Vol] 3.9 g/dL 3.4-4.8 [facility] Serum or plasma albumin/glob ulin mass ratioOrdered By: Tristen Guevara on 08-04-2024 Albumin/Globulin [Mass ratio] 1.3 {ratio} 0.9-2.4 [facility] Serum or plasma alkaline tre sphatase measurementOrdered By: Emilyclive Guevara on 08-04-2024 ALP [Catalytic activity/Vol] 156 U/L High 35-104 [facility] Serum or plasma anion gap de termination (moles/volume)Ordered By: Tristen Guevara on 08-04-2024 Anion gap [Moles/Vol] 11 mmol/L 5-15 [facility] Serum or plasma calcium bry urement (mass/volume)Ordered By: Tristen Guevara on 08-04-2024 Calcium [Mass/Vol] 8.8 mg/dL 7.6-11.0 [facility] Serum or plasma potassium me asurementOrdered By: Tristen Guevara on 08-04-2024 Potassium [Moles/Vol] 4.3 mmol/L 3.3-5.1 [facility] Comment on above: Hemolysis present, R esults could be affected. Serum or plasma sodium measu rement (moles/volume)Ordered By: Tristen Guevara on 08-04-2024 Sodium [Moles/Vol] 139 mmol/L 133-145 [facility] Serum or plasma urea nitroge n measurement (mass/volume)Ordered By: Tristen Guevara on 08-04-2024 Urea nitrogen [Mass/Vol] 27 mg/dL High 4-19 [facility] Total proteinOrdered By: Alin Guevara on 08-04-2024 Protein [Mass/Vol] 6.9 g/dL 5.9-8.4 [facility] White blood cell (WBC) count Ordered By: Tristen Guevara on 08-04-2024 WBC (Bld) [#/Vol] 8.9 10*3/uL 4.4-11.0 [facility] BMP with eGFRon 07-21-2024 AGE 74 years Normal [facility] Comment on above: Performed By: #### 2 [id number] #### [facility],[address] [place] [address] Anion gap [Moles/Vol] 14 mmol/L Normal 10 - 20 [facility] Comment on above: Performed By: #### 2 64214 #### [facility],[address] [place] [address] BMP with eGFR Normal [facility] Comment on above: Result Comment: BASI C METABOLIC PANEL Performed By: #### 2 [id number] #### [facility],[address] [place] [address] Calcium [Mass/Vol] 8.5 mg/dL Normal 8.5 - 10.1 [facility] Comment on above: Performed By: #### 2 41375 #### [facility],[address] [place] [address] Chloride [Moles/Vol] 104 mmol/L Normal 98 - 107 [facility] Comment on above: Performed By: #### 2 87302 #### [facility],[address] [place] [address] CO2 [Moles/Vol] 26.9 mmol/L Normal 21.0 - 32.0 [facility] Comment on above: Performed By: #### 2 60007 #### [facility],[address] [place] [address] Creatinine [Mass/Vol] 0.74 mg/dL Normal 0.55 - 1.02 [facility] Comment on above: Performed By: #### 2 81544 #### [facility],[address] [place] [address] GFR/1.73 sq M.predicted among non-blacks MDRD (S/P/Bld) [Vol rate/Area] mL/min/{1.73_m2} Normal 60 - 999 [facility] Comment on above: Performed By: #### 2 57320 #### [facility],[address] [place] [address] Result Comment: ACCO RDING TO THE NATIONAL KIDNEY DISEASE EDUCATION PROGRAM(NKDE), A NORMAL eGFR IS A VALUE GREATER THAN OR EQUAL TO 60 ML/MIN/1.73 SQ METERS. CHRONIC KIDNEY DISEASE: <60mL/MIN/1.73 SQ METERS KIDNEY FAILURE: <15mL/MIN/1.73 SQ METERS THIS TEST SHOULD ONLY BE USED FOR PATIENTS 18 YEARS OF AGE AND OLDER. Glucose [Mass/Vol] 77 mg/dL Normal 74 - 106 [facility] Comment on above: Performed By: #### 2 81838 #### [facility],[address] [place], [place] [address] Potassium [Moles/Vol] 4.0 mmol/L Normal 3.5 - 5.1 [facility] Comment on above: Performed By: #### 2 82461 #### [facility],[address] [place] [address] Sodium [Moles/Vol] 141 mmol/L Normal 136 - 145 [facility] Comment on above: Performed By: #### 2 88087 #### [facility],[address] [place], [place] [address] Urea nitrogen [Mass/Vol] 22 mg/dL High 7 - 18 [facility] Comment on above: Performed By: #### 2 65478 #### [facility],[address] [place], [place] [address] HIP COMPLETE RT MIN 2 VIEWS W/PELVISon 07-21-2024 HIP COMPLETE RT MIN 2 VIEWS W/PELVIS [place] [address] Patient: PHONG JANG Phone#: : 1950 Age: 74 Gender: F Pt. Type: Out Account: [id number] Location: [facility] Ordering: DENNISE SAHNI Exam Date: 07/21/2024/14:58 Family Phys: Charge Code: 070009 Physician: Spalding Order #: [id number] Dose#: PROCEDURE: X-RAY HIP RT COMPLETE MIN [...] Mendez MD on 07/21/2024 at 15:50 Normal [facility] MAGNESIUMon 07-21-2024 Magnesium [Mass/Vol] 2.2 mg/dL Normal 1.8 - 2.4 [facility] Comment on above: Performed By: #### 2 17244 #### [facility],[address] [place] [address] CBC W/Diff, Automatedon 04-10 Absolute Lymph 1.25 X10 3/uL Normal 0.83-4.51 [facility] Comment on above: Performed By: #### L 503.6550, L100.0100 ####[facility] [address] [place], [address] Absolute Neut 10.2 X10 3/uL High 2.0-7.7 [facility] Comment on above: Performed By: #### L 503.6550, L100.0100 ####[facility] [address] [place], [address] Basophils/100 WBC (Bld) 0.6 % Normal 0-1 [facility] Comment on above: Performed By: #### L 503.6550, L100.0100 ####[facility] [address] [place], [address] Eosinophils/100 WBC (Bld) 1.6 % Normal 0-5 [facility] Comment on above: Performed By: #### L 503.6550, L100.0100 ####[facility] [address] [place], [address] Erythrocyte distribution width (RBC) [Ratio] 17.2 % High 11.6-14.6 [facility] Comment on above: Performed By: #### L 503.6550, L100.0100 ####[facility] [address] [place], [address] Hematocrit (Bld) [Volume fraction] 50.5 % High 37-47 [facility] Comment on above: Performed By: #### L 503.6550, L100.0100 ####[facility] [address] [place], [address] Hemoglobin (Bld) [Mass/Vol] 15.4 g/dL High 12.0-15.0 [facility] Comment on above: Performed By: #### L 503.6550, L100.0100 ####[facility] [address] [place], [address] IG% 0.800 Normal 0.0-0.9 [facility] Comment on above: Result Comment: IG% - Immature Granulocytes (promyelocytes, myelocytes and metamyelocytes) > 1% indicates that a LEFT SHIFT is Present. Performed By: #### L 503.6550, L100.0100 ####[facility] [address] [place], [address] Lymphocytes/100 WBC (Bld) 10.1 % Low 19-41 [facility] Comment on above: Performed By: #### L 503.6550, L100.0100 ####[facility] [address] [place], [address] MCH (RBC) [Entitic mass] 28.8 pg Normal 27.0-32.0 [facility] Comment on above: Performed By: #### L 503.6550, L100.0100 ####[facility] [address] [place], [address] MCHC (RBC) [Mass/Vol] 30.5 g/dL Low 32-36 [facility] Comment on above: Performed By: #### L 503.6550, L100.0100 ####[facility] [address] [place], [address] MCV (RBC) [Entitic vol] 94.6 fL Normal 81-99 [facility] Comment on above: Performed By: #### L 503.6550, L100.0100 ####[facility] [address] [place], [place], [address] Monocytes/100 WBC (Bld) 4.4 % Normal 0-10 [facility] Comment on above: Performed By: #### L 503.6550, L100.0100 ####[facility] [address] [place], [address] Neutrophils/100 WBC (Bld) 82.5 % High 47-70 [facility] Comment on above: Performed By: #### L 503.6550, L100.0100 ####[facility] [address] [place], [address] Nucleated RBC (Bld) [#/Vol] 0 10*3/uL Normal 0-5 [facility] Comment on above: Performed By: #### L 503.6550, L100.0100 ####[facility] [address] [place], [address] Platelet mean volume (Bld) [Entitic vol] 10.1 fL Normal 6.2-12.0 [facility] Comment on above: Performed By: #### L 503.6550, L100.0100 ####[facility] [address] [place], [address] Platelets (Bld) [#/Vol] 351 10*3/uL Normal 150-450 [facility] Comment on above: Performed By: #### L 503.6550, L100.0100 ####[facility] [address] [place], [address] RBC (Bld) [#/Vol] 5.34 10*6/uL Normal 4.2-5.4 [facility] Comment on above: Performed By: #### L 503.6550, L100.0100 ####[facility] [address] [place], [address] RDW SD 56.9 fl High 35.1-43.9 [facility] Comment on above: Performed By: #### L 503.6550, L100.0100 ####[facility] [address] [place], [address] WBC (Bld) [#/Vol] 12.4 10*3/uL High 4.4-11.0 [facility] Comment on above: Performed By: #### L 503.6550, L100.0100 ####[facility] [address] [place], [address] Ferritinon 05-05-2024 Ferritin [Mass/Vol] 8 ng/mL Normal - [facility] Comment on above: Performed By: #### L 503.6550, L100.0100 ####[facility] [address] [place], [address] Ferritin measurementOrdered By: Tristen Guevara on 05-05-2024 Ferritin [Mass/Vol] 8 ng/mL - [facility] Oncology Visit Reporton 04-10 Oncology Visit Report [facility] [place] [facility] [address] 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 She presented in 2017 with vague nonspecific [...] however an ultrasound of March 2022 at [facility] shows stable mild splenomegaly of 13.7 cm. [...] Treatment summary : Phlebotomies 2017-ongoing Hydroxyurea 2017-ongoing [facility] Medical History GERD (gastroesophageal reflux disease) Cellulitis [...] no addt'l complaints, except as documented Hematologic/Lymphatic Hematologic/Lymphatic: Reports systems reviewed and no addt'l complaints, [...] 63 P (more content not included)... Normal [facility] CBC + DIFFon 03-23-2024 ATY LYMP 0 % Normal [facility] Comment on above: Performed By: #### 2 42763 #### [facility],[address] [place] [address] BANDS 0 % Normal 0 - 5 [facility] Comment on above: Performed By: #### 2 90354 #### [facility],[address] [place] [address] Baso # 0.13 x10EE3/UL High 0.00 - 0.10 [facility] Comment on above: Performed By: #### 2 29415 #### [facility],[address] [place] [address]61 Basophils/100 WBC (Bld) 1.2 % Normal 0.0 - 2.0 [facility] Comment on above: Performed By: #### 2 22732 #### [facility],[address] [place] [address]33 Basophils/100 WBC (Bld) 0.0 % Normal 0.0 - 2.0 [facility] Comment on above: Performed By: #### 2 88225 #### [facility],[address] [place], [place] [address] CBC + DIFF Normal [facility] Comment on above: Result Comment: CBC- COMPLETE BLOOD COUNT Performed By: #### 2 19829 #### [facility],[address] [place] [address]89 CELL COUNT 100 Normal [facility] Comment on above: Performed By: #### 2 32462 #### [facility],[address] [place] [address]75[address] EO 0.0 % Normal 0.0 - 7.0 [facility] Comment on above: Performed By: #### 2 33804 #### [facility],[address] [place] [address]505 EO # 0.23 x10EE3/UL Normal 0.00 - 0.50 [facility] Comment on above: Performed By: #### 2 28278 #### [facility],[address] [place] [address]31 Eosinophils/100 WBC (Bld) 2.1 % Normal 0.0 - 7.0 [facility] Comment on above: Performed By: #### 2 94248 #### [facility],[address] [place] [address] Erythrocyte distribution width (RBC) [Ratio] 15.8 % High 12.0 - 15.6 [facility] Comment on above: Performed By: #### 2 22389 #### [facility],[address] [place] [address] Hematocrit (Bld) [Volume fraction] 48.7 % High 34.0 - 46.0 [facility] Comment on above: Performed By: #### 2 20252 #### [facility],[address] [place] [address] Hemoglobin (Bld) [Mass/Vol] 15.2 g/dL Normal 12.0 - 16.0 [facility] Comment on above: Performed By: #### 2 99148 #### [facility],[address] [place] [address] Lymph # 1.24 x10EE3/UL Normal 0.80 - 2.80 [facility] Comment on above: Performed By: #### 2 08523 #### [facility],[address] [place] [address] Lymphocytes/100 WBC (Bld) 11.0 % Low 20.0 - 45.0 [facility] Comment on above: Performed By: #### 2 59666 #### [facility],[address] [place] [address] Lymphocytes/100 WBC (Bld) 13 % Low 20 - 45 [facility] Comment on above: Performed By: #### 2 92742 #### [facility],[address] [place] [address] MANUAL DIFF SEE BELOW Normal [facility] Comment on above: Performed By: #### 2 10811 #### [facility],[address] [place] [address],[place] [address] MCH (RBC) [Entitic mass] 29 pg Normal 27 - 33 [facility] Comment on above: Performed By: #### 2 07031 #### [facility],[address] [place] [address] MCHC 31 X10 3 Low 32 - 36 [facility] Comment on above: Performed By: #### 2 55973 #### [facility],[address] [place] [address] MCV (RBC) [Entitic vol] 93 fL Normal 80 - 99 [facility] Comment on above: Performed By: #### 2 05755 #### [facility],[address] [place] [address] META 0 % Normal 0 - 1 [facility] Comment on above: Performed By: #### 2 95830 #### [facility],[address] [place] [address] Metamyelocytes/100 WBC (Bld) 0 % Normal [facility] Comment on above: Performed By: #### 2 43814 #### [facility],[address] [place] [address] [place] # 0.43 x10EE3/UL Normal 0.20 - 1.00 [facility] Comment on above: Performed By: #### 2 62448 #### [facility],[address] [place] [address] MONOS 2 % Normal 0 - 10 [facility] Comment on above: Performed By: #### 2 94462 #### [facility],[address] [place] [address] MONOS % 3.8 % Normal 0.0 - 10.0 [facility] Comment on above: Performed By: #### 2 86256 #### [facility],[address] [place], [place] [address] Morphology Jonathon (Bld) [Interp] N/A Normal [facility] Comment on above: Performed By: #### 2 90370 #### [facility],[address] [place] [address] 16001 Neut # 9.29 x10EE3/UL High 1.50 - 7.10 [facility] Comment on above: Performed By: #### 2 34962 #### [facility],[address] [place] [address] 99531 Neutrophils/100 WBC (Bld) 82.0 % High 46.0 - 76.0 [facility] Comment on above: Performed By: #### 2 58334 #### [facility],[address] [place] [address]777 NRBC 0 /100 Normal [facility] Comment on above: Performed By: #### 2 87662 #### [facility],[address] [place] [address] 92258 PLATELET 341 x10EE3/UL Normal 150 - 450 [facility] Comment on above: Performed By: #### 2 61988 #### [facility],[address] [place] [address] 87865 Platelet mean volume (Bld) [Entitic vol] 8.1 fL Normal 6.6 - 10.5 [facility] Comment on above: Result Comment: AUTO MATED DIFFERENTIAL Performed By: #### 2 55704 #### [facility],[address] [place] [address] 57178 RBC 5.22 x 10EE6/UL Normal 4.10 - 5.30 [facility] Comment on above: Performed By: #### 2 97152 #### [facility],[address] [place] [address] 30478 SEGS 85 % High 46 - 76 [facility] Comment on above: Performed By: #### 2 53337 #### [facility],[address] [place] [address] 99112 WBC 11.3 x 10EE3/UL High 4.5 - 10.8 [facility] Comment on above: Performed By: #### 2 25388 #### [facility],[address] [place] [address] 87934 OTHER 0 Normal [facility] Comment on above: Performed By: #### 2 87884 #### [facility],[address] [place] [address]65[address] CHEST 2 VIEWSon 03-23-2024 CHEST 2 VIEWS [place] [address] Patient: PHONG JANG Phone#: : 1950 Age: 73 Gender: F Pt. Type: Out Account: [id number] Location: [facility] Ordering: ANTON DEJESUS Exam Date: 03/23/2024/11:42 Family Phys: DENNISE MEJIAATUL Charge Code: 240330 Physician: Spalding Order #: [id number] Dose#: PROCEDURE: X-RAY CHEST 2 VIEWS COMPARISON: [facility], XR, CHEST 2 VIEWS, 09/25/2022, 15:27. INDICATIONS: [...] Mendez MD on 03/23/2024 at 12:57 Normal [facility] CMP with eGFRon 03-23-2024 AGE 73 years Normal [facility] Comment on above: Performed By: #### 2 88955 #### [facility],[address] [place] [address] 63420 Albumin [Mass/Vol] 3.5 g/dL Normal 3.4 - 5.0 [facility] Comment on above: Performed By: #### 2 45060 #### [facility],[address] [place] [address] 36096 Albumin/Globulin [Mass ratio] 0.9 {ratio} Normal 0.9 - 1.6 [facility] Comment on above: Performed By: #### 2 27574 #### [facility],[address] [place] [address] 58548 ALK PHOS 101 U/L Normal 46 - 116 [facility] Comment on above: Performed By: #### 2 48986 #### [facility],[address] [place] [address] 93306 ALT [Catalytic activity/Vol] 22 U/L Normal 16 - 63 [facility] Comment on above: Performed By: #### 2 24685 #### [facility],[address] [place] [address] 32850 Anion gap [Moles/Vol] 9 mmol/L Low 10 - 20 [facility] Comment on above: Performed By: #### 2 35350 #### [facility],[address] [place] [address] 32920 AST [Catalytic activity/Vol] 22 U/L Normal 13 - 39 [facility] Comment on above: Performed By: #### 2 65838 #### [facility],[address] [place] [address] 92722 B/C RATIO 28 ratio Normal 0 - 30 [facility] Comment on above: Performed By: #### 2 50030 #### [facility],[address] [place] [address] 08986 Bilirubin [Mass/Vol] 0.7 mg/dL Normal 0.2 - 1.0 [facility] Comment on above: Performed By: #### 2 55280 #### [facility],[address] [place] [address] 35893 Calcium [Mass/Vol] 8.8 mg/dL Normal 8.5 - 10.1 [facility] Comment on above: Performed By: #### 2 35517 #### [facility],[address] [place] [address] 45907 Chloride [Moles/Vol] 102 mmol/L Normal 98 - 107 [facility] Comment on above: Performed By: #### 2 03330 #### [facility],[address] [place] [address] 24443 CMP with eGFR Normal [facility] Comment on above: Result Comment: COMP REHENSIVE METABOLIC PANEL Performed By: #### 2 84995 #### [facility],[address] [place] [address] 95267 CO2 [Moles/Vol] 30.5 mmol/L Normal 21.0 - 32.0 [facility] Comment on above: Performed By: #### 2 00708 #### [facility],[address] [place] [address] 56058 Creatinine [Mass/Vol] 0.88 mg/dL Normal 0.55 - 1.02 [facility] Comment on above: Performed By: #### 2 74296 #### [facility],[address] [place] [address] 69033 GFR/1.73 sq M.predicted among non-blacks MDRD (S/P/Bld) [Vol rate/Area] mL/min/{1.73_m2} Normal 60 - 999 [facility] Comment on above: Performed By: #### 2 92267 #### [facility],[address] [place] [address] 15829 Result Comment: ACCO RDING TO THE NATIONAL KIDNEY DISEASE EDUCATION PROGRAM(NKDE), A NORMAL eGFR IS A VALUE GREATER THAN OR EQUAL TO 60 ML/MIN/1.73 SQ METERS. CHRONIC KIDNEY DISEASE: <60mL/MIN/1.73 SQ METERS KIDNEY FAILURE: <15mL/MIN/1.73 SQ METERS THIS TEST SHOULD ONLY BE USED FOR PATIENTS 18 YEARS OF AGE AND OLDER. Globulin (S) [Mass/Vol] 4.1 g/dL High 1.5 - 3.8 [facility] Comment on above: Performed By: #### 2 71208 #### [facility],[address] [place] [address] 89367 Glucose [Mass/Vol] 129 mg/dL High 74 - 106 [facility] Comment on above: Performed By: #### 2 87934 #### [facility],[address] [place] [address] 28351 Potassium [Moles/Vol] 3.4 mmol/L Low 3.5 - 5.1 [facility] Comment on above: Performed By: #### 2 87880 #### [facility],[address] [place] [address] 88233 Protein [Mass/Vol] 7.6 g/dL Normal 6.4 - 8.2 [facility] Comment on above: Performed By: #### 2 38611 #### [facility],[address] [place] [address] 27540 Sodium [Moles/Vol] 138 mmol/L Normal 136 - 145 [facility] Comment on above: Performed By: #### 2 98825 #### [facility],[address] [place] [address] 58912 Urea nitrogen [Mass/Vol] 25 mg/dL High 7 - 18 [facility] Comment on above: Performed By: #### 2 79905 #### [facility],[address] [place] [address] 10755 CV ECHO COMPLETE 4 CV ECHO COMPLETE [place] [id number] Patient: PHONG JANGLuh Phone#: : 1950 Age: 73 Gender: F Pt. Type: Out Account: [id number]. Location: 052 Ordering: MICHELLE MAYA Exam Date: 02/25/202414:08 Family Phys: Charge Code: [id number] Physician: Spalding Order #: [id number] Dose#: PROCEDURE: ECHOCARDIOGRAM WITH DOPPLER AND COLOR FLOW HISTORY: Patient is a 73-year-old female with history of CAD INDICATIONS: VALERA COMPARISON: None. TECHNIQUE: A 2-D ultrasound, color spectral Doppler and M-mode evaluation of the heart and great vessels. PATIENT MEASUREMENTS: Height (in.): 65 BSA: 1.86 Weight (lbs.): 173 BP: 132/67 Erp Technical Lead: BETO M MODE 2D MEASUREMENTS AND CALCULATIONS: LVIDd: [...] 73 Gender: F Pt. Type: Out Account: [id number]. Location: 052 Ordering: MICHELLE MAYA Exam Date: 02/25/2024/14:08 Family Phys: Charge Code: [id number] Physician: Spalding Order #: [id number] Dose#: Ao max P.65 mm[Hg] LV V1 [...] 73 Gender: F Pt. Type: Out Account: [id number]. Location: [facility] Ordering: MICHELLE MAYA Exam Date: 02/25/2024/14:08 Family Phys: Charge Code: [id number] Physician: Spalding Order #: [id number] Dose#: 3. Right ventricle is normal in size and systolic function. 4. Estimated right ventricular systolic pressure is 28 mm Hg. Dictated by: MICHELLE MAYA MD on 02/26/2024 at 10:12 Approved by: MICHELLE MAYA MD on 02/26/2024 at 10:26 Normal [facility] Hemoglobin (Reticulocytes) [ Entitic mass]Ordered By: Tristen Guevara on 02-04-2024 Reticulocyte Hemoglobin Equivalent 30.3 pg 30-35 [facility] Immature reticulocyte fracti onOrdered By: Tristen Guevara on 02-04-2024 Immature Reticulocyte Fraction 24.50 % High 3.00-15.90 [facility] Reticulocyte hemoglobin equi valent (RET-He) measurementOrdered By: Tristen Guevara on 02-04-2024 Hemoglobin (Reticulocytes) [Entitic mass] 30.3 pg 30-35 [facility] Reticulocytes Auto (Bld) [#/ Vol]Ordered By: Tristen Guevara on 02-04-2024 Reticulocyte Count 1.66 % High 0.5-1.5 [facility] Reticulocytes/100 RBC (Bld) 1.66 % High 0.5-1.5 [facility] Iron (Unsp spec) [Mass/Mass] Ordered By: Tristen Guevara on 09-04-2023 Iron [Mass/Vol] 53 ug/dL 50-170 [facility] Iron saturation [Mass fracti on]Ordered By: Tristen Guevara on 09-04-2023 Iron Saturation 15.0 % 15.0-55.0 [facility] TIBCOrdered By: Tristen vergara on 09-04-2023 Total Iron Binding Capacity 353 ug/dL 250-450 [facility] Cholesterol in HDL (Body fld ) [Mass/Vol]Ordered By: Krystina Steel on 06-25-2023 Cholesterol in HDL [Mass/Vol] 58 mg/dL >40 [facility] Comment on above: The drugs N-Acetylcy steine and Metamizole may falsely depress this assay. Reference Range HDL <40 mg/dL Low HDL Cholesterol HDL >or= 60 mg/dL High HDL Cholesterol Cholesterol in LDL (Body fld ) [Moles/Vol]Ordered By: Krystina Steel on 06-25-2023 Cholesterol in LDL [Mass/Vol] 54 mg/dL 0-130 [facility] Cholesterol in VLDL Calc [Mo les/Vol]Ordered By: Krystina Steel on 06-25-2023 VLDL Cholesterol 27 mg/dL 5-40 [facility] Laboratory - Chemistry and C hemistry - challengeOrdered By: Krystina Steel on 06-25-2023 Cholesterol in HDL (Body fld) [Mass/Vol] 58 mg/dL >40 [facility] Comment on above: The drugs N-Acetylcy steine and Metamizole may falsely depress this assay. Reference Range HDL <40 mg/dL Low HDL Cholesterol HDL >or= 60 mg/dL High HDL Cholesterol Cholesterol in LDL (Body fld) [Moles/Vol] 54 mg/dL 0-130 [facility] Cholesterol in VLDL Calc [Moles/Vol] 27 mg/dL 5-40 [facility] No Panel InformationOrdered By: Krystina Steel on 06-25-2023 Estimated GFR (MDRD) Amer 85 mL/min >60 [facility] Comment on above: GFR Calc PotassiumOrdered By: Krystina lakhani on 06-25-2023 Potassium [Mass/Vol] 139 mg/dL <200 [facility] Comment on above: <200 mg/dL Desirable 200-240 mg/dL Borderline >240 mg/dL High Risk Potassium [Mass/Vol] 135 mg/dL <199 [facility] Comment on above: The drugs N-Acetylcy steine and Metamizole may falsely depress this assay.Serum Triglycerides Reference Interval Normal <150 mg/dL Borderline high 150 - 199 mg/dL High 200 - 499 mg/dL Very High > or = 500 mg/dL Trichomonas screening testOr dered By: Krystina Steel on 06-25-2023 Chloride [Moles/Vol] 109 mmol/L High 98-107 [facility] Cholesterol [Mass/Vol] 139 mg/dL <200 [facility] Comment on above: <200 mg/dL Desirable 200-240 mg/dL Borderline >240 mg/dL High Risk Triglyceride [Mass/Vol] 135 mg/dL <199 [facility] Comment on above: The drugs N-Acetylcy steine and Metamizole may falsely depress this assay.Serum Triglycerides Reference Interval Normal <150 mg/dL Borderline high 150 - 199 mg/dL High 200 - 499 mg/dL Very High > or = 500 mg/dL B. burgdorferi IgG+IgM IB Ql (S)on 05-10-2022 B. burgdorferi Ab band pattern IB (S) [Interp] No evidence of antibodies to Borrelia burgdorferi. Normal [facility] Comment on above: Order Comment: Dax collins Type: BLOOD SPECIMEN Ordering Facility: [facility] Address: [address] [place] [address] Performed By: #### 1 8203-0 #### [facility] CLIA [id number] [address] [place] [address] [place] B. burgdorferi IgG IB Ql (S) Negative Normal Negative [facility] Comment on above: Order Comment: Dax collins Type: BLOOD SPECIMEN Ordering Facility: [facility] Address: [address] [place] [address] Result Comment: CDC criteria for a positive Western blot are the presence of >=5 bands for IgG. Performed By: #### 1 8203-0 #### [facility] CLIA [id number] [address] [place] [address] STATES OF [facility] B. burgdorferi IgM band pattern IB (S) [Interp] No Bands Seen [facility] Comment on above: Order Comment: Dax collins Type: BLOOD SPECIMEN Ordering Facility: [facility] Address: [address] [place] [address] Result Comment: p-30 Performed By: #### 1 8203-0 #### [facility] CLIA [id number] [address] [place] [address] OF [place] B. burgdorferi IgM IB Ql (S) Negative Normal Negative [facility] Comment on above: Order Comment: Dax [facility] Type: BLOOD SPECIMEN Ordering Facility: [facility] Address: [address] [place] [address] Result Comment: CDC criteria for a positive Western Blot are the presence of >=2 bands for IgM. Performed By: #### 1 8203-0 #### [facility] CLIA [id number] [address] [place] [address] [place] Comprehensive metabolic 2000 panelon 11-09-2021 Albumin [Mass/Vol] 4.3 g/dL Normal 3.9-4.9 [facility] Comment on above: Order Comment: Speci men Type: BLOOD SPECIMEN Ordering Facility: [facility] Address: [address] [place] [address] Performed By: #### 2 4323-8 #### [facility] CLIA [id number] [address] [place] [address] [place] ALP [Catalytic activity/Vol] 113 U/L Normal 34-123 [facility] Comment on above: Order Comment: Speci men Type: BLOOD SPECIMEN Ordering Facility: [facility] Address: [address] [place] [address] Performed By: #### 2 4323-8 #### [facility] CLIA [id number] [address] [place] [address] [place] ALT [Catalytic activity/Vol] 13 U/L Normal 7-38 [facility] Comment on above: Order Comment: Speci men Type: BLOOD SPECIMEN Ordering Facility: [facility] Address: [facility] [place] [address] Performed By: #### 2 4323-8 #### [facility] CLIA [id number] [facility] [place] [address] [place] Anion gap [Moles/Vol] 15 mmol/L Normal 9-18 [facility] Comment on above: Order Comment: Speci men Type: BLOOD SPECIMEN Ordering Facility: [facility] Address: [facility] [place] [address] Performed By: #### 2 4323-8 #### [facility] CLIA [id number] [address] [place] [address] [place] AST [Catalytic activity/Vol] 27 U/L Normal 13-35 [facility] Comment on above: Order Comment: Speci men Type: BLOOD SPECIMEN Ordering Facility: [facility] Address: [facility] [place] [address] Performed By: #### 2 4323-8 #### [facility] CLIA [id number] [address] [place] [address] [place] Bilirubin [Mass/Vol] 0.8 mg/dL Normal 0.2-1.3 [facility] Comment on above: Order Comment: Speci men Type: BLOOD SPECIMEN Ordering Facility: [facility] Address: [address] [place] [address] Performed By: #### 2 4323-8 #### [facility] CLIA [id number] [address] [place] [address] [place] Calcium [Mass/Vol] 9.7 mg/dL Normal 8.5-10.2 [facility] Comment on above: Order Comment: Speci men Type: BLOOD SPECIMEN Ordering Facility: [facility] Address: [address] [place] [address] Performed By: #### 2 4323-8 #### [facility] CLIA [id number] [address] [place] [address] [place] Chloride [Moles/Vol] 102 mmol/L Normal 97-105 [facility] Comment on above: Order Comment: Speci men Type: BLOOD SPECIMEN Ordering Facility: [facility] Address: [address] [place] [address] Performed By: #### 2 4323-8 #### [facility] CLIA [id number] [address] [place] [address] [place] CO2 [Moles/Vol] 22 mmol/L Normal 22-30 [facility] Comment on above: Order Comment: Speci men Type: BLOOD SPECIMEN Ordering Facility: [facility] Address: [address] [place] [address] Performed By: #### 2 4323-8 #### [facility] CLIA [id number] [address] [place] [address] [place] Creatinine [Mass/Vol] 0.77 mg/dL Normal 0.58-0.96 [facility] Comment on above: Order Comment: Speci men Type: BLOOD SPECIMEN Ordering Facility: [facility] Address: [address] [place] [address] Performed By: #### 2 4323-8 #### [facility] CLIA [id number] [address] [place] [address] [place] ESTIMATED GLOMERULAR FILTRATION RATE 83 mL/min/1.73m??? Normal >=60 [facility] Comment on above: Order Comment: Speci men Type: BLOOD SPECIMEN Ordering Facility: [facility] Address: [facility] [place] [address] Result Comment: Bea mated Glomerular Filtration Rate [...] GFR. Performed By: #### 2 4323-8 #### [facility] CLIA [id number] [address] [place] [address] [place] Glucose [Mass/Vol] 74 mg/dL Normal 74-99 [facility] Comment on above: Order Comment: Speci men Type: BLOOD SPECIMEN Ordering Facility: [facility] Address: [facility] [place] [address] Result Comment: The [place] [employer] (ADA) provides guidance for cutoff [...] Standards of Medical Care in Diabetes 2016, [place] [employer]. Diabetes Care. 2016.39(Suppl 1). Performed By: #### 2 4323-8 #### [facility] CLIA [id number] [address] [place] [address] [place] Potassium [Moles/Vol] 4.7 mmol/L Normal 3.7-5.1 [facility] Comment on above: Order Comment: Dax collins Type: BLOOD SPECIMEN Ordering Facility: [facility] Address: [address] [place] [address] Performed By: #### 2 4323-8 #### [facility] CLIA [id number] [address] [place] [address] [place] Protein [Mass/Vol] 7.5 g/dL Normal 6.3-8.0 [facility] Comment on above: Order Comment: Dax collins Type: BLOOD SPECIMEN Ordering Facility: [facility] Address: [address] [place] [address] Performed By: #### 2 4323-8 #### [facility] CLIA [id number] [address] [place] [id number] [place] Sodium [Moles/Vol] 139 mmol/L Normal 136-144 [facility] Comment on above: Order Comment: Denishai men Type: BLOOD SPECIMEN Ordering Facility: [facility] Address: [address] [place] [address] Performed By: #### 2 4323-8 #### [facility] CLIA [id number] [address] [place] [id number] [place] Urea nitrogen [Mass/Vol] 21 mg/dL Normal 7-21 [facility] Comment on above: Order Comment: Speci men Type: BLOOD SPECIMEN Ordering Facility: [facility] Address: [address] [place] [address] Performed By: #### 2 4323-8 #### [facility] CLIA [id number] [address] [place] [address] [place] Absolute lymphocyte counton 09-11-2021 Lymphocytes Auto (Unsp spec) [#/Vol] 1.65 10*3/uL 0.83-4.51 [facility] Work Phone: Basophil percentageon 2021 Basophils/100 WBC (Bld) 0.6 % 0-1 [facility] Work Phone: Eosinophils/100 WBC (Bld) 2.5 % 0-5 [facility] Work Phone: Neutrophils (Bld) [#/Vol] 12.3 10*3/uL 2.0-7.7 [facility] Work Phone: Neutrophils/100 WBC (Bld) 81.3 % 47-70 [facility] Work Phone: [phone] WBC (Bld) [#/Vol] 15.2 10*3/uL 4.4-11.0 [facility] Work Phone: Blood erythrocytes count (nu mber/volume)on 09-11-2021 RBC (Bld) [#/Vol] 5.68 10*6/uL 4.2-5.4 [facility] Work Phone: Blood hemoglobin measurement (mass/volume)on 09-11-2021 Hemoglobin (Bld) [Mass/Vol] 12.8 g/dL 12.0-15.0 [facility] Work Phone: Blood lymphocytes/100 leukoc yteson 09-11-2021 Lymphocytes/100 WBC (Bld) 10.9 % 19-41 [facility] Work Phone: [phone] Blood monocytes/100 leukocyt eson 09-11-2021 Monocytes/100 WBC (Bld) 4.0 % 0-10 [facility] Work Phone: Blood platelet mean volumeon 09-11-2021 Platelet mean volume (Bld) [Entitic vol] 9.8 fL 6.2-12.0 [facility] Work Phone: Determination of erythrocyte mean corpuscular volume (MCV)on 09-11-2021 MCV (RBC) [Entitic vol] 79.0 fL 81-99 [facility] Work Phone: Hematocrit Auto (Bld) [Volum e fraction]on 09-11-2021 Hematocrit (Bld) [Volume fraction] 44.9 % 37-47 [facility] Work Phone: Laboratory - Hematology and Cell countson 09-11-2021 Anisocytosis Ql (Bld) 1+ [facility] Erythrocyte distribution width (RBC) [Entitic vol] 58.7 fL 35.1-43.9 [facility] Work Phone: Erythrocyte distribution width (RBC) [Ratio] 21.3 % 11.6-14.6 [facility] Work Phone: Immature granulocytes/100 WBC (Bld) 0.700 % 0.0-0.9 [facility] Work Phone: Comment on above: IG% - Immature Granu locytes (promyelocytes, myelocytes and metamyelocytes) > 1% indicates that a LEFT SHIFT is Present. MCH (RBC) [Entitic mass] 22.5 pg 27.0-32.0 [facility] Work Phone: Nucleated RBC/100 WBC (Bld) [Ratio] 0 % 0-5 [facility] Work Phone: MCHC Auto (RBC) [Mass/Vol]on 09-11-2021 MCHC (RBC) [Mass/Vol] 28.5 g/dL 32-36 [facility] Work Phone: Platelets bldon 09-11-2021 Platelets (Bld) [#/Vol] 429 10*3/uL 150-450 [facility] Work Phone: Basophil percentageon 2021 Bilirubin [Mass/Vol] 0.40 mg/dL 0.20-1.00 [facility] Work Phone: Comment on above: For patients on eltr ombopag therapy, use of [place] TBIL is not recommended. Chloride [Moles/Vol] 107 mmol/L 98-107 [facility] Work Phone: Glucose [Mass/Vol] 113 mg/dL 74-106 [facility] Work Phone: Comment on above: Fasting Glucose resu lt from 100 to 125 mg/dL suggests IMPAIRED HOMEOSTASIS per A.D.A. criteria. Potassium [Moles/Vol] 3.8 mmol/L 3.5-5.1 [facility] Work Phone: Protein [Mass/Vol] 7.2 g/dL 6.4-8.2 [facility] Work Phone: Sodium [Moles/Vol] 141 mmol/L 136-145 [facility] Work Phone: Folate [Mass/Vol]on 08-06-19 22 Folate 19.70 ng/mL 3.1-55.4 [facility] [employer] mix RAST testo n 08-06-2021 LDH [Catalytic activity/Vol] 223 U/L 84-246 [facility] Iron measurement (mass/mass) on 08-06-2021 Iron (Unsp spec) [Mass/Mass] 19 ug/dL 50-170 [facility] Work Phone: Laboratory - Chemistry and C hemistry - challengeon 08-06-2021 ALP [Catalytic activity/Vol] 112 U/L 45-117 [facility] Work Phone: ALT [Catalytic activity/Vol] 27 U/L 13-56 [facility] Work Phone: CO2 [Moles/Vol] 28.0 mmol/L 21.0-32.0 [facility] Work Phone: Cobalamin (Vitamin B12) [Mass/Vol] 625 pg/mL 211-911 [facility] Globulin (S) [Mass/Vol] 3.8 g/dL 2.2-4.2 [facility] Work Phone: Urea nitrogen/Creatinine [Mass ratio] 30.3 mg/mg 10-20 [facility] Work Phone: No Panel Informationon 08-06 Estimated GFR (MDRD) Amer 84 mL/min >60 [facility] Work Phone: Comment on above: GFR Calc Estimated GFR (MDRD) Non-Af Amer 70 mL/min >60 [facility] Work Phone: Comment on above: Non- GFR Calc Thyroid Stimulating Hormone (TSH) 3.27 uIU/mL 0.358-3.74 [facility] Total Iron Binding Capacity 351 ug/dL 250-450 [facility] Work Phone: Serum or plasma albumin bry urement (mass/volume)on 08-06-2021 Albumin [Mass/Vol] 3.4 g/dL 3.2-5.0 [facility] Work Phone: Serum or plasma albumin/glob ulin mass ratioon 08-06-2021 Albumin/Globulin [Mass ratio] 0.9 {ratio} 0.9-2.4 [facility] Work Phone: Serum or plasma calcium bry urement (mass/volume)on 08-06-2021 Calcium [Mass/Vol] 8.8 mg/dL 8.5-10.1 [facility] Work Phone: Serum or plasma creatinine m easurement (mass/volume)on 08-06-2021 Creatinine [Mass/Vol] 0.86 mg/dL 0.55-1.02 [facility] Work Phone: Comment on above: The validity of the calculated GFR & GFRAA in patients over 70 years has not been determined. Clinical correlation is essential. Serum or plasma ferritin sharon surement (mass/volume)on 08-06-2021 Ferritin [Mass/Vol] 5 ng/mL 8-252 [facility] Work Phone: Serum or plasma folate measu rement (mass/volume)on 08-06-2021 Folate [Mass/Vol] 19.70 ng/mL 3.1-55.4 [facility] Serum or plasma iron saturat ion measurement (mass fraction)on 08-06-2021 Iron saturation [Mass fraction] 5.4 % 15.0-55.0 [facility] Work Phone: Serum or plasma urea nitroge n measurement (mass/volume)on 08-06-2021 Urea nitrogen [Mass/Vol] 26 mg/dL 7-18 [facility] Work Phone: Serum or plasma uric acid me asurement (mass/volume)on 08-06-2021 Urate [Mass/Vol] 4.7 mg/dL 2.6-6.0 [facility] Comment on above: The drugs N-Acetylcy steine and Metamizole may falsely depress this assay. Thin prep Papanicolaou smear with manual screeningon 08-06-2021 Thin prep Papanicolaou smear with manual screening 20 U/L 15-37 [facility] Work Phone: Thin prep Papanicolaou smear with manual screening 6 5-15 [facility] Work Phone: Thin prep Papanicolaou smear with manual screening 223 U/L 84-246 [facility] Work Phone: Absolute lymphocyte counton 07-16-2021 Lymphocytes Auto (Unsp spec) [#/Vol] 1.38 10*3/uL 0.83-4.51 [facility] Work Phone: Basophil percentageon 2021 Basophils/100 WBC (Bld) 0.5 % 0-1 [facility] Work Phone: Bilirubin [Mass/Vol] 0.50 mg/dL 0.20-1.00 [facility] Work Phone: Comment on above: For patients on eltr ombopag therapy, use of [place] TBIL is not recommended. Chloride [Moles/Vol] 107 mmol/L 98-107 [facility] Work Phone: Eosinophils/100 WBC (Bld) 1.6 % 0-5 [facility] Work Phone: Glucose [Mass/Vol] 105 mg/dL 74-106 [facility] Work Phone: Comment on above: Fasting Glucose resu lt from 100 to 125 mg/dL suggests IMPAIRED HOMEOSTASIS per A.D.A. criteria. Neutrophils (Bld) [#/Vol] 14.0 10*3/uL 2.0-7.7 [facility] Work Phone: [phone] Neutrophils/100 WBC (Bld) 84.7 % 47-70 [facility] Work Phone: [phone] Potassium [Moles/Vol] 4.0 mmol/L 3.5-5.1 [facility] Work Phone: [phone] Protein [Mass/Vol] 6.9 g/dL 6.4-8.2 [facility] Work Phone: [phone] Sodium [Moles/Vol] 140 mmol/L 136-145 [facility] Work Phone: [phone] WBC (Bld) [#/Vol] 16.5 10*3/uL 4.4-11.0 [facility] Work Phone: [phone] Blood erythrocytes count (nu mber/volume)on 07-16-2021 RBC (Bld) [#/Vol] 5.88 10*6/uL 4.2-5.4 [facility] Work Phone: Blood hemoglobin measurement (mass/volume)on 07-16-2021 Hemoglobin (Bld) [Mass/Vol] 12.5 g/dL 12.0-15.0 [facility] Work Phone: Blood lymphocytes/100 leukoc yteson 07-16-2021 Lymphocytes/100 WBC (Bld) 8.4 % 19-41 [facility] Work Phone: Blood monocytes/100 leukocyt eson 07-16-2021 Monocytes/100 WBC (Bld) 4.2 % 0-10 [facility] Work Phone: Blood platelet adequacy dete ction by light microscopyon 07-16-2021 Platelets LM Ql (Bld) SLT INC ADEQ [facility] Work Phone: Blood platelet mean volumeon 07-16-2021 Platelet mean volume (Bld) [Entitic vol] 10.1 fL 6.2-12.0 [facility] Work Phone: Blood polychromasia detectio n by light microscopyon 07-16-2021 Polychromasia LM Ql (Bld) RARE [facility] Work Phone: Determination of erythrocyte mean corpuscular volume (MCV)on 07-16-2021 MCV (RBC) [Entitic vol] 76.4 fL 81-99 [facility] Work Phone: Hematocrit Auto (Bld) [Volum e fraction]on 07-16-2021 Hematocrit (Bld) [Volume fraction] 44.9 % 37-47 [facility] Work Phone: Laboratory - Chemistry and C hemistry - challengeon 07-16-2021 ALP [Catalytic activity/Vol] 109 U/L 45-117 [facility] Work Phone: ALT [Catalytic activity/Vol] 21 U/L 13-56 [facility] Work Phone: CO2 [Moles/Vol] 29.0 mmol/L 21.0-32.0 [facility] Work Phone: Globulin (S) [Mass/Vol] 3.5 g/dL 2.2-4.2 [facility] Work Phone: Urea nitrogen/Creatinine [Mass ratio] 24.6 mg/mg 10-20 [facility] Work Phone: Laboratory - Hematology and Cell countson 07-16-2021 Anisocytosis Ql (Bld) 1+ [facility] Work Phone: Erythrocyte distribution width (RBC) [Entitic vol] 55.6 fL 35.1-43.9 [facility] Work Phone: Erythrocyte distribution width (RBC) [Ratio] 21.0 % 11.6-14.6 [facility] Work Phone: Immature granulocytes/100 WBC (Bld) 0.600 % 0.0-0.9 [facility] Work Phone: Comment on above: IG% - Immature Granu locytes (promyelocytes, myelocytes and metamyelocytes) > 1% indicates that a LEFT SHIFT is Present. MCH (RBC) [Entitic mass] 21.3 pg 27.0-32.0 [facility] Work Phone: Nucleated RBC/100 WBC (Bld) [Ratio] 0 % 0-5 [facility] Work Phone: MCHC Auto (RBC) [Mass/Vol]on 07-16-2021 MCHC (RBC) [Mass/Vol] 27.8 g/dL 32-36 [facility] Work Phone: No Panel Informationon 07-16 Estimated GFR (MDRD) Amer 84 mL/min >60 [facility] Work Phone: Comment on above: GFR Calc Estimated GFR (MDRD) Non-Af Amer 70 mL/min >60 [facility] Work Phone: Comment on above: Non- GFR Calc Platelets bldon 07-16-2021 Platelets (Bld) [#/Vol] 451 10*3/uL 150-450 [facility] Work Phone: Serum or plasma albumin bry urement (mass/volume)on 07-16-2021 Albumin [Mass/Vol] 3.4 g/dL 3.2-5.0 [facility] Work Phone: Serum or plasma albumin/glob ulin mass ratioon 07-16-2021 Albumin/Globulin [Mass ratio] 1.0 {ratio} 0.9-2.4 [facility] Work Phone: Serum or plasma calcium bry urement (mass/volume)on 07-16-2021 Calcium [Mass/Vol] 8.6 mg/dL 8.5-10.1 [facility] Work Phone: Serum or plasma creatinine m easurement (mass/volume)on 07-16-2021 Creatinine [Mass/Vol] 0.86 mg/dL 0.55-1.02 [facility] Work Phone: Comment on above: The validity of the calculated GFR & GFRAA in patients over 70 years has not been determined. Clinical correlation is essential. Serum or plasma urea nitroge n measurement (mass/volume)on 07-16-2021 Urea nitrogen [Mass/Vol] 21 mg/dL 7-18 [facility] Work Phone: Thin prep Papanicolaou smear with manual screeningon 07-16-2021 Thin prep Papanicolaou smear with manual screening 2+ [facility] Work Phone: Thin prep Papanicolaou smear with manual screening 21 U/L 15-37 [facility] Work Phone: Thin prep Papanicolaou smear with manual screening 4 5-15 [facility] Work Phone: Thin prep Papanicolaou smear with manual screening 242 U/L 84-246 [facility] Work Phone: Absolute lymphocyte counton 06-11-2021 Lymphocytes Auto (Unsp spec) [#/Vol] 1.14 10*3/uL 0.83-4.51 [facility] Work Phone: Basophil percentageon 2021 Basophils/100 WBC (Bld) 0.6 % 0-1 [facility] Work Phone: Bilirubin [Mass/Vol] 0.70 mg/dL 0.20-1.00 [facility] Work Phone: Comment on above: For patients on eltr ombopag therapy, use of [place] TBIL is not recommended. Chloride [Moles/Vol] 103 mmol/L 98-107 [facility] Work Phone: Eosinophils/100 WBC (Bld) 1.4 % 0-5 [facility] Work Phone: Glucose [Mass/Vol] 89 mg/dL 74-106 [facility] Work Phone: Comment on above: Please note revised GLUCOSE reference range effective 2017. Neutrophils (Bld) [#/Vol] 18.3 10*3/uL 2.0-7.7 [facility] Work Phone: Neutrophils/100 WBC (Bld) 87.9 % 47-70 [facility] Work Phone: Potassium [Moles/Vol] 3.7 mmol/L 3.5-5.1 [facility] Work Phone: Protein [Mass/Vol] 7.6 g/dL 6.4-8.2 [facility] Work Phone: [phone] Sodium [Moles/Vol] 138 mmol/L 136-145 [facility] Work Phone: WBC (Bld) [#/Vol] 20.8 10*3/uL 4.4-11.0 [facility] Work Phone: Blood erythrocytes count (nu mber/volume)on 06-11-2021 RBC (Bld) [#/Vol] 6.21 10*6/uL 4.2-5.4 [facility] Work Phone: Blood hemoglobin measurement (mass/volume)on 06-11-2021 Hemoglobin (Bld) [Mass/Vol] 12.8 g/dL 12.0-15.0 [facility] Work Phone: Blood lymphocytes/100 leukoc yteson 06-11-2021 Lymphocytes/100 WBC (Bld) 5.5 % 19-41 [facility] Work Phone: Blood monocytes/100 leukocyt eson 06-11-2021 Monocytes/100 WBC (Bld) 3.9 % 0-10 [facility] Work Phone: Blood platelet mean volumeon 06-11-2021 Platelet mean volume (Bld) [Entitic vol] 10.1 fL 6.2-12.0 [facility] Work Phone: Determination of erythrocyte mean corpuscular volume (MCV)on 06-11-2021 MCV (RBC) [Entitic vol] 74.4 fL 81-99 [facility] Work Phone: Hematocrit Auto (Bld) [Volum e fraction]on 06-11-2021 Hematocrit (Bld) [Volume fraction] 46.2 % 37-47 [facility] Work Phone: Laboratory - Chemistry and C hemistry - challengeon 06-11-2021 ALP [Catalytic activity/Vol] 140 U/L 45-117 [facility] Work Phone: ALT [Catalytic activity/Vol] 25 U/L 13-56 [facility] Work Phone: CO2 [Moles/Vol] 26.0 mmol/L 21.0-32.0 [facility] Work Phone: Globulin (S) [Mass/Vol] 4.0 g/dL 2.2-4.2 [facility] Work Phone: Urea nitrogen/Creatinine [Mass ratio] 28.8 mg/mg 10-20 [facility] Work Phone: Laboratory - Hematology and Cell countson 06-11-2021 Anisocytosis Ql (Bld) 1+ [facility] Work Phone: Erythrocyte distribution width (RBC) [Entitic vol] 51.4 fL 35.1-43.9 [facility] Work Phone: Erythrocyte distribution width (RBC) [Ratio] 20.7 % 11.6-14.6 [facility] Work Phone: Immature granulocytes/100 WBC (Bld) 0.700 % 0.0-0.9 [facility] Work Phone: Comment on above: IG% - Immature Granu locytes (promyelocytes, myelocytes and metamyelocytes) > 1% indicates that a LEFT SHIFT is Present. MCH (RBC) [Entitic mass] 20.6 pg 27.0-32.0 [facility] Work Phone: Nucleated RBC/100 WBC (Bld) [Ratio] 0 % 0-5 [facility] Work Phone: MCHC Auto (RBC) [Mass/Vol]on 06-11-2021 MCHC (RBC) [Mass/Vol] 27.7 g/dL 32-36 [facility] Work Phone: No Panel Informationon 06-11 Estimated GFR (MDRD) Amer 96 mL/min >60 [facility] Work Phone: Comment on above: GFR Calc Estimated GFR (MDRD) Non-Af Amer 80 mL/min >60 [facility] Work Phone: Comment on above: Non- GFR Calc Platelets bldon 06-11-2021 Platelets (Bld) [#/Vol] 413 10*3/uL 150-450 [facility] Work Phone: Serum or plasma albumin bry urement (mass/volume)on 06-11-2021 Albumin [Mass/Vol] 3.6 g/dL 3.2-5.0 [facility] Work Phone: Serum or plasma albumin/glob ulin mass ratioon 06-11-2021 Albumin/Globulin [Mass ratio] 0.9 {ratio} 0.9-2.4 [facility] Work Phone: Serum or plasma calcium bry urement (mass/volume)on 06-11-2021 Calcium [Mass/Vol] 9.3 mg/dL 8.5-10.1 [facility] Work Phone: Serum or plasma creatinine m easurement (mass/volume)on 06-11-2021 Creatinine [Mass/Vol] 0.76 mg/dL 0.55-1.02 [facility] Work Phone: Comment on above: The validity of the calculated GFR & GFRAA in patients over 70 years has not been determined. Clinical correlation is essential. Serum or plasma urea nitroge n measurement (mass/volume)on 06-11-2021 Urea nitrogen [Mass/Vol] 22 mg/dL 7-18 [facility] Work Phone: Thin prep Papanicolaou smear with manual screeningon 06-11-2021 Thin prep Papanicolaou smear with manual screening 24 U/L 15-37 [facility] Work Phone: Thin prep Papanicolaou smear with manual screening 9 5-15 [facility] Work Phone: Thin prep Papanicolaou smear with manual screening 265 U/L 84-246 [facility] Work Phone: Non-[employer] Cytology Reporton Non-[employer] Cytology Report . Pathology Reports Accession: Collected Date/Time: Received Date/Time: Pathologist: [id number] 04/19/2020 08:12 EST 04/20/2020 08:15 MD BARRY PABLO Non-[employer] Cytology Report CLINICAL INFORMATION: RIGHT THYROID NODULE [id number] DIAGNOSIS: BENIGN. Most consistent with colloid nodule. SPECIMEN: FNA OF RIGHT THYROID GROSS DESCRIPTION: # of Smears: 8 Electronically Signed by Pathology report verified by [facility] Screened by: MATT MGS Electronically signed by BARRY ANDERSEN MD Sign-Out Date: 04/21/2020 10:03 Performing Lab: [facility], [address] [place] [address] ([place]) Comment on above: Performed By: #### N GCR #### [place] [address] Vital Signs Date Time Vital Sign Value Performing Clinician Ann ortiz 04-06-2025 13:36-0400 Body height 165.[address] Dennise Sahni MD Work Phone: [facility] 04-06-2025 13:36-0400 Body mass index (BMI) [Ratio] 27.9 kg/m2 Dr. Dennise Sahni MD Work Phone: [facility] 04-06-2025 13:36-0400 Body temperature 98.5 [degF] Dr. Dennise Sahni MD Work Phone: 1(401)[phone] [place] [address] 04-06-2025 13:36-0400 Body weight 76.[address] Dennise Sahni MD Work Phone: [phone])[phone] [place] [address] 04-06-2025 13:36-0400 Diastolic blood pressure 79 mm[Hg] Dr. Dennise Sahni MD Work Phone: 0(610)[phone] [place] [address] 04-06-2025 13:36-0400 Heart rate 64 /min Dr. Dennise Sahni MD Work Phone: [phone])[phone] [place] [address] 04-06-2025 13:36-0400 Respiratory rate 16 /min Dr. Dennise Sahni MD Work Phone: [phone] [place] [address] 04-06-2025 13:36-0400 SaO2% (BldA) [Mass fraction] 97 % Dr. Dennise Sahni MD Work Phone: [facility] 04-06-2025 13:36-0400 Systolic blood pressure 120 mm[Hg] Dr. Dennise Sahni MD Work Phone: [facility] 03-28-2025 14:40-0400 Body mass index (BMI) [Ratio] 28.1 kg/m2 Dr. Dennise Sahni MD Work Phone: [facility] 03-28-2025 14:40-0400 Body weight 76.[address] Dennise Sahni MD Work Phone: [facility] 03-28-2025 14:40-0400 Diastolic blood pressure 73 mm[Hg] Dr. Dennise Sahni MD Work Phone: [facility] 03-28-2025 14:40-0400 Heart rate 72 /min Dr. Dennise Sahni MD Work Phone: [facility] 03-28-2025 14:40-0400 Respiratory rate 17 /min Dr. Dennise Sahni MD Work Phone: 4(776)527-025161 [place] [address] 03-28-2025 14:40-0400 SaO2% (BldA) [Mass fraction] 98 % Dr. Dennise Sahni MD Work Phone: 0(445)720-680361 [place] [address] 03-28-2025 14:40-0400 Systolic blood pressure 118 mm[Hg] Dr. Dennise Sahni MD Work Phone: 6(083)512-014961 [place] [address] 03-17-2025 12:58-0400 Body height 165.[address] Dennise Sahni MD Work Phone: 9(005)872-761061 [place] [address] 03-17-2025 12:58-0400 Body mass index (BMI) [Ratio] 27.8 kg/m2 Dr. Dennise Sahni MD Work Phone: 5(096)338-343461 [place] [address] 03-17-2025 12:58-0400 Body temperature 97.8 [degF] Dr. Dennise Sahni MD Work Phone: 9(112)654-034961 [place] [address] 03-17-2025 12:58-0400 Body weight 75.[address] Dennise Sahni MD Work Phone: [facility] 03-17-2025 12:58-0400 Diastolic blood pressure 70 mm[Hg] Dr. Dennise Sahni MD Work Phone: 6(169)299-338161 [place] [address] 03-17-2025 12:58-0400 Heart rate 67 /min Dr. Dennise Sahni MD Work Phone: 8(446)288-848661 [place] [address] 03-17-2025 12:58-0400 Respiratory rate 18 /min Dr. Dennise Sahni MD Work Phone: 5(272)744-452961 [place] [address] 03-17-2025 12:58-0400 SaO2% (BldA) [Mass fraction] 97 % Dr. Dennise Sahni MD Work Phone: [facility] 03-17-2025 12:58-0400 Systolic blood pressure 121 mm[Hg] Dr. Dennise Sahni MD Work Phone: [facility] 03-02-2025 14:09-0400 Body height 165.[address] Dennise Sahni MD Work Phone: [facility] 03-02-2025 14:09-0400 Body mass index (BMI) [Ratio] 27.6 kg/m2 Dr. Dennise Sahni MD Work Phone: [facility] 03-02-2025 14:09-0400 Body temperature 97.3 [degF] Dr. Dennise Sahni MD Work Phone: 2(798)789-203461 [place] [address] 03-02-2025 14:09-0400 Body weight 75.[address] Dennise Sahni MD Work Phone: [facility] 03-02-2025 14:09-0400 Diastolic blood pressure 74 mm[Hg] Dr. Dennise Sahni MD Work Phone: [facility] 03-02-2025 14:09-0400 Heart rate 67 /min Dr. Dennise Sahni MD Work Phone: [facility] 03-02-2025 14:09-0400 Respiratory rate 16 /min Dr. Dennise Sahni MD Work Phone: [facility] 03-02-2025 14:09-0400 SaO2% (BldA) [Mass fraction] 96 % Dr. Dennise Sahni MD Work Phone: [facility] 03-02-2025 14:09-0400 Systolic blood pressure 120 mm[Hg] Dr. Dennise Sahni MD Work Phone: [facility] 02-25-2025 14:46-0400 Body mass index (BMI) [Ratio] 27.3 kg/m2 Dr. Dennise Sahni MD Work Phone: [facility] 02-25-2025 14:46-0400 Body weight 74.[address] Dennise Sahni MD Work Phone: [facility] 02-25-2025 14:46-0400 Diastolic blood pressure 75 mm[Hg] Dr. Dennise Sahni MD Work Phone: [facility] 02-25-2025 14:46-0400 Heart rate 68 /min Dr. Dennise Sahni MD Work Phone: [facility] 02-25-2025 14:46-0400 Respiratory rate 17 /min Dr. Dennise Sahni MD Work Phone: [facility] 02-25-2025 14:46-0400 SaO2% (BldA) [Mass fraction] 97 % Dr. Dennise Sahni MD Work Phone: [facility] 02-25-2025 14:46-0400 Systolic blood pressure 123 mm[Hg] Dr. Dennise Sahni MD Work Phone: [facility] 02-11-2025 09:35-0400 Body height 165.[address] Dennise Sahni MD Work Phone: [facility] 02-11-2025 09:35-0400 Body mass index (BMI) [Ratio] 27.8 kg/m2 Dr. Dennise Sahni MD Work Phone: [facility] 02-11-2025 09:35-0400 Body weight 75.[address] Dennise Sahni MD Work Phone: [facility] 02-11-2025 09:35-0400 Diastolic blood pressure 78 mm[Hg] Dr. Dennise Sahni MD Work Phone: [facility] 02-11-2025 09:35-0400 Respiratory rate 16 /min Dr. Dennise Sahni MD Work Phone: [facility] 02-11-2025 09:35-0400 Systolic blood pressure 129 mm[Hg] Dr. Dennise Sahni MD Work Phone: [facility] 01-10-2025 14:37-0400 Body temperature 98.1 [degF] Dr. Dennise Sahni MD Work Phone: [facility] 01-10-2025 14:37-0400 Diastolic blood pressure 71 mm[Hg] Dr. Dennise Sahni MD Work Phone: [facility] 01-10-2025 14:37-0400 Heart rate 71 /min Dr. Dennise Sahni MD Work Phone: [facility] 01-10-2025 14:37-0400 Respiratory rate 16 /min Dr. Dennise Sahni MD Work Phone: [facility] 01-10-2025 14:37-0400 SaO2% (BldA) [Mass fraction] 97 % Dr. Dennise Sahni MD Work Phone: [facility] 01-10-2025 14:37-0400 Systolic blood pressure 131 mm[Hg] Dr. Dennise Sahni MD Work Phone: [facility] 01-10-2025 14:24-0400 Body height 165.[address] Dennise Sahni MD Work Phone: [facility] 01-10-2025 14:24-0400 Body mass index (BMI) [Ratio] 28.2 kg/m2 Dr. Dennise Sahni MD Work Phone: [facility] 01-10-2025 14:24-0400 Body weight 76.[address] Dennise Sahni MD Work Phone: [facility] 01-10-2025 13:18-0400 Body height 165.[address] Dennise Sahni MD Work Phone: [facility] 01-10-2025 13:18-0400 Body mass index (BMI) [Ratio] 28.2 kg/m2 Dr. Dennise Sahni MD Work Phone: 0(872)091-155761 [place] [address] 01-10-2025 13:18-0400 Body temperature 98.2 [degF] Dr. Dennise Sahni MD Work Phone: 7(940)308-857761 [place] [address] 01-10-2025 13:18-0400 Body weight 76.[address] Dennise Sahni MD Work Phone: 6(992)018-518661 [place] [address] 01-10-2025 13:18-0400 Diastolic blood pressure 87 mm[Hg] Dr. Dennise Sahni MD Work Phone: 5(267)051-623461 [place] [address] 01-10-2025 13:18-0400 Heart rate 74 /min Dr. Dennise Sahni MD Work Phone: 0(373)805-494261 [place] [address] 01-10-2025 13:18-0400 Respiratory rate 18 /min Dr. Dennise Sahni MD Work Phone: 4(719)475-940261 [place] [address] 01-10-2025 13:18-0400 SaO2% (BldA) [Mass fraction] 94 % Dr. Dennise Sahni MD Work Phone: [facility] 01-10-2025 13:18-0400 Systolic blood pressure 154 mm[Hg] Dr. Dennise Sahni MD Work Phone: 5(616)795-297861 [place] [address] 10-13-2024 15:00-0400 Diastolic blood pressure 77 mm[Hg] Dr. Dennise Sahni MD Work Phone: 3(659)405-547761 [place] [address] 10-13-2024 15:00-0400 Heart rate 70 /min Dr. Dennise Sahni MD Work Phone: [facility] 10-13-2024 15:00-0400 Respiratory rate 16 /min Dr. Dennise Sahni MD Work Phone: [facility] 10-13-2024 15:00-0400 SaO2% (BldA) [Mass fraction] 97 % Dr. Dennise Sahni MD Work Phone: [facility] 10-13-2024 15:00-0400 Systolic blood pressure 124 mm[Hg] Dr. Dennise Sahni MD Work Phone: 3(628)719-791761 [place] [address] 09-21-2024 14:21-0400 Body mass index (BMI) [Ratio] 28.8 kg/m2 Dr. Dennise Sahni MD Work Phone: 8(180)633-813661 [place] [address] 09-21-2024 14:21-0400 Body weight 78.[address] Dennise Sahni MD Work Phone: 1(894)024-464361 [place] [address] 09-21-2024 14:21-0400 Diastolic blood pressure 68 mm[Hg] Dr. Dennise Sahni MD Work Phone: 7(928)205-125161 [place] [address] 09-21-2024 14:21-0400 Systolic blood pressure 126 mm[Hg] Dr. Dennise Sahni MD Work Phone: 6(502)849-175061 [place] [address] 09-13-2024 11:16-0400 Body height 165.[address] Dennise Sahni MD Work Phone: 5(275)244-052061 [place] [address] 09-13-2024 11:10-0400 Body mass index (BMI) [Ratio] 29 kg/m2 Dr. Dennise Sahni MD Work Phone: 4(364)999-331461 [place] [address] 09-13-2024 11:10-0400 Body weight 79.[address] Dennise Sahni MD Work Phone: 0(604)802-070661 [place] [address] 09-13-2024 11:10-0400 Diastolic blood pressure 80 mm[Hg] Dr. Dennise Sahni MD Work Phone: 9(712)957-962461 [place] [address] 09-13-2024 11:10-0400 Systolic blood pressure 136 mm[Hg] Dr. Dennise Sahni MD Work Phone: [facility] 08-23-2024 14:34-0400 Body height 165.[address] Dennise Sahni MD Work Phone: 0(263)734-924461 [place] [address] 08-23-2024 14:34-0400 Body mass index (BMI) [Ratio] 29.3 kg/m2 Dr. Dennise Sahni MD Work Phone: 9(957)096-121561 [place] [address] 08-23-2024 14:34-0400 Body weight 80.[address] Dennise Sahni MD Work Phone: 9(625)122-584661 [place] [address] 08-04-2024 14:54-0500 Body mass index (BMI) [Ratio] 29.6 kg/m2 Dr. Dennise Sahni MD Work Phone: 3(842)835-904461 [place] [address] 08-04-2024 14:54-0500 Body temperature 97.3 [degF] Dr. Dennise Sahni MD Work Phone: 9(606)980-253661 [place] [address] 08-04-2024 14:54-0500 Body weight 80.[address] Dennise Sahni MD Work Phone: 5(771)709-114561 [place] [address] 08-04-2024 14:54-0500 Diastolic blood pressure 81 mm[Hg] Dr. Dennise Sahni MD Work Phone: 6(561)759-719061 [place] [address] 08-04-2024 14:54-0500 Heart rate 65 /min Dr. Dennise Sahni MD Work Phone: 2(401)968-111461 [place] [address] 08-04-2024 14:54-0500 Respiratory rate 18 /min Dr. Dennise Sahni MD Work Phone: 5(230)285-905161 [place] [address] 08-04-2024 14:54-0500 SaO2% (BldA) [Mass fraction] 96 % Dr. Dennise Sahni MD Work Phone: [facility] 08-04-2024 14:54-0500 Systolic blood pressure 125 mm[Hg] Dr. Dennise Sahni MD Work Phone: 9(840)227-780761 [place] [address] 05-05-2024 15:51-0500 Body mass index (BMI) [Ratio] 29.6 kg/m2 Dr. Dennise Sahni MD Work Phone: 4(298)315-740261 [place] [address] 05-05-2024 15:51-0500 Body temperature 97.1 [degF] Dr. Dennise Sahni MD Work Phone: 6(107)591-370001 [place] [address] 05-05-2024 15:51-0500 Diastolic blood pressure 80 mm[Hg] Dr. Dennise Sahni MD Work Phone: 0(268)071-021601 [place] [address] 05-05-2024 15:51-0500 Heart rate 58 /min Dr. Dennise Sahni MD Work Phone: 3(072)899-378361 [place] [address] 05-05-2024 15:51-0500 Respiratory rate 16 /min Dr. Dennise Sahni MD Work Phone: 5(990)301-360761 [place] [address] 05-05-2024 15:51-0500 SaO2% (BldA) [Mass fraction] 98 % Dr. Dennise Sahni MD Work Phone: 7(147)405-832461 [place] [address] 05-05-2024 15:51-0500 Systolic blood pressure 138 mm[Hg] Dr. Dennise Sahni MD Work Phone: 7(276)653-169361 [place] [address] 05-05-2024 14:32-0500 Body mass index (BMI) [Ratio] 29.6 kg/m2 Dr. Dennise Sahni MD Work Phone: 2(593)403-380061 [place] [address] 05-05-2024 14:32-0500 Body temperature 98.4 [degF] Dr. Dennise Sahni MD Work Phone: 6(768)677-256161 [place] [address] 05-05-2024 14:32-0500 Body weight 80.[address] Dennise Sahni MD Work Phone: [facility] 05-05-2024 14:32-0500 Diastolic blood pressure 73 mm[Hg] Dr. Dennise Sahni MD Work Phone: [facility] 05-05-2024 14:32-0500 Heart rate 63 /min Dr. Dennise Sahni MD Work Phone: [facility] 05-05-2024 14:32-0500 Respiratory rate 16 /min Dr. Dennise Sahni MD Work Phone: [facility] 05-05-2024 14:32-0500 SaO2% (BldA) [Mass fraction] 97 % Dr. Dennise Sahni MD Work Phone: [facility] 05-05-2024 14:32-0500 Systolic blood pressure 115 mm[Hg] Dr. Dennise Sahni MD Work Phone: [facility] 09-11-2021 15:09-0400 Body temperature 98 [degF] Dr. Dennise Sahni Work Phone: [facility] Work Phone: 09-11-2021 15:09-0400 Body weight 82.[address] Dennise Sahni Work Phone: [facility] Work Phone: 09-11-2021 15:09-0400 Diastolic blood pressure 76 mm[Hg] Dr. Dennise Sahni Work Phone: [facility] Work Phone: 09-11-2021 15:09-0400 Heart rate 54 /min Dr. Dennise Sahni Work Phone: [facility] Work Phone: 09-11-2021 15:09-0400 Respiratory rate 14 /min Dr. Dennise Sahni Work Phone: [facility] Work Phone: 09-11-2021 15:09-0400 SaO2% (BldA) [Mass fraction] 96 % Dr. Dennise Sahni Work Phone: [facility] Work Phone: 09-11-2021 15:09-0400 Systolic blood pressure 137 mm[Hg] Dr. Dennise Sahni Work Phone: [facility] Work Phone: 08-15-2021 13:25-0500 Body height 165.1 cm АНДРЕЙ BLUMER DO [facility] 08-15-2021 13:25-0500 Body weight 81.8 kg АНДРЕЙ BLUMER DO [facility] 08-15-2021 13:25-0500 Body weight 30.01 kg/m2 АНДРЕЙ BLUMER DO [facility] 08-15-2021 13:25-0500 diastolic 84 mm[Hg] АНДРЕЙ BLUMER DO [facility] 08-15-2021 13:25-0500 Heart rate 61 /min АНДРЕЙ BLUMER DO [facility] 08-15-2021 13:25-0500 systolic 150 mm[Hg] АНДРЕЙ BLUMER DO [facility] 08-13-2021 09:12-0500 Body height 165.[address] Dennise Sahni Work Phone: [facility] Work Phone: 08-13-2021 09:12-0500 Body mass index (BMI) [Ratio] 30.4 kg/m2 Dr. Dennise Sahni Work Phone: [facility] Work Phone: 08-13-2021 09:12-0500 Body temperature 97.3 [degF] Dr. Dennise Sahni Work Phone: [facility] Work Phone: 08-13-2021 09:12-0500 Body weight 83.[address] Dennise Sahni Work Phone: [facility] Work Phone: 08-13-2021 09:12-0500 Diastolic blood pressure 77 mm[Hg] Dr. Dennise Sahni Work Phone: [facility] Work Phone: 08-13-2021 09:12-0500 Heart rate 63 /min Dr. Dennise Sahni Work Phone: [facility] Work Phone: 08-13-2021 09:12-0500 Respiratory rate 16 /min Dr. Dennise Sahni Work Phone: [facility] Work Phone: 08-13-2021 09:12-0500 SaO2% (BldA) [Mass fraction] 96 % Dr. Dennise Sahni Work Phone: [facility] Work Phone: 08-13-2021 09:12-0500 Systolic blood pressure 122 mm[Hg] Dr. Dennise Sahni Work Phone: [facility] Work Phone: 08-06-2021 10:16-0500 Body mass index (BMI) [Ratio] 30.8 kg/m2 Dr. Dennise Sahni Work Phone: [facility] Work Phone: 08-06-2021 10:16-0500 Body temperature 98.5 [degF] Dr. Dennise Sahni Work Phone: [facility] Work Phone: 08-06-2021 10:16-0500 Body weight 84.[address] Dennise Sahni Work Phone: [facility] Work Phone: 08-06-2021 10:16-0500 Diastolic blood pressure 86 mm[Hg] Dr. Dennise Sahni Work Phone: [facility] Work Phone: 08-06-2021 10:16-0500 Heart rate 60 /min Dr. Dennise Sahni Work Phone: [facility] Work Phone: 08-06-2021 10:16-0500 Respiratory rate 16 /min Dr. Dennise Sahni Work Phone: [facility] Work Phone: 08-06-2021 10:16-0500 SaO2% (BldA) [Mass fraction] 97 % Dr. Dennise Sahni Work Phone: [facility] Work Phone: 08-06-2021 10:16-0500 Systolic blood pressure 128 mm[Hg] Dr. Dennise Sahni Work Phone: [facility] Work Phone: 06-11-2021 09:24-0500 Body mass index (BMI) [Ratio] 31.1 kg/m2 Dr. Dennise Sahni Work Phone: [facility] Work Phone: 06-11-2021 09:24-0500 Body temperature 98.6 [degF] Dr. Dennise Sahni Work Phone: [facility] Work Phone: 06-11-2021 09:24-0500 Body weight 85.[address] Dennise Sahni Work Phone: [facility] Work Phone: 06-11-2021 09:24-0500 Diastolic blood pressure 79 mm[Hg] Dr. Deninse Sahni Work Phone: [facility] Work Phone: 06-11-2021 09:24-0500 Heart rate 61 /min Dr. Dennise Sahni Work Phone: [facility] Work Phone: 06-11-2021 09:24-0500 Respiratory rate 16 /min Dr. Dennise Sahni Work Phone: [facility] Work Phone: 06-11-2021 09:24-0500 SaO2% (BldA) [Mass fraction] 96 % Dr. Dennise Sahni Work Phone: [facility] Work Phone: 06-11-2021 09:24-0500 Systolic blood pressure 149 mm[Hg] Dr. Dennise Sahni Work Phone: [facility] Work Phone: Encounters Encounter Date Encounter Type Care Provider Facility Start: 05-10-2025 ambulatory Michael Ashraf Facility :[facility] Start: 04-06-2025 End: 04-06-2025 ambulatory Dennise Sahni Facility:[facility] Start: 03-31-2025 End: 03-31-2025 ambulatory Michael Ashraf Facility:[facility] Start: 03-28-2025 End: 03-28-[address] Michael Ashraf MD -[facility] Work Phone: Start: 03-28-2025 End: 03-28-2025 ambulatory Michael Ashraf Facility:[facility] Start: 03-17-2025 End: 03-17-[address] Tristen Guevara MD -[facility] Work Phone: Start: 03-17-2025 End: 03-17-2025 ambulatory Dennise Sahni Facility:[facility] Start: 03-17-[address] Virgil Guevara MD -[facility] Start: 03-02-[address] Virgil Guevara MD -[facility] Start: 03-02-2025 End: 03-02-[address] Tristen Guevara MD -[facility] Work Phone: Start: 03-02-2025 End: 03-02-[address] Dennise Sahni MD Work Phone: -[facility] Start: 02-25-2025 End: 02-25-[address] Michael Ashraf MD -[facility] Work Phone: Start: 02-25-2025 End: 02-25-[address] Dennise Sahni MD Work Phone: -[facility] Start: 02-16-2025 ambulatory Michael Ashraf Facility :[facility] Start: 02-16-2025 Non-patient / Non-visit Dr. Kadeem KAM -[facility] Start: 02-16-2025 End: 02-16-[address] Dennise Sahni MD Work Phone: -Breast Imaging - Biopsy/[facility] Start: 02-16-2025 End: 02-16-[address] Michael Ashraf MD -[facility] - Biopsy/[facility] Work Phone: Start: 02-16-2025 End: 02-16-2025 ambulatory Michael Ashraf Facility:[facility] Start: 02-11-2025 End: 02-11-[address] Dennise Sahni MD Work Phone: -[facility] Start: 02-11-2025 End: 02-11-[address] Michael Ashraf MD -[facility] Work Phone: Start: 02-04-2025 End: 02-04-[address] Dennise Sahni MD Work Phone: -Outpatient Breast Imaging Start: 02-04-2025 End: 02-04-2025 Patient encounter procedure Krystina Damián [employer] -[facility] Work Phone: Start: 02-04-2025 End: 02-04-2025 ambulatory Krystina Damián [employer] Facility:[facility] Start: 02-01-2025 End: 02-01-[address] Dennise Sahni MD Work Phone: -Outpatient Breast Imaging Start: 02-01-2025 End: 02-01-2025 Patient encounter procedure Krystina Damián [employer]C -[facility]patient [facility] Work Phone: Start: 02-01-2025 End: 02-01-2025 ambulatory Krystina Damián [employer] Facility:[facility] Start: 01-20-2025 ambulatory DENNISE SAHNI [facility] Start: 01-10-2025 End: 01-10-2025 Patient encounter procedure Krystina Damián [employer] -[facility] Work Phone: Start: 01-10-2025 End: 01-10-[address] Dennise Sahni MD Work Phone: -[facility] Start: 01-10-[address] Virgil Guevara MD -[facility] Start: 10-13-2024 End: 10-13-2024 Patient encounter procedure Krystina Damián [employer] -[facility] Work Phone: Start: 10-13-2024 End: 10-13-2024 ambulatory Dennise Sahni Facility:[facility] Start: 09-21-2024 End: 09-21-2024 Patient encounter procedure Francheska Aristes [employer]-C -[facility] Work Phone: Start: 09-21-2024 End: 09-21-2024 ambulatory Francheska Powell [employer] Facility:[facility] Start: 09-13-2024 End: 09-13-[address] Dennise Sahni MD Work Phone: [facility] Work Phone: Start: 09-13-2024 End: 09-13-2024 Patient encounter procedure Francheska Powell [employer]C -Laboratory, Specimen Work Phone: Start: 09-13-2024 End: 09-13-2024 Patient encounter procedure Francheska Powell [employer]-C -[facility] Work Phone: Start: 09-13-2024 End: 09-13-2024 ambulatory Francheska Powell [employer] Facility:[facility] Start: 09-13-2024 End: 09-13-2024 ambulatory Francheskaalina Kamaras [employer]ER Facility:[facility] Start: 08-23-2024 End: 08-23-2024 Patient encounter procedure Danyelle TAYLOR -[facility] Work Phone: Start: 08-23-2024 End: 08-23-2024 ambulatory Danyelle Manzano Facility:[facility] Start: 08-16-2024 End: 08-16-2024 ambulatory DENNISE SAHNI [facility] Start: 08-11-2024 End: 08-11-[address] Dennise Sahni MD Work Phone: [facility] Work Phone: Start: 08-11-2024 End: 08-11-2024 Patient encounter procedure Francheska Powell [employer]-C -Ultrasound, [facility] Work Phone: Start: 08-11-2024 End: 08-11-2024 ambulatory Francheska Powell [employer] Facility:[facility] Start: 08-04-[address] Virgil Guevara MD -[facility] Start: 08-04-2024 End: 08-04-2024 Patient encounter procedure Krystina Steel [employer]C -[facility] Work Phone: Start: 08-04-2024 End: 08-04-2024 ambulatory Dennise Sahni Facility:[facility] Start: 07-21-2024 End: 07-21-2024 [facility] Start: 07-21-2024 End: 07-21-2024 [facility] Start: 05-05-2024 End: 05-05-[address] Tristen Guevara MD [facility] Work Phone: Start: 05-05-2024 End: 05-05-2024 ambulatory Dennise Sahni Facility:[facility] Start: 03-30-2024 End: 03-30-2024 ambulatory ANTON Rory [facility] Start: 03-23-2024 End: 03-23-2024 ambulatory ANTON Rory [facility] Start: 02-25-2024 End: 02-25-2024 ambulatory MICHELLE KAM [facility] Start: 09-12-2021 End: 09-12-[address] Dennise Sahni Work Phone: [facility]-Outpatient Breast Imaging Start: 09-11-[address] Nieves Sahni Work Phone: [facility] On[facility] Start: 09-11-2021 End: 09-11-[address] Dennise Sahni Work Phone: [facility] Start: 08-15-2021 End: 08-15-2021 Admission to establishment АНДРЕЙ ZHANG DO [facility] Start: 08-13-2021 End: 08-13-[address] Dennise Sahni Work Phone: [facility] Start: 08-06-2021 End: 08-06-[address] Dennise Sahni Work Phone: [facility] Start: 07-16-2021 End: 07-16-[address] Dennise Sahni Work Phone: [facility]-Laboratory Start: 06-11-2021 End: 07-09-[address] Dennise Sahni Work Phone: [facility]-Laboratory Start: 06-11-2021 End: 06-11-[address] Dennise Sahni Work Phone: [facility]-Pulmonary Medicine [facility] Procedures Date Procedure Procedure Detail Performing Clinician Start: 04-06-[address] Dennise Sahni MD Work Phone: Start: 03-02-[address] Dennise Sahni MD Work Phone: Start: 02-16-[address] Vanessa Sahni MD Work Phone: Start: 02-04-[address] Dennise Sahni MD Work Phone: Start: 02-01-2025 Screening mammography Fernando Sahni MD Work Phone: Start: 01-10-[address] Dennise [...] MD Work Phone: Start: 09-12-2021 Screening mammography Fernando Sahni Work Phone: Start: 03-05-2017 Stent, device [...] Treatment Date Care Activity Detail Author Start: 04-06-2025 End: 04-06-2025 Patient encounter procedure Polycythemia vera [facility] Work Phone: Start: 04-06-2025 Registered Recurring Registered Recurring -[facility] Start: 03-31-2025 MRI of bilateral breasts with contrast Breast Bilateral W/O and W [facility] Start: 03-31-2025 End: 03-31-2025 Patient encounter procedure Departed Clinical -MRI - [facility] Work Phone: Start: 03-02-2025 Registered Recurring Registered Recurring -[facility] Start: 03-02-2025 End: 03-02-2025 Patient encounter procedure Polycythemia vera -[facility] Work Phone: Start: 01-10-2025 CBC W Auto Differential panel - Blood [facility] Start: 01-10-2025 Comprehensive metabolic 2000 panel - Serum or Plasma [facility] Start: 01-10-2025 Phlebotomy [facility] Start: 01-10-2025 [facility] Start: 05-05-2024 Phlebotomy [facility] Start: 02-04-2024 Phlebotomy [facility] Start: 09-04-2023 Phlebotomy [facility] Start: 06-25-2023 Phlebotomy [facility] Start: 03-17-2023 Phlebotomy [facility] Start: 09-18-2022 [facility] [facility] Start: 06-11-2021 Patient referral [facility] Work Phone: Alanine aminotransfe rase [Enzymatic activity/volume] in Serum or Plasma [facility] Albumin [Mass/volume ] in Serum or Plasma [facility] Alkaline phosphatase [Enzymatic activity/volume] in Serum or Plasma [facility] Anion gap in Serum o r Plasma [facility] Bilirubin, total measurement [facility] BUN/Creatinine ratio [facility] Calcium [Mass/volume ] in Serum or Plasma [facility] Carbon dioxide, tota l [Moles/volume] in Central venous blood [facility] CBC W Auto Different ial panel - Blood [facility] CBC W Auto Different ial panel - Blood [facility] metabo lic 1999 panel - Serum or Plasma [facility] Comprehensive metabo lic 1999 panel - Serum or Plasma [facility] Creatinine [Mass/vol ume] in Serum or Plasma [facility] Erythrocyte mean corpuscular volume determination [facility] Ferritin [Mass/volum e] in Serum or Plasma [facility] Glucose [Mass/volume ] in Serum or Plasma [facility] Hematocrit [Volume Fraction] of Blood [facility] Hemoglobin [Mass/vol ume] in Blood [facility] Iron and Iron bindin g capacity panel - Serum or Plasma [facility] Leukocytes [#/volume ] in Blood [facility] Mean corpuscular hem oglobin concentration determination [facility] Mean corpuscular hem oglobin determination [facility] Measurement of renal function [facility] MG Breast - bilatera l Screening [facility] Neutrophil count [facility] Neutrophil percent differential count [facility] Patient Education BHUPINDER RN Image-G uided Breast Biopsy Discharge Instructions [facility] Work Phone: Patient referral [facility] Work Phone: Platelets [#/volume] in Blood [facility] Potassium measurement [facility] Red blood cell count [facility] Red cell distributio n width determination [facility] Serum chloride measurement [facility] Sodium measurement [facility] Total protein measurement [facility] Urea nitrogen [Mass/ volume] in Serum or Plasma [facility] Immunizations Immunization Date Immunization Notes Care Provider Juan hernandez 03-06-2017 influenza, injectabl e, quadrivalent, preservative free АНДРЕЙ ZHANG DO [facility] Payers Date Payer Category Payer Self-pay [id number] 2016 Medicare [id number] 2010 Unknown [id number] 1950 Unknown [id number] 2.16.8 40.1.745428.3.579.2.651 1950 Unknown [id number] 2.16.8 40.1.216873.3.579.2.651 1950 Unknown [id number] 2.16.8 40.1.593293.3.579.2.651 1950 Unknown [id number] 2.16.8 40.1.601712.3.579.2.651 1950 Unknown [id number] 2.16.8 40.1.504720.3.579.2.651 1950 Unknown [id number] 2.16.8 40.1.507983.3.579.2.651 1950 Unknown [id number] 2.16.8 40.1.892193.3.579.2.651 Unknown [id number] 2.16.8 40.1.057600.3.579.2.462 Unknown [id number] 2.16.8 40.1.261123.3.579.2.462 Unknown [id number] 2.16.8 40.1.915300.3.579.2.462 Unknown [id number] 2.16.8 40.1.486501.3.579.2.462 Unknown [id number] 2.16.8 40.1.727630.3.579.2.462 Unknown [id number] 2.16.8 40.1.848906.3.579.2.462 Unknown [id number] 2.16.8 40.1.730953.3.579.2.462 Unknown [id number] 2.16.8 40.1.242566.3.579.2.462 Unknown [id number] 2.16.8 40.1.902982.3.579.2.462 Unknown [id number] 2.16.8 40.1.630084.3.579.2.462 Unknown [id number] 2.16.8 40.1.687718.3.579.2.462 Unknown [id number] 2.16.8 40.1.799507.3.579.2.462 Unknown [id number] 2.16.8 40.1.392500.3.579.2.462 Unknown [id number] 2.16.8 40.1.264889.3.579.2.462 Unknown [id number] 2.16.8 40.1.071432.3.579.2.462 Unknown [id number] 2.16.8 40.1.816951.3.579.2.462 Unknown [id number] 2.16.8 40.1.457305.3.579.2.462 Unknown [id number] 2.16.8 40.1.532000.3.579.2.462 Unknown [id number] 2.16.8 40.1.112259.3.579.2.462 Unknown [id number] 2.16.8 40.1.260562.3.579.2.462 Unknown [id number] 2.16.8 40.1.648393.3.579.2.462 Unknown [id number] 2.16.8 40.1.648399.3.579.2.462 Unknown [id number] 2.16.8 40.1.236458.3.579.2.462 Social History Date Type Detail Facility Start: 07-20-2019 End: 08-20-2024 Never smoked tobacco (finding) [facility] Start: 1950 Sex Assigned At Female A [facility] Start: 06-11-2021 Tobacco smoking stat [facility] Unknown if ever smoked [facility] Work Phone: Start: 08-24-2024 End: 09-21-2024 Sex Female (finding) [facility] Sex Female [facility] Mental Status Date Assessment Result Facility 01-10-2025 Cognitive function Voice/Name [facility] Work Phone: 02-04-2024 Cognitive function Awake;Alert;A ppropriate;Foll ows Commands [facility] Work Phone: 06-25-2023 Cognitive function Arousable To Voice/Nam e [facility] Work Phone: Clinical Notes 05-05-2024 to 03-28-2025 Note Date & Type Note Facility 03-28-2025 Progress note [facility] 03-28-2025 Progress note Note Date/Time March 28, 2025 4:01pm [facility] [address] [place] [address] OFFICE VISIT Date of Service: 03/28/25 MR#: [id number] Acct: [id number] Name: PHONG JANG LASHAUN Rep #: [id number] : 1950 Provider: Dr. Alex Ashraf MD Age/Sex: 74/F Location: [facility] Status: Signed Intake Vital Signs 03/17/25 12:58 03/28/25 14:40 Height 5 ft 5 in 5 ft 5 in Weight: 167 lb 8 oz 169 lb BMI 27.8 28.1 BP 121/70 H 118/73 Blood Pressure Location Rt brachial Rt brachial Position Sitting Sitting Respiration 18 17 Pulse 67 72 Pulse Source Monitor Monitor Temp 97.8 F Pulse Oximetry (%) 97 98 Oxygen Delivery Method room air room air Intake Visit Reasons: DISCUSS BREAST SX Chief Complaint: discuss breast sx Is patient in pain?: No Allergies No Known Allergies Allergy (Verified 03/28/25 14:43) Medications ?Medication ?Instructions ?Recorded ?Confirmed ?Type aspirin 81 mg chewable tablet 81 mg PO DAILY@0800 07/1003/28/25 History atorvastatin 40 mg tablet 40 mg PO QHS 07/22/17 History metoprolol tartrate 25 mg tablet 25 mg PO DAILY 03/28/25 History famotidine 20 mg tablet 20 mg PO QHS 12/11/22 History hydroxyurea 500 mg capsule 2,500 mg (5 x 500 mg) PO QD AY 90 05/05/24 03/28/25 Rx days #450 caps estradiol 0.01% (0.1 mg/gram) See Rx Instructions vagi nal 09/13/24 03/28/25 Rx vaginal cream .COMPLEX #42.5 grams lorazepam 1 mg tablet (Ativan) 0.5 mg (1/2 x 1 mg) PO BID PRN 03/28/25 03/28/25 Rx anxiety 1 day #3 tabs Have you fallen in the past year?: No PFSH Medical History DCIS (ductal carcinoma in situ) of breast Abnormal mammogram of left breast Screening for breast cancer GERD (gastroesophageal reflux disease) Cellulitis of left [...] Father Myocardial infarction CVA (cerebral vascular accident) Cancer Mother Cancer Breast cancer of breast CA in 30's Sister Breast cancer dx in early 40's and passed at 68 Uncle Cancer lung Social History Smoking Status: Never smoker alcohol intake: never HPI HPI HPI: The patient is a 74-year-old female who is being seen today ly her treatment options for her recently diagnosed left breast DCIS. She had a very diffuse region of microcalcifications which were biopsied stereotactically. The region seem to span at least 5 centimeters or so if not more. At our initial meeting, she seemed to be leaning towards mastectomy as treatment. However she is now considering lumpectomy after meeting with medical oncology. Is a previously discussed with her, I would recommend getting a breast MRI if she is at least considering lumpectomy to hopefully estimate the overall size of DCIS as I wouldlike to avoid a situation where we are not able to establish sufficient margin with lumpectomy. She states that some of her other medications tend to increaseher risk of infection. I explained to her that there is a risk of infection regardless of whether or not she undergoes a lumpectomy or mastectomy. ROS General General: Yes fatigue and breast cancer; No weight change, appetite, colon cancer or weakness HEENT HEENT: No difficulty swallowing, eye injury, eye surgery, swollen glands or hoarseness Endo Endocrine: Yes thyroid disease; No diabetes mellitus, thyroid cancer, Hair loss, heat intolerance or cold intolerance Skin Skin: No rash or changing moles Musc Musculoskeletal: Yes arthritis; No back problems, rheumatoid arthritis, gout or joint pain Cardio Cardiovascular: Yes heart attack and heart stent; No murmur, pacemaker, heart disease, atrial fibrillation, high blood pressure, palpitations, shortness of breath with exertion or chest pain Psych Psychiatric: No depression, anxiety or hearing voices Resp Respiratory: No shortness of breath, Yes sleep apnea, No cough, No COPD, No asthma, No emphysema and No wheezing Gastro Gastrointestinal: No abdominal pain, Yes nausea or vomiting, No diarrhea, No constipation, No blood in stool, Yes acid reflux, No hemorrhoids, No ulcers, No gallbladder problem and No black,tarry stools [place] Hematologic: Yes blood thinners, Yes blood disorders, No bleeding, No anemia andNo blood clots Neuro Neurologic: No system reviewed and no additional complaints, except as documented, No as per HPI, No abnormal gait, No abnormal hearing, No abnormal movements, No abnormal speech, No behavioral changes, No burning sensations, No confusion, No convulsions, No disequilibrium, No dizziness, No localized weakness, No frequent falls, No headache(s), No lack of coordination, No loss ofvision, No memory loss, Yes numbness, No other visual disturbances, No radicularpain, No restless legs, No sensory deficit, No syncope, Yes tingling, No tremor(s), No weakness and No other Exam Const General: cooperative, healthy appearing and comfortable [facility] Head: normal to inspection and normocephalic Assessment and Plan Assessment and Plan (1) DCIS (ductal carcinoma in situ) of breast: Status: Acute Plan: The patient is a 74-year-old female with left breast DCIS noted in a very diffuse region of microcalcifications in the left breast. She is still debatingwhether to proceed with lumpectomy versus mastectomy whether it be unilateral versus bilateral. I have recommended that we obtain the breast MRI. Once the breast MRI results have been reviewed, I will contact her with results and we can discuss the next step of surgical treatment from their. She is agreeable tothis plan. She did request some medication for anxiety for the MRI. I did prescribe some Ativan as needed and sent this to her pharmacy. Medications: New lorazepam (Ativan) take 1-2 tabs 30 min prior to MRI 0.5 mg (1/2 x 1 mg) PO BID PRN 3 tabs 0RF anxiety 1 day Coding Level of Care Code Off vis,est,level 3 Diagnoses DCIS (ductal carcinoma in situ) of breast D05.10 Clinical Quality Measures Falls Risk Screening/Assistive Devices Have you fallen in the past year?: No 03/28/25 1525 <Electronically signed by Michael brennan MD> Date _ Michael Ashraf MD Cosigner Signature: Date (if applicable) CC: ~ [facility] Work Phone: 1(607) 325-322309-24-2025 [facility] [address] [place] [address] OFFICE VISIT Date of Service: 03/02/25 1406 MR#: [id number] Acct: [id number] Name: PHONG JANG LASHAUN Rep #: [id number] : 1950 From: Tristen vergara MD Age/Sex: 74/F Location[facility] Status: Signed HPI Subjective Date of Service 03/02/25 Chief Complaint P vera and breast Cance History of Present Illness 74-year-old female with #1- Polycythemia vera transferring her care from [facility] to [facility] in July 2021 closer to home and because 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 She presented in 2016 with vague nonspecific [...] however an ultrasound of March 2022 at [facility] shows stable mild splenomegaly of 13.7 cm. She was treated with phlebotomies and hydroxyurea since 2017. Initially the phlebotomies were done on a weekly basis, less often thereafter and by 2021 she is on phlebotomy every 2 months or so. Mostof her symptoms improved although she continues to report some fatigue yet not as bad as when she was first diagnosed. She has not developed any infectious or bleeding complications during the courseof her illness. #2-Breast cancer: DCIS February 01, 2025 screening mammography: IMPRESSION: Suspicious left breast calcifications in the upper-outer left breast extending from anterior to middle depth. 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 - Minimum span of 0.9 cm. - ER: positive (100%, strong intensity). - IN: PENDING, to be reported in an addendum. - Ki67: PENDING, to be reported in an addendum. - IHC for Ecadherin, CK5/6, and p40 support the diagnosis Treatment summary : Phlebotomies 2017-ongoing Hydroxyurea 2017-ongoing Interval History Seen semiurgently because of recent diagnosis of left breast DCIS [facility] Medical History DCIS (ductal carcinoma in situ) of breast Abnormal mammogram of left breast Screening for breast cancer GERD (gastroesophageal reflux disease) Cellulitis of left [...] Father Myocardial infarction CVA (cerebral vascular accident) Cancer Mother Cancer Breast cancer of breast CA in 30's Sister Breast cancer dx in early 40's and passed at 68 Uncle Cancer lung Social History Smoking Status: Never smoker alcohol intake: never ROS ROS Narrative No breast mass Intake Vital Signs 02/11/25 09:35 02/25/25 14:46 03/02/25 14:09 Height 5 ft 5 in 5 ft 5 in 5 ft 5 in Weight: 74.559 kg 75.41 kg BMI 27.3 27.6 BP 123/75 H 120/74 Blood Pressure Location Rt brachial Rt brachial Position Sitting Sitting Respiration 17 16 Pulse 68 67 Pulse Source Monitor Monitor Temp 97.3 F L Temperature Source Temporal Artery Pulse Oximetry (%) 97 96 Oxygen Delivery Method room air room air Intake Is patient in pain?: No Allergies No Known Allergies Allergy (Verified 03/02/25 14:06) Medications ?Medication ?Instructions ?Recorded ?Confirmed ?Type aspirin 81 mg chewable tablet 81 mg PO DAILY@0800 07/1003/02/25 History atorvastatin 40 mg tablet 40 mg PO QHS 07/22/17 History metoprolol tartrate 25 mg tablet 25 mg PO DAILY 03/02/25 History famotidine 20 mg tablet 20 mg PO QHS 12/11/22 History hydroxyurea 500 mg capsule 2,500 mg (5 x 500 mg) PO QD AY 90 05/05/24 03/02/25 Rx days #450 caps cyclobenzaprine 5 mg tablet 5 mg PO TID PRN muscle spa sm #60 08/23/24 03/02/25 Rx tabs estradiol 0.01% (0.1 mg/gram) See Rx Instructions vagi nal 09/13/24 03/02/25 Rx vaginal cream .COMPLEX #42.5 grams Have you fallen in the past year?: No Exam Physical Exam Const alert, oriented x3 and no apparent distress Coding Level of Care Code Off vis,est,level 4 Exam Problem Focused Diagnoses Polycythemia vera D45 Assessment and Plan Assessment and Plan (1) Polycythemia vera: Status: Chronic Plan 74-year-old female with #1-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 She has been on phlebotomies and cytoreductive therapy with hydroxyurea since with improvement of her constitutional symptoms. 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 At this time there is no evidence from peripheral blood work and examination to suggest secondary evolution into a more aggressive bone marrow disease (myelofibrosis, acute leukemia, or myelodysplastic syndrome). 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 Family history mother in her 30s with metastatic breast cancer and sister with breast cancer in her 60s. Chronic comorbid conditions: Coronary artery disease status post myocardial infarction in 2017, hypertension, dyslipidemia, sleep apnea, chronic GERD. She has a strong family history of breast cancer(mother and sister). Plan: 1-with the new diagnosis of breast cancer and positive family history advise genetic testing to help in decision meeting about further management. 2. Continue hydroxyurea, 2500 mg daily except Sundays. Goal is to maintain hematocrit under 45%. Treatment may have to be interrupted perioperatively and the disease will be controlled with phlebotomy alone 3. Phlebotomy as needed to maintain iron depleted status. Iron depletion in P vera is a therapeuticgoal in keeping the H&H in the desired range and thereforedo not supplement diet with iron. 4. Follow-up in 2 weeks 5. Continue low-dose aspirin daily. Patient was seen and examined, impression and plan as above outlined discussed. Tristen Guevara MD [employer], [facility] Divisions of Medical Oncology & Hematology Department of Internal Medicine [place] [phone] This note was generated using a voice recognition system software. Although itwas reviewed by the author prior to finalization, it may still contain incorrectwords, spelling, and punctuation that were not noted when reviewing prior to saving. If a clinically significant typo or inaccurately typed phrase is noted, please notify the author. Clinical Quality Measures Falls Risk Screening/Assistive Devices Have you fallen in the past year?: No 03/02/25 1440 khushi MD> Date _ Tristen [facility]uevara [facility] Signature: Date (if applicable) CC: Dr. Dennise Sahni MD; Dr. Michael Ashraf MD ~ [id number] [facility] [address] [place] [address] [address] [place] [address] OFFICE VISIT Date of Service: 02/25/25 MR#: [id number] Acct: [id number] Name: PHONG JANG LASHAUN Rep #: [id number] : 1950 Provider: Dr. Alex Ashraf MD Age/Sex: 74/F Location: [facility] Status: Signed Intake Vital Signs 02/11/25 09:35 02/25/25 14:46 Height 5 ft 5 in 5 ft 5 in Weight: 167 lb 164 lb 6 oz BMI 27.8 27.3 BP 129/78 H 123/75 H Blood Pressure Location Rt brachial Rt brachial Position Sitting Sitting Respiration 16 17 Pulse 68 Pulse Source Monitor Pulse Oximetry (%) 97 Oxygen Delivery Method room air Intake Visit Reasons: DISCUSS BREAST PATH AND SX OPTIONS Chief Complaint: discuss breast path and surgery options Is patient in pain?: No Allergies No Known Allergies Allergy (Verified 02/25/25 14:47) Medications ?Medication ?Instructions ?Recorded ?Confirmed ?Type aspirin 81 mg chewable tablet 81 mg PO DAILY@0800 07/1002/25/25 History atorvastatin 40 mg tablet 40 mg PO QHS 07/22/17 History metoprolol tartrate 25 mg tablet 25 mg PO DAILY 02/25/25 History famotidine 20 mg tablet 20 mg PO QHS 12/11/22 History hydroxyurea 500 mg capsule 2,500 mg (5 x 500 mg) PO QD AY 90 05/05/24 02/25/25 Rx days #450 caps cyclobenzaprine 5 mg tablet 5 mg PO TID PRN muscle spa sm #60 08/23/24 02/25/25 Rx tabs estradiol 0.01% (0.1 mg/gram) See Rx Instructions vagi nal 09/13/24 02/25/25 Rx vaginal cream .COMPLEX #42.5 grams Have you fallen in the past year?: No PFSH Medical History (Updated 03/01/25 @ 11:[address] Michael Ashraf MD) DCIS (ductal carcinoma in situ) of breast Abnormal mammogram of left breast Screening for breast cancer GERD (gastroesophageal reflux disease) Cellulitis of left lower leg Polycythemia vera Animal-rider injured by fall from or being thrown from horse in noncollision accident, initial encounter History of fractured kneecap Thyroid disorder Heart attack Sleep apnea Pneumonia Acquired polycythemia vera Bronchitis Surgical History History of repair of ACL H/O heart artery stent History of knee replacement Family History (Updated 02/11/25 @ 09:[address]) Father Myocardial infarction CVA (cerebral vascular accident) Cancer Mother Cancer Breast cancer of breast CA in 30's Sister Breast cancer dx in early 40's and passed at 68 Uncle Cancer lung Social History Smoking Status: Never smoker alcohol intake: never HPI HPI HPI: The patient is a 74-year-old female who is being seen today in follow-up after recent left breast stereotactic biopsy for a broad area of microcalcifications. Unfortunately these calcifications came back positive for DCIS. No invasive cancer was identified. These results were initially discussed with her over thephone several days prior to today's office visit. She reminded me that she has a veryextensive history of breast cancer in her family. Her sister, her motheras well as other close family members all had breast cancer. They did undergo genetic testing but this was 30+ years ago. ROS General General: Yes fatigue and breast cancer; No weight change, appetite, colon cancer or weakness HEENT HEENT: No difficulty swallowing, eye injury, eye surgery, swollen glands or hoarseness Endo Endocrine: Yes thyroid disease; No diabetes mellitus, thyroid cancer, Hair loss, heat intolerance or cold intolerance Skin Skin: No rash or changing moles Musc Musculoskeletal: Yes arthritis; No back problems, rheumatoid arthritis, gout or joint pain Cardio Cardiovascular: Yes heart attack and heart stent; No murmur, pacemaker, heart disease, atrial fibrillation, high blood pressure, palpitations, shortness of breath with exertion or chest pain Psych Psychiatric: No depression, anxiety or hearing voices Resp Respiratory: No shortness of breath, Yes sleep apnea, No cough, No COPD, No asthma, No emphysema and No wheezing Gastro Gastrointestinal: No abdominal pain, Yes nausea or vomiting, No diarrhea, No constipation, No bloodin stool, Yes acid reflux, No hemorrhoids, No ulcers, No gallbladder problem and No black,tarry stools [place] Hematologic: Yes blood thinners, Yes blood disorders, No bleeding, No anemia andNo blood clots Neuro Neurologic: No system reviewed and no additional complaints, except as documented, No as per HPI, No abnormal gait, No abnormal hearing, No abnormal movements, No abnormal speech, No behavioral changes, No burning sensations, No confusion, No convulsions, No disequilibrium, No dizziness, No localized weakness, No frequent falls, No headache(s), No lack of coordination, No loss ofvision, No memoryloss, Yes numbness, No other visual disturbances, No radicularpain, No restless legs, No sensory deficit, No syncope, Yes tingling, No tremor(s), No weakness and No other Exam Const General: cooperative and comfortable Chest Other: Moderate bruising involving left breast Assessment and Plan Assessment and Plan (1) DCIS (ductal carcinoma in situ) of breast: Status: Acute Plan: The patient is a 74-year-old female who was recently discovered to have left breast DCIS. This was a broad area of microcalcifications which was biopsied bystereotactic biopsy. We discussed options of lumpectomy versus mastectomy. Sheseems to be leaning towards mastectomy and possibly even a bilateral mastectomy given her family history. If she was to consider lumpectomy, I would highly recommendbreast MRI as I am concerned about the size of the region of DCIS given the broad region of calcifications in the left breast. She states that she needs to wake arrangements to care for her animals after her surgery. She will contact our office when she is ready to proceed. Coding Level of Care Code Off vis,est,level 3 Diagnoses DCIS (ductal carcinoma in situ) of breast D05.10 Clinical Quality Measures Falls Risk Screening/Assistive Devices Have you fallen in the past year?: No 03/01/25 1201 k MD> Date _ Michael Ashraf MD Cosigner Signature: Date (if applicable) CC: ~ [facility]09-19-2025 Progress note Author Michael Ashraf [facility] Note Date/Time February 25, 2025 3:35pm [facility] [address] [place] [address]. [address] [place] [address] OFFICE VISIT Date of Service: 02/25/25 MR#: [id number] Acct: [id number] Name: PHONG JANG LASHAUN Rep #: [id number] : 1950 Provider: Dr. Alex Ashraf MD Age/Sex: 74/F Location: [facility] Status: Signed Intake Vital Signs 02/11/25 09:35 02/25/25 14:46 Height 5 ft 5 in 5 ft 5 in Weight: 167 lb 164 lb 6 oz BMI 27.8 27.3 BP 129/78 H 123/75 H Blood Pressure Location Rt brachial Rt brachial Position Sitting Sitting Respiration 16 17 Pulse 68 Pulse Source Monitor Pulse Oximetry (%) 97 Oxygen Delivery Method room air Intake Visit Reasons: DISCUSS BREAST PATH AND SX OPTIONS Chief Complaint: discuss breast path and surgery options Is patient in pain?: No Allergies No Known Allergies Allergy (Verified 02/25/25 14:47) Medications ?Medication ?Instructions ?Recorded ?Confirmed ?Type aspirin 81 mg chewable tablet 81 mg PO DAILY@0800 07/1002/25/25 History atorvastatin 40 mg tablet 40 mg PO QHS 07/22/17 History metoprolol tartrate 25 mg tablet 25 mg PO DAILY 02/25/25 History famotidine 20 mg tablet 20 mg PO QHS 12/11/22 History hydroxyurea 500 mg capsule 2,500 mg (5 x 500 mg) PO QD AY 90 05/05/24 02/25/25 Rx days #450 caps cyclobenzaprine 5 mg tablet 5 mg PO TID PRN muscle spa sm #60 08/23/24 02/25/25 Rx tabs estradiol 0.01% (0.1 mg/gram) See Rx Instructions vagi nal 09/13/24 02/25/25 Rx vaginal cream .COMPLEX #42.5 grams Have you fallen in the past year?: No PFSH Medical History (Updated 03/01/25 @ 11:[address] Michael Ashraf MD) DCIS (ductal carcinoma in situ) of breast Abnormal mammogram of left breast Screening for breast cancer GERD (gastroesophageal reflux disease) Cellulitis of left lower leg Polycythemia vera Animal-rider injured by fall from or being thrown from horse in noncollision accident, initial encounter History of fractured kneecap Thyroid disorder Heart attack Sleep apnea Pneumonia Acquired polycythemia vera Bronchitis Surgical History History of repair of ACL H/O heart artery stent History of knee replacement Family History (Updated 02/11/25 @ 09:[address]) Father Myocardial infarction CVA (cerebral vascular accident) Cancer Mother Cancer Breast cancer of breast CA in 30's Sister Breast cancer dx in early 40's and passed at 68 Uncle Cancer lung Social History Smoking Status: Never smoker alcohol intake: never HPI HPI HPI: The patient is a 74-year-old female who is being seen today in follow-up after recent left breast stereotactic biopsy for a broad area of microcalcifications. Unfortunately these calcifications came back positive for DCIS. No invasive cancer was identified. These results were initially discussed with her over thephone several days prior to today's office visit. She reminded me that she has a very extensive history of breast cancer in her family. Her sister, her motheras well as other close family members all had breast cancer. They did undergo genetic testing but this was 30+ years ago. ROS General General: Yes fatigue and breast cancer; No weight change, appetite, colon cancer or weakness HEENT HEENT: No difficulty swallowing, eye injury, eye surgery, swollen glands or hoarseness Endo Endocrine: Yes thyroid disease; No diabetes mellitus, thyroid cancer, Hair loss, heat intolerance or cold intolerance Skin Skin: No rash or changing moles Musc Musculoskeletal: Yes arthritis; No back problems, rheumatoid arthritis, gout or joint pain Cardio Cardiovascular: Yes heart attack and heart stent; No murmur, pacemaker, heart disease, atrial fibrillation, high blood pressure, palpitations, shortness of breath with exertion or chest pain Psych Psychiatric: No depression, anxiety or hearing voices Resp Respiratory: No shortness of breath, Yes sleep apnea, No cough, No COPD, No asthma, No emphysema and No wheezing Gastro Gastrointestinal: No abdominal pain, Yes nausea or vomiting, No diarrhea, No constipation, No blood in stool, Yes acid reflux, No hemorrhoids, No ulcers, No gallbladder problem and No black,tarry stools [place] Hematologic: Yes blood thinners, Yes blood disorders, No bleeding, No anemia andNo blood clots Neuro Neurologic: No system reviewed and no additional complaints, except as documented, No as per HPI, No abnormal gait, No abnormal hearing, No abnormal movements, No abnormal speech, No behavioral changes, No burning sensations, No confusion, No convulsions, No disequilibrium, No dizziness, No localized weakness, No frequent falls, No headache(s), No lack of coordination, No loss ofvision, No memory loss, Yes numbness, No other visual disturbances, No radicularpain, No restless legs, No sensory deficit, No syncope, Yes tingling, No tremor(s), No weakness and No other Exam Const General: cooperative and comfortable Chest Other: Moderate bruising involving left breast Assessment and Plan Assessment and Plan (1) DCIS (ductal carcinoma in situ) of breast: Status: Acute Plan: The patient is a 74-year-old female who was recently discovered to have left breast DCIS. This was a broad area of microcalcifications which was biopsied bystereotactic biopsy. We discussed options of lumpectomy versus mastectomy. Sheseems to be leaning towards mastectomy and possibly even a bilateral mastectomy given her family history. If she was to consider lumpectomy, I would highly recommend breast MRI as I am concerned about the size of the region of DCIS given the broad region of calcifications in the left breast. She states that she needs to wake arrangements to care for her animals after her surgery. She will contact our office when she is ready to proceed. 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 Dennise Sahni MD Status:R EG CLI Location: [facility] Procedures Integumentary [id number]: [id number] Bx breast 1st lesion strtctc Operative Report (Standard) Operative Information Date of Procedure: 02/16/25 Pre-Operative Diagnosis: Abnormal left breast mammogram Post-Operative Diagnosis: Same Surgery/Procedure Performed: Left breast stereotactic biopsy qualification engineer: No Type of Anesthesia: Local Procedure Start Time: 11:00 Procedure Stop Time: 11:20 Select all DRAINS/GRAFTS/IMPLANTS that apply: None Special Medications: None Estimated Blood Loss: 15 mL Specimen collected: Yes Description of specimen(s) removed: Left breast tissue with microcalcifications Description of surgery: The patient is a 74-year-old female who is recently seen through the office witha newly discovered region of calcifications in the left breast. Biopsy was recommended to rule out possible malignancy.We discussed the details of the planned procedure including risks benefits and alternatives. She wished to proceed. She was brought to the mammography suite today following informed consent. She was placed prone on the stereotactic biopsy table with the left breast suspended through the aperture and the table. The left breast was placedinto cc view compression and images were obtained until the region of calcifications were clearly identified. At this point 2 stereotactic views werethen obtained upon which the region of maximal calcifications were targeted upon. Once this was targeted, the skin of the breast was prepped and draped in the usual manner. Local anesthetic was infiltrated into the vicinity. A #11 blade was then used to make a skin incision. The biopsy probe was then insertedtothe desired depth. Chio fire images were obtained and showed the device to be in appropriate location. The device was then fired. Next, circumferential suction biopsies were obtained with good tissue sampling. The samples were thenplated and radiographed. Essentially all samples contain numerous microcalcifications. Next, a marking clip was then deployed. A post clip placement image was obtainedand showed the clip to be in the desired location. She was then taken out of compression and manualpressure was held until a dressing was applied. She then underwent postprocedure mammograms. She did have some postoperative bleeding/hematoma which resolved with pressure and placement of an LAW wrap. Overall she tolerated the procedure well. I will contact her with results once they become available Surgical Findings: See procedure note Complications Complications: No Admit VTE Documentation VTE Present on Admission: No VTE Mechan Device Prophylaxis: None VTE Pharm Prophylaxis ordered?: No Reason prophylaxis not ordered: Treatment Not Indicated 02/16/25 1439 Cosigner Signature (if applicable): CC: Dr. Dennise Sahni MD; Dr. Michael Ashraf MD~ Signed [facility]09-05-2025 Progress [facility] [address] [place] [address] OFFICE VISIT Date of Service: 02/11/25 MR#: [id number] Acct: [id number] Name: PHONG JANG Rep #: [id number] : 1950 Provider: Dr. Alex Ashraf MD Age/Sex: 74/F Location: [facility] Status: Signed Intake Vital Signs 01/10/25 14:24 02/11/25 09:35 Height 5 ft 5 in 5 ft 5 in Weight: 167 lb BMI 27.8 BP 129/78 H Blood Pressure Location Rt brachial Position Sitting Respiration 16 Intake Visit Reasons: BIRADS 4- MAMMO ONLY Chief Complaint: left stereo Community Association Manager Required: No Is patient in pain?: No Allergies No Known Allergies Allergy (Verified 02/11/25 09:35) Medications ?Medication ?Instructions ?Recorded ?Confirmed ?Type aspirin 81 mg chewable tablet 81 mg PO DAILY@0800 07/1002/11/25 History atorvastatin 40 mg tablet 40 mg PO QHS 07/22/17 History metoprolol tartrate 25 mg tablet 25 mg PO DAILY 02/11/25 History famotidine 20 mg tablet 20 mg PO QHS 12/11/22 History hydroxyurea 500 mg capsule 2,500 mg (5 x 500 mg) PO QD AY 90 05/05/24 02/11/25 Rx days #450 caps cyclobenzaprine 5 mg tablet 5 mg PO TID PRN muscle spa sm #60 08/23/24 02/11/25 Rx tabs estradiol 0.01% (0.1 mg/gram) See Rx Instructions vagi nal 09/13/24 02/11/25 Rx vaginal cream .COMPLEX #42.5 grams Have you fallen in the past year?: No PFSH Medical History Abnormal mammogram of left breast Screening for breast cancer GERD (gastroesophageal reflux disease) Cellulitis of left lower leg Polycythemia vera Animal-rider injured by fall from or being thrown from horse in noncollision accident, initial encounter History of fractured kneecap Thyroid disorder Heart attack Sleep apnea Pneumonia Acquired polycythemia vera Bronchitis Surgical History History of repair of ACL H/O heart artery stent History of knee replacement Family History (Updated 02/11/25 @ 09:[address]) Father Myocardial infarction CVA (cerebral vascular accident) Cancer Mother Cancer Breast cancer of breast CA in 30's Sister Breast cancer dx in early 40's and passed at 68 Uncle Cancer lung Social History Smoking Status: Never smoker alcohol intake: never HPI HPI HPI: Patient is a 74-year-old female who presents today with an abnormal left breast mammogram showing an area of calcifications in the left breast. It is noted in the mammogram report that this area of calcifications spans about centimeters. Patient has a very extensive family history of breast cancer.Her mother and sister both of breast cancer. She has several other relatives with breast cancer. The only male cancer in her family was lung cancer. It sounds as though her sister was tested forBRCA gene and was reportedly negative. Howeverthis does not necessarily exclude the possibility of other genes being responsible for breast cancer. Her family history is certainly compelling. Sheherself denies any recent breast issues or complaints. No nipple discharge or drainage. No palpable masses. ROS General General: Yes fatigue; No weight change, appetite, colon cancer, breast cancer or weakness HEENT HEENT: No difficulty swallowing, eye injury, eye surgery, swollen glands or hoarseness Endo Endocrine: Yes thyroid disease; No diabetes mellitus, thyroid cancer, Hair loss, heat intolerance or cold intolerance Skin Skin: No rash or changing moles Breast Breast: No left breast lump, right breast lump, nipple discharge, breast pain, abnormal mammogram, abnormal US or breast enlargement Musc Musculoskeletal: Yes arthritis; No back problems, rheumatoid arthritis, gout or joint pain Cardio Cardiovascular: Yes heart attack and heart stent; No murmur, pacemaker, heart disease, atrial fibrillation, high blood pressure, palpitations, shortness of breath with exertion or chest pain Psych Psychiatric: No depression, anxiety or hearing voices Resp Respiratory: No shortness of breath, Yes sleep apnea, No cough, No COPD, No asthma, No emphysema and No wheezing Gastro Gastrointestinal: No abdominal pain, Yes nausea or vomiting, No diarrhea, No constipation, No bloodin stool, Yes acid reflux, No hemorrhoids, No ulcers, No gallbladder problem and No black,tarry stools [place] Hematologic: Yes blood thinners, Yes blood disorders, No bleeding, No anemia andNo blood clots Neuro Neurologic: No system reviewed and no additional complaints, except as documented, No as per HPI, No abnormal gait, No abnormal hearing, No abnormal movements, No abnormal speech, No behavioral changes, No burning sensations, No confusion, No convulsions, No disequilibrium, No dizziness, No localized weakness, No frequent falls, No headache(s), No lack of coordination, No loss ofvision, No memoryloss, Yes numbness, No other visual disturbances, No radicularpain, No restless legs, No sensory deficit, No syncope, Yes tingling, No tremor(s), No weakness and No other Exam Const General: cooperative, healthy appearing and comfortable Orientation: alert, awake and oriented x3 HENMT Head: normal to inspection, normocephalic and atraumatic Eyes General: appearance normal, both eyes and all related structures Neck Neck: normal visual inspection Chest Breast inspection: normal inspection of the breasts and normal inspection of theaxillae Resp Effort & Inspection: normal respiratory effort and able to speak in complete sentences Assessment and Plan Assessment and Plan (1) Abnormal mammogram of left breast: Status: Acute Plan: The patient is a 74-year-old female who has a very extensive family history of breast cancer. She presents today for evaluation of a new area of microcalcifications in the left breast. This is a fairly extensive region of calcifications spanning about 6 to 7 cm. A stereotactic biopsy was recommended by radiology. They agree with the need for tissue sampling in this manner. We discussed the details of the planned procedure including the risks benefits and alternatives. She wishes to proceed. This will be scheduled in a timely manner. I will contact her with pathology results once they become available Coding Level of Care Code Off vis,new,level 4 Diagnoses Abnormal mammogram of left breast R92.8 Clinical Quality Measures Falls Risk Screening/Assistive Devices Have you fallen in the past year?: No 02/11/25 0941 k MD> Date _ Michael Ashraf MD Cosigner Signature: Date (if applicable) CC: Dr. Dennise Sahni MD ~ [facility]09-05-2025 Progress note Author Michael Ashraf [facility] Note Date/Time February 11, 2025 9:41am [facility] [address] [place] [address] OFFICE VISIT Date of Service: 02/11/25 MR#: [id number] Acct: [id number] Name: PHONG JANG Rep #: [id number] : 1950 Provider: Dr. Alex Ashraf MD Age/Sex: 74/F Location: [facility] Status: Signed Intake Vital Signs 01/10/25 14:24 02/11/25 09:35 Height 5 ft 5 in 5 ft 5 in Weight: 167 lb BMI 27.8 BP 129/78 H Blood Pressure Location Rt brachial Position Sitting Respiration 16 Intake Visit Reasons: BIRADS 4- MAMMO ONLY Chief Complaint: left stereo Community Association Manager Required: No Is patient in pain?: No Allergies No Known Allergies Allergy (Verified 02/11/25 09:35) Medications ?Medication ?Instructions ?Recorded ?Confirmed ?Type aspirin 81 mg chewable tablet 81 mg PO DAILY@0800 02/08/2402/11/25 History atorvastatin 40 mg tablet 40 mg PO QHS 07/22/17 History metoprolol tartrate 25 mg tablet 25 mg PO DAILY 02/11/25 History famotidine 20 mg tablet 20 mg PO QHS 12/11/22 History hydroxyurea 500 mg capsule 2,500 mg (5 x 500 mg) PO QD AY 90 05/05/24 02/11/25 Rx days #450 caps cyclobenzaprine 5 mg tablet 5 mg PO TID PRN muscle spa sm #60 08/23/24 02/11/25 Rx tabs estradiol 0.01% (0.1 mg/gram) See Rx Instructions vagi nal 09/13/24 02/11/25 Rx vaginal cream .COMPLEX #42.5 grams Have you fallen in the past year?: No PFSH Medical History Abnormal mammogram of left breast Screening for breast cancer GERD (gastroesophageal reflux disease) Cellulitis of left lower leg Polycythemia vera Animal-rider injured by fall from or being thrown from horse in noncollision accident, initial encounter History of fractured kneecap Thyroid disorder Heart attack Sleep apnea Pneumonia Acquired polycythemia vera Bronchitis Surgical History History of repair of ACL H/O heart artery stent History of knee replacement Family History (Updated 02/11/25 @ 09:[address]) Father Myocardial infarction CVA (cerebral vascular accident) Cancer Mother Cancer Breast cancer of breast CA in 30's Sister Breast cancer dx in early 40's and passed at 68 Uncle Cancer lung Social History Smoking Status: Never smoker alcohol intake: never HPI HPI HPI: Patient is a 74-year-old female who presents today with an abnormal left breast mammogram showing an area of calcifications in the left breast. It is noted in the mammogram report that this area of calcifications spans about centimeters. Patient has a very extensive family history of breast cancer. Her mother and sister both of breast cancer. She has several other relatives with breast cancer. The only male cancer in her family was lung cancer. It sounds as though her sister was tested for BRCA gene and was reportedly negative. Howeverthis does not necessarily exclude the possibility of other genes being responsible for breast cancer. Her family history is certainly compelling. Sheherself denies any recent breast issues or complaints. No nipple discharge or drainage. No palpable masses. ROS General General: Yes fatigue; No weight change, appetite, colon cancer, breast cancer or weakness HEENT HEENT: No difficulty swallowing, eye injury, eye surgery, swollen glands or hoarseness Endo Endocrine: Yes thyroid disease; No diabetes mellitus, thyroid cancer, Hair loss, heat intolerance or cold intolerance Skin Skin: No rash or changing moles Breast Breast: No left breast lump, right breast lump, nipple discharge, breast pain, abnormal mammogram, abnormal US or breast enlargement Musc Musculoskeletal: Yes arthritis; No back problems, rheumatoid arthritis, gout or joint pain Cardio Cardiovascular: Yes heart attack and heart stent; No murmur, pacemaker, heart disease, atrial fibrillation, high blood pressure, palpitations, shortness of breath with exertion or chest pain Psych Psychiatric: No depression, anxiety or hearing voices Resp Respiratory: No shortness of breath, Yes sleep apnea, No cough, No COPD, No asthma, No emphysema and No wheezing Gastro Gastrointestinal: No abdominal pain, Yes nausea or vomiting, No diarrhea, No constipation, No blood in stool, Yes acid reflux, No hemorrhoids, No ulcers, No gallbladder problem and No black,tarry stools [place] Hematologic: Yes blood thinners, Yes blood disorders, No bleeding, No anemia andNo blood clots Neuro Neurologic: No system reviewed and no additional complaints, except as documented, No as per HPI, No abnormal gait, No abnormal hearing, No abnormal movements, No abnormal speech, No behavioral changes, No burning sensations, No confusion, No convulsions, No disequilibrium, No dizziness, No localized weakness, No frequent falls, No headache(s), No lack of coordination, No loss ofvision, No memory loss, Yes numbness, No other visual disturbances, No radicularpain, No restless legs, No sensory deficit, No syncope, Yes tingling, No tremor(s), No weakness and No other Exam Const General: cooperative, healthy appearing and comfortable Orientation: alert, awake and oriented x3 HENMT Head: normal to inspection, normocephalic and atraumatic Eyes General: appearance normal, both eyes and all related structures Neck Neck: normal visual inspection Chest Breast inspection: normal inspection of the breasts and normal inspection of theaxillae Resp Effort & Inspection: normal respiratory effort and able to speak in complete sentences Assessment and Plan Assessment and Plan (1) Abnormal mammogram of left breast: Status: Acute Plan: The patient is a 74-year-old female who has a very extensive family history of breast cancer. She presents today for evaluation of a new area of microcalcifications in the left breast. This is a fairly extensive region of calcifications spanning about 6 to 7 cm. A stereotactic biopsy was recommended by radiology. They agree with the need for tissue sampling in this manner. We discussed the details of the planned procedure including the risks benefits and alternatives. She wishes to proceed. This will be scheduled in a timely manner. I will contact her with pathology results once they become available Coding Level of Care Code Off vis,new,level 4 Diagnoses Abnormal mammogram of left breast R92.8 Clinical Quality Measures Falls Risk Screening/Assistive Devices Have you fallen in the past year?: No 02/11/25 0941 <Electronically signed by Michael brennan MD> Date _ Michael Ashraf MD Cosigner Signature: Date (if applicable) CC: Dr. Dennise Sahni MD ~ [facility] Work Phone: 1(471) 383-426908-04-2025 Evaluation note* Diagnosis Onset Date Resolution Status Admit Date Polycythemia vera chronic January 10, 2025 12:53pm Abnormal mammogram of left breast acute February 11, 025 9:07am [facility] Work Phone: 1([phone]) 563-100308-04-2025 Evaluation note* Diagnosis Onset Date Resolution Status Admit Date Polycythemia vera chronic January 10, 2025 12:53pm Abnormal mammogram of left breast acute February 11, 025 9:07am DCIS (ductal carcinoma in situ) of breast acute February 25, 2025 2:37pm Polycythemia vera chronic Septemb er 2024 1:59pm [facility] Work Phone: [phone] Evaluation note* Diagnosis Onset Date Resolution Status Admit Date Polycythemia vera chronic January 10, 2025 12:53pm Abnormal mammogram of left breast acute February 11, 2 025 9:07am DCIS (ductal carcinoma in situ) of breast acute February 25, 2025 2:37pm Polycythemia vera chronic Septemb er 2024 1:59pm Polycythemia vera chronic March 17, 2025 12:45pm [facility] Work Phone: [phone] Evaluation note* Diagnosis Onset Date Resolution Status Admit Date Polycythemia vera chronic January 10, 2025 12:53pm Abnormal mammogram of left breast acute February 11, 025 9:07am DCIS (ductal carcinoma in situ) of breast acute February 25, 2025 2:37pm Polycythemia vera chronic Septemb er 2024 1:59pm Polycythemia vera chronic March 17, 2025 12:45pm DCIS (ductal carcinoma in situ) of breast acute March 28 2:27pm Polycythemia vera chronic April 06, 2025 1:02pm [facility] Work Phone: [phone] Evaluation note* Diagnosis Onset Date Resolution Status Admit Date Polycythemia vera chronic October 1:42pm Polycythemia vera chronic January 10, 2025 12:53pm [facility] Work Phone: [phone] Evaluation note* Diagnosis Onset Date Resolution Status Admit Date Cystocele with incomplete uterovaginal prolapse acute September 13, 2024 11:09am PMB (postmenopausal bleeding) acute September 13, 2024 11:09am Stress incontinence acute September 13, 2024 11:09am Vaginal abrasion acute September 11:09am Atrophic vaginitis acute September 21, 2024 2:18pm Cystocele with incomplete uterovaginal prolapse acute September 2:18pm Vaginal abrasion acute September 212024 2:18pm Polycythemia vera chronic October 1:42pm Polycythemia vera chronic January 10, 2025 12:53pm [facility] Work Phone: 1(203) 937-143703-05-2025 Radiology Diagnostic study note [facility] Services [address] [place] [address] Transvaginal Non- MR#: [id number] Acct: [id number] Name: PHONG JANG Rep #: [id number] : 1950 F 74 From: Leah Mathias MD PCP: Dr. Dennise Sahni MD Status: R EG CLI Study:Transvaginal Non- Date of Exam: 08/11/24 Exam# [id number] Ordering Dr: Francheska Powell NP MACHINE LACER-C PROCEDURE: Transvaginal pelvic ultrasound REASON FOR EXAM: PMB TECHNIQUE: Grayscale and color Doppler pelvic ultrasound. COMPARISON: None. FINDINGS: Uterus: 4.7 x 3.5 x 2.3 cm, anteverted. Heterogeneous myometrium. Hypoechoic fibroids measure 4 x 4x 2 mm and 3 x 4 x [...] 5. Additional description as above. Reading Location: [id number] CC: MACHINE LACER-C Francheska Powell; Dr. Dennise Sahni MD ~ Registered Radiographer: Signed [facility]02-26-2025 Evaluation note* Diagnosis Onset Date Resolution Status Admit Date Polycythemia vera chronic Februar y 2024 2:08pm Fracture of sacrum deleted August 23, 2024 2:31pm Cystocele with incomplete uterovaginal prolapse acute September 13, 2024 11:09am PMB (postmenopausal bleeding) acute September 13, 2024 11:09am Stress incontinence acute September 13, 2024 11:09am Vaginal abrasion acute September 11:09am [facility] Work Phone: 1(355) 908-382511-27-2024 Evaluation note* Diagnosis Onset Date Resolution Status Admit Date Polycythemia vera chronic Novembe r 2023 1:55pm Polycythemia vera chronic Februar y 2024 2:08pm Fracture of sacrum acute August 23, 2024 2:31pm [facility] Work Phone: Evaluation + Plan note Future Appointments Appointment Date:12/26/2021 04:00:00 PM Scheduled Provider: Location:[facility] Appointment Type:CV OV Future Scheduled Tests Laboratory* Lactate Dehydrogenase 05/22/21 * Lactate Dehydrogenase 06/19/21 * Uric Acid 05/22/21 * Uric Acid 06/19/21 * Complete Blood Count 05/22/21 * Complete Blood Count 06/19/21 * Complete Metabolic Panel 05/22/21 * Complete Metabolic Panel 06/19/21 Radiology* US Abdomen Complete 07/24/21 [facility] Evaluation note* Diagnosis Onset Date Resolution Status BMI 31.0-31.9,adult acute Sleep apnea acute Polycythemia vera chronic Polycythemia vera chronic Polycythemia vera [facility] Work Phone: Hospital course Narrative No data available for this section [facility] Hospital Discharge instructions No data available for this section [facility] Work Phone: Progress note Author Tristen Guevara [facility] Note Date/Time March 02, 2025 2:40pm [facility] [address] [place] [address] OFFICE VISIT Date of Service: 03/02/25 1406 MR#: [id number] Acct: [id number] Name: PHONG JANG Rep #: [id number] : 1950 From: Tristen vergara MD Age/Sex: 74/F Location[place] [facility] Status: Signed HPI Subjective Date of Service 03/02/25 Chief Complaint P vera and breast Cance History of Present Illness 74-year-old female with #1- Polycythemia vera transferring her care from [facility] to [facility] in July 2021 closer to home and because 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 She presented in 2016 with vague nonspecific [...] however an ultrasound of March 2022 at [facility] shows stable mild splenomegaly of 13.7 cm. [...] any infectious or bleeding complications during the courseof her illness. #2-Breast cancer: DCIS February 01, 2025 screening mammography: IMPRESSION: Suspicious left breast calcifications in the upper-outer left breast extending from anterior to middle depth. 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 - Minimum span of 0.9 cm. - ER: positive (100%, strong intensity). - IN: PENDING, to be reported in an addendum. - Ki67: PENDING, to be reported in an addendum. - IHC for Ecadherin, CK5/6, and p40 support the diagnosis Treatment summary : Phlebotomies 2017-ongoing Hydroxyurea 2017-ongoing Interval History Seen semiurgently because of recent diagnosis of left breast DCIS [facility] Medical History DCIS (ductal carcinoma in situ) of breast Abnormal mammogram of left breast Screening for breast cancer GERD (gastroesophageal reflux disease) Cellulitis of left [...] Father Myocardial infarction CVA (cerebral vascular accident) Cancer Mother Cancer Breast cancer of breast CA in 30's Sister Breast cancer dx in early 40's and passed at 68 Uncle Cancer lung Social History Smoking Status: Never smoker alcohol intake: never ROS ROS Narrative No breast mass Intake Vital Signs 02/11/25 09:35 02/25/25 14:46 03/02/25 14:09 Height 5 ft 5 in 5 ft 5 in 5 ft 5 in Weight: 74.559 kg 75.41 kg BMI 27.3 27.6 BP 123/75 H 120/74 Blood Pressure Location Rt brachial Rt brachial Position Sitting Sitting Respiration 17 16 Pulse 68 67 Pulse Source Monitor Monitor Temp 97.3 F L Temperature Source Temporal Artery Pulse Oximetry (%) 97 96 Oxygen Delivery Method room air room air Intake Is patient in pain?: No Allergies No Known Allergies Allergy (Verified 03/02/25 14:06) Medications ?Medication ?Instructions ?Recorded ?Confirmed ?Type aspirin 81 mg chewable tablet 81 mg PO DAILY@0800 07/1003/02/25 History atorvastatin 40 mg tablet 40 mg PO QHS 07/22/17 History metoprolol tartrate 25 mg tablet 25 mg PO DAILY 03/02/25 History famotidine 20 mg tablet 20 mg PO QHS 12/11/22 History hydroxyurea 500 mg capsule 2,500 mg (5 x 500 mg) PO QD AY 90 05/05/24 03/02/25 Rx days #450 caps cyclobenzaprine 5 mg tablet 5 mg PO TID PRN muscle spa sm #60 08/23/24 03/02/25 Rx tabs estradiol 0.01% (0.1 mg/gram) See Rx Instructions vagi nal 09/13/24 03/02/25 Rx vaginal cream .COMPLEX #42.5 grams Have you fallen in the past year?: No Exam Physical Exam Const alert, oriented x3 and no apparent distress Coding Level of Care Code Off vis,est,level 4 Exam Problem Focused Diagnoses Polycythemia vera D45 Assessment and Plan Assessment and Plan (1) Polycythemia vera: Status: Chronic Plan 74-year-old female with #1-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 She has been on phlebotomies and cytoreductive therapy with hydroxyurea since with improvement of her constitutional symptoms. 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 At this time there is no evidence from peripheral blood work and examination to suggest secondary evolution into a more aggressive bone marrow disease (myelofibrosis, acute leukemia, or myelodysplastic syndrome). 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 Family history mother in her 30s with metastatic breast cancer and sister with breast cancer in her 60s. Chronic comorbid conditions: Coronary artery disease status post myocardial infarction in 2017, hypertension, dyslipidemia, sleep apnea, chronic GERD. She has a strong family history of breast cancer (mother and sister). Plan: 1-with the new diagnosis of breast cancer and positive family history advise genetic testing to help in decision meeting about further management. 2. Continue hydroxyurea, 2500 mg daily except Sundays. Goal is to maintain hematocrit under 45%. Treatment may have to be interrupted perioperatively and the disease will be controlled with phlebotomy alone 3. Phlebotomy as needed to maintain iron depleted status. Iron depletion in P vera is a therapeutic goal in keeping the H&H in the desired range and thereforedo not supplement diet with iron. 4. Follow-up in 2 weeks 5. Continue low-dose aspirin daily. Patient was seen and examined, impression and plan as above outlined discussed. Tristen Guevara MD Car Changer, [facility] Divisions of Medical Oncology & Hematology Department of Internal Medicine [place] [id number] This note was generated using a voice recognition system software. Although itwas reviewed by the author prior to finalization, it may still contain incorrectwords, spelling, and punctuation that were not noted when reviewing prior to saving. If a clinically significant typo or inaccurately typed phrase is noted, please notify the author. Clinical Quality Measures Falls Risk Screening/Assistive Devices Have you fallen in the past year?: No 03/02/25 1440 <Electronically signed by Tristen puri MD> Date _ Tristen Guevara MD Cosigner Signature: Date (if applicable) CC: Dr. Dennise Sahni MD; Dr. Michael Ashraf MD ~ [facility] Work Phone: Reason for referral (narrative)No reason for referral information availableWCleveland Clinic Work Phone: Summary Purpose Family History Relationship Condition Age at Onset Recorded Date/T maxwell father Myocardial infarction Unknown Cerebrovascular accident (CVA) Unknown mother Malignant neoplasm Unknown sister Malignant neoplasm Unknown Relationship Condition Age at Onset Recorded Date/T maxwell father Myocardial infarction Unknown Cerebrovascular accident (CVA) Unknown mother Malignant neoplasm Unknown sister Malignant neoplasm of breast Unknown Relationship Condition Age at Onset Recorded Date/T maxwell father Myocardial infarction Unknown Cerebrovascular accident (CVA) Unknown Malignant neoplasm Unknown mother Malignant neoplasm Unknown Malignant neoplasm of breast Unknown sister Malignant neoplasm of breast Unknown uncle Malignant neoplasm Unknown Advance Directives No Advanced Directives Records FoundNo Advanced Directives Records FoundNo Advanced Directives Records FoundNo Advanced Directives Records Found Chief Complaint and Reason for Visit Chief Complaint Obstructive sleep ap raine LABS NEW-TRANSFER FROM [facility] 1 WK - NO LABS 1 MO [...] Polycythemia vera January 10, 2025 12: 53pm Chief Complaint Admit Date 3MO LABS PHLEBO October 13, 2024 1:42pm LABS January 10, 2025 12: 45pm 12 WKS - LABS - PHLE[place] January 10, 2025 12:53pm SCREENING February 01, 2025 1: 29pm Other abnormal and inconclusive findings on diagno February 04, 2025 2:08pm Reason for Visit Admit Date Polycythemia vera October 13, 2024 1:42pm Polycythemia vera January 10, 2025 12: 53pm Chief Complaint Admit Date LABS January 10, 2025 12: 45pm 12 WKS - LABS - PHLEBO January 10, 2025 12:53pm SCREENING February 01, 2025 1: 29pm Other abnormal and inconclusive findings on diagno February 04, 2025 2:08pm BIRADS 4- MAMMO ONLY February 11, 2025 9:07am Reason for Visit Admit Date Polycythemia vera January 10, 2025 12: 53pm Abnormal mammogram of left breast 2024 9:07am Chief Complaint Admit Date 12 WKS - LABS - PHLEBO January 10, 2025 12:53pm SCREENING February 01, 2025 1: 29pm Other abnormal and inconclusive findings on diagno February 04, 2025 2:08pm BIRADS 4- MAMMO ONLY February 11, 2025 9:07am LT BREAST ABN MAMM February 16, 2025 10:43am LT BREAST ABN MAMM February 16, 2025 11:56am DISCUSS BREAST [facility] 2024 2:37pm acute-discuss options March 02 1:59pm LABS March 02, 2025 3:00pm Reason for Visit Admit Date Polycythemia vera January 10, 2025 12: 53pm Abnormal mammogram of left breast Septem 2024 9:07am DCIS (ductal carcinoma in situ) of breas t February 25, 2025 2:37pm Polycythemia vera March 02, 2025 1:59pm Chief Complaint Admit Date 12 WKS - LABS - PHLEBO January 10, 2025 12:53pm SCREENING February 01, 2025 1: 29pm Other abnormal and inconclusive findings on diagno February 04, 2025 2:08pm BIRADS 4- MAMMO ONLY February 11, 2025 9:07am LT BREAST ABN MAMM February 16, 2025 10:43am LT BREAST ABN MAMM February 16, 2025 11:56am DISCUSS BREAST PATH AND SX OPTIONS [facility] 2024 2:37pm acute-discuss options March 02 1:59pm LABS March 17, 2025 12 :45pm Reason for Visit Admit Date Polycythemia vera January 10, 2025 12: 53pm Abnormal mammogram of left breast 2024 9:07am DCIS (ductal carcinoma in situ) of breas t February 25, 2025 2:37pm Polycythemia vera March 02, 2025 1:59pm Polycythemia vera March 17, 2025 12 :45pm Chief Complaint Admit Date 12 WKS - LABS - PHLEBO January 10, 2025 12:53pm SCREENING February 01, 2025 1: 29pm Other abnormal and inconclusive findings on diagno February 04, 2025 2:08pm BIRADS 4- MAMMO ONLY February 11, 2025 9:07am LT BREAST ABN MAMM February 16, 2025 10:43am LT BREAST ABN MAMM February 16, 2025 11:56am DISCUSS BREAST PATH AND SX OPTIONS [facility] 2024 2:37pm acute-discuss options March 02 1:59pm 2 WKS - NO LABS - PHLEBO? March 17, 12:45pm DISCUSS BREAST SX March 28, 2025 2 :27pm Intraductal carcinoma in situ of left br east March 31, 2025 12:23pm LABS April 06, 2025 1 2:45pm 12 WK, LABS, PHLEBO? April 06, 2025 1:02pm Reason for Visit Admit Date Polycythemia vera January 10, 2025 12: 53pm Abnormal mammogram of left breast Sept2024 9:07am DCIS (ductal carcinoma in situ) of brekvng t February 25, 2025 2:37pm Polycythemia vera March 02, 2025 1:59pm Polycythemia vera March 17, 2025 12 :45pm DCIS (ductal carcinoma in situ) of giancarlo t March 28, 2025 2:27pm Polycythemia vera April 06, 2025 1 :02pm Additional Source Comments INFORMATION SOURCE (unrecogn ized section and content) DATE CREATED AUTHOR 04/12/2021 [facility] ([place]) DATE CREATED AUTHOR AUTHOR'S ORGANIZ ATION 05/15/2022 [facility] DATE CREATED AUTHOR AUTHOR'S ORGANIZ ATION 01/22/2025 [facility] DATE CREATED AUTHOR AUTHOR'S ORGANIZ ATION 04/14/2025 [facility] Goals (unrecognized section and content) Goals [...] 2024 End: August 04, 2024 Krystina Steel NP, MACHINE LACER-C Attending Provider Active Start: August 04, 2024 End: August 04, 2024 Team Status: Active Member Role Status Dates Dr. Dennise Sahni MD Primary Care Provider Active Start: August 04, 2024 Dr. Dennise Sahni MD Other Provider Active Start: August 04, 2024 Dr. Tristen Guevara MD Attending Provider Active Start: August 04, 2024 Dr. Tristen Guevara MD Referring Provider Active Start: August 04, 2024 MICHELLEFADIA OrtizMiguelangel Other Provider Active Start: August 04, 2024 Team Status: Inactive Member Role Status Dates Dr. Dennise Sahni MD Primary Care Provider Active Start: August 11, 2024 End: August 11, 2024 Francheska Powell MACHINE LACER, MACHINE LACER-C Attending Provider Active Start: August 11, 2024 End: August 11, 2024 Francheska Powell MACHINE LACER, MACHINE LACER-C Referring Provider Active Start: August 11, 2024 [...] 2024 End: September 13, 2024 Francheska Powell MACHINE LACER, MACHINE LACER-C Attending Provider Active Start: September 13, 2024 End: September 13, 2024 Team Status: Inactive Member Role Status Dates Dr. Dennise Sahni MD Primary Care Provider Active Start: September 13, 2024 End: September 13, 2024 Francheska Powell MACHINE LACER, MACHINE LACER-C Attending Provider Active Start: September 13, 2024 [...] 2024 End: September 13, 2024 Francheska Powell MACHINE LACER, MACHINE LACER-C Attending Provider Active Start: September 13, 2024 End: September 13, 2024 Team Status: Inactive Member Role/Relationship Status Dates Dr. Dennise Sahni MD Primary Care Provider Active Start: September 13, 2024 End: September 13, 2024 Francheska Powell MACHINE LACER, MACHINE LACER-C Attending Provider Active Start: September 13, 2024 End: September 13, 2024 Team Status: Inactive Member Role/Relationship Status Dates Dr. Dennise Sahni MD Primary Care Provider Active Start: September 21, 2024 End: September 21, 2024 Dr. Dennise Sahni MD Referring Provider Active Start: September 21, 2024 End: September 21, 2024 Francheska Powell MACHINE LACER, MACHINE LACER-C Attending Provider Active Start: September 21, 2024 End: September 21, 2024 Team Status: Inactive Member Role/Relationship Status Dates Dr. Dennise Sahni MD Primary Care Provider Active Start: October 13, 2024 End: October 13, 2024 Dr. Dennise Sahni MD Referring Provider Active Start: October 13, 2024 End: October 13, 2024 Krystina Steel MACHINE LACER, MACHINE LACER-C Attending Provider Active Start: October 13, 2024 [...] 10, 2025 End: January 10, 2025 Krystina Damián MACHINE LACER, MACHINE LACER-C Attending Provider Active Start: January 10, 2025 End: January 10, 2025 Team Status: Inactive Member Role/Relationship Status Dates Dr. Dennise Sahni MD Primary Care Provider Active Start: October 13, 2024 End: October 13, 2024 Dr. Dennise Sahni MD Referring Provider Active Start: October 13, 2024 End: October 13, 2024 Krystina Damián MACHINE LACER, MACHINE LACER-C Attending Provider Active Start: October 13, 2024 [...] January 10, 2025 End: January 10, 2025 Krystinasanjiv SuarezDamián MACHINE LACER, MACHINE LACER-C Attending Provider Active Start: January 10, 2025 End: January 10, 2025 Team Status: Inactive Member Role/Relationship Status Dates Dr. Dennise Sahni MD Primary Care Provider Active Start: February 01, 2025 End: February 01, 2025 Krystina Damián MACHINE LACER, MACHINE LACER-C Attending Provider Active Start: February 01, 2025 End: February 01, 2025 Krystina Damián MACHINE LACER, MACHINE LACER-C Referring Provider Active Start: February 01, 2025 End: February 01, 2025 Team Status: Active Member Role/Relationship Status Dates Dr. Dennise Sahni MD Primary Care Provider Active Start: February 04, 2025 Krystina Damián MACHINE LACER, MACHINE LACER-C Attending Provider Active Start: February 04, 2025 Krystina Damián MACHINE LACER, MACHINE LACER-C Referring Provider Active Start: February 04, 2025 Team Status: Inactive Member Role/Relationship Status Dates Dr. Dennise Sahni MD Primary Care Provider Active Start: February 04, 2025 End: February 04, 2025 Krystina Damián MACHINE LACER, MACHINE LACER-C Attending Provider Active Start: February 04, 2025 End: February 04, 2025 Krystina Damián MACHINE LACER, MACHINE LACER-C Referring Provider Active Start: February 04, 2025 End: February 04, 2025 Team Status: Active Member Role/Relationship Status Dates [...] 10, 2025 End: January 10, 2025 Krystina Damián MACHINE LACER, MACHINE LACER-C Attending Provider Active Start: January 10, 2025 End: January 10, 2025 Team Status: Inactive Member Role/Relationship Status Dates Dr. Dennise Sahni MD Primary Care Provider Active Start: February 01, 2025 End: February 01, 2025 Krystina Damián MACHINE LACER, MACHINE LACER-C Attending Provider Active Start: February 01, 2025 End: February 01, 2025 Krystina Damián MACHINE LACER, MACHINE LACER-C Referring Provider Active Start: February 01, 2025 End: February 01, 2025 Team Status: Inactive Member Role/Relationship Status Dates Dr. Dennise Sahni MD Primary Care Provider Active Start: February 04, 2025 End: February 04, 2025 Krystina Damián MACHINE LACER, MACHINE LACER-C Attending Provider Active Start: February 04, 2025 End: February 04, 2025 Krystina Damián MACHINE LACER, MACHINE LACER-C Referring Provider Active Start: February 04, 2025 End: February 04, 2025 Team Status: Inactive Member Role/Relationship Status Dates Dr. Dennise Sahni MD Primary Care Provider Active Start: February 11, 2025 End: February 11, 2025 Dr. Dennise Sahni MD Referring Provider Active Start: February 11, 2025 End: February 11, 2025 Dr. Michael Ashraf MD Attending Provider Active Start: February 11, 2025 End: February 11, 2025 Team Status: Active Member Role/Relationship Status Dates Dr. Dennise Sahni MD Primary care physician Activ e Team Status: Inactive Member Role/Relationship Status Dates Dr. Dennise Sahni MD Primary care physician Activ e Start: January 10, 2025 End: January 10, 2025 Dr. Dennise Sahni MD Referring Provider Active Start: January 10, 2025 End: January 10, 2025 Krystina Damián MACHINE LACER, MACHINE LACER-C Attending physician Active Start: January 10, 2025 End: January 10, 2025 Team Status: Inactive Member Role/Relationship Status Dates Dr. Dennise Sahni MD Primary care physician Activ e Start: February 01, 2025 End: February 01, 2025 Krystina Damián MACHINE LACER, MACHINE LACER-C Attending physician Active Start: February 01, 2025 End: February 01, 2025 Krystina Damián MACHINE LACER, MACHINE LACER-C Referring Provider Active Start: February 01, 2025 End: February 01, 2025 Team Status: Inactive Member Role/Relationship Status Dates Dr. Dennise Sahni MD Primary care physician Activ e Start: February 04, 2025 End: February 04, 2025 Krystina Damián MACHINE LACER, MACHINE LACER-C Attending physician Active Start: February 04, 2025 End: February 04, 2025 Krystina Damián MACHINE LACER, MACHINE LACER-C Referring Provider Active Start: February 04, 2025 End: February 04, 2025 Team Status: Inactive Member Role/Relationship Status Dates Dr. Dennise Sahni MD Primary care physician Activ e Start: February 11, 2025 End: February 11, 2025 Dr. Dennise Sahni MD Referring Provider Active Start: February 11, 2025 End: February 11, 2025 Dr. Michael Ashraf MD Attending physician Active Start: February 11, 2025 End: February 11, 2025 Team Status: Inactive Member Role/Relationship Status Dates Dr. Dennise Sahni MD Primary care physician Activ e Start: February 16, 2025 End: February 16, 2025 Dr. Michael Ashraf MD Attending physician Active Start: February 16, 2025 End: February 16, 2025 Dr. Michael Ashraf MD Referring Provider Active Start: February 16, 2025 End: February 16, 2025 Team Status: Active Member Role/Relationship Status Dates Dr. Dennise Sahni MD Primary care physician Activ e Start: February 16, 2025 Dr. Michael Ashraf MD Attending physician Active Start: February 16, 2025 Dr. Michael Ashraf MD Referring Provider Active Start: February 16, 2025 Dr. Michael Ashraf MD Nurse Practitioner Active Start: February 16, 2025 Team Status: Inactive Member Role/Relationship Status Dates Dr. Dennise Sahni MD Primary care physician Activ e Start: February 25, 2025 End: February 25, 2025 Dr. Dennise Sahni MD Referring Provider Active Start: February 25, 2025 End: February 25, 2025 Dr. Michael Ashraf MD Attending physician Active Start: February 25, 2025 End: February 25, 2025 Team Status: Inactive Member Role/Relationship Status Dates Dr. Dennise Sahni MD Primary care physician Activ e Start: March 02, 2025 End: March 02, 2025 Dr. Dennise Sahni MD Referring Provider Active Start: March 02, 2025 End: March 02, 2025 Dr. Tristen Guevara MD Attending physician Active Start: March 02, 2025 End: March 02, 2025 Team Status: Active Member Role/Relationship Status Dates Dr. Dennise Sahni MD Primary care physician Activ e Start: March 02, 2025 Dr. Dennise Sahni MD Nurse Practitioner Active Start: March 02, 2025 Dr. Tristen Guevara MD Attending physician Active Start: March 02, 2025 Dr. Tristen Guevara MD Referring Provider Active Start: March 02, 2025 ZULMA MARTINEZ Nurse Practitioner Active Sta rt: March 02, 2025 Team Status: Active Member Role/Relationship Status Dates Dr. Dennise Sahni MD Primary care physician Activ e Start: March 17, 2025 Dr. Dennise Sahni MD Nurse Practitioner Active Start: March 17, 2025 Dr. Tristen Guevara MD Attending physician Active Start: March 17, 2025 Dr. Tristen Guevara MD Referring Provider Active Start: March 17, 2025 ZULMA MARTINEZ Nurse Practitioner Active Sta rt: March 17, 2025 Team Status: Inactive Member Role/Relationship Status Dates Dr. Dennise Sahni MD Primary care physician Activ e Start: March 17, 2025 End: March 17, 2025 Dr. Dennise Sahni MD Referring Provider Active Start: March 17, 2025 End: March 17, 2025 Dr. Tristen Guevara MD Attending physician Active Start: March 17, 2025 End: March 17, 2025 Team Status: Inactive Member Role/Relationship Status Dates Dr. eDnnise Sahni MD Primary care physician Activ e Start: March 28, 2025 End: March 28, 2025 Dr. Dennise Sahni MD Referring Provider Active Start: March 28, 2025 End: March 28, 2025 Dr. Michael Ashraf MD Attending physician Active Start: March 28, 2025 End: March 28, 2025 Team Status: Inactive Member Role/Relationship Status Dates Dr. Dennise Sahni MD Primary care physician Activ e Start: March 31, 2025 End: March 31, 2025 Dr. Michael Ashraf MD Attending physician Active Start: March 31, 2025 End: March 31, 2025 Dr. Michael Ashraf MD Referring Provider Active Start: March 31, 2025 End: March 31, 2025 Team Status: Active Member Role/Relationship Status Dates Dr. Dennise Sahni MD Primary care physician Activ e Start: April 06, 2025 Dr. Dennise Sahni MD Nurse Practitioner Active Start: April 06, 2025 Dr. Tristen Guevara MD Attending physician Active Start: April 06, 2025 Dr. Tristen Guevara MD Referring Provider Active Start: April 06, 2025 ZULMA MARTINEZ Nurse Practitioner Active Sta rt: April 06, 2025 Team Status: Inactive Member Role/Relationship Status Dates Dr. Dennise Sahni MD Primary care physician Activ e Start: April 06, 2025 End: April 06, 2025 Dr. Dennise Sahni MD Referring Provider Active Start: April 06, 2025 End: April 06, 2025 Dr. Tristen Guevara MD Attending physician Active Start: April 06, 2025 End: April 06, 2025 FOR RECORDS PERTAINING TO PATIENTS WHO [...] BE BASED ON THE PRIMARY CLINICAL RECORDS. [employer] provides no warranty or guarantee of the accuracy or completeness of information in this document.
[2025-05-12] MEDS: Lactated Ringers 1,000 ML 15 ML IV (09:24)
--- NOTE | 2025-05-12 09:56 | PCM.PRE.AN2 ---
ASA Classification* ASA Classification ASA Classification: 3 Assessment & Plan Anesthesia* Anesthesia Assessment Anesthesia Assessment: Discussed sedation and/or anesthesia options, risks, benefits, and alternatives with patient/parents/legal guardian/POA. Questions invited. The patient/parents/legal guardian/POA seems to understand and agrees to proceed with anesthesia plan. Reviewed the physical assessment, medical history, allergy history and patient home medications list prior to surgery/procedure/anesthetic and documented any changes. Performed airway and anesthesia risk assessments. Anesthesia Type Anesthesia Type: General History Source History Obtained from:: Patient and Chart Anesthesia Focused Assessment* Temperature: 97.7 F Pulse Rate: 64 Blood Pressure: 131/75 Respiratory Rate: 16 Pulse Ox: 96 Oxygen Delivery Method: Room Air Airway Assessment Mouth opens: >3 cm Mallampati Score: III Teeth Condition: Caps/Crowns (Patient has a right lower molar with a crown. It is tight.) and Missing (Patient has couple missing molars. Rest the teeth are tight.) Neck Range of motion (ROM): Limited ROM (Somewhat Decreased) Labs Anesthesia Preop lab: CBC WBC, (4.4-11.0) 9.1 K/mm3 04/06/25, 13:05 RBC, (4.2-5.4) 4.47 M/mm3 04/06/25, 13:05 Hgb, (12.0-15.0) 11.9 g/dL L 04/06/25, 13:05 Hct, (37-47) 40.3 % 04/06/25, 13:05 Plt Count, (150-450) 352 K/mm3 04/06/25, 13:05 CHEMISTRY Potassium, (3.3-5.1) 4.2 mmol/L 04/06/25, 13:05 Sodium, (133-145) 141 mmol/L 04/06/25, 13:05 BUN, (4-19) 22 mg/dL H 04/06/25, 13:05 Creatinine, (0.70-1.20) 0.74 mg/dL 04/06/25, 13:05 Glucose, (70-99) 105 mg/dL H 04/06/25, 13:05 TSH, (0.358-3.74) 3.27 uIU/mL 08/06/21, 12:01 COAG Pre-Assessment Diagnosis/Proposed Procedure Planned Operative Procedure(s): LEFT SIMPLE MASTECTOMY WITH LEFT AXILLARY SENTINEL LYMPH NODE BX Anesthesia History Anesthesia History - higher education administrator: Anesthesia History - higher education administrator Hx Hospitalization No 04/29/25 11:36 Any Problems With Anesthesia Yes: N,V/SPINAL HEADACHE 04/29/25 11:36 Cholinesterase deficiency No 04/29/25 11:36 You/Your Family Experience No 04/29/25 11:36 fever (hyperthermia) with Relationship Recent Exposure to Contagious No 05/10/25 10:34 Disease Does patient have nerve No 04/29/25 11:36 stimulator Patient instructed to have device shut off --Does patient have Pacemaker No 05/12/25 09:19 or ICD? When Was Last Pacemaker Check QUESTION #4 FULL TEXT: You/Your Family Experience fever (hyperthermia) with Anesthesia Last Oral Intake Last Oral intake: Last Oral Intake NPO since 05:30 05/12/25 09:19 Meds taken in AM with sips of Yes 05/12/25 09:19 water? Meds patient instructed to see med list 05/12/25 09:19 take am of surgery Any additional information?: Yes NPO since: 05:30 (Black coffee at 5:30 AM.) Meds taken in AM with sips of water?: No PONV PONV - higher education administrator: PONV - higher education administrator Female Yes 04/29/25 11:36 HX of Motion Sickness No 04/29/25 11:36 HX of N/V After Surgery Yes 04/29/25 11:36 Non-Smoker Yes 04/29/25 11:36 Duration of Surgery greater Yes 04/29/25 11:36 than 60 minutes Number of Risk Factors 4 04/29/25 11:36 PONV Score Severe Risk 04/29/25 11:36 Height & Weight Height & Weight: Anesthesia: Height & Weight Height 5 ft 5 in 05/12/25 09:19 Weight: 77.2 kg 05/12/25 09:19 Body Mass Index (BMI) 28.3 05/12/25 09:19 Respiratory Assessment Respiratory Assessment - higher education administrator: Respiratory Tract Infection Hx - higher education administrator Hx Respiratory Tract Infection No 04/29/25 11:36 STOP Sleep Apnea STOP Sleep Apnea - higher education administrator: STOP Sleep Apnea - higher education administrator Hx Hypertension Yes: CONTROLLED WITH MED 04/29/25 11:36 Hx Sleep Apnea Yes 04/29/25 11:36 CPAP Yes: NONCOMPLIANT/ 04/29/25 11:36 CLAUSTROPHOBIA BIPAP No 04/29/25 11:36 Do you snore loudly (louder than talking or can be heard Do you often feel tired/ fatigued/ sleepy during daytime? Has anyone observed you stop breathing during sleep? STOP Results Positive 04/29/25 11:36 QUESTION #5 FULL TEXT : Do you snore loudly (louder than talking or can be heard through closed doors)? 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 Specify any problems Hx of Preganancy in last 3 No 04/29/25 11:36 Months Nurse Filling Out Transfusion DSCHRIBER 04/29/25 11:36 & Questions: Date: 04/29/25 04/29/25 11:36 Time: 11:42 04/29/25 11:36 Patient unable to answer at this time (ie. confused, unrespo /Reproduction History /Reproductive History - higher education administrator: /Reproductive Hx- higher education administrator Hx Now No 04/29/25 11:36 Gestational Age (in weeks): EDC: Hx Hx Para Hx Section SAB No 04/29/25 11:36 Does the father of the baby or his family experience fever w Father of the baby Malignant Hypertension history comment Active Medications Active Medications: Current Medications Generic Name Dose Route Start Last Admin Trade Name Freq PRN Reason Stop Dose Admin Lactated Ringer's 1,000 mls @ 15 mls/hr 05/12/25 09:30 05/12/25 09:24 IV 15 mls/hr .Q48H POLA Administration PFSH Medical History Wears glasses History of Clostridium difficile infection Cancer Hx of fracture of pelvis Depression Arthritis Hepatitis High cholesterol Injury of head and neck Migraine headache Seizures Gastric reflux Non-smoker CPAP (continuous positive airway pressure) dependence Leg cramps History of edema History of stress test Hypertension Cardiology follow-up encounter DCIS (ductal carcinoma in situ) of breast Animal-rider injured by fall from or being thrown from horse in noncollision accident, initial encounter History of fractured kneecap Thyroid disorder Heart attack Acquired polycythemia vera Home Medications ?Medication ?Instructions ?Recorded ?Last Taken ?Type aspirin 81 mg chewable tablet 81 mg PO DAILY@0800 07/22/17 05/05/25 History atorvastatin 40 mg tablet 40 mg PO QHS 07/22/17 Unknown History metoprolol tartrate 25 mg tablet 25 mg PO QHS 09/18/22 05/09/25 22:00 History famotidine 20 mg tablet 20 mg PO QHS 12/11/22 Unknown History hydroxyurea 500 mg capsule 2,500 mg (5 x 500 mg) PO QDAY 90 05/05/24 05/08/25 Rx days #450 caps estradiol 0.01% (0.1 mg/gram) 1 appful vaginal TUTH 04/29/25 Unknown History vaginal cream vitamin B complex (Complex B-100 1 tab PO DAILY 04/29/25 Unknown History tablet,extended release) Allergy/AdvReac Type Severity Reaction Status Date / Time No Known Allergies Allergy Verified 05/10/25 10:31 Family History Father Myocardial infarction CVA (cerebral vascular accident) Cancer Mother Cancer Breast cancer of breast CA in 30's Sister Breast cancer dx in early 40's and passed at 68 Uncle Cancer lung Surgical History Hx of foot surgery History of repair of ACL H/O heart artery stent History of knee replacement Social History Smoking Status: Never smoker alcohol intake: never Review of Systems (Anesthesia) ROS Narrative System reviewed and no additional complaints, except as documented.
--- NOTE | 2025-05-12 10:29 | PCM.HP.STD ---
HPI - General General Date of Admission: 05/12/25 Date of Service: 05/12/25 Chief Complaint: Left breast DCIS HPI Narrative PHONG JANG, is a 75 F who presents for left breast mastectomy and sentinel lymph node biopsy. Patient was recently diagnosed with DCIS. She has significant amount of microcalcifications and other findings on MRI that were concerning for widespread DCIS and/or possibly even malignancy. She has elected for a left mastectomy. We have decided to do a sentinel lymph node biopsy as well since the possibility of undiagnosed cancer is also a possibility given the widespread area of presumed DCIS. [facility] Medical History Wears glasses History of Clostridium difficile infection Cancer Hx of fracture of pelvis Depression Arthritis Hepatitis High cholesterol Injury of head and neck Migraine headache Seizures Gastric reflux Non-smoker CPAP (continuous positive airway pressure) dependence Leg cramps History of edema History of stress test Hypertension Cardiology follow-up encounter DCIS (ductal carcinoma in situ) of breast Animal-rider injured by fall from or being thrown from horse in noncollision accident, initial encounter History of fractured kneecap Thyroid disorder Heart attack Acquired polycythemia vera Home Medications ?Medication ?Instructions ?Recorded ?Last Taken ?Type aspirin 81 mg chewable tablet 81 mg PO DAILY@0800 07/22/17 05/05/25 History atorvastatin 40 mg tablet 40 mg PO QHS 07/22/17 Unknown History metoprolol tartrate 25 mg tablet 25 mg PO QHS 09/18/22 05/09/25 22:00 History famotidine 20 mg tablet 20 mg PO QHS 12/11/22 Unknown History hydroxyurea 500 mg capsule 2,500 mg (5 x 500 mg) PO QDAY 90 05/05/24 05/08/25 Rx days #450 caps estradiol 0.01% (0.1 mg/gram) 1 appful vaginal TUTH 04/29/25 Unknown History vaginal cream vitamin B complex (Complex B-100 1 tab PO DAILY 04/29/25 Unknown History tablet,extended release) Allergy/AdvReac Type Severity Reaction Status Date / Time No Known Allergies Allergy Verified 05/10/25 10:31 Family History Father Myocardial infarction CVA (cerebral vascular accident) Cancer Mother Cancer Breast cancer of breast CA in 30's Sister Breast cancer dx in early 40's and passed at 68 Uncle Cancer lung Surgical History Hx of foot surgery History of repair of ACL H/O heart artery stent History of knee replacement Social History Smoking Status: Never smoker alcohol intake: never Vital Signs Vital Signs Vital Signs: 05/12/25 09:19 05/12/25 09:19 05/12/25 09:19 Temperature 97.7 F L Temperature Source Temporal Pulse Rate 64 Respiratory Rate 16 Respiratory Pattern Normal Blood Pressure 131/75 H Blood Pressure Mean 93 Blood Pressure Source Monitor Blood Pressure Position Semi-Fowlers Blood Pressure Location Left Arm Baseline BP 131/75 Pulse Ox 96 Oxygen Delivery Method Room Air 05/12/25 10:02 Temperature 97.7 F L Temperature Source Pulse Rate 64 Respiratory Rate 16 Respiratory Pattern Blood Pressure 131/75 H Blood Pressure Mean Blood Pressure Source Blood Pressure Position Blood Pressure Location Baseline BP Pulse Ox 96 Oxygen Delivery Method Room Air Weight Weight: 170 lb 3.15 oz Body Mass Index (BMI) 28.3 Physical Exam Const alert, oriented x3 and no apparent distress Assessment & Plan Assessment/Plan (1) Ductal carcinoma in situ (DCIS) of left breast: PLAN: Plan The patient is a 75-year-old female with left breast DCIS. The plan is for left simple mastectomy with left axillary sentinel lymph node biopsy. We discussed the details of the planned procedure and she wishes to proceed. This will begin momentarily
[2025-05-12] MEDS: Lidocaine 1% (5 ml sdv) 5 ML Vial IV (10:41)
[2025-05-12] MEDS: fentaNYL 100 MCG/2 ML Ampul IV (10:59)
[2025-05-12] MEDS: Bupiv/Epi 0.25% 30 ML Vial (11:11)
[2025-05-12] MEDS: dexMEDEtomidine 200 MCG/2 ML ML 30 MCG IV (11:32)
--- NOTE | 2025-05-12 12:05 | LYMN_PTH ---
PATIENT: PHONG JANG LOC: [facility] U#:[id number] AGE/SX: 75/F ROOM: [facility] RE05/12/[address]: Dr. Michael Ashraf MD : 1950 BED: 1 DIS: 05/13/2025 SPEC #: [id number] RECD: 05/12/25 12:11 STATUS: DOROTHEA CHLOÉ #: [id number] ALVAREZ: 05/12/25 12:[address]: Michael Ashraf DEPT: SURGICAL PATHOLOGY RECD BY: Jen Cain ENTERED: 05/12/25 13:46 SP TYPE: LYMPH NODE OTHR DR: MD Dr. Dennise Meneses MD Tissues: A - LYMPH NODE BIOPSY B - Left breast, NOS Procedures: Frozen Section (charge) Immunohistochemical Stains Surgery Specimen Level IV Surgery Specimen Level V IHC Stain ADDITIONAL HEADER OPERATION: Left simple mastectomy, sentinel lymph node biopsy PRE-OP DIAGNOSIS: Ductal carcinoma in situ (DCIS) of left breast TISSUE SUBMITTED: A. Left axillary sentinel lymph node fresh, B. Left breast tissue long tag lateral short tag superior, C. Left axillary contents, D. Additional breast tissue, left FROZEN SECTION DIAGNOSIS A. Left, axillary sentinel lymph node, biopsy: Benign. LD/mr 05/12/2025 MICROSCOPIC DIAGNOSIS A. Lymph node, sentinel, axillary, left, excision: - One lymph node negative for metastasis (0/1). - IHC for pankeratin (A1, A2) supports the histologic impression. B. Breast, left, simple mastectomy: - Ductal carcinoma in situ (DCIS), extensive, margins free. - Intermediate to high nuclear grade with comedo necrosis; cribriform and solid patterns. - Biopsy site changes. - Fibrocystic mastopathy with scattered microcalcifications. - IHC for E-cadherin, CK5/6, p40, and ERG support the histologic impression. - Skin with seborrheic keratosis. - See Synoptic Report. C. Axilla, left, contents, excision: - Two lymph nodes negative for metastasis (0/2). D. Breast, left, additional tissue, excision: - Benign adipose tissue. SYNOPTIC REPORT FOR DUCTAL CARCINOMA IN SITU (DCIS) OF BREAST: Specimen (P=partial, M=mastectomy):?M Laterality (R=right, L=left):?L Histologic type:?DCIS Nuclear grade:?intermediate to high nuclear grade Architectural patterns:?cribriform, solid Necrosis (C=comedo, F=focal, N=not identified):?C Microcalcifications (P=present, N=not identified):?P Estimated largest size in case (cm):?9.1 x 4.7 x 3.6 cm area grossly fibrotic or indurated?(microscopically the area involved by DCIS is less, but cannot be specifically determined due to sectioning); DCIS is identified in central, subareolar, and upper outer quadrant areas of the specimen. Number of involved slides in case:?7 ? Margins (P=positive, N=negative, NA=not applicable): ??? Margins of main specimen:?N ??? Distance to closest margin of main specimen (mm):?8 mm ?Designation of closest margin of main specimen:?superior ?? ?Designation of other margins of main specimen </=2 mm:?NA ?Longest span </= 2 mm to margin of main specimen (mm):?NA ??? Re-resection margin status:?negative (part D) ? Regional lymph nodes (NA=not applicable): ?? Total number of lymph nodes:?3 ???Number of sentinel lymph nodes:?1 ?? Number with macrometastases:?0 ?? Number with micrometastases:?0 ?? Number with isolated tumor cells:?0 ???Size of largest angel metastasis (mm):?NA ?? Size of extranodal extension (mm):?NA ? Estrogen receptor:?positive (100%, strong intensity) Progesterone receptor:?positive (5-10%, weak intensity) Ki67: 10% Specimen in which ER/OK performed:?[id number] pTNM:?pTis (DCIS) pN0 Additional findings:?fibrocystic mastopathy with microcalcifications, biopsy site changes, seborrheic keratosis of skin. ? The above synoptic report complies, in slightly modified form, with the guidelines of the [employer] and the Association of [employer] Path[employer] for the reporting of cancer specimens ? MICROSCOPIC DESCRIPTION Slides are reviewed. GROSS DESCRIPTION A. Received fresh for frozen section diagnosis labeled patient's name and date of . Designated as left axillary sentinel lymph node fresh is a 2.3 x 1.8 x 1.3 cm lymph node with blue dye and attached soft tissue. The lymph node is serially sectioned and entirely submitted for frozen section diagnosis and subsequently placed in cassettes A1-A2 for permanent sections. The remaining soft tissue is submitted in cassette A3. B. Received fresh and subsequently placed in formalin, labeled with the patient's name and date of . Designated as left breast tissue is a 642 g mastectomy measuring 21.4 x 19.8 x 4.1 cm. The 18.8 x 9.4 cm attached portion of skin has an eccentric nipple and areola, 1.2 cm and 3.9 cm, respectively. The nipple is not inverted. There are focal, hinds slightly raised lesions on the skin (0.2 cm to 0.8 cm) in addition to blue dye discoloration of the nipple, areola and surrounding skin, in an area measuring approximately 9.6 x 8.4 cm. An axillary tail is not present. Muscle is not present on the posterior aspect.There is a short suture designated as superior and a long suture designated as lateral. The specimen is inked as follows: Superior: BlueInferior: Green Posterior: BlackLateral: OrangeMedial: Yellow The specimen is serially sectioned into revealing fibrofatty cut surfaces with blue dye discoloration; there is an area of nodular, somewhat cystic fibrosis involving the central breast and spanning to the upper outer quadrant, collectively measuring 9.1 x 4.7 x 3.6 cm; a definitive discrete mass is not identified within the area of fibrosis however, there is focal induration. The area of fibrosis is located the following distances from the margins: Superior: <0.1 cmInferior: 0.4 cmPosterior: 0.6 cm Adjacent to the area of fibrosis is a biopsy site, containing a biopsy clip with an adjacent hematoma, collectively measuring 0.9 x 0.6 x 0.3 cm. The biopsy site and hematoma are located centrally, at approximately 12:00 and located approximately 0.2 cm from the superior margin. Also received within the container is a 31 g, 7.3 x 5.9 x 1.9 cm hinds-yellow focally cauterized portion of fibrofatty tissue. Social Scientist sections are submitted as follows: B1-B8: Nipple and areola, entirely submittedB9: Skin [id number]: Upper inner qeitxdvbC07: Lower inner umvianynY22: Central fibrosis with ykcdnwlkbhO28: Central fibrosis with prominent wwuqtdvajgO94: Biopsy site with adjacent hematoma, no plqrdpeQ08: Biopsy site with adjacent hematoma, skin and superior aejyoeB99: Superior margin, ewvppgnJ77: Posterior margin, bpenxsbV72: Upper outer quadrant epyqsewhK30: Lower outer sfuuwhohD82: Additional portion of fibrofatty tissue Cold ischemic time: 30 minutesFormalin fixation time: 30 hours, 48 minutes C. Received in formalin labeled with the patient's name and date of . Designated as left axillary contents is a 3.4 x 2.6 x 0.8 cm aggregate of hinds-yellow, semifirm soft tissue. Sectioning reveals 2 hinds-red, soft and fatty to firm lymph nodes, 1.0 x 0.7 x 0.4 cm (#1) and 2.9 x 1.6 x 0.8 cm (#2). Entirely submitted in 4 cassettes as follows: C1: Lymph node #1C2-C4: Lymph node #2 D. Received in formalin labeled with the patient's name and date of . Designated as additional breast tissue, left is an 8.3 x 5.3 x 1.1 cm aggregate of hinds-yellow lobulated soft tissue. The specimen is devoid of orientation. Sectioning reveals fibrofatty cut surfaces (90% fatty, 10% fibrotic). Definitive lesions are not grossly identified. Social Scientist sections are submitted in 3 cassettes. NC 05/12/2025PT:[id number]
--- NOTE | 2025-05-12 13:03 | PCM.OPRPT ---
Oncology: Alexandro Requirements . Oncology surgical intervention performed: [place] Node Biopsy for Breast Cancer performed [place] Node Bx - Breast Cancer: Synoptic Portion: Element Response Options Operation performed with curative intent. yes Tracer(s) used to identify sentinel nodes in the upfront surgery (non-neoadjuvant) setting (select all that apply). Dye & tracer Tracer(s) used to identify sentinel nodes in the neoadjuvant setting (select all that apply).N/A.] All nodes (colored or non-colored) present at the end of a dye-filled lymphatic channel were removed. Yes All significantly radioactive nodes were removed. Yes All palpably suspicious nodes were removed. Yes Biopsy-proven positive nodes marked with clips prior to chemotherapy were identified and removed. N/A.] Multi Select Codes Integumentary Integumentary CPT Codes: 26390 Mast simple complete Respiratory/Cardiovascular Resp/Cardiovascular CPT Codes: 70921 Biopsy/removal lymph nodes and 81514 Io map of sent lymph node Operative Report (Standard) Operative Information Date of Procedure: 05/12/25 Pre-Operative Diagnosis: Left breast DCIS Post-Operative Diagnosis: Same Surgery/Procedure Performed: 1. Left breast simple mastectomy 2. Left axillary sentinel lymph node biopsy die cut operator: Yes Diesel Engine Mechanic: Beth Baeza Tasks completed by after school program assistant: Closing and Retracting Additional malt specifications control assistant?: No Type of Anesthesia: General and Local RN Documented Start/Stop Times: Operation Date: 05/12/25 10:30 Case Time Into Pre-Op 05/12/25 09:00 Out of Pre-Op 05/12/25 10:33 Anesthesia Start 05/12/25 10:37 Into Room 05/12/25 10:37 Procedure Start 05/12/25 11:08 Procedure End 05/12/25 13:18 Anesthesia End 05/12/25 13:24 Out of Room 05/12/25 13:24 Into Recovery 05/12/25 13:27 Out of Recovery 05/12/25 15:19 Procedure Start Time: 11:08 Procedure Stop Time: 13:18 Select all DRAINS/GRAFTS/IMPLANTS that apply: Drains Drain details: 10 Telugu fully fluted KESHIA drain x 2 Estimated Blood Loss: 40 mL Specimen collected: Yes Description of specimen(s) removed: 1. Left breast mastectomy 2. Left axillary sentinel lymph node x 1 3. Left axillary contents/multiple lymph nodes which were not considered sentinel nodes but were enlarged Description of surgery: The patient is a 75-year-old female who recently underwent left breast biopsy performed stereotactically for microcalcifications. These were widely scattered throughout the left breast. The biopsy came back positive for DCIS. I had her undergo an MRI to further characterize the area. There were numerous areas of suspicious contrast uptake. Due to concern for possible malignancy and/or widespread DCIS, patient elected for a left breast lumpectomy. We also elected to perform a stereotactic left biopsy in case malignancy was identified on pathology of the mastectomy specimen. Patient wished to proceed. We discussed the details of the planned procedure. The patient was brought to the op room today following informed consent. Earlier in the day radioactive tracer/Lymphoseek was injected into the left periareolar area. Isosulfan blue was then injected into the periareolar area as well. This was massaged into the breast for several minutes. Patient was prepped and draped in the usual sterile manner. Marking pen was used to kannan out the incision lines. Local anesthetic was infiltrated into the region. #10 blade was then used to make the skin incisions. Bovie electrocautery was then used to dissect down through subcutaneous tissues. Superior and inferior flaps were then created with the help of skin rakes and electrocautery. This was carried both cephalad and inferior directions. Once sufficient flaps were created the breast was removed from the chest wall in a medial to lateral direction. The left axilla was then examined and dissected. There was 1 particular lymph node that had elevated counts and was clearly stained blue. This was sent to pathology for frozen section labeled sentinel lymph node. This came back as negative. Additional lymph nodes were encountered in the left axilla. There was 1 particular lymph node that was fairly sizable approaching almost 2 cm. This did not have radioactivity nor did it have blue coloration. Nevertheless I remove this lymph node as well as another small adjacent lymph node. No other significant counts were noted in the left axilla on the neoprobe. The wound was then copiously irrigated. Any raw surfaces were promptly cauterized. The wound was then closed after 2 KESHIA drains were placed. 1 was coiled in the left axilla and 1 was across the chest wall. The incision was closed using 2-0 Vicryl and then 4-0 Vicryl. Skin glue along with the Mepilex dressing was applied. Fluffs and a postop bra was also applied. She was awakened anesthesia and taken to recovery in good conditions Surgical Findings: See operative note Complications Complications: No Admit VTE Documentation VTE Present on Admission: No VTE Mechan Device Prophylaxis: SCD's VTE Pharm Prophylaxis ordered?: No
--- NOTE | 2025-05-12 13:33 | PCM.POST.ANE ---
Anesthesia: Postop Eval I Current Vital Signs Temperature: 99.4 F Pulse Rate: 86 Blood Pressure: 111/65 Respiratory Rate: 16 Pulse Ox: 94 Oxygen Delivery Method: Nasal Cannula Oxygen Flow Rate (L/min): 4 Assessment Airway patent: Yes Spontaneous unlabored respirations: Yes Mental status: Awake and Calm nausea: No Vomiting: No Anesthesia Complication: No Fluid Hydration Crystalloid volume administer (ml): 1,800 Total IV fluid infused: 1,800 Progress Note Anesthesia document: Postop Eval 1 completed: Yes
--- NOTE | 2025-05-12 16:14 | POSTOPAN2_ITS ---
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
--- NOTE | 2025-05-12 16:14 | PCM.POSTANE2 ---
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 PHYSICAL THERAPY [email or web address] Anesthesia Postop Eval I: Fluid Summary Crystalloid volume administer 1,800 05/12/25 13:34 STAFF PHYSICAL THERAPY [email or web address] (ml) Colloids volume administered ( ml) Blood Product volume administered (ml) Total IV fluid infused 1,800 05/12/25 13:34 STAFF PHYSICAL THERAPY [email or web address] Anesthesia Postop Eval I: Summary Notes Anesthesia Complication No 05/12/25 13:34 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
--- NOTE | 2025-05-12 16:56 | PCM.DC.SUM ---
Documented by User: Dr. Michael Ashraf MD 05/12/25 17:03 Providers Date of Admission: 05/12/25 Primary Care Physician: Dr. Dennise Sahni MD Reason For Visit: S/P Mastectomy Diagnosis Discharge Diagnosis (1) Ductal carcinoma in situ (DCIS) of left breast: Status: Acute Code(s): D05.12 - Intraductal carcinoma in situ of left breast Plan The patient is a 75-year-old female with left breast DCIS. The plan is for left simple mastectomy with left axillary sentinel lymph node biopsy. We discussed the details of the planned procedure and she wishes to proceed. This will begin momentarily Medications at Discharge Home Medications aspirin 81 mg chewable tablet 81 mg PO DAILY@0800 heart health 07/22/17 atorvastatin 40 mg tablet 40 mg PO QHS cholesterol 07/22/17 metoprolol tartrate 25 mg tablet 25 mg PO QHS blood pressure 09/18/22 famotidine 20 mg tablet 20 mg PO QHS reflux 12/11/22 hydroxyurea 500 mg capsule 2,500 mg (5 x 500 mg) PO QDAY 90 days #450 caps 05/05/24 estradiol 0.01% (0.1 mg/gram) vaginal cream 1 appful vaginal TUTH 04/29/25 vitamin B complex (Complex B-100 tablet,extended release) 1 tab PO DAILY vitamin 04/29/25 oxycodone 5 mg tablet 5 mg PO Q8H PRN pain 3 days #10 tabs 05/12/25 Hospital Course Operations - (Left mastectomy with left axillary sentinel lymph node biopsy) Summary of Care Provided Minutes Spent on Discharge: 15 Hospital Course: The patient is a 75-year-old female who recently underwent a biopsy of the left breast for microcalcifications. This came back as DCIS. She had a very widespread area of microcalcifications. I had her undergo a MRI. This showed a diffuse area of suspicion. We discussed her surgical options and she has opted for a mastectomy. A sentinel lymph node biopsy was also recommended in case an invasive component was found in her pathology. Surgery was performed on the date of admission. She tolerated this well. Surgery was uneventful. She was subsequently admitted with plans for discharge the following day. Physical Exam Const alert, oriented x3 and no apparent distress Weight / BMI Weight Weight: 170 lb 3.15 oz Body Mass Index (BMI) 28.3 Radiography Diagnostic Testing: Radiology Impression [place] Node 05/12/25 08:58 IMPRESSION: Radiopharmaceutical injection for left sentinel node imaging. The patient tolerated the procedure well. Reading Location: [place] [address] D/C Instructions Discharge Activity: Return to Normal Activity May shower in (days): 1 Call your doctor if your incision/area has: Continuous Slow Oozing, Sudden Increased Bleeding, Increased Pain/ Swelling, Increased Redness, Foul Smelling Discharge and Swelling at the incision site Call your doctor if you observe: Fever of 101 or Higher Remove Dressing in: 3 days Cleanse incision/area with: Soap & Water DC O2, CPAP, BIPAP Needs Home O2 Discharge instructions: No DC home with Oxygen: No Please Follow Up With: Michael Ashraf MD When: 1 week for KESHIA drain removal. Please call office to schedule appointment Meaningful Use Info Meaningful Use Meaningful Use Diagnoses (Choose all that apply): None applicable Discharge Plan Admission Admit Date/Time: 05/12/25 12:59 Primary Reason for Your Visit: Left mastectomy Attending Provider: Michael Ashraf Primary Care Provider: Dennise Sahni Consulting Providers: Tristen Guevara Discharge Orders/Prescriptions Prescriptions: New oxycodone 5 mg tablet 5 mg PO Q8H PRN (Reason: pain) 3 Days Qty: 10 0RF Continued famotidine 20 mg tablet 20 mg PO QHS hydroxyurea 500 mg capsule 2,500 mg PO QDAY 90 Days Qty: 450 4RF atorvastatin 40 MG tablet 40 mg PO QHS aspirin 81 MG tablet,chewable 81 mg PO DAILY@0800 metoprolol tartrate 25 mg tablet 25 mg PO QHS Complex B-100 Tablet Extended Release 1 tab PO DAILY estradiol 0.01 % (0.1 mg/gram) cream 1 appful vaginal TUTH Rx Instructions: small amount(.25mg) as directed vaginal every other day X 4 weeks then twice a week; Referrals / Follow Up: Dennise Sahni MD [Primary Care Provider, Internal Medicine] Disposition Disposition (needs filled in before D/C Order can be placed): Home, Self Care Documented by User: Dr. Roger Laughlin MD 05/13/25 18:16 Providers Date of Admission: 05/12/25 Reason For Visit: S/P Mastectomy Diagnosis Discharge Diagnosis (1) Ductal carcinoma in situ (DCIS) of left breast: Status: Acute Code(s): D05.12 - Intraductal carcinoma in situ of left breast Medications at Discharge Home Medications aspirin 81 mg chewable tablet 81 mg PO DAILY@0800 heart health 07/22/17 atorvastatin 40 mg tablet 40 mg PO QHS cholesterol 07/22/17 metoprolol tartrate 25 mg tablet 25 mg PO QHS blood pressure 09/18/22 famotidine 20 mg tablet 20 mg PO QHS reflux 12/11/22 hydroxyurea 500 mg capsule 2,500 mg (5 x 500 mg) PO QDAY 90 days #450 caps 05/05/24 estradiol 0.01% (0.1 mg/gram) vaginal cream 1 appful vaginal TUTH 04/29/25 vitamin B complex (Complex B-100 tablet,extended release) 1 tab PO DAILY vitamin 04/29/25 oxycodone 5 mg tablet 5 mg PO Q8H PRN pain 3 days #10 tabs 05/12/25 Hospital Course Summary of Care Provided Hospital Course: The patient is a 75-year-old female who recently underwent a biopsy of the left breast for microcalcifications. This came back as DCIS. She had a very widespread area of microcalcifications. I had her undergo a MRI. This showed a diffuse area of suspicion. We discussed her surgical options and she has opted for a mastectomy. A sentinel lymph node biopsy was also recommended in case an invasive component was found in her pathology. Surgery was performed on the date of admission. She tolerated this well. Surgery was uneventful. She was subsequently admitted with plans for discharge the following day. Postoperative recovery transiently complicated by some postoperative reflux and vomiting but this improved by the morning of postoperative day 1 and diet was advanced without difficulty. Patient was provided drain care instruction which she received well. She was was granted discharge to home later on postoperative day 1. Physical Exam Chest Chest Narrative: Appropriate appearance of mastectomy site with dressings clean dry and intact. Drains minimally serosanguineous and output (drain tubing stripped of all clots) Weight / BMI Weight Weight: 170 lb 3.15 oz Body Mass Index (BMI) 28.3 Radiography Diagnostic Testing: Radiology Impression [place] Node 05/12/25 08:58 IMPRESSION: Radiopharmaceutical injection for left sentinel node imaging. The patient tolerated the procedure well. Reading Location: [place] [address] Discharge Plan Admission Admit Date/Time: 05/12/25 12:59 Primary Reason for Your Visit: Left mastectomy Attending Provider: Michael Ashraf Primary Care Provider: Dennise Sahni Consulting Providers: Tristen Guevara Discharge Orders/Prescriptions Prescriptions: New oxycodone 5 mg tablet 5 mg PO Q8H PRN (Reason: pain) 3 Days Qty: 10 0RF Continued famotidine 20 mg tablet 20 mg PO QHS hydroxyurea 500 mg capsule 2,500 mg PO QDAY 90 Days Qty: 450 4RF atorvastatin 40 MG tablet 40 mg PO QHS aspirin 81 MG tablet,chewable 81 mg PO DAILY@0800 metoprolol tartrate 25 mg tablet 25 mg PO QHS Complex B-100 Tablet Extended Release 1 tab PO DAILY estradiol 0.01 % (0.1 mg/gram) cream 1 appful vaginal T[facility] Rx Instructions: small amount(.25mg) as directed vaginal every other day X 4 weeks then twice a week; Referrals / Follow Up: Dennise Sahni MD [Primary Care Provider, Internal Medicine] Disposition Disposition (needs filled in before D/C Order can be placed): Home, Self Care Charges/Coding Visit Charges Inpatient E&M: 73290 Disch Hosp
[2025-05-13 02:38] VITALS: BP 100/60; PULSE 83; RESP 14; TEMP 36.8; O2SAT 92
--- NOTE | 2025-05-13 07:51 | PN.SURG_ITS ---
Subjective Subjective Patient seen and examined during AM rounds. She is found resting in bed. She states that overall she is doing much better than she was yesterday. She states that she remained nauseous even after administration of Reglan that I prescribed. She states she then vomited everything in her stomach and thereafter was able to get rest. She denies any upset stomach this morning. She denies any significant pain from her surgical site. Objective Data Objective Data Vital Signs: Vital Signs Temp Pulse Resp BP Pulse Ox O2 Del Method O2 Flow Rate 98.3 F 83 14 100/60 92 Room Air 2 05/13/25 02:38 05/13/25 02:38 05/13/25 02:38 05/13/25 02:38 05/13/25 02:38 05/13/25 02:38 05/12/25 17:43 Oxygen Flow Rate (L/min) 2 Oxygen Delivery Method Room Air Weight: 170 lb 3.15 oz Body Mass Index (BMI) 28.3 Intake & Output: Intake and Output for Last 24 Hours 05/11/25 05/12/25 05/13/25 23:59 23:59 23:59 Intake Total 1900.0 / 1900.0 Output Total 555 / 555 170 / 170 Balance 1345.0 / 1345.0 -170 / -170 Radiography Diagnostic Testing: Radiology Impression [place] Node 05/12/25 08:58 IMPRESSION: Radiopharmaceutical injection for left sentinel node imaging. The patient tolerated the procedure well. Reading Location: [facility] Physical Exam Const oriented x3 and no apparent distress Chest Chest Narrative: Patient's mastectomy site is appropriate with bandages clean dry and intact. Th ere is no visual or palpable evidence of underlying fluid collection. Drains are serosanguineous with some clot in the tubing. Assessment & Plan Assessment/Plan (1) S/P left mastectomy: PLAN: Patient is a 75-year-old female postoperative day 1 from left mastectomy. Overnight course made difficult due to some reflux/upset stomach/nausea and vomiting. Patient feeling better today. Will monitor for tolerance of regular diet and provide drain teaching. Provided these benchmarks are met patient will be discharged home with expected follow-up in general surgery clinic with Dr. Ashraf. Roger Laughlin MD General Surgery Endocrine Surgery Pager: [facility] [address] [place] [address], [address] [place] [address] Office: [phone] Charges/Coding Visit Charges Inpatient E&M: 39313 Subs Hosp L2
--- NOTE | 2025-05-13 07:55 | DCINST_ITS ---
Discharge Instructions DC O2, CPAP, BIPAP needs Home O2 Discharge instructions: No Dressing / Incision May shower in (days): 1 Dressing / Incision Call your doctor if your incision/area has: Continuous Slow Oozing, Sudden Increased Bleeding, Increased Pain/ Swelling, Increased Redness, Foul Smelling Discharge and Swelling at the incision site Call your doctor if you observe: Fever of 101 or Higher Remove Dressing in: 3 days Cleanse incision/area with: Soap & Water Follow Up Care Please Follow Up With: Michael Ashraf MD When: 1.5-2 weeks Test Results: Test results from this visit will be discussed in further detail at your follow- up appointment, if applicable. Discharge Plan Admission Admit Date/Time: 05/12/25 12:59 Primary Reason for Your Visit: Left mastectomy Attending Provider: Michael Ashraf Primary Care Provider: Dennise Sahni Consulting Providers: Tristen Guevara Discharge Orders/Prescriptions Prescriptions: New oxycodone 5 mg tablet 5 mg PO Q8H PRN (Reason: pain) 3 Days Qty: 10 0RF Continued famotidine 20 mg tablet 20 mg PO QHS hydroxyurea 500 mg capsule 2,500 mg PO QDAY 90 Days Qty: 450 4RF atorvastatin 40 MG tablet 40 mg PO QHS aspirin 81 MG tablet,chewable 81 mg PO DAILY@0800 metoprolol tartrate 25 mg tablet 25 mg PO QHS Complex B-100 Tablet Extended Release 1 tab PO DAILY estradiol 0.01 % (0.1 mg/gram) cream 1 appful vaginal TUTH Rx Instructions: small amount(.25mg) as directed vaginal every other day X 4 weeks then twice a week; Referrals / Follow Up: Dennise Sahni MD [Primary Care Provider, Internal Medicine] Disposition Disposition (needs filled in before D/C Order can be placed): Home, Self Care
[2025-05-13 08:09] VITALS: BP 104/53; PULSE 63; RESP 16; TEMP 36.7; O2SAT 91
--- NOTE | 2025-05-13 10:22 | CASEMGMT ---
Patient gamboa order for discharge. RN CM in to discuss needs at discharge. Patient denies needs or help at discharge. 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 Patient had no further questions or concerns.
== END 2025-05-13 11:33 | disposition home or self-care (01) ==
LOC: SDC 13:53 → PCU 13:53
PROVIDERS: Admitting Provider Surgery; PCP Student in an Organized Health Care Education/Training Program; Referring Provider Surgery; Visit Provider Surgery
PROC: (CPT 19307; principal; 2025-05-12 10:15)
DX: D05.12 Intraductal carcinoma in situ of left breast (principal); E78.00 Pure hypercholesterolemia, unspecified; I10 Essential (primary) hypertension; K21.9 Gastro-esophageal reflux disease without esophagitis; Z79.899 Other long term (current) drug therapy; Z79.82 Long term (current) use of aspirin
CPT/HCPCS: 19303; 38900; 38500; 00400; 38792; 88305; 88307; 88331; 88341; 88342; 93005; 96374; 96375; 99221; A4648; A9520; G0378; J2405; Q9968